=== PATIENT | female | born 1950 | race Caucasian/White ===

== ENCOUNTER → 2016-04-09 | Outpatient (CLI) | payer OTHER ==
[~2016-04-09] MED LIST: ACET-1256 PO; ADVIN50/60 INH; ALBINS/ NEB; ALBU0.08 INH; ALBU1AER9 INH; ALD2525 PO; ASPI81TA28 PO; ATV/1 PO; CHOL20009 PO; COEN30CA6 PO; CPAP; DEXT1TAB50 PO; DEXT30TA7 PO; DICL1GEL28 EX; FRS/40 PO; GABA-113 PO; GABA1CAP PO; INSU70IN2 SC; LISI-461 PO; MECL-72 PO; MELATAB2 PO; METF1TAB85 PO; MONT1TAB3 PO; MULT-240 PO; OXGN; PARO1TAB29 PO; POLY335019 PO; POTA10TA30 PO; PRD20 PO; PRED10TA PO; PRT40 PO; ROSU5TAB PO; ROSU5TAB9 PO; SPIR1TAB71 PO; SPRIN/30 INH; SYMIN160 INH; THEO400T PO; TRAM-10 PO; VLTG EX; ZOLP10TA PO
--- NOTE | 2016-04-14 13:31 | CODING QUERY MEDICAL NECESSITY ---
SUPPORTING DIAGNOSIS NEEDED Dr. Alfrde, A supporting diagnosis is required for the test/procedure performed on this patient in order for us to be reimbursed by the patient's insurance. Please provide a supporting diagnosis for the following test/procedure listed below next to the test name along with your signature. *If there is no additional diagnosis for this patient that would support the following test/procedure please document that below next to the test/procedure. Test(s)/Procedure(s) that require a supporting diagnosis: * ([id number]) VITAMIN D ASSAY DIAGNOSIS: DATE OF SERVICE: 04/09/16 Provider Signature: Date: Thank you Festus Garcia [facility] Information Management Once completed, please kindly fax back to [phone] For questions please call [phone]
== END | disposition home or self-care (01) ==
LOC: C.LABBFT 12:13
PROVIDERS: ATTEND Internal Medicine
DX: Z11.59 Encounter for screening for other viral diseases (principal); M85.80 Other specified disorders of bone density and structure, unspecified site

== ENCOUNTER 2016-04-30 17:44 | Emergency (ER) | payer OTHER ==
[~2016-04-30] VITALS: Ht 157.5 cm; Wt 150.0 kg
[~2016-04-30 17:44] MED LIST changes: -ACET-1256 PO; -ADVIN50/60 INH; -ALBINS/ NEB; -ASPI81TA28 PO; -ATV/1 PO; -CHOL20009 PO; -COEN30CA6 PO; -DEXT1TAB50 PO; -DEXT30TA7 PO; -FRS/40 PO; -GABA-113 PO; -INSU70IN2 SC; -LISI-461 PO; -MECL-72 PO; -METF1TAB85 PO; -MONT1TAB3 PO; -MULT-240 PO; -PARO1TAB29 PO; -POLY335019 PO; -POTA10TA30 PO; -PRD20 PO; -ROSU5TAB PO; -SPIR1TAB71 PO; -SPRIN/30 INH; -TRAM-10 PO; -VLTG EX; -ZOLP10TA PO
[2016-04-30 17:46] VITALS: TEMP 37; Ht 157.5 cm; Wt 150.0 kg
[2016-04-30] MEDS ORDERED: PANTOprazole INJ 80 MG in DEXTROSE 5% 100ML 100 ML IV SCH (18:15)
[2016-04-30] MEDS ORDERED: SODIUM CHLORIDE 0.9% 500ML 500 ML IV ONE (18:15)
[2016-04-30] MEDS ORDERED: ONDANSETRON INJ 8 MG in DEXTROSE 5% 50ML 50 ML IV ONE (18:15)
[2016-04-30] MEDS ORDERED: ALBUT/IPRATROP 3MG/0.5MG NEB 3 ML VIAL INH ONE (18:30)
[2016-04-30] MEDS ORDERED: MoRPHine SULFATE 4 MG/ML 1 ML CARP\\VIAL IV STA (18:30)
[2016-04-30 18:32] LABS: BASO % 0.4 %; BASO ABS # 0.04 K/uL (0-0.2); COMPLETE YES; EOS % 1.9 %; HEMATOCRIT 44.9 % (37-47); IG% 0.2 %; LYMPH % 36.3 %; LYMPH ABS # 4.02 K/uL (1.2-3.4); MEAN CELL VOLUME 83.5 fL (80-100); MEAN CORPUSCULAR HGB CONC 34.7 g/dl (32-36); MEAN PLATELET VOLUME 9.7 fL (7.4-10.4); MONO % 7.2 %; PLATELET COUNT 388 K/uL (130-400); RED BLOOD COUNT 5.38 M/uL (4.2-5.4); WHITE BLOOD COUNT 11.06 K/uL (4.8-10.8)
--- NOTE | 2016-04-30 18:32 | DIAGNOSTIC IMAGING REPORT ---
CHEST ONE VIEW PORTABLE CLINICAL HISTORY: Cough and shortness of breath COMPARISON STUDY: 12/28/2015 FINDINGS: The cardiac and mediastinal contours are normal. There is no evidence of focal pulmonary consolidation. There is no evidence of failure. No pleural effusions are visualized.[ There are left basilar atelectatic changes present. Arthritic changes are present within the shoulders. IMPRESSION: No active disease in the chest. Electronically signed by: Jv Greer M.D. 04/30/2016 6:31 PM Dictated Date/Time: 04/30/2016 6:31 PM
[2016-04-30 18:42] LABS: BUN/CREATININE RATIO 20.3 (10-20); CREATININE 1.2 mg/dl (0.60-1.20); MAGNESIUM 1.9 mg/dl (1.8-2.4); POTASSIUM 3.6 mmol/L (3.5-5.1)
[2016-04-30 18:45] LABS: ALB/GLOB RATIO 1.1 (0.9-2)
--- NOTE | 2016-04-30 19:09 | EMERGENCY ROOM VISIT NOTE ---
History First contact with patient: 17:52 Chief Complaint: ABDOMINAL PAIN Stated Complaint: STOMACH,DIZZY, LIGHT HEADED Nursing Triage Summary: Patient states for the last week has been having N/V/D, burning pain in stomach , and inability to eat or drink without having sick feeling. Patient states feels light headed and dizzy. History of Present Illness The patient is a 65 year old female who presents to the Emergency Room with complaints of abdominal pain. The pain has been ongoing for 1 week. She describes a burning 7/10 diffusely through the abdomen that radiates both into the flanks and the back. She has also had diarrhea. She denies blood in the stool. She also has persistent nausea but has been unable to vomit. Today en route, her grandson say she had a combination of vomiting as well as sputum expectoration. Of note, prior to onset of abdominal pain and diarrhea, she was on Doxycycline for a respiratory tract infection. From a respiratory standpoint, she notes that she remains short of breath, the antibiotic has not helped. She is bringing up yellow sputum. She notes wheezing. She denies chest pain, palpitations, syncope or worsening lower extremity edema. She denies dysuria or frequency. She has not had fevers but has had nightsweats and chills. Review of Systems A 10 point review of systems was negative unless stated above. Past Medical/Surgical History Medical Problems: (1) Acute Renal Failure, Unspecified (2) Chronic obstructive lung disease (3) COPD (chronic obstructive pulmonary disease) (4) Diab W Ophthal Manifest, Type Ii Or Unspec Type, Uncntrld (5) Diab W Ophthal Manifest, Type Ii Or Unspec Type, Uncntrld (6) Diabetes mellitus (7) Hyperlipidemia (8) Hypertension Nos (9) UTI (urinary tract infection) Surgeries - Cataracts - Hysterectomy D&C - Bilateral Knee arthoscopy Family History Cancer Diabetes mellitus Heart disease Social History Smoking Status: Former Smoker Alcohol Use: none Drug Use: none Marital Status: Housing Status: lives alone Occupation Status: disabled Current/Historical Medications Scheduled Aspirin (Aspirin Ec), 81 MG PO QAM Cholecalciferol (Vitamin D), 6,000 UNIT PO QAM Coenzyme Q10 (Ubidecarenone) (Coq10), 10 MG PO DAILY Furosemide (Lasix), 40 MG PO QAM Gabapentin (Neurontin), 1 CAP PO TID Insulin Isophan/Regular (Novolin 70/30), 0 SC QPM Lisinopril (Zestril), 5 MG PO QAM Melatonin (Melatonin Maximum Strengt), 1 TAB PO HS Metformin Hcl (Metformin Hcl Er), 1,000 MG PO QAM Montelukast Sodium (Singulair), 10 MG PO DAILY Multiple Vitamins W/ Minerals (Womens One Daily), 1 TAB PO DAILY Oxygen (Oxygen), 3 LITERS NA CONTINOUS Pantoprazole (Pantoprazole Sodium), 40 MG PO QAM Potassium Chloride (Potassium Chloride Cr), 10 MEQ PO QAM Spironolactone & Hydrochloroth (Spironolactone/Hydrochlor), 1 TAB PO DAILY Theophylline (Theophylline ER), 400 MG PO Q12 Tiotropium [place] (Spiriva [place]), 1 CAP INH QPM Zolpidem Tartrate (Ambien), 10 MG PO HS [Cpap], N/A HS Scheduled PRN Acetaminophen (Tylenol), 1,000 MG PO BID PRN for Headache or Pain Albuterol Sulf (Proventil 0.083% 2.5MG/3ML), 3 ML NEB Q4 PRN for Wheezing Budesonide/Formoterol Fumarate (Symbicort 160/4.5 Inhaler), 2 PUFFS INH BID PRN for SOB/Wheezing Dextromethorphan-Guaifenesin (Mucinex Dm Maximum Streng), 1 TAB PO BID PRN for prn Diclofenac Sod (Voltaren), 4 GM EX QID PRN for Pain Lorazepam (Ativan), 1 MG PO TID PRN for Anxiety Paroxetine (Paxil), 60 MG PO QAM PRN for PRN Tramadol (Ultram), 50 MG PO TID PRN for Pain Allergies Coded Allergies: Aspirin (Verified Allergy, Mild, SLEEPY, 04/30/16) Codeine (Verified Allergy, Mild, SLEEPY, 04/30/16) Adhesives (Verified Allergy, Unknown, HIVES, 04/30/16) Atorvastatin (Verified Allergy, Unknown, ., 04/30/16) Pravastatin (Verified Allergy, Unknown, ., 04/30/16) Iodinated Diagnostic Agents (Verified Adverse Reaction, Mild, MCGHEE, ) Physical Exam Vital Signs Date Time Temp Pulse Resp B/P Pulse Ox O2 Delivery O2 Flow Rate FiO2 04/30/16 21:12 94 19 126/59 97 Nasal Cannula 3.0 04/30/16 19:01 97 17 156/93 98 Nasal Cannula 3.0 04/30/16 18:08 85 04/30/16 17:46 37.0 86 18 127/52 98 Room Air Pain Rating (0-10): 7 Physical Exam Constitutional: Vital signs as above were reviewed. Patient is in moderate distress Eyes: Pupils equal, round, and reactive to light. Extraocular muscles are intact. No proptosis. No photophobia. ENT: Mucous membranes are moist. Oropharynx is clear. No sinus tenderness. TMs are clear bilaterally. Cardiovascular: Heart with a regular rate and rhythm. Pulses are palpable and symmetric in all 4 extremities. No pedal edema appreciated. Respiratory: Lungs clear to auscultation bilaterally. No wheezes, rales, or rhonchi appreciated. No accessory muscle use. No retractions. No increased work of breathing. Bilateral coarse expiratory wheezing GI: Abdomen soft, nondistended. Normal active bowel sounds. No abdominal hernias appreciated. No rebound. No guarding. Diffuse abdominal pain No guarding or rigidity : No CVA tenderness appreciated. Musculoskeletal: No midline cervical or vertebral tenderness. No gross deformities. No bony tenderness. No calf swelling or tenderness Integumentary: Warm, dry, no rashes appreciated. Neurological: Patient awake, alert, and oriented x 3. Cranial nerves two through 12 grossly intact. Motor 5 out of 5 strength bilateral upper and lower extremities. Lymph: No cervical lymphadenopathy appreciated. Medical Decision & Procedures ER Provider Diagnostic Interpretation: CT SCAN OF THE ABDOMEN AND PELVIS WITHOUT CONTRAST CLINICAL HISTORY: Abdominal pain and vomiting COMPARISON STUDY: No previous studies for comparison. TECHNIQUE: CT scan of the abdomen and pelvis was performed from the lung bases to the proximal femurs. Images are reviewed in the axial, sagittal, and coronal planes. IV contrast was not administered for this examination. CT DOSE: 1810.57 mGy.cm FINDINGS: Lower chest: The heart is normal in size and configuration, without pericardial effusion. The lung bases and pleural spaces are clear. There are bibasal atelectatic changes. The heart is mildly enlarged. Liver: The unenhanced liver is normal in size, contour, and attenuation. There is no intrahepatic biliary ductal dilatation. Gallbladder: The gallbladder is mildly distended. No calculi are visualized. Spleen: Normal in size and attenuation. Pancreas: Unremarkable. Adrenal glands: There is mild bilateral adrenal gland thickening Kidneys: No renal, ureteral, or bladder calculi are visualized. Bowel: There are no transition zones indicate bowel obstruction. There are scattered colonic diverticula present. There is no acute diverticulitis. There is no pathologic bowel wall thickening. The appendix is not visualized with certainty. There are no findings to indicate acute appendicitis. There is a small hiatal hernia. Peritoneum: There is no intraperitoneal free air or abdominal ascites. There is a fat-containing umbilical hernia. Vasculature: The abdominal aorta is normal in course and caliber. Adenopathy: None. Pelvic viscera: The uterus is surgically absent. Skeletal structures: There is a superior endplate L4 Schmorl's node. IMPRESSION: 1. No acute intra-abdominal or pelvic findings 2. No renal, ureteral, or bladder calculi identified 3. No evidence of bowel obstruction. No evidence of free air 4. No evidence of pathologic bowel wall thickening Electronically signed by: Jv Greer M.D. 04/30/2016 8:25 PM Dictated Date/Time: 04/30/2016 8:21 PM Laboratory Results 04/30/16 18:14 Red Blood Count 5.38, Mean Corpuscular Volume 83.5, Mean Corpuscular Hemoglobin 29.0, Mean Corpuscular Hemoglobin Concent 34.7, Mean Platelet Volume 9.7, Neutrophils (%) (Auto) 54.0, Lymphocytes (%) (Auto) 36.3, Monocytes (%) (Auto) 7.2, Eosinophils (%) (Auto) 1.9, Basophils (%) (Auto) 0.4, Neutrophils # (Auto) 5.97, Lymphocytes # (Auto) 4.02, Monocytes # (Auto) 0.80, Eosinophils # (Auto) 0.21, Basophils # (Auto) 0.04 04/30/16 18:14 Test 04/30/16 18:14 04/30/16 18:45 04/30/16 19:45 White Blood Count 11.06 K/uL (4.8-10.8) Red Blood Count 5.38 M/uL (4.2-5.4) Hemoglobin 15.6 g/dL (12.0-16.0) Hematocrit 44.9 % (37-47) Mean Corpuscular Volume 83.5 fL (80-100) Mean Corpuscular Hemoglobin 29.0 pg (25-34) Mean Corpuscular Hemoglobin Concent 34.7 g/dl (32-36) Platelet Count 388 K/uL (130-400) Mean Platelet Volume 9.7 fL (7.4-10.4) Neutrophils (%) (Auto) 54.0 % Lymphocytes (%) (Auto) 36.3 % Monocytes (%) (Auto) 7.2 % Eosinophils (%) (Auto) 1.9 % Basophils (%) (Auto) 0.4 % Neutrophils # (Auto) 5.97 K/uL (1.4-6.5) Lymphocytes # (Auto) 4.02 K/uL (1.2-3.4) Monocytes # (Auto) 0.80 K/uL (0.11-0.59) Eosinophils # (Auto) 0.21 K/uL (0-0.5) Basophils # (Auto) 0.04 K/uL (0-0.2) RDW Standard Deviation 42.8 fL (36.4-46.3) RDW Coefficient of Variation 14.1 % (11.5-14.5) Immature Granulocyte % (Auto) 0.2 % Immature Granulocyte # (Auto) 0.02 K/uL (0.00-0.02) Anion Gap 11.0 mmol/L (3-11) Est Creatinine Clear Calc Drug Dose 64.7 ml/min Estimated GFR () 54.2 Estimated GFR (Non- 46.7 BUN/Creatinine Ratio 20.3 (10-20) Calcium Level 10.0 mg/dl (8.5-10.1) Magnesium Level 1.9 mg/dl (1.8-2.4) Total Bilirubin 0.4 mg/dl (0.2-1) Aspartate Amino Transf (AST/SGOT) 14 U/L (15-37) Alanine Aminotransferase (ALT/SGPT) 17 U/L (12-78) Alkaline Phosphatase 104 U/L (45-117) Total Protein 7.1 gm/dl (6.4-8.2) Albumin 3.7 gm/dl (3.4-5.0) Globulin 3.4 gm/dl (2.5-4.0) Albumin/Globulin Ratio 1.1 (0.9-2) Lipase 99 U/L (73-393) Urine Color YELLOW Urine Appearance CLEAR (CLEAR) Urine pH 6.5 (4.5-7.5) Urine Specific [place] 1.003 (1.000-1.030) Urine Protein NEG (NEG) Urine Glucose (UA) NEG (NEG) Urine Ketones NEG (NEG) Urine Occult Blood NEG (NEG) Urine Nitrite NEG (NEG) Urine Bilirubin NEG (NEG) Urine Urobilinogen NEG (NEG) Urine Leukocyte Esterase NEG (NEG) Influenza Type A Antigen Neg for Influ A (NEG) Influenza Type B Antigen Neg for Influ B (NEG) Medications Administered Medications (Trade) Dose Ordered Sig/Javier Route Start Time Stop Time Status Last Admin Dose Admin Sodium Chloride 500 ml @ 999 mls/hr Q31M ONCE IV 04/30/16 18:15 04/30/16 18:45 DC 04/30/16 18:41 999 MLS/HR Ondansetron HCl 8 mg/Dextrose 54 ml @ 200 mls/hr ONE ONCE IV 04/30/16 18:15 04/30/16 18:31 DC 04/30/16 18:42 200 MLS/HR Pantoprazole Sodium/Dextrose (Protonix Inj/D5 100ml) 120 ml @ 400 mls/hr NOW IV 04/30/16 18:15 04/30/16 23:59 04/30/16 19:00 400 MLS/HR Albuterol/ Ipratropium (Duoneb) 3 ml ONE ONCE INH 04/30/16 18:30 04/30/16 18:31 DC 04/30/16 18:41 3 ML Morphine Sulfate (MoRPHine SULFATE INJ) 4 mg NOW STAT IV 04/30/16 18:30 04/30/16 18:32 DC 04/30/16 19:00 4 MG Ondansetron HCl (ZOFRAN ODT 4MG Home Pack) 1 homepack UD ONCE PO 04/30/16 21:15 04/30/16 21:16 DC 04/30/16 21:21 1 HOMEPACK ED Course 18:00 - Patient evaluated CBC, CMP, Lipase Influenza, Ciff toxin, UA Protonix 80 mg IV; Zofran 8 mg IV, Duoneb treatment x 1 NSS 500 ml bolus 18:30 - CT scan ordered with oral contrast 4 mg Morphine IV 19:50 - Patient re-assessed; pain markedly improved Patient is trying to drink contrast but unable to Changed order to CT abdo/pelvis without any IV or oral contrast 20:30 - CT reviewed; negative for acute process 21:15 - Discussed results with patient; reassured of negative labs Encouraged supportive treatment and management at home; patient agreeable to plan 20:20 - Patient discharged with Zofran home pack Discharged in stable condition Medical Decision A thorough history was obtained, physical examination performed and the EMR was reviewed. The case was reviewed multiple times over with Dr. Charles Lyman during the patient's ED visit. Patient is a presenting with abdominal pain and diarrhea over 1 week. She was treated with a bolus of NSS, Zofran and a single dose of Morphine. Her labs reveal a borderline leukocytosis but no anemia or thrombocytopenia. Metabolic panel was grossly unremarkable. There were no gross electrolyte abnormalities. She notes she was treated recently for a pulmonary infection with Doxycycline and had diarrhea after onset of this. Doxy can certainly cause diarrhea without colitis, but we were also considering the possibility of C.difficile. We were unable to get a stool sample from the patient as she could not have a BM , this in an of itself favoring against C.diff. Furthermore a CT scan of the abdomen was unremarkable. We counselled patient at discharge to stop taking Doxycycline at this time. Patient was counselled on symptom control and supportive treatment. We felt it was appropriate to discontinue the antibiotics in light of diarrhea. She was encouraged to push PO fluids over the next 5-7 and see her provider in that time to ensure that she continues to improve. Impression Primary Impression: Abdominal pain Additional Impression: Gastroenteritis Ruled Out: Colitis, Obstruction of bowel Departure Information Dispostion Home / Self-Care Condition GOOD Referrals Chaka Alfred M.D. (PCP) Patient Instructions [facility] Additional Instructions You came to the ED with abdominal pain. We checked your lab work and it was all normal. You noted that the antibiotic you were on was causing diarrhea. As such we did CT scan to ensure that you did not have colitis. You did not have diarrhea in the ED, so we could not check a stool sample. We treated your with pain medicine, IV fluids and Zofran which helped your symptoms. We felt that you were well enough to go home and continue your recovery there. As you go home please ensure to stay well hydrated. Please take Tylenol or Motrin for fever or pain. If your symptoms fail to improve, acutely worsen, please seek medical attention immediately by either calling your primary care provider or going to your nearest emergency department. Otherwise, please see your primary care provider in 3-5 days to ensure that your symptoms continue to improve. It was a pleasure to be involved in your care and we wish you all the best. Problem Qualifiers
[2016-04-30 19:18] LABS: URINE APPEARANCE CLEAR (CLEAR); URINE BILIRUBIN NEG (NEG); URINE COLOR YELLOW; URINE NITRITE NEG (NEG); URINE PH 6.5 (4.5-7.5); URINE SPECIFIC GRAVITY 1.003 (1.000-1.030); UROBILINOGEN NEG (NEG); ZZUR CULT IF INDIC CLEAN CATCH NO
[2016-04-30 19:31] LABS: MANUAL MICROSCOPIC REQUIRED? NO; REVIEW REQ? NO
--- NOTE | 2016-04-30 19:57 | EMERGENCY ROOM VISIT NOTE ---
ED Visit Note First contact with patient: 17:52 Patient evaluated with resident. 65-year-old presented into the emergency room for evaluation nonspecific abdominal complaints with mild to moderate diffuse abdominal tenderness but otherwise appears well. Her general affect appears to be anxiety laden. Screening evaluation emergency room was negative for medical emergencies. She was discharged in no acute distress.
--- NOTE | 2016-04-30 20:27 | DIAGNOSTIC IMAGING REPORT ---
CT SCAN OF THE ABDOMEN AND PELVIS WITHOUT CONTRAST CLINICAL HISTORY: Abdominal pain and vomiting COMPARISON STUDY: No previous studies for comparison. TECHNIQUE: CT scan of the abdomen and pelvis was performed from the lung bases to the proximal femurs. Images are reviewed in the axial, sagittal, and coronal planes. IV contrast was not administered for this examination. CT DOSE: 1810.57 mGy.cm FINDINGS: Lower chest: The heart is normal in size and configuration, without pericardial effusion. The lung bases and pleural spaces are clear. There are bibasal atelectatic changes. The heart is mildly enlarged. Liver: The unenhanced liver is normal in size, contour, and attenuation. There is no intrahepatic biliary ductal dilatation. Gallbladder: The gallbladder is mildly distended. No calculi are visualized. Spleen: Normal in size and attenuation. Pancreas: Unremarkable. Adrenal glands: There is mild bilateral adrenal gland thickening Kidneys: No renal, ureteral, or bladder calculi are visualized. Bowel: There are no transition zones indicate bowel obstruction. There are scattered colonic diverticula present. There is no acute diverticulitis. There is no pathologic bowel wall thickening. The appendix is not visualized with certainty. There are no findings to indicate acute appendicitis. There is a small hiatal hernia. Peritoneum: There is no intraperitoneal free air or abdominal ascites. There is a fat-containing umbilical hernia. Vasculature: The abdominal aorta is normal in course and caliber. Adenopathy: None. Pelvic viscera: The uterus is surgically absent. Skeletal structures: There is a superior endplate L4 Schmorl's node. IMPRESSION: 1. No acute intra-abdominal or pelvic findings 2. No renal, ureteral, or bladder calculi identified 3. No evidence of bowel obstruction. No evidence of free air 4. No evidence of pathologic bowel wall thickening Electronically signed by: Jv Greer M.D. 04/30/2016 8:25 PM Dictated Date/Time: 04/30/2016 8:21 PM
[2016-04-30 21:12] VITALS: BP 126/59; PULSE 94; O2SAT 97
[2016-04-30] MEDS ORDERED: ONDANSETRON HOME PACK 4MG OD TAB PO ONE (21:15)
[2016-06-13] MEDS ORDERED: INSU70IN2 SC (00:18)
[2016-06-13] MEDS ORDERED: PARO1TAB29 PO (00:22)
[2016-06-13] MEDS ORDERED: ACET-1256 PO (00:24)
[2016-06-13] MEDS ORDERED: ZOLP10TA PO (08:33)
[2016-06-13] MEDS ORDERED: DEXT1TAB50 PO (13:05)
[2016-06-13] MEDS ORDERED: SPRIN/30 INH (13:30)
[2016-12-23] MEDS ORDERED: GABA-113 PO (13:07)
[2016-12-23] MEDS ORDERED: POLY335019 PO (13:09)
== END 2016-04-30 21:28 | disposition home or self-care (01) ==
LOC: C.EDB 17:45
DX: R10.9 Unspecified abdominal pain (principal); K52.9 Noninfective gastroenteritis and colitis, unspecified; K56.60 Unspecified intestinal obstruction; N17.9 Acute kidney failure, unspecified; J44.9 Chronic obstructive pulmonary disease, unspecified; E11.9 Type 2 diabetes mellitus without complications; E78.5 Hyperlipidemia, unspecified; I10 Essential (primary) hypertension; Z87.891 Personal history of nicotine dependence; Z79.82 Long term (current) use of aspirin; Z79.4 Long term (current) use of insulin; Z79.899 Other long term (current) drug therapy; Z99.81 Dependence on supplemental oxygen

== ENCOUNTER 2016-06-13 15:58 | Inpatient (IN) | payer OTHER ==
[~2016-06-13] VITALS: Ht 162.6 cm; Wt 148.6 kg
[~2016-06-13 15:58] MED LIST changes: +ACET-1256 PO; -ALBU0.08 INH; -ALBU1AER9 INH; -ALD2525 PO; +DEXT1TAB50 PO; -DICL1GEL28 EX; +INSU70IN2 SC; +PARO1TAB29 PO; -PRED10TA PO; -ROSU5TAB9 PO; +SPRIN/30 INH; +ZOLP10TA PO
[2016-06-13] MEDS ORDERED: MULT-240 PO (16:03)
[2016-06-13] MEDS ORDERED: ATV/1 PO (16:03)
[2016-06-13] MEDS ORDERED: MONT1TAB3 PO (16:03)
[2016-06-13] MEDS ORDERED: SPIR1TAB71 PO (16:03)
[2016-06-13] MEDS ORDERED: COEN30CA6 PO (16:03)
[2016-06-13] MEDS ORDERED: ALBUT/IPRATROP 3MG/0.5MG NEB 3 ML VIAL INH STA (16:21)
[2016-06-13] MEDS ORDERED: METHYLPREDNISOLONE 125 MG VIAL IV STA (16:21)
[2016-06-13 16:31] LABS: BASO % 0.2 %; BASO ABS # 0.03 K/uL (0-0.2); COMPLETE YES; HEMATOCRIT 45.2 % (37-47); IG% 0.2 %; LYMPH % 31.7 %; LYMPH ABS # 3.92 K/uL (1.2-3.4); MEAN CELL VOLUME 81.3 fL (80-100); MEAN CORPUSCULAR HEMOGLOBIN 28.1 pg (25-34); MEAN CORPUSCULAR HGB CONC 34.5 g/dl (32-36); MEAN PLATELET VOLUME 9.8 fL (7.4-10.4); MONO % 5.9 %; PLATELET COUNT 403 K/uL (130-400); RED BLOOD COUNT 5.56 M/uL (4.2-5.4); WHITE BLOOD COUNT 12.36 K/uL (4.8-10.8)
[2016-06-13 16:39] LABS: PARTIAL THROMBOPLASTIN RATIO 1.1; PROTHROMBIN TIME (PATIENT) 10.7 SECONDS (9.0-12.0)
[2016-06-13 16:46] LABS: CALCIUM 10.4 mg/dl (8.5-10.1); CREATININE 1.3 mg/dl (0.60-1.20); POTASSIUM 3.3 mmol/L (3.5-5.1)
--- NOTE | 2016-06-13 16:55 | DIAGNOSTIC IMAGING REPORT ---
CHEST ONE VIEW PORTABLE CLINICAL HISTORY: eval for pnea pneumonia COMPARISON STUDY: 04/30/2016 FINDINGS: Plate like atelectasis left base. Lungs otherwise appear clear. No evidence for cardiac enlargement. IMPRESSION: Minimal atelectasis left base. Otherwise negative study Electronically signed by: Sukhdev Islas M.D. 06/13/2016 4:53 PM Dictated Date/Time: 06/13/2016 4:52 PM
[2016-06-13] MEDS ORDERED: FRS/40 PO (17:08)
[2016-06-13] MEDS ORDERED: ROSU5TAB PO (17:28)
[2016-06-13] MEDS ORDERED: DEXT30TA7 PO (17:28)
[2016-06-13] MEDS ORDERED: MECL-72 PO (17:28)
[2016-06-13] MEDS ORDERED: ADVIN50/60 INH (17:28)
[2016-06-13] MEDS ORDERED: ACETAMINOPHEN 325 MG TAB PO PRN (17:30)
[2016-06-13] MEDS ORDERED: HYDROmorphone INJ 2 MG/ML SYR/VIAL IV PRN (17:30)
[2016-06-13] MEDS ORDERED: LEVALBUTEROL 1.25MG/3ML NEB INH PRN (17:30)
[2016-06-13] MEDS ORDERED: ASPI81TA28 PO (18:18)
[2016-06-13] MEDS ORDERED: METF1TAB85 PO (18:18)
[2016-06-13] MEDS ORDERED: POTA10TA30 PO (18:25)
[2016-06-13] MEDS ORDERED: OPTIRAY 320 IV PRN (19:15)
[2016-06-13] MEDS ORDERED: DiphenhydrAMINE HCL 50 MG/ML VIAL IV PRN (19:15)
[2016-06-13] MEDS ORDERED: LORAZEPAM 1 MG TAB PO PRN (19:15)
--- NOTE | 2016-06-13 19:34 | EMERGENCY ROOM VISIT NOTE ---
History Report prepared by Elida: Saad Jackman Under the Supervision of: Dr. Nacho Andres M.D. First contact with patient: 16:14 Chief Complaint: SHORTNESS OF BREATH Stated Complaint: SOB, CHEST TIGHTNESS History of Present Illness The patient is a 65 year old female with a history of CHF and COPD who presents to the Emergency Room with complaints of intermittent shortness of breath for the past two days. The patient also notes intermittent left-sided chest tightness for two days. The patient's symptoms are worse with exertion. She also complains of low grade fevers and chills. The patient notes that her Lasix dose with doubled earlier this week to 80 mg for increased lower extremity edema. The patient had two breathing treatments this morning. She is not on steroids. The patient is not a smoker. She currently denies having any chest tightness. Source of History: patient Onset: two days ago Position: other (respiratory) Quality: other (short of breath) Timing: intermittent Modifying Factors (Worsening): exertion Associated Symptoms: + chest pain, + chills, + fevers Review of Systems See HPI for pertinent positives & negatives. A total of 10 systems reviewed and were otherwise negative. Past Medical & Surgical Medical Problems: (1) Acute Renal Failure, Unspecified (2) Chest pain (3) Chronic obstructive lung disease (4) COPD (chronic obstructive pulmonary disease) (5) Diab W Ophthal Manifest, Type Ii Or Unspec Type, Uncntrld (6) Diab W Ophthal Manifest, Type Ii Or Unspec Type, Uncntrld (7) Diabetes mellitus (8) Hyperlipidemia (9) Hypertension Nos (10) UTI (urinary tract infection) Family History Cancer Diabetes mellitus Heart disease Social History Smoking Status: Former Smoker Alcohol Use: none Drug Use: none Marital Status: Housing Status: lives alone Occupation Status: disabled Current/Historical Medications Scheduled Aspirin (Aspirin Ec), 81 MG PO QAM Budesonide/Formoterol Fumarate (Symbicort 160/4.5 Inhaler), 2 PUFFS INH BID Cholecalciferol (Vitamin D), 6,000 UNIT PO QAM Coenzyme Q10 (Ubidecarenone) (Coq10), 10 MG PO DAILY Fluticasone Prop/Salmeterol (Advair Diskus 500/50 60 Dose), 1 PUFFS INH BID Furosemide (Lasix), 40 MG PO QAM Gabapentin (Neurontin), 2 CAP PO TID Insulin Isophan/Regular (Novolin 70/30), 0 SC QPM Lisinopril (Zestril), 5 MG PO QAM Meclizine Hcl (Dramamine Less Drowsy), 25 MG PO PRN UD Metformin Hcl (Metformin Hcl Er), 1,000 MG PO QAM Montelukast Sodium (Singulair), 10 MG PO DAILY Multiple Vitamins W/ Minerals (Womens One Daily), 1 TAB PO DAILY Pantoprazole (Pantoprazole Sodium), 40 MG PO QAM Potassium Chloride (Potassium Chloride Cr), 10 MEQ PO QAM Rosuvastatin Calcium (Crestor), 10 MG PO DAILY Spironolactone & Hydrochloroth (Spironolactone/Hydrochlor), 1 TAB PO DAILY Theophylline (Theophylline ER), 400 MG PO Q12 Tiotropium Stokes (Spiriva Handihaler), 1 CAP INH QPM Zolpidem Tartrate (Ambien), 10 MG PO HS [Cpap], N/A HS Scheduled PRN Acetaminophen (Tylenol), 1,000 MG PO BID PRN for Headache or Pain Albuterol Sulf (Proventil 0.083% 2.5MG/3ML), 3 ML NEB Q4 PRN for Wheezing Dextromethorphan-Guaifenesin (Mucinex Dm Maximum Streng), 1 TAB PO BID PRN for prn Diclofenac Sod (Voltaren), 4 GM EX QID PRN for Pain Lorazepam (Ativan), 1 MG PO TID PRN for Anxiety Paroxetine (Paxil), 60 MG PO QAM PRN for PRN Tramadol (Ultram), 50 MG PO TID PRN for Pain Allergies Coded Allergies: Aspirin (Verified Allergy, Mild, SLEEPY, 04/30/16) Codeine (Verified Allergy, Mild, SLEEPY, 04/30/16) Adhesives (Verified Allergy, Unknown, HIVES, 04/30/16) Atorvastatin (Verified Allergy, Unknown, ., 04/30/16) Pravastatin (Verified Allergy, Unknown, ., 04/30/16) Iodinated Diagnostic Agents (Verified Adverse Reaction, Mild, MCGHEE, ) Physical Exam Vital Signs Date Time Temp Pulse Resp B/P Pulse Ox O2 Delivery O2 Flow Rate FiO2 06/13/16 18:35 74 19 95 06/13/16 18:34 148/94 06/13/16 18:30 161/88 06/13/16 18:05 87 19 95 06/13/16 18:00 156/101 06/13/16 17:58 85 18 95 06/13/16 17:30 137/105 06/13/16 17:00 169/91 06/13/16 16:58 81 16 96 06/13/16 16:42 84 23 140/102 96 Nasal Cannula 3.0 06/13/16 16:39 78 06/13/16 16:30 140/102 06/13/16 16:27 96 Nasal Cannula 3.0 06/13/16 15:58 93 Room Air 06/13/16 15:58 37.7 88 23 157/108 93 Room Air 06/13/16 15:58 93 Room Air Physical Exam Constitutional: Vital signs reviewed. Eyes: Pupils are equal round reactive to light. Conjunctiva are noninjected. ENT: Pharynx is clear without erythema or exudate. Mucous membranes are moist. Neck supple without meningeal signs. Respiratory: Expiratory wheezing bilaterally. Breath sounds are equal bilaterally. Cardiovascular: Regular rate and rhythm. No rubs or gallops. GI: Soft, nondistended and nontender. Bowel sounds are present. Musculoskeletal: Bilateral extremity edema. No lower extremity tenderness. Integumentary: No cyanosis. Neurological: The patient is awake and alert. No focal deficits. Psychiatric: Normal affect. Medical Decision & Procedures ER Provider Diagnostic Interpretation: X-ray results as stated below per interpretation by me and the radiologist: CHEST ONE VIEW PORTABLE CLINICAL HISTORY: eval for pnea pneumonia COMPARISON STUDY: 04/30/2016 FINDINGS: Plate like atelectasis left base. Lungs otherwise appear clear. No evidence for cardiac enlargement. IMPRESSION: Minimal atelectasis left base. Otherwise negative study Electronically signed by: Sukhdev Islas M.D. 06/13/2016 4:53 PM Dictated Date/Time: 06/13/2016 4:52 PM Laboratory Results 06/13/16 16:05 Red Blood Count 5.56, Mean Corpuscular Volume 81.3, Mean Corpuscular Hemoglobin 28.1, Mean Corpuscular Hemoglobin Concent 34.5, Mean Platelet Volume 9.8, Neutrophils (%) (Auto) 61.0, Lymphocytes (%) (Auto) 31.7, Monocytes (%) (Auto) 5.9, Eosinophils (%) (Auto) 1.0, Basophils (%) (Auto) 0.2, Neutrophils # (Auto) 7.53, Lymphocytes # (Auto) 3.92, Monocytes # (Auto) 0.73, Eosinophils # (Auto) 0.12, Basophils # (Auto) 0.03 06/13/16 16:05 Test 06/13/16 16:05 06/13/16 16:16 White Blood Count 12.36 K/uL (4.8-10.8) Red Blood Count 5.56 M/uL (4.2-5.4) Hemoglobin 15.6 g/dL (12.0-16.0) Hematocrit 45.2 % (37-47) Mean Corpuscular Volume 81.3 fL (80-100) Mean Corpuscular Hemoglobin 28.1 pg (25-34) Mean Corpuscular Hemoglobin Concent 34.5 g/dl (32-36) Platelet Count 403 K/uL (130-400) Mean Platelet Volume 9.8 fL (7.4-10.4) Neutrophils (%) (Auto) 61.0 % Lymphocytes (%) (Auto) 31.7 % Monocytes (%) (Auto) 5.9 % Eosinophils (%) (Auto) 1.0 % Basophils (%) (Auto) 0.2 % Neutrophils # (Auto) 7.53 K/uL (1.4-6.5) Lymphocytes # (Auto) 3.92 K/uL (1.2-3.4) Monocytes # (Auto) 0.73 K/uL (0.11-0.59) Eosinophils # (Auto) 0.12 K/uL (0-0.5) Basophils # (Auto) 0.03 K/uL (0-0.2) RDW Standard Deviation 42.7 fL (36.4-46.3) RDW Coefficient of Variation 14.6 % (11.5-14.5) Immature Granulocyte % (Auto) 0.2 % Immature Granulocyte # (Auto) 0.03 K/uL (0.00-0.02) Prothrombin Time 10.7 SECONDS (9.0-12.0) Prothromb Time International Ratio 1.0 (0.9-1.1) Activated Partial Thromboplast Time 28.1 SECONDS (21.0-31.0) Partial Thromboplastin Ratio 1.1 D-Dimer 640 ug/L FEU (0-500) Anion Gap 12.0 mmol/L (3-11) Est Creatinine Clear Calc Drug Dose 60.1 ml/min Estimated GFR () 49.2 Estimated GFR (Non- 42.4 BUN/Creatinine Ratio 13.0 (10-20) Calcium Level 10.4 mg/dl (8.5-10.1) Pro-B-Type Natriuretic Peptide 29 pg/ml (0-900) Bedside Troponin I 0.000 ng/ml (0-0.045) Laboratory results as reviewed by me. Medications Administered Medications (Trade) Dose Ordered Sig/Javier Route Start Time Stop Time Status Last Admin Dose Admin Methylprednisolone Sodium Succinate (Solu-Medrol IV) 125 mg NOW STAT IV 06/13/16 16:21 06/13/16 16:22 DC 06/13/16 16:33 125 MG Albuterol/ Ipratropium (Duoneb) 3 ml NOW STAT INH 06/13/16 16:21 06/13/16 16:22 DC 06/13/16 16:33 3 ML ECG Indication: chest pain Rate (beats per minute): 90 Rhythm: sinus rhythm Findings: PVC, Q waves (lead III) ED Course 1617: The patient was evaluated in room B4a. A complete history and physical exam was performed. 1621: DuoNeb 3 ml INH, Solu-Medrol 125 mg IV. 1700: Reevaluated the patient. The patient has diminished wheezing, no chest pain at this time. 1703: Discussed the case with Dr. Tran, [facility] Hospitalist. The patient will be evaluated. Medical Decision This is a 65-year-old female who presents with chest pain and shortness of breath. Differential diagnosis includes unstable angina, AL, COPD exacerbation , bronchitis, pneumonia, CHF. I did perform a limited focused review of portions of the patient's old chart on the electronic medical record. The patient has had no recent pertinent visits to this hospital. I did evaluate the patient as noted above. The patient is presenting with left- sided chest tightness intermittently for the past 2 days. She also has shortness of breath which is worse with exertion. She is wheezing on examination. IV access was established. The patient was placed on a continuous monitoring and evaluation advisor. I did treat her with a DuoNeb. She was also given Solu-Medrol IV. She denies having any chest discomfort at this time. I did order and personally review the patient's 12-lead EKG and chest x-ray as described above. I did order and review the patient's blood work as noted in the electronic medical record. Initial troponin is negative. I did reassess the patient. Her wheezing is significantly improved. I did discuss the test results with the patient. I did recommend hospitalization for further evaluation of her symptoms and repeat cardiac enzymes. I did discuss the case with the hospitalist and bottle caser. Consults Time Called: 1700 Consulting Physician[facility] Return[facility] Call: [phone]: Discussed the case with Dr. Tran, [facility]. The patient will be evaluated. Impression Primary Impression: Left sided chest pain Additional Impression: COPD exacerbation Scribe Attestation The scribe's documentation has been prepared under my direct and personally reviewed by me in its entirety. I confirm that the note above accurately reflects all work, treatment, procedures, and medical decision making performed by me. Departure Information Dispostion Being Evaluated By Hospitalist Referrals Chaka Alfred M.D. (PCP) Patient Instructions My [facility] Health Problem Qualifiers
[2016-06-13] MEDS ORDERED: PHARMACY GLYCEMIC MGMT CONSULT PRN (19:51)
--- NOTE | 2016-06-13 19:55 | History and Physical ---
History & Physical Date of Service Jun 13, 2016. History & Physical H&P dictated. KE
[2016-06-13] MEDS ORDERED: CHOL20009 PO (20:02)
[2016-06-13] MEDS ORDERED: ALBINS/ NEB (20:02)
[2016-06-13] MEDS ORDERED: VLTG EX (20:03)
[2016-06-13] MEDS ORDERED: LISI-461 PO (20:07)
[2016-06-13 20:09] VITALS: BP 140/87; PULSE 83; TEMP 36.8; O2SAT 98; Ht 162.6 cm; Wt 148.6 kg
[2016-06-13] MEDS ORDERED: TRAM-10 PO (20:09)
--- NOTE | 2016-06-13 20:37 | Pharmacy Progress Note ---
Glycemic Control Intl Consult Date of Service Jun 13, 2016. Scope Glycemic Pharmacist consulted by Dr Elizabeth on 06/13/16 for glycemic control and to write orders per [facility] inpatient glycemic control protocol Objective Weight (Kilograms): 151.500 Accuchecks BSG (last 24hrs): Test 06/13/16 16:05 06/13/16 20:22 Random Glucose 153 mg/dl (70-99) Bedside Glucose 188 mg/dl (70-90) Laboratory Data (last 24hrs) Test 06/13/16 16:05 Anion Gap 12.0 mmol/L BUN/Creatinine Ratio 13.0 Blood Urea Nitrogen 17 mg/dl Creatinine 1.30 mg/dl Potassium Level 3.3 mmol/L Sodium Level 138 mmol/L White Blood Count 12.36 K/uL Red Blood Count 5.56 M/uL Hemoglobin 15.6 g/dL Hematocrit 45.2 % Mean Corpuscular Volume 81.3 fL Mean Corpuscular Hemoglobin 28.1 pg Mean Corpuscular Hemoglobin Concent 34.5 g/dl Platelet Count 403 K/uL Mean Platelet Volume 9.8 fL Neutrophils (%) (Auto) 61.0 % Lymphocytes (%) (Auto) 31.7 % Monocytes (%) (Auto) 5.9 % Eosinophils (%) (Auto) 1.0 % Basophils (%) (Auto) 0.2 % Neutrophils # (Auto) 7.53 K/uL Lymphocytes # (Auto) 3.92 K/uL Monocytes # (Auto) 0.73 K/uL Eosinophils # (Auto) 0.12 K/uL Basophils # (Auto) 0.03 K/uL Recent Pertinent Medications Outpatient Anti-diabetic Regimen: * Novolin 70/30 20-80 units (depends on BSGs) * Metformin ER 1000 mg PO daily * A1c = 6.3% 12/2015 Risk Factors for Insulin Resistance: * Steroids * Infection * Diet Assessment & Plan ASSESSMENT: * 65 yo F known to our glycemic service from previous admissions, now here with chest pain/COPD exacerbation * She received IV steroids in the ED and will be continued on high dose steroids as an inpatient * I spoke with patient regarding outpatient glycemic control- she seems very unreliable/noncompliant * Usually takes between 20-80 units of Novolin 70/30- depending on her BSG (no exact scale to follow) * If her BSG is <120 mg/dL she does not take insulin * Of note, she takes the 70/30 at bedtime only (usually with meals) * From past admissions she is sensitive to steroids and requires a tight basal/ bolus regimen * I will initiate a tight weight-based regimen (stress of 2-3) * Most recent A1c from December 2015 so a new A1c will be ordered with AM labs PLAN FOR INPATIENT GLYCEMIC CONTROL: * Hold outpatient Metformin * Basal insulin with LANTUS 30 units SQ BID * Correctional Insulin with NOVOLOG per scale ACHS + 0000,0400 checks due to IV steroids and regimen initiation * Goal Range: Low 100 mg/dL - High 140 mg/dL * Correction Factor: 10 mg/dL/unit * Nutritional / Prandial insulin per carb ratio of 1 unit per 4 grams CHO consumed * A1c ordered with AM labs * Please note that the plan above was derived based on current level of insulin resistance and hospital stress. These recommendations are appropriate for inpatient admission only. Plan of care upon discharge will need to be reassessed to avoid potential outpatient hypo/hyperglycemia. Thank you.
[2016-06-13] MEDS: IPRATROPIUM BROMIDE NEB SOLN 0.02% 2.5 ML VIAL INH SCH (20:42)
[2016-06-13 20:43] VITALS: PULSE 87; O2SAT 97
[2016-06-13] MEDS: LEVALBUTEROL 1.25MG/0.5ML NEB INH SCH (20:43)
[2016-06-13] MEDS ORDERED: DiphenhydrAMINE HCL 50 MG/ML VIAL IV STA (20:44)
--- NOTE | 2016-06-13 20:51 | HISTORY & PHYSICAL EXAMINATION ---
DATE OF ADMISSION: 06/13/2016 CHIEF COMPLAINT: Shortness of breath, nausea and chest pain. HISTORY OF PRESENT ILLNESS: This 65-year-old female patient describes having a 2-3 days' history of increasing shortness of breath with intermittent chest heaviness, it is nonradiating. She also has noticed some nausea that she feels is associated with some anxiety. She states she has been having anxiety throughout the day and the night. I asked if there is a specific reason or an event that happened and she said no she just is feeling anxious and she feels that is contributing to her shortness of breath and perhaps even her chest pain. PAST MEDICAL HISTORY: Significant for; obstructive sleep apnea, COPD, insulin requiring type 2 diabetes mellitus, hypertension, hyperlipidemia, anxiety disorder, depression, diabetic peripheral neuropathy and obesity. FAMILY HISTORY: Consistent with heart disease and diabetes in her mother. Coronary artery disease in both her maternal grandmother and maternal grandfather. SOCIAL HISTORY: She lives alone, is . She is a former smoker, had a 32-[id number]-pumy history, but quit in 1979. She does not use alcohol or illicit substances. She is disabled. ALLERGIES: TO ASPIRIN, CODEINE, ADHESIVES, ATORVASTATIN, PRAVASTATIN AND IODINATED DIAGNOSTIC AGENTS. Now specifically, her aspirin allergy is mild sleepiness and in fact she is taking aspirin now. Secondly, she actually does not have an allergy to iodinated diagnostic agents; she just says that she feels hot which I understand is not an unusual situation, but not an allergy. CURRENT MEDICATIONS: As follows: Tylenol on a p.r.n. basis, Proventil nebs q. 4, aspirin 81 mg daily, Symbicort 2 puffs b.i.d., vitamin D, Coenzyme Q10 10 mg daily, Voltaren gel q.i.d. p.r.n., Advair Diskus 1 puff b.i.d., Lasix 40 mg daily, Neurontin 200 mg three times a day, Novolin 70/30 no doses given, Zestril she uses 5 mg in the morning, Ativan 1 mg every eight hours as needed, meclizine 25 mg p.r.n., metformin she takes 1000 mg in the morning, Singulair 10 mg daily, Protonix 40 mg daily, Paxil 60 mg in the morning, potassium chloride 10 mEq daily, Crestor 10 mg daily, spironolactone/hydrochlorothiazide one tablet daily, theophylline 400 mg q. 12 hours, Spiriva one inhalation daily, Ultram 50 mg p.o. t.i.d. p.r.n., Ambien 10 mg at bedtime and CPAP at bedtime. REVIEW OF SYSTEMS: A 10-system review was performed, all of which were negative except those positives that I have placed in the HPI. PHYSICAL EXAMINATION: VITAL SIGNS: Blood pressure was 157/108, temperature 37.7, pulse 85 and respirations 18. Her pulse ox was 96% on three liters nasal cannula. GENERAL: The patient is awake, alert and oriented x3. She is not in acute distress. HEENT: TMs intact. No inflammation. Extraocular muscles are intact. Pupils are equal, round and reactive to light and accommodation. Mucous membranes were moist. Throat was clear. NECK: No JVD or lymphadenopathy. LUNGS: Showed expiratory wheezing bilaterally with decreased breath sounds at the bases. HEART: Regular, normal S1, S2, without murmurs, rubs or gallops. ABDOMEN: Soft, nontender, nondistended, positive bowel sounds. EXTREMITIES: No clubbing or cyanosis. There is trace edema at her ankles. NEUROLOGIC: Cranial nerves II-XII are grossly intact and nonfocal. PSYCHIATRIC: The patient did not appear anxious, although she expressed that she felt that way. LABORATORY DATA: White count 12.36, hemoglobin 15.6, hematocrit 45.2 and platelet count of 403,000. Sodium 138, potassium 3.3, chloride 96, CO2 30, BUN 17 and creatinine 1.3. BNP was 29. Her D-dimer was elevated at 640. Chest x-ray revealed minimal atelectasis at the left base, otherwise negative study. ASSESSMENT AND PLAN: Exacerbation of chronic obstructive pulmonary disease, chest pain rule out myocardial infarction, elevated D-dimer with chest pain and shortness of breath. I will evaluate with a CTA of the chest. Mild hypokalemia, correcting with IV fluids. Anxiety, continue SSRI and as needed benzodiazepines. Deep venous thrombosis prophylaxis in the form of subQ heparin. TEDs and SCDs. She was given IV Solu-Medrol 60 mg q. 6 hours and a combination of Rocephin and Zithromax due to chronic obstructive pulmonary disease exacerbation. She is continued on nebs. Type 2 diabetes mellitus insulin requiring. I have placed her on a sliding scale and asked pharmacy for assistance with glycemic control in the face of acute illness and utilizing IV steroids. I will follow her laboratories. CARTER
[2016-06-13] MEDS: SODIUM CHLOR 0.45% + 20MEQ KCL 1,000 ML IV SCH (20:58)
[2016-06-13] MEDS: CEFTRIAXONE SOD INJ 1 GM in DEXTROSE 5% ADD-VANTAGE 50ML 50 ML IV SCH (20:59)
[2016-06-13] MEDS ORDERED: LEVALBUTEROL/IPRATROPIUM NEB INH SCH (21:00)
[2016-06-13] MEDS ORDERED: METHYLPREDNISOLONE IV 60 MG in SYRINGE 0 ML IV ONE (21:00)
[2016-06-13] MEDS: NITROGLYCERIN OINT 2% 1GM PACKET EXT SCH (21:01)
[2016-06-13] MEDS: THEOPHYLLINE 400 MG EXTENDED REL TAB PO SCH (21:01)
[2016-06-13] MEDS: GABAPENTIN 100 MG CAP PO SCH (21:02)
[2016-06-13] MEDS: TIOTROPIUM BROMIDE 5 PUFF/90 MCG INH INH SCH (21:03)
[2016-06-13] MEDS: BUDESONIDE/FORMOTEROL FUMARATE 160/4.5 60 PUFFS/INHALER INH SCH (21:04)
[2016-06-13] MEDS: INSULIN GLARGINE SOLOSTAR 100 UNITS/ML 3 ML PEN SC SCH (21:42)
[2016-06-13] MEDS: INSULIN ASPART 100 UNITS/ML 3 ML PEN SC SCH (21:52)
[2016-06-13] MEDS ORDERED: METHYLPREDNISOLONE IV 60 MG in SYRINGE 0 ML IV SCH (22:00)
[2016-06-13 23:07] VITALS: BP 93/60; PULSE 82; TEMP 36.9; O2SAT 97
--- NOTE | 2016-06-13 23:10 | DIAGNOSTIC IMAGING REPORT ---
CT ANGIOGRAM OF THE CHEST CLINICAL HISTORY: Dyspnea. Atypical chest pain. COMPARISON STUDY: Chest CT dated 04/30/2014. TECHNIQUE: Following the IV administration of 99 cc of Optiray 320, CT angiogram of the chest was performed from the upper abdomen to the thoracic inlet utilizing the pulmonary embolus protocol. Images are reviewed in the axial, sagittal, and coronal planes. 3-D MIPS images are created and assessed. IV contrast was administered without complication. The examination is degraded by large body habitus, and by streak artifact from the body wall abutting the CT gantry. CT DOSE: 735.00 mGy.cm FINDINGS: Thyroid: Imaged portions of the thyroid gland are normal in size and attenuation. Thoracic aorta: There is mild atherosclerotic calcification of the thoracic aorta, which is normal in caliber and demonstrates standard 3-vessel arch anatomy. No dissection is seen. Pulmonary vasculature: The main pulmonary arteries are dilated suggesting pulmonary artery hypertension. There are no filling defects identified in main, lobar, or segmental pulmonary branches to suggest pulmonary embolus. Heart: The heart is top normal in size and without pericardial effusion. There is calcification of the coronary arteries and mitral annulus. Lungs and pleural spaces: Evaluation of the lung parenchyma is modestly degraded by respiratory motion artifact. Scarring at the left lung base is similar to previous. There is no airspace consolidation typical for pneumonia or pleural effusion. The trachea and central airways are clear. Mediastinum: There is no mediastinal lymphadenopathy. Grecia: Clear. Axillae: There is no axillary lymphadenopathy. Upper abdomen: There is a small hiatal hernia. Partially visualized upper abdominal viscera is otherwise within normal limits. Skeletal structures: The skeletal structures are osteopenic. Degenerative change is noted throughout the thoracic spine and in the shoulders. No lytic or blastic bony lesions are seen. IMPRESSION: 1. There is no evidence of pulmonary embolus in the main, lobar, or segmental pulmonary arteries. 2. There is no airspace consolidation or pleural effusion. Electronically signed by: Car Cantrell M.D. 06/13/2016 11:08 PM Dictated Date/Time: 06/13/2016 11:04 PM
[2016-06-13] MEDS: ZOLPIDEM TARTRATE 10 MG TAB PO SCH (23:11)
[2016-06-13] MEDS: AZITHROMYCIN IV 500 MG in DEXTROSE 5% 250ML 250 ML IV SCH (23:11)
[2016-06-13] MEDS: HEPARIN SOD 5000 UNIT/0.5 ML CARP SQ SCH (23:16)
[2016-06-14] VITALS (11 sets, daily range): BP systolic 102–116; BP diastolic 62–75; PULSE 69–92; TEMP 36.4–37; O2SAT 64–98
[2016-06-14] MEDS: INSULIN ASPART 100 UNITS/ML 3 ML PEN SC SCH ×6 (00:41→20:38)
[2016-06-14] MEDS: LEVALBUTEROL 1.25MG/0.5ML NEB INH SCH ×4 (01:56→19:38)
[2016-06-14] MEDS: IPRATROPIUM BROMIDE NEB SOLN 0.02% 2.5 ML VIAL INH SCH ×4 (01:56→19:38)
[2016-06-14] MEDS: NITROGLYCERIN OINT 2% 1GM PACKET EXT SCH ×4 (03:20→20:44)
[2016-06-14] MEDS: METHYLPREDNISOLONE IV 60 MG in SYRINGE 0 ML IV SCH ×4 (03:23→22:01)
[2016-06-14] MEDS: HEPARIN SOD 5000 UNIT/0.5 ML CARP SQ SCH ×3 (06:28→22:04)
[2016-06-14 06:29] LABS: COMPLETE YES; HEMATOCRIT 42.9 % (37-47); IG% 0.3 %; LYMPH % 14.8 %; LYMPH ABS # 1.33 K/uL (1.2-3.4); MEAN CELL VOLUME 81.7 fL (80-100); MEAN CORPUSCULAR HEMOGLOBIN 28.4 pg (25-34); MEAN CORPUSCULAR HGB CONC 34.7 g/dl (32-36); MEAN PLATELET VOLUME 10.2 fL (7.4-10.4); MONO % 0.8 %; NEUT % 84.1 %; PLATELET COUNT 388 K/uL (130-400); RED BLOOD COUNT 5.25 M/uL (4.2-5.4); WHITE BLOOD COUNT 9.01 K/uL (4.8-10.8)
[2016-06-14 07:01] LABS: ESTIMATED AVERAGE GLUCOSE 123 mg/dl; HA1C FLAG Normal (Normal)
[2016-06-14 07:02] LABS: BLOOD UREA NITROGEN 24 mg/dl (7-18); BUN/CREATININE RATIO 18.2 (10-20); CALCIUM 10.3 mg/dl (8.5-10.1); CARBON DIOXIDE 29 mmol/L (21-32); CHLORIDE 97 mmol/L (98-107); GLUCOSE 167 mg/dl (70-99); POTASSIUM 3.5 mmol/L (3.5-5.1); SODIUM 139 mmol/L (136-145)
[2016-06-14] MEDS: INSULIN GLARGINE SOLOSTAR 100 UNITS/ML 3 ML PEN SC SCH ×2 (07:59→20:36)
[2016-06-14] MEDS: BUDESONIDE/FORMOTEROL FUMARATE 160/4.5 60 PUFFS/INHALER INH SCH ×2 (08:01→20:35)
[2016-06-14] MEDS: ROSUVASTATIN CALCIUM 10 MG TAB PO SCH (08:04)
[2016-06-14] MEDS: SPIRONOLACTONE/HCTZ 25-25 PO SCH (08:04)
[2016-06-14] MEDS: ASPIRIN 81 MG ECTAB PO SCH (08:04)
[2016-06-14] MEDS: FUROSEMIDE 40 MG TAB PO SCH (08:05)
[2016-06-14] MEDS: GABAPENTIN 100 MG CAP PO SCH ×3 (08:05→20:42)
[2016-06-14] MEDS: PANTOprazole SOD 40 MG TAB PO SCH (08:06)
[2016-06-14] MEDS: PAROXETINE 20 MG TAB PO SCH (08:06)
[2016-06-14] MEDS: MONTELUKAST SOD 10 MG TAB PO SCH (08:06)
[2016-06-14] MEDS: THEOPHYLLINE 400 MG EXTENDED REL TAB PO SCH ×2 (08:07→20:42)
[2016-06-14] MEDS: LISINOPRIL 5 MG TAB PO SCH (08:07)
[2016-06-14] MEDS: TRAMADOL HCL 50 MG TAB PO PRN (10:00)
[2016-06-14] MEDS: SODIUM CHLOR 0.45% + 20MEQ KCL 1,000 ML IV SCH (13:59)
--- NOTE | 2016-06-14 14:47 | Pharmacy Progress Note ---
Glycemic Control: Progress Nt Date of Service Jun 14, 2016. Scope Glycemic Pharmacist consulted by Dr Elizabeth on 06/13/16 for glycemic control and to write orders per [facility] inpatient glycemic control protocol. Objective Accuchecks BSG (last 24hrs): Test 06/13/16 16:05 06/13/16 20:22 06/14/16 00:27 06/14/16 03:22 Random Glucose 153 mg/dl (70-99) Bedside Glucose 188 mg/dl (70-90) 277 mg/dl (70-90) 217 mg/dl (70-90) Test 06/14/16 05:55 06/14/16 06:29 06/14/16 11:35 Random Glucose 167 mg/dl (70-99) Bedside Glucose 167 mg/dl (70-90) 203 mg/dl (70-90) Laboratory Data (last 24hrs) Test 06/13/16 16:05 06/14/16 05:53 06/14/16 05:55 Anion Gap 12.0 mmol/L 13.0 mmol/L BUN/Creatinine Ratio 13.0 18.2 Blood Urea Nitrogen 17 mg/dl 24 mg/dl Creatinine 1.30 mg/dl 1.30 mg/dl Potassium Level 3.3 mmol/L 3.5 mmol/L Sodium Level 138 mmol/L 139 mmol/L White Blood Count 12.36 K/uL 9.01 K/uL Red Blood Count 5.56 M/uL 5.25 M/uL Hemoglobin 15.6 g/dL 14.9 g/dL Hematocrit 45.2 % 42.9 % Mean Corpuscular Volume 81.3 fL 81.7 fL Mean Corpuscular Hemoglobin 28.1 pg 28.4 pg Mean Corpuscular Hemoglobin Concent 34.5 g/dl 34.7 g/dl Platelet Count 403 K/uL 388 K/uL Mean Platelet Volume 9.8 fL 10.2 fL Neutrophils (%) (Auto) 61.0 % 84.1 % Lymphocytes (%) (Auto) 31.7 % 14.8 % Monocytes (%) (Auto) 5.9 % 0.8 % Eosinophils (%) (Auto) 1.0 % 0.0 % Basophils (%) (Auto) 0.2 % 0.0 % Neutrophils # (Auto) 7.53 K/uL 7.58 K/uL Lymphocytes # (Auto) 3.92 K/uL 1.33 K/uL Monocytes # (Auto) 0.73 K/uL 0.07 K/uL Eosinophils # (Auto) 0.12 K/uL 0.00 K/uL Basophils # (Auto) 0.03 K/uL 0.00 K/uL Hemoglobin A1c 5.9 % HbA1c: Test 06/14/16 05:53 Hemoglobin A1c 5.9 % (4.5-5.6) H Recent Pertinent Medications Outpatient Anti-diabetic Regimen: * Metformin ER 1Gm qam, Novolin 70%/30% from 20-80 units hs depending on blood sugar * A1c = 5.9 % 06/14/16 (which may indicate too tight glycemic control with some lows) The patient is currently receiving: * Basal insulin: Lantus 30 units every 12 hours * Correctional Insulin: Novolog Correction per scale ACHS Goal Range: Low 100 mg/dL - High 140 mg/dL Correction Factor: 10 mg/dL/unit * Prandial insulin: Per carb ratio of 1 unit per 4 grams CHO consumed * Oral Agents: none Risk Factors for Insulin Resistance: * Steroids: Solumedrol 60 mg q6h * Infection: COPD exacerbation, on Zithromax and Rocephin * IVF: 1/2NS +KCl @75 ml/hr, Zithromax and Rocephin mixed in D5W * Diet: type 2 diabetic AHA Assessment & Plan ASSESSMENT: * ADA & AACE recommend a goal blood sugar range 140-180 mg/dl for the majority of critically ill & non-critically ill patients. However, more stringent targets may be selected in individual cases. * Patient received 52 units of insulin after admission on 06/13. BSG's ranged from 167-277 mg/dl over past 24 hr. Will tighten carb ratio a bit (based on previous admission). I hesitate to be too aggressive given low A1c and probable low BSG's at home. Will reassess in am. PLAN FOR INPATIENT GLYCEMIC CONTROL: * Continuing Lantus 30 units SQ BID * Continuing correction factor 10 mg/dl/unit * Changing carb ratio to 1 unit per 3 grams CHO consumed * Continuing goal range Low 100 mg/dL - High 140 mg/dL * Please note that the plan above was derived based on current level of insulin resistance and hospital stress. These recommendations are appropriate for inpatient admission only. Plan of care upon discharge will need to be reassessed to avoid potential outpatient hypo/hyperglycemia. Thank you.
[2016-06-14] MEDS: TIOTROPIUM BROMIDE 5 PUFF/90 MCG INH INH SCH (20:39)
[2016-06-14] MEDS: CEFTRIAXONE SOD INJ 1 GM in DEXTROSE 5% ADD-VANTAGE 50ML 50 ML IV SCH (20:40)
[2016-06-14] MEDS: ZOLPIDEM TARTRATE 10 MG TAB PO SCH (20:42)
--- NOTE | 2016-06-14 21:27 | Progress Note ---
Subjective Date of Service: Jun 14, 2016. Subjective Pt evaluation today including: conversation w/ patient, physical exam, chart review, lab review, review of studies, review of inpatient medication list Pain: No pain at present Voiding: no voiding problems, no incontinence Pt is seen and examined by me. Pt feels much better, her SOB improved. Pt denies CP, dizziness and LOC. Pt denies abdominal pain, nausea, vomiting and diarrhea. Pt has a good appetite and sleep. Problem List Medical Problems: (1) Abdominal pain Status: Acute (2) COPD exacerbation Status: Acute (3) Failure of outpatient treatment Status: Acute (4) Gastroenteritis Status: Acute (5) Left sided chest pain Status: Acute (6) Pneumonia Status: Acute Review of Systems Constitutional: No chills, No fever Respiratory: + cough (dry cough), + shortness of breath, + wheezing Cardiac: No chest pain, No orthopnea, No palpitations Abdomen: No constipation, No diarrhea, No nausea, No pain, No vomiting Female : No dysuria, No urinary frequency Psychiatric: No depression symptoms Medications Medications (Trade) Dose Ordered Sig/Javier Route Start Time Stop Time Status Last Admin Dose Admin Aspirin (Ecotrin Tab) 81 mg QAM PO 06/14/16 09:00 07/14/16 08:59 06/14/16 08:04 81 MG Furosemide (Lasix Tab) 40 mg QAM PO 06/14/16 09:00 07/14/16 08:59 06/14/16 08:05 40 MG Lisinopril (Zestril Tab) 5 mg QAM PO 06/14/16 09:00 07/14/16 08:59 06/14/16 08:07 5 MG Montelukast Sodium (Singulair Tab) 10 mg DAILY PO 06/14/16 09:00 07/14/16 08:59 06/14/16 08:06 10 MG Pantoprazole Sodium (Protonix Tab) 40 mg QAM PO 06/14/16 09:00 07/14/16 08:59 06/14/16 08:06 40 MG Paroxetine HCl (pAXil TAB) 60 mg QAM PO 06/14/16 09:00 07/14/16 08:59 06/14/16 08:06 60 MG Rosuvastatin Calcium (Crestor Tab) 10 mg DAILY PO 06/14/16 09:00 07/14/16 08:59 06/14/16 08:04 10 MG HCTZ/ Spironolactone 1 tab 1 tab DAILY PO 06/14/16 09:00 07/14/16 08:59 06/14/16 08:04 1 TAB Azithromycin/ Dextrose (Zithromax IV/D5 250ml) 255 ml @ 125 mls/hr Q24H IV 06/13/16 22:00 06/20/16 21:59 06/13/16 23:11 125 MLS/HR Heparin Sodium (Porcine) (Heparin Sq 5000 Unit/0.5ml) 5,000 unit Q8 SQ 06/13/16 22:00 07/13/16 21:59 06/14/16 14:09 5,000 UNIT Insulin Aspart SLIDING SCALE G... 0000,0400 SC 06/14/16 00:00 07/14/16 00:00 06/14/16 03:25 8 UNITS Methylprednisolone Sodium Succinate/ Syringe (Solu-Medrol IV/ Syringe) 0.96 ml @ 1.5 mls/min Q6H IV 06/14/16 04:00 07/14/16 03:59 06/14/16 16:03 1.5 MLS/MIN Objective Vital Signs Date Time Temp Pulse Resp B/P Pulse Ox O2 Delivery O2 Flow Rate FiO2 06/14/16 20:11 36.9 82 18 111/62 98 CPAP 06/14/16 19:39 78 18 98 BiPAP/CPAP 3.0 06/14/16 16:00 Nasal Cannula 3.0 06/14/16 15:48 36.8 78 16 116/70 98 CPAP 06/14/16 14:22 69 18 64 BiPAP/CPAP 3.0 06/14/16 12:13 36.9 88 18 112/69 97 4.0 06/14/16 12:00 Nasal Cannula 3.0 06/14/16 08:03 37.0 92 18 112/75 95 Nasal Cannula 4.0 06/14/16 08:00 Nasal Cannula 3.0 06/14/16 07:52 88 18 95 BiPAP/CPAP 3.0 06/14/16 04:00 CPAP 3.0 06/14/16 03:19 36.4 79 19 115/75 97 CPAP 06/14/16 01:56 83 18 95 BiPAP/CPAP 3.0 06/14/16 00:30 111/66 06/13/16 23:59 CPAP 3.0 06/13/16 23:07 36.9 82 18 93/60 97 CPAP Physical Exam General Appearance: no apparent distress, + obese Neck: no adenopathy, no JVD Respiratory/Chest: no respiratory distress, no accessory muscle use, + wheezing (bilateral mid lung) Cardiovascular: regular rate, rhythm, no edema, no JVD, no murmur Abdomen: normal bowel sounds, non tender, soft Extremities: normal range of motion, normal inspection, no pedal edema Neurologic/Psychiatric: alert, normal mood/affect, oriented x 3 Skin: no rash Laboratory Results Last 24 Hours Test 06/13/16 21:57 06/14/16 00:27 06/14/16 03:22 06/14/16 05:53 Troponin I < 0.015 ng/ml Bedside Glucose 277 mg/dl 217 mg/dl Estimated Average Glucose 123 mg/dl Hemoglobin A1c 5.9 % Test 06/14/16 05:55 06/14/16 06:29 06/14/16 11:35 06/14/16 13:51 White Blood Count 9.01 K/uL Red Blood Count 5.25 M/uL Hemoglobin 14.9 g/dL Hematocrit 42.9 % Mean Corpuscular Volume 81.7 fL Mean Corpuscular Hemoglobin 28.4 pg Mean Corpuscular Hemoglobin Concent 34.7 g/dl Platelet Count 388 K/uL Mean Platelet Volume 10.2 fL Neutrophils (%) (Auto) 84.1 % Lymphocytes (%) (Auto) 14.8 % Monocytes (%) (Auto) 0.8 % Eosinophils (%) (Auto) 0.0 % Basophils (%) (Auto) 0.0 % Neutrophils # (Auto) 7.58 K/uL Lymphocytes # (Auto) 1.33 K/uL Monocytes # (Auto) 0.07 K/uL Eosinophils # (Auto) 0.00 K/uL Basophils # (Auto) 0.00 K/uL RDW Standard Deviation 43.4 fL RDW Coefficient of Variation 14.7 % Immature Granulocyte % (Auto) 0.3 % Immature Granulocyte # (Auto) 0.03 K/uL Sodium Level 139 mmol/L Potassium Level 3.5 mmol/L Chloride Level 97 mmol/L Carbon Dioxide Level 29 mmol/L Anion Gap 13.0 mmol/L Blood Urea Nitrogen 24 mg/dl Creatinine 1.30 mg/dl Est Creatinine Clear Calc Drug Dose 61.3 ml/min Estimated GFR () 49.2 Estimated GFR (Non- 42.4 BUN/Creatinine Ratio 18.2 Random Glucose 167 mg/dl Calcium Level 10.3 mg/dl Troponin I < 0.015 ng/ml < 0.015 ng/ml Bedside Glucose 167 mg/dl 203 mg/dl Test 06/14/16 16:06 06/14/16 20:21 Bedside Glucose 201 mg/dl 175 mg/dl Assessment and Plan 1) COPD exacerbation. - Continue neb treatment, IV solumedrol q6 hr, IV azithromycin and ceftriaxone , Xopenex, theophylline and montelukast. - will revaluate in am for possible decreasing steroid if resp status improved -CT angiogram of the Chest 1. There is no evidence of pulmonary embolus in the main, lobar, or segmental pulmonary arteries. 2. There is no airspace consolidation or pleural effusion - No elevated WBC and no shift 2) DM type 2 As per Pharmacy diabetic consult recommendation. Hold outpatient Metformin, Basal insulin with LANTUS 30 units SQ BID Correctional Insulin with NOVOLOG per scale ACHS + 0000,0400 checks due to IV steroids and regimen initiation Goal Range: Low 100 mg/dL - High 140 mg/dL Correction Factor: 10 mg/dL/unit Nutritional / Prandial insulin per carb ratio of 1 unit per 3 grams CHO consumed 3) Abdominal pain - resolved 4) Chest pain. - neg troponins. - No tele events noticed overnight - CP could be secondary to COPD, no resolved 5). HTN - well controlled , cont current medication 6) Peripheral neuropathy - As per home medication. 7) obesity 8) DVT proph - Heparin Continued [facility] stay due to: multiple IV medications needed Discharge planning: home
[2016-06-14] MEDS: AZITHROMYCIN IV 500 MG in DEXTROSE 5% 250ML 250 ML IV SCH (22:01)
[2016-06-15] VITALS (10 sets, daily range): BP systolic 96–123; BP diastolic 53–70; PULSE 70–98; TEMP 36.9–37.3; O2SAT 92–97
[2016-06-15] MEDS: INSULIN ASPART 100 UNITS/ML 3 ML PEN SC SCH ×6 (00:20→21:12)
[2016-06-15] MEDS: SODIUM CHLOR 0.45% + 20MEQ KCL 1,000 ML IV SCH ×2 (00:21→20:55)
[2016-06-15] MEDS: IPRATROPIUM BROMIDE NEB SOLN 0.02% 2.5 ML VIAL INH SCH ×3 (01:21→20:03)
[2016-06-15] MEDS: LEVALBUTEROL 1.25MG/0.5ML NEB INH SCH ×3 (01:21→20:03)
[2016-06-15] MEDS: METHYLPREDNISOLONE IV 60 MG in SYRINGE 0 ML IV SCH (03:59)
[2016-06-15] MEDS: NITROGLYCERIN OINT 2% 1GM PACKET EXT SCH ×4 (04:00→19:49)
[2016-06-15] MEDS: HEPARIN SOD 5000 UNIT/0.5 ML CARP SQ SCH ×3 (05:33→21:21)
[2016-06-15] MEDS: INSULIN GLARGINE SOLOSTAR 100 UNITS/ML 3 ML PEN SC SCH ×2 (08:03→20:01)
[2016-06-15] MEDS: BUDESONIDE/FORMOTEROL FUMARATE 160/4.5 60 PUFFS/INHALER INH SCH ×2 (08:06→19:52)
[2016-06-15] MEDS: SPIRONOLACTONE/HCTZ 25-25 PO SCH (08:07)
[2016-06-15] MEDS: ROSUVASTATIN CALCIUM 10 MG TAB PO SCH (08:07)
[2016-06-15] MEDS: ASPIRIN 81 MG ECTAB PO SCH (08:07)
[2016-06-15] MEDS: FUROSEMIDE 40 MG TAB PO SCH (08:08)
[2016-06-15] MEDS: MONTELUKAST SOD 10 MG TAB PO SCH (08:09)
[2016-06-15] MEDS: PANTOprazole SOD 40 MG TAB PO SCH (08:09)
[2016-06-15] MEDS: GABAPENTIN 100 MG CAP PO SCH ×3 (08:09→19:54)
[2016-06-15] MEDS: PAROXETINE 20 MG TAB PO SCH (08:09)
[2016-06-15] MEDS: LISINOPRIL 5 MG TAB PO SCH (08:10)
[2016-06-15] MEDS: THEOPHYLLINE 400 MG EXTENDED REL TAB PO SCH ×2 (08:10→19:55)
[2016-06-15] MEDS: TRAMADOL HCL 50 MG TAB PO PRN (08:14)
[2016-06-15] MEDS ORDERED: NURSING VERBAL MED ORDER ONE (09:45)
[2016-06-15] MEDS: METHYLPREDNISOLONE IV 40 MG in SYRINGE 0 ML IV SCH ×2 (12:26→19:53)
--- NOTE | 2016-06-15 15:58 | Progress Note ---
Subjective Date of Service: Jun 15, 2016. Subjective Pt evaluation today including: conversation w/ patient, physical exam, chart review, lab review, review of studies, review of inpatient medication list Pain: no pain reported PO Intake: yes Voiding: no voiding problems, no incontinence Pt is seen and examined by me. Pt feels much better, her SOB improved . Pt denies CP, dizziness and LOC. Pt denies abdominal pain, nausea, vomiting and diarrhea. Pt has a good appetite and sleep. Problem List Medical Problems: (1) Abdominal pain Status: Acute (2) COPD exacerbation Status: Acute (3) Failure of outpatient treatment Status: Acute (4) Gastroenteritis Status: Acute (5) Left sided chest pain Status: Acute (6) Pneumonia Status: Acute Review of Systems Constitutional: No chills, No fever Respiratory: + cough , improved shortness of breath, + wheezing Cardiac: No chest pain, No orthopnea, No palpitations Abdomen: No constipation, No diarrhea, No nausea, No pain, No vomiting Female : No dysuria, No urinary frequency Psychiatric: No depression symptoms Medications Medications (Trade) Dose Ordered Sig/Javier Route Start Time Stop Time Status Last Admin Dose Admin Methylprednisolone Sodium Succinate/ Syringe (Solu-Medrol IV/ Syringe) 0.64 ml @ 1.5 mls/min Q8@0400,1200,2000 IV 06/15/16 12:00 07/15/16 11:59 06/15/16 12:26 1.5 MLS/MIN Objective Vital Signs Date Time Temp Pulse Resp B/P Pulse Ox O2 Delivery O2 Flow Rate FiO2 06/15/16 12:03 37.2 84 18 114/68 96 Nasal Cannula 3.0 06/15/16 12:00 Nasal Cannula 3.0 06/15/16 08:13 37.3 89 18 96/53 92 Nasal Cannula 3.0 06/15/16 08:00 Nasal Cannula 3.0 06/15/16 06:59 79 18 95 BiPAP/CPAP 3.0 06/15/16 04:00 CPAP 3.0 06/15/16 03:20 37.1 70 18 113/62 97 CPAP 06/15/16 01:21 79 18 95 BiPAP/CPAP 3.0 06/14/16 23:59 CPAP 3.0 06/14/16 23:58 37.0 75 16 102/62 94 CPAP 06/14/16 20:11 36.9 82 18 111/62 98 CPAP 06/14/16 20:00 CPAP 3.0 06/14/16 19:39 78 18 98 BiPAP/CPAP 3.0 06/14/16 16:00 Nasal Cannula 3.0 Physical Exam General Appearance: no apparent distress Neck: supple Respiratory/Chest: chest non-tender, no respiratory distress, no accessory muscle use, + wheezing Cardiovascular: regular rate, rhythm, no murmur Abdomen: normal bowel sounds, non tender, soft Extremities: normal range of motion, non-tender Neurologic/Psychiatric: alert, normal mood/affect, oriented x 3 Laboratory Results Last 24 Hours Test 06/14/16 16:06 06/14/16 20:21 06/15/16 00:01 06/15/16 03:54 Bedside Glucose 201 mg/dl 175 mg/dl 241 mg/dl 174 mg/dl Test 06/15/16 06:38 06/15/16 11:27 Bedside Glucose 173 mg/dl 211 mg/dl Assessment and Plan 1) COPD exacerbation. - Continue neb treatment, will taper sterids to 40mg IV TID, IV azithromycin and ceftriaxone , Xopenex, theophylline and montelukast. -CT angiogram of the Chest 1. There is no evidence of pulmonary embolus in the main, lobar, or segmental pulmonary arteries. 2. There is no airspace consolidation or pleural effusion - No elevated WBC and no shift - okay to Dc tele. 2) DM type 2 As per Pharmacy diabetic consult recommendation. Hold outpatient Metformin, Basal insulin with LANTUS 30 units SQ BID Correctional Insulin with NOVOLOG per scale ACHS + 0000,0400 checks due to IV steroids and regimen initiation Goal Range: Low 100 mg/dL - High 140 mg/dL Correction Factor: 10 mg/dL/unit Nutritional / Prandial insulin per carb ratio of 1 unit per 3 grams CHO consumed 3) Abdominal pain - resolved 4) Chest pain. - neg troponins. - No tele events noticed overnight - CP could be secondary to COPD, no resolved 5). HTN - well controlled , cont current medication 6) Peripheral neuropathy - As per home medication. 7) obesity 8) DVT proph - Heparin Continued [facility] stay due to: multiple IV medications needed Discharge planning: home
[2016-06-15] MEDS: TIOTROPIUM BROMIDE 5 PUFF/90 MCG INH INH SCH (19:54)
[2016-06-15] MEDS: CEFTRIAXONE SOD INJ 1 GM in DEXTROSE 5% ADD-VANTAGE 50ML 50 ML IV SCH (21:12)
[2016-06-15] MEDS: ZOLPIDEM TARTRATE 10 MG TAB PO SCH (21:15)
[2016-06-15] MEDS: AZITHROMYCIN IV 500 MG in DEXTROSE 5% 250ML 250 ML IV SCH (22:06)
[2016-06-16] VITALS (9 sets, daily range): BP systolic 111–155; BP diastolic 62–72; PULSE 80–88; TEMP 37.1–37.3; O2SAT 93–97
[2016-06-16] MEDS: IPRATROPIUM BROMIDE NEB SOLN 0.02% 2.5 ML VIAL INH SCH ×4 (01:10→19:36)
[2016-06-16] MEDS: LEVALBUTEROL 1.25MG/0.5ML NEB INH SCH ×4 (01:10→19:36)
[2016-06-16] MEDS ORDERED: INSULIN ASPART 100 UNITS/ML 3 ML PEN SC SCH (02:00)
[2016-06-16] MEDS: NITROGLYCERIN OINT 2% 1GM PACKET EXT SCH ×4 (02:29→22:36)
[2016-06-16] MEDS: SODIUM CHLOR 0.45% + 20MEQ KCL 1,000 ML IV SCH ×2 (02:52→14:29)
[2016-06-16] MEDS: METHYLPREDNISOLONE IV 40 MG in SYRINGE 0 ML IV SCH ×2 (04:57→13:04)
[2016-06-16] MEDS: HEPARIN SOD 5000 UNIT/0.5 ML CARP SQ SCH ×3 (05:34→22:43)
[2016-06-16] MEDS: MONTELUKAST SOD 10 MG TAB PO SCH (08:28)
[2016-06-16] MEDS: PANTOprazole SOD 40 MG TAB PO SCH (08:28)
[2016-06-16] MEDS: PAROXETINE 20 MG TAB PO SCH (08:28)
[2016-06-16] MEDS: ASPIRIN 81 MG ECTAB PO SCH (08:28)
[2016-06-16] MEDS: THEOPHYLLINE 400 MG EXTENDED REL TAB PO SCH ×2 (08:29→22:35)
[2016-06-16] MEDS: SPIRONOLACTONE/HCTZ 25-25 PO SCH (08:29)
[2016-06-16] MEDS: FUROSEMIDE 40 MG TAB PO SCH (08:29)
[2016-06-16] MEDS: ROSUVASTATIN CALCIUM 10 MG TAB PO SCH (08:30)
[2016-06-16] MEDS: LISINOPRIL 5 MG TAB PO SCH (08:30)
[2016-06-16] MEDS: GABAPENTIN 100 MG CAP PO SCH ×3 (08:31→22:35)
[2016-06-16] MEDS: BUDESONIDE/FORMOTEROL FUMARATE 160/4.5 60 PUFFS/INHALER INH SCH ×2 (08:32→22:32)
[2016-06-16] MEDS: INSULIN ASPART 100 UNITS/ML 3 ML PEN SC SCH ×4 (08:43→22:42)
[2016-06-16] MEDS: INSULIN GLARGINE SOLOSTAR 100 UNITS/ML 3 ML PEN SC SCH ×2 (08:44→22:42)
[2016-06-16 09:05] LABS: BUN/CREATININE RATIO 25.8 (10-20); CALCIUM 9.5 mg/dl (8.5-10.1); CREATININE 1.1 mg/dl (0.60-1.20); POTASSIUM 3.9 mmol/L (3.5-5.1)
--- NOTE | 2016-06-16 10:43 | Pharmacy Progress Note ---
Glycemic Control: Progress Nt Date of Service Jun 16, 2016. Scope Glycemic Pharmacist consulted by Dr Elizabeth on 06/13/16 for glycemic control and to write orders per [facility] inpatient glycemic control protocol. Objective Accuchecks BSG (last 24hrs): Test 06/15/16 11:27 06/15/16 16:17 06/15/16 19:39 06/16/16 02:21 Bedside Glucose 211 mg/dl (70-90) 124 mg/dl (70-90) 135 mg/dl (70-90) 217 mg/dl (70-90) Test 06/16/16 08:03 06/16/16 08:17 Bedside Glucose 145 mg/dl (70-90) Random Glucose 155 mg/dl (70-99) HbA1c: Test 06/14/16 05:53 Hemoglobin A1c 5.9 % (4.5-5.6) H Recent Pertinent Medications Outpatient Anti-diabetic Regimen: * Metformin ER 1Gm qam, Novolin 70%/30% from 20-80 units hs depending on blood sugar The patient is currently receiving: * Basal insulin: Lantus 30 units every 12 hours * Correctional Insulin: Novolog Correction per scale ACHS Goal Range: Low 100 mg/dL - High 140 mg/dL Correction Factor: 10 mg/dL/unit * Prandial insulin: Per carb ratio of 1 unit per 3 grams CHO consumed * Oral Agents: On hold for admission Risk Factors for Insulin Resistance: * Steroids * Infection * Diet Assessment & Plan ASSESSMENT: * Patient has been requiring ~ 135units of insulin per day for adequate glycemic control * BSGs ranging 124-211mg/dl * 60 units/day (~45% of regimen) is basal insulin & 75 units/day is prandial/ correctional insulin * OK for regimen to be weighted towards bolus insulin for steroid induced hyperglycemia to prevent hypo when steroids tapered * Steroids decreased from SoluMedrol 60mg IV Q6hrs --> 40mg IV Q8hrs. Expect improvement in BSGs with step down in steroid dosing. Will empirically decrease regimen to prevent hypo. * ADA & AACE recommend a goal blood sugar range 140-180 mg/dl for the majority of critically ill & non-critically ill patients. However, more stringent targets may be selected in individual cases. Will utilize more stringent goal range of 100-140mg/dl based on age and tight glycemic control at baseline. PLAN FOR INPATIENT GLYCEMIC CONTROL: * Continue to hold outpatient oral diabetes medications * Continue Basal insulin with Lantus 30 units SQ BID * May need to taper dosing 06/17/16 AM. Based on 12/2015 admission, Lantus 30 units BID was adequate when patient was on significantly less steroid dosing. Will monitor closely and decrease dosing when BSGs trending downwards * Empirically loosen NOVOLOG per scale ACHS or Q6hrs while NPO * Goal Range: Low 110 mg/dL - High 140 mg/dL (was 100-140) * Correction Factor: 10 mg/dL/unit * Nutritional / Prandial insulin per carb ratio of 1 unit per 4 grams CHO consumed (was 3) * Please note that the plan above was derived based on current level of insulin resistance and hospital stress. These recommendations are appropriate for inpatient admission only. Plan of care upon discharge will need to be reassessed to avoid potential outpatient hypo/hyperglycemia. Thank you.
[2016-06-16] MEDS ORDERED: GUAIFENESIN 600 MG TABCR PO ONE (11:00)
--- NOTE | 2016-06-16 13:48 | Clinical Documentation Query ---
CLINICAL DOCUMENTATION QUERY Dr. GUERRERO, In your clinical opinion does this patient have: ( ) Chronic respiratory failure ( ) Other explanation of clinical findings (Please Explain) ( ) Unable to determine (Please Define) ( ) Need to Discuss ( ) Not Agree The medical record reflects the following clinical findings, treatment, and risk factors. Clinical Indicators: Documentation in social service note indicates pt wears continuous home O2 support. Treatment: home meds include O2 support, albuterol nebs prn, symbicort, advair diskus, singular, theophylline, spiriva Risk Factors: obesity, SARIKA, COPD, Please clarify and document your clinical opinion in the progress notes and discharge summary. Terms such as "probable", "suspected", "likely", "questionable", "possible", or "still to be ruled out" are acceptable. IF IN AGREEMENT, YOU MUST DOCUMENT ABOVE DIAGNOSTIC STATEMENT IN DAILY PROGRESS NOTES AND DISCHARGE SUMMARY. This document is not part of the patient's record. Thank You, Etelvina Jones RN [phone]
--- NOTE | 2016-06-16 20:01 | Family Medicine Progress Note ---
Progress Note Date of Service Jun 16, 2016. Subjective Pt evaluation today including: conversation w/ patient, physical exam, chart review, lab review, review of studies, review of inpatient medication list Voiding: no voiding problems Feels generally fatigued this morning. Notes she has not got out of bed much since admission. She is limited with movement due to pain with her bilateral knee OA. She is currently back to her home O2 requirement of 3 L. All Other Systems: Reviewed and Negative Medications Current Inpatient Medications Medications (Trade) Dose Ordered Sig/Javier Route Start Time Stop Time Status Last Admin Dose Admin Levalbuterol (Xopenex 1.25MG/ 3ML Neb) 1.25 mg Q2HWA PRN INH 06/13/16 17:30 07/13/16 17:29 Acetaminophen (Tylenol Tab) 650 mg Q6H PRN PO 06/13/16 17:30 07/13/16 17:29 Hydromorphone HCl (Dilaudid Inj) 1.5 mg Q3H PRN IV 06/13/16 17:30 06/27/16 17:29 Tramadol HCl (Ultram Tab) 50 mg Q4H PRN PO 06/13/16 17:30 07/13/16 17:29 06/15/16 08:14 50 MG Nitroglycerin (Nitroglycerin 2% Oint) 0.5 inch Q6H EXT 06/13/16 20:00 07/13/16 19:59 06/16/16 14:31 0.5 INCH Ipratropium [place] (Atrovent 0.02% 0.5MG/2.5ML Neb) 0.5 mg Q6R INH 06/13/16 21:00 07/13/16 20:59 06/16/16 07:33 0.5 MG Levalbuterol (Xopenex 1.25MG/ 0.5ML Neb) 1.25 mg Q6R INH 06/13/16 21:00 07/13/16 20:59 06/16/16 07:33 1.25 MG Aspirin (Ecotrin Tab) 81 mg QAM PO 06/14/16 09:00 07/14/16 08:59 06/16/16 08:28 81 MG Budesonide/ Formoterol Fumarate (Symbicort 160/ 4.5 Inh) 2 puffs BID INH 06/13/16 21:00 07/13/16 20:59 06/16/16 08:32 2 PUFFS Furosemide (Lasix Tab) 40 mg QAM PO 06/14/16 09:00 07/14/16 08:59 06/16/16 08:29 40 MG Gabapentin (Neurontin Cap) 200 mg TID PO 06/13/16 21:00 07/13/16 20:59 06/16/16 14:27 200 MG Lisinopril (Zestril Tab) 5 mg QAM PO 06/14/16 09:00 07/14/16 08:59 06/16/16 08:30 5 MG Lorazepam (Ativan Tab) 1 mg TID PRN PO 06/13/16 19:15 07/13/16 19:14 Montelukast Sodium (Singulair Tab) 10 mg DAILY PO 06/14/16 09:00 07/14/16 08:59 06/16/16 08:28 10 MG Pantoprazole Sodium (Protonix Tab) 40 mg QAM PO 06/14/16 09:00 07/14/16 08:59 06/16/16 08:28 40 MG Paroxetine HCl (pAXil TAB) 60 mg QAM PO 06/14/16 09:00 07/14/16 08:59 06/16/16 08:28 60 MG Rosuvastatin Calcium (Crestor Tab) 10 mg DAILY PO 06/14/16 09:00 07/14/16 08:59 06/16/16 08:30 10 MG HCTZ/ Spironolactone (Aldactazide Tab) 1 tab DAILY PO 06/14/16 09:00 07/14/16 08:59 06/16/16 08:29 1 TAB Theophylline (Theophylline Er) 400 mg Q12 PO 06/13/16 21:00 07/13/16 20:59 06/16/16 08:29 400 MG Tiotropium [place] (Spiriva Handihaler Inhaler) 1 puff QPM INH 06/13/16 21:00 07/13/16 20:59 06/15/16 19:54 1 PUFF Zolpidem Tartrate 10 mg 10 mg HS PO 06/13/16 21:00 07/13/16 20:59 06/15/16 21:15 10 MG Ceftriaxone Sodium 1 gm/ Dextrose 50 ml @ 100 mls/hr Q24H IV 06/13/16 21:00 06/20/16 20:59 06/15/16 21:12 100 MLS/HR Azithromycin/ Dextrose (Zithromax IV/D5 250ml) 255 ml @ 125 mls/hr Q24H IV 06/13/16 22:00 06/20/16 21:59 06/15/16 22:06 125 MLS/HR Heparin Sodium (Porcine) (Heparin Sq 5000 Unit/0.5ml) 5,000 unit Q8 SQ 06/13/16 22:00 07/13/16 21:59 06/16/16 14:29 5,000 UNIT Diphenhydramine HCl (Benadryl Inj) 25 mg Q6 PRN IV 06/13/16 19:15 07/13/16 19:14 Ioversol 100 ml 100 ml UD PRN IV 06/13/16 19:15 06/17/16 19:14 Potassium Chloride/Sodium Chloride (1/2 Nss + 20meq KCl 1000ml) 1,000 ml @ 75 mls/hr [id number] IV 06/13/16 20:30 07/13/16 20:29 06/16/16 14:29 75 MLS/HR Insulin Aspart (novoLOG ASPART) SLIDING SCALE G... ACHS SC 06/13/16 21:00 07/13/16 20:59 06/16/16 13:09 22 UNITS Miscellaneous Information (Consult Glycemic Management Pharmacy) 1 ea UD PRN N/A 06/13/16 19:51 07/13/16 19:50 Insulin Glargine 30 unit 30 unit BID SC 06/13/16 21:00 07/13/16 20:59 06/16/16 08:44 30 UNIT Methylprednisolone Sodium Succinate/ Syringe (Solu-Medrol IV/ Syringe) 0.64 ml @ 1.5 mls/min Q8@0400,1200,2000 IV 06/15/16 12:00 07/15/16 11:59 06/16/16 13:04 1.5 MLS/MIN Guaifenesin (Mucinex Contr Rel Tab) 600 mg Q12 PO 06/16/16 21:00 07/16/16 20:59 Objective Vital Signs Date Time Temp Pulse Resp B/P Pulse Ox O2 Delivery O2 Flow Rate FiO2 06/16/16 16:38 37.1 82 18 116/62 96 Room Air 2.5 06/16/16 16:08 96 Nasal Cannula 3.0 06/16/16 14:32 80 125/72 06/16/16 08:00 Nasal Cannula 3.0 06/16/16 07:33 80 18 96 BiPAP/CPAP 3.0 06/16/16 07:28 37.3 83 16 155/68 93 CPAP 06/16/16 01:10 83 18 96 BiPAP/CPAP 3.0 06/16/16 00:43 37.2 88 18 111/63 96 BiPAP 2.0 06/16/16 00:00 97 Nasal Cannula 3.0 06/15/16 20:03 83 18 96 BiPAP/CPAP 3.0 06/15/16 20:00 97 Nasal Cannula 3.0 06/15/16 18:07 36.9 98 19 119/70 97 Nasal Cannula 3.0 Physical Exam General Appearance: no apparent distress, + obese Eyes: normal inspection Neck: supple, no JVD (difficult to assess due to neck size) Respiratory/Chest: no respiratory distress, no accessory muscle use, + decreased breath sounds (bilateral bases), + rhonchi (coarse breath sounds throughout without any wheezing), + pertinent finding (centre of chest tender to palpation) Abdomen: normal bowel sounds, soft, + tenderness (lower abdominal tenderness without guarding or rebound, chronic as per patient) Extremities: no pedal edema, no calf tenderness, normal capillary refill Neurologic/Psychiatric: no motor/sensory deficits, alert, normal mood/affect, oriented x 3 Laboratory Results 06/16/16 08:17 Test 06/16/16 08:17 06/16/16 16:35 Anion Gap 9.0 mmol/L (3-11) Est Creatinine Clear Calc Drug Dose 72.3 ml/min Estimated GFR () 60.2 Estimated GFR (Non- 51.9 BUN/Creatinine Ratio 25.8 (10-20) Calcium Level 9.5 mg/dl (8.5-10.1) Bedside Glucose 145 mg/dl (70-90) Assessment and Plan COPD exacerbation - CTA Chest - No evidence of pulmonary embolus in the main, lobar, or segmental pulmonary arteries. - Continue neb treatment, IV azithromycin, theophylline and montelukast. d/c ceftriaxone as no consolidation on CT to suggest pneumonia. - Taper steroids to oral prednisone. SARIKA - Home CPAP at night Type 2 Diabetes Mellitus As per Pharmacy diabetic consult recommendation Hold outpatient Metformin, Basal insulin with LANTUS 30 units SQ BID Correctional Insulin with NOVOLOG per scale ACHS + 0000,0400 checks due to IV steroids and regimen initiation Goal Range: Low 110 mg/dL - High 140 mg/dL Correction Factor: 10 mg/dL/unit Nutritional / Prandial insulin per carb ratio of 1 unit per 4 grams CHO consumed Abdominal pain - irregular bowel movements chronically. Likely constipation related. Passing flatus. - colace 100 mg BID. Chest pain - - MSK pain on examination - neg troponin HTN - well controlled, continue HCZT/Cr 25/25 mg PO daily, lasix 40 mg PO daily ( home medications) Peripheral neuropathy - Gabapentin 200 mg TID (home med) Obesity VTE prophylaxis - Heparin 5000 units Q8H Code - Full Disposition - Continued stay due to IV medications and unable to manage at home alone. PT + OT ordered, consider rehabilitation although she appears resistant to this idea at present History Resident Physician Supervision Note: I was present with Dr. Marino during the history and exam. I discussed the case with the resident and agree with the findings and plan as documented in the note. Any exceptions or clarifications are listed here. Pt seen and examined at bedside. No acute events overnight. Pt reports improving SOB and fatigue even following exertion on steroids and nebs. Reports no lightheadedness, vision changes, CP/palpitations, n/v/d/c. General Appearance: no apparent distress, obese Respiratory: chest non-tender, no respiratory distress, decreased breath sounds , wheezing (diffuse) Cardiovascular: normal peripheral pulses, regular rate, rhythm, no murmur, other (trace b/l LE) Gastrointestinal: normal bowel sounds, non tender, soft, no organomegaly Assessment/Plan 65 y/o female h/o COPD presents w/ COPD exacerbation COPD exacerbation - continue nebs, will transition to PO pred tomorrow and narrow to azithromycin today. Continue xopenex, theophylline and singulair DMII - continue lantus and ISS w/ novalog correction (meformin as outpatient) Chest pain - aching, w/ cough HTN - stable at present, continue regimen Neuropathy - continue present regimen DVT PPX - heparin Resident Tracking Resident Involvement: Resident Care Provided Care Provided: Adult Hospital Medicine
[2016-06-16] MEDS: DOCUSATE SODIUM 100 MG CAP PO SCH (22:29)
[2016-06-16] MEDS: AZITHROMYCIN 250 MG TAB PO SCH (22:29)
[2016-06-16] MEDS: TIOTROPIUM BROMIDE 5 PUFF/90 MCG INH INH SCH (22:33)
[2016-06-16] MEDS: GUAIFENESIN 600 MG TABCR PO SCH (22:34)
[2016-06-16] MEDS: ZOLPIDEM TARTRATE 10 MG TAB PO SCH (22:44)
[2016-06-17] VITALS (10 sets, daily range): BP systolic 107–130; BP diastolic 59–78; PULSE 77–99; TEMP 36.7–37.6; O2SAT 93–97
[2016-06-17] MEDS: LEVALBUTEROL 1.25MG/0.5ML NEB INH SCH ×4 (01:51→20:13)
[2016-06-17] MEDS: IPRATROPIUM BROMIDE NEB SOLN 0.02% 2.5 ML VIAL INH SCH ×4 (01:51→20:13)
[2016-06-17] MEDS: NITROGLYCERIN OINT 2% 1GM PACKET EXT SCH ×4 (02:02→20:44)
[2016-06-17] MEDS: SODIUM CHLOR 0.45% + 20MEQ KCL 1,000 ML IV SCH ×2 (04:13→16:59)
[2016-06-17] MEDS: HEPARIN SOD 5000 UNIT/0.5 ML CARP SQ SCH ×3 (06:06→21:07)
[2016-06-17 06:52] LABS: BUN/CREATININE RATIO 25.4 (10-20); CALCIUM 9.3 mg/dl (8.5-10.1); POTASSIUM 3.4 mmol/L (3.5-5.1)
[2016-06-17] MEDS: BUDESONIDE/FORMOTEROL FUMARATE 160/4.5 60 PUFFS/INHALER INH SCH ×2 (09:02→20:30)
[2016-06-17] MEDS: SPIRONOLACTONE/HCTZ 25-25 PO SCH (09:03)
[2016-06-17] MEDS: ROSUVASTATIN CALCIUM 10 MG TAB PO SCH (09:04)
[2016-06-17] MEDS: DOCUSATE SODIUM 100 MG CAP PO SCH ×2 (09:04→20:42)
[2016-06-17] MEDS: ASPIRIN 81 MG ECTAB PO SCH (09:05)
[2016-06-17] MEDS: FUROSEMIDE 40 MG TAB PO SCH (09:06)
[2016-06-17] MEDS: PAROXETINE 20 MG TAB PO SCH (09:07)
[2016-06-17] MEDS: GABAPENTIN 100 MG CAP PO SCH ×3 (09:07→20:42)
[2016-06-17] MEDS: PANTOprazole SOD 40 MG TAB PO SCH (09:08)
[2016-06-17] MEDS: LISINOPRIL 5 MG TAB PO SCH (09:09)
[2016-06-17] MEDS: MONTELUKAST SOD 10 MG TAB PO SCH (09:09)
[2016-06-17] MEDS: THEOPHYLLINE 400 MG EXTENDED REL TAB PO SCH ×2 (09:10→20:42)
[2016-06-17] MEDS: AZITHROMYCIN 250 MG TAB PO SCH (09:10)
[2016-06-17] MEDS: GUAIFENESIN 600 MG TABCR PO SCH ×2 (09:10→20:42)
[2016-06-17] MEDS: INSULIN ASPART 100 UNITS/ML 3 ML PEN SC SCH ×4 (09:24→21:06)
[2016-06-17] MEDS: INSULIN GLARGINE SOLOSTAR 100 UNITS/ML 3 ML PEN SC SCH ×2 (09:27→21:05)
--- NOTE | 2016-06-17 10:41 | Family Medicine Progress Note ---
Progress Note Date of Service Jun 17, 2016. Subjective Pt evaluation today including: conversation w/ patient, physical exam, chart review, lab review, review of studies, review of inpatient medication list Voiding: no voiding problems Feeling cold this morning as the temperature of the room is chilly. Feels like her shortness of breath is improving but she does not feel she would be able to cope at present by herself at home. All Other Systems: Reviewed and Negative Medications Current Inpatient Medications Medications (Trade) Dose Ordered Sig/Javier Route Start Time Stop Time Status Last Admin Dose Admin Levalbuterol (Xopenex 1.25MG/ 3ML Neb) 1.25 mg Q2HWA PRN INH 06/13/16 17:30 07/13/16 17:29 Acetaminophen (Tylenol Tab) 650 mg Q6H PRN PO 06/13/16 17:30 07/13/16 17:29 Hydromorphone HCl (Dilaudid Inj) 1.5 mg Q3H PRN IV 06/13/16 17:30 06/27/16 17:29 Tramadol HCl (Ultram Tab) 50 mg Q4H PRN PO 06/13/16 17:30 07/13/16 17:29 06/15/16 08:14 50 MG Nitroglycerin (Nitroglycerin 2% Oint) 0.5 inch Q6H EXT 06/13/16 20:00 07/13/16 19:59 06/17/16 09:02 0.5 INCH Ipratropium [place] (Atrovent 0.02% 0.5MG/2.5ML Neb) 0.5 mg Q6R INH 06/13/16 21:00 07/13/16 20:59 06/17/16 07:31 0.5 MG Levalbuterol (Xopenex 1.25MG/ 0.5ML Neb) 1.25 mg Q6R INH 06/13/16 21:00 07/13/16 20:59 06/17/16 07:31 1.25 MG Aspirin (Ecotrin Tab) 81 mg QAM PO 06/14/16 09:00 07/14/16 08:59 06/17/16 09:05 81 MG Budesonide/ Formoterol Fumarate (Symbicort 160/ 4.5 Inh) 2 puffs BID INH 06/13/16 21:00 07/13/16 20:59 06/17/16 09:02 2 PUFFS Furosemide (Lasix Tab) 40 mg QAM PO 06/14/16 09:00 07/14/16 08:59 06/17/16 09:06 40 MG Gabapentin (Neurontin Cap) 200 mg TID PO 06/13/16 21:00 07/13/16 20:59 06/17/16 09:07 200 MG Lisinopril (Zestril Tab) 5 mg QAM PO 06/14/16 09:00 07/14/16 08:59 06/17/16 09:09 5 MG Lorazepam (Ativan Tab) 1 mg TID PRN PO 06/13/16 19:15 07/13/16 19:14 Montelukast Sodium (Singulair Tab) 10 mg DAILY PO 06/14/16 09:00 07/14/16 08:59 06/17/16 09:09 10 MG Pantoprazole Sodium (Protonix Tab) 40 mg QAM PO 06/14/16 09:00 07/14/16 08:59 06/17/16 09:08 40 MG Paroxetine HCl (pAXil TAB) 60 mg QAM PO 06/14/16 09:00 07/14/16 08:59 06/17/16 09:07 60 MG Rosuvastatin Calcium (Crestor Tab) 10 mg DAILY PO 06/14/16 09:00 07/14/16 08:59 06/17/16 09:04 10 MG HCTZ/ Spironolactone (Aldactazide Tab) 1 tab DAILY PO 06/14/16 09:00 07/14/16 08:59 06/17/16 09:03 1 TAB Theophylline (Theophylline Er) 400 mg Q12 PO 06/13/16 21:00 07/13/16 20:59 06/17/16 09:10 400 MG Tiotropium [place] (Spiriva Handihaler Inhaler) 1 puff QPM INH 06/13/16 21:00 07/13/16 20:59 06/16/16 22:33 1 PUFF Zolpidem Tartrate (Ambien Tab) 10 mg HS PO 06/13/16 21:00 07/13/16 20:59 06/16/16 22:44 10 MG Heparin Sodium (Porcine) (Heparin Sq 5000 Unit/0.5ml) 5,000 unit Q8 SQ 06/13/16 22:00 07/13/16 21:59 06/17/16 06:06 5,000 UNIT Diphenhydramine HCl (Benadryl Inj) 25 mg Q6 PRN IV 06/13/16 19:15 07/13/16 19:14 Ioversol 100 ml 100 ml UD PRN IV 06/13/16 19:15 06/17/16 19:14 Potassium Chloride/Sodium Chloride (1/2 Nss + 20meq KCl 1000ml) 1,000 ml @ 75 mls/hr [id number] IV 06/13/16 20:30 07/13/16 20:29 06/17/16 04:13 75 MLS/HR Insulin Aspart (novoLOG ASPART) SLIDING SCALE G... ACHS SC 06/13/16 21:00 07/13/16 20:59 06/17/16 09:24 5 UNITS Miscellaneous Information (Consult Glycemic Management Pharmacy) 1 ea UD PRN N/A 06/13/16 19:51 07/13/16 19:50 Guaifenesin (Mucinex Contr Rel Tab) 600 mg Q12 PO 06/16/16 21:00 07/16/16 20:59 06/17/16 09:10 600 MG Prednisone (PredniSONE TAB) 60 mg Taper DAILY PO 06/17/16 08:00 06/29/16 07:59 06/17/16 09:08 60 MG Azithromycin (Zithromax Tab) 500 mg DAILY PO 06/16/16 22:00 06/20/16 21:59 06/17/16 09:10 500 MG Docusate Sodium (coLACE CAP) 100 mg BID PO 06/16/16 20:00 07/16/16 19:59 06/17/16 09:04 100 MG Insulin Glargine (Lantus Solostar Pen) 23 unit BID SC 06/17/16 08:00 07/17/16 07:59 06/17/16 09:27 23 UNIT Objective Vital Signs Date Time Temp Pulse Resp B/P Pulse Ox O2 Delivery O2 Flow Rate FiO2 06/17/16 09:39 37.6 77 18 120/68 96 Nasal Cannula 3.0 06/17/16 08:00 Nasal Cannula 3.0 06/17/16 07:31 80 16 95 BiPAP/CPAP 3.0 06/17/16 02:00 95 CPAP 3.0 06/17/16 01:51 88 16 95 BiPAP/CPAP 3.0 06/17/16 00:00 36.9 79 20 117/70 93 CPAP 06/16/16 19:36 86 18 95 Nasal Cannula 3.0 06/16/16 16:38 37.1 82 18 116/62 96 Room Air 2.5 06/16/16 16:08 96 Nasal Cannula 3.0 06/16/16 14:32 80 125/72 Physical Exam General Appearance: no apparent distress, + obese Eyes: normal inspection Neck: supple, no JVD, trachea midline Respiratory/Chest: no respiratory distress, no accessory muscle use, + rhonchi (improved air entry bilaterally, rhonchi upper airway sounds present, no wheezing or crackles noted), + pertinent finding (centre of chest painful on palpation) Cardiovascular: regular rate, rhythm, no edema, no murmur Abdomen: normal bowel sounds, non tender, soft Extremities: no pedal edema, no calf tenderness, normal capillary refill 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 (no facial droop), no motor/ sensory deficits (no unilateral power deficit, peripiheral neuropathy chronic), alert, oriented x 3 Skin: normal color, warm/dry, no rash Laboratory Results 06/17/16 05:11 Test 06/17/16 05:11 06/17/16 07:34 Anion Gap 7.0 mmol/L (3-11) Est Creatinine Clear Calc Drug Dose 79.5 ml/min Estimated GFR () 67.5 Estimated GFR (Non- 58.3 BUN/Creatinine Ratio 25.4 (10-20) Calcium Level 9.3 mg/dl (8.5-10.1) Total Bilirubin 0.4 mg/dl (0.2-1) Aspartate Amino Transf (AST/SGOT) 11 U/L (15-37) Alanine Aminotransferase (ALT/SGPT) 17 U/L (12-78) Alkaline Phosphatase 82 U/L (45-117) Total Protein 6.2 gm/dl (6.4-8.2) Albumin 3.1 gm/dl (3.4-5.0) Globulin 3.1 gm/dl (2.5-4.0) Albumin/Globulin Ratio 1.0 (0.9-2) Theophylline Level 17 mcg/ml (10-20) Bedside Glucose 104 mg/dl (70-90) Assessment and Plan COPD exacerbation - CTA Chest - No evidence of pulmonary embolus in the main, lobar, or segmental pulmonary arteries. - Continue neb treatment, IV->PO azithromycin, theophylline and montelukast. d/ c ceftriaxone as no consolidation on CT to suggest pneumonia. - Guaifenesin + flutter valve + incentive spirometer to speed recovery - back to baseline 3L O2 - Taper prednisone prolonged course due to obesity restrictive lung disease, poor mobility SARIKA - Home CPAP at night Type 2 Diabetes Mellitus Appreciate Pharmacy diabetic consult recommendation Hold outpatient Metformin, Basal insulin with LANTUS 30->23 units SQ BID Goal Range: Low 110 mg/dL - High 140 mg/dL Correction Factor: 10->15 mg/dL/unit Nutritional / Prandial insulin per carb ratio of 1 unit per 4->5 grams CHO consumed Abdominal pain - resolved but no BM since admission, passing flatus, no vomiting , nausea improving - colace 100 mg BID - add MiraLAX to bowel regimen today Chest pain - - MSK pain on examination - neg troponin HTN - well controlled, continue HCZT/[place] 25/25 mg PO daily, lasix 40 mg PO daily ( home medications) Peripheral neuropathy - Gabapentin 200 mg TID (home med) Obesity VTE prophylaxis - Heparin 5000 units Q8H Code - Full Disposition - aim home tomorrow History Resident Physician Supervision Note: I was present with Dr. Marino during the history and exam. I discussed the case with the resident and agree with the findings and plan as documented in the note. Any exceptions or clarifications are listed here. Pt seen and examined at bedside. Shortness of breath and cough continues to gradually improve on present regimen, even with transition to PO steroids. Pt complains of some chills but the HVAC in room is pumping out COLD air. She reports no f/c, GONZALEZ, abd pain, n/v/d. No BM but passing flatus on colace. General Appearance: no apparent distress, obese Respiratory: chest non-tender, no respiratory distress, decreased breath sounds (throughout, 2/2 habitus, improved from previous), wheezing (very mild end exp wheeze, scattered, improved) Cardiovascular: normal peripheral pulses, regular rate, rhythm, no edema, no murmur Gastrointestinal: normal bowel sounds, non tender, soft, no organomegaly Assessment/Plan 65 y/o female h/o COPD presents w/ COPD exacerbation COPD exacerbation - continue nebs, prednisone, azithromycin. Continue xopenex, theophylline and singulair DMII - continue lantus and ISS w/ novalog correction (meformin as outpatient) Constipation - add miralax today, continue colace Chest pain - aching, w/ cough HTN - stable at present, continue regimen Neuropathy - continue present regimen DVT PPX - heparin Resident Tracking Resident Involvement: Resident Care Provided Care Provided: Adult Hospital Medicine
[2016-06-17] MEDS ORDERED: LEVOFLOXACIN 750 MG TAB PO SCH (11:00)
[2016-06-17] MEDS ORDERED: POLYETHYLENE (MIRALAX) 17 GM PACK PO ONE (11:15)
--- NOTE | 2016-06-17 11:22 | Pharmacy Progress Note ---
Glycemic Control: Progress Nt Date of Service Jun 17, 2016. Scope Glycemic Pharmacist consulted by Dr Elizabeth on 06/13/16 for glycemic control and to write orders per [facility] inpatient glycemic control protocol. Objective Accuchecks BSG (last 24hrs): Test 06/16/16 11:42 06/16/16 16:35 06/16/16 20:33 06/17/16 05:11 Bedside Glucose 276 mg/dl (70-90) 145 mg/dl (70-90) 164 mg/dl (70-90) Random Glucose 99 mg/dl (70-99) Test 06/17/16 07:34 Bedside Glucose 104 mg/dl (70-90) HbA1c: Test 06/14/16 05:53 Hemoglobin A1c 5.9 % (4.5-5.6) H Recent Pertinent Medications Outpatient Anti-diabetic Regimen: * Metformin ER 1Gm qam, Novolin 70%/30% from 20-80 units hs depending on blood sugar The patient is currently receiving: * Basal insulin: Lantus 30 units every 12 hours * Correctional Insulin: Novolog Correction per scale ACHS Goal Range: Low 110 mg/dL - High 140 mg/dL Correction Factor: 10 mg/dL/unit * Prandial insulin: Per carb ratio of 1 unit per 4 grams CHO consumed * Oral Agents: On hold for admission Risk Factors for Insulin Resistance: * Steroids * Infection * Diet Assessment & Plan ASSESSMENT: * Patient has been requiring ~ 130units of insulin per day for adequate glycemic control * BSGs ranging 104-276mg/dl * 60 units of basal insulin * 66 units of prandial/correctional insulin * Risk factors for insulin resistance are decreasing * Steroid dosing decreased --> changed to PO prednisone taper * Infection is being adequately treated/Pt status improving * Dextrose containing IVF D/C (IV abx mixed in dextrose) * Anticipating insulin regimen will need decreased to prevent hypoglycemia * AM Fasting BSG = 104mg/dl and trending downwards --> Basal insulin needs decreased * Steroids tapered, steroids have their most profound effect on post-prandial hyperglycemia --> will empirically loosen CF/CR * ADA & AACE recommend a goal blood sugar range 140-180 mg/dl for the majority of critically ill & non-critically ill patients. However, more stringent targets may be selected in individual cases. Will utilize more stringent goal range of 110-140mg/dl based on age and tight glycemic control at baseline. PLAN FOR INPATIENT GLYCEMIC CONTROL: * Continue to hold outpatient oral diabetes medications * Decrease Basal insulin with Lantus 23 units SQ BID * Empirically loosen NOVOLOG per scale ACHS or Q6hrs while NPO * Goal Range: Low 110 mg/dL - High 140 mg/dL * Correction Factor: 15 mg/dL/unit (was 10) * Nutritional / Prandial insulin per carb ratio of 1 unit per 5 grams CHO consumed (was 4) * Please note that the plan above was derived based on current level of insulin resistance and hospital stress. These recommendations are appropriate for inpatient admission only. Plan of care upon discharge will need to be reassessed to avoid potential outpatient hypo/hyperglycemia. Thank you.
[2016-06-17] MEDS: ZOLPIDEM TARTRATE 10 MG TAB PO SCH (20:42)
[2016-06-17] MEDS: TIOTROPIUM BROMIDE 5 PUFF/90 MCG INH INH SCH (21:00)
[2016-06-18] VITALS (8 sets, daily range): BP systolic 115–122; BP diastolic 64–75; PULSE 77–89; TEMP 36.5–36.8; O2SAT 95–99
[2016-06-18] MEDS: LEVALBUTEROL 1.25MG/0.5ML NEB INH SCH ×4 (01:46→19:43)
[2016-06-18] MEDS: IPRATROPIUM BROMIDE NEB SOLN 0.02% 2.5 ML VIAL INH SCH ×4 (01:46→19:43)
[2016-06-18] MEDS: NITROGLYCERIN OINT 2% 1GM PACKET EXT SCH ×2 (02:10→08:45)
[2016-06-18] MEDS: HEPARIN SOD 5000 UNIT/0.5 ML CARP SQ SCH ×2 (06:04→14:00)
[2016-06-18] MEDS: SODIUM CHLOR 0.45% + 20MEQ KCL 1,000 ML IV SCH (06:22)
[2016-06-18] MEDS ORDERED: POLYETHYLENE (MIRALAX) 17 GM PACK PO SCH (08:00)
[2016-06-18] MEDS ORDERED: POTASSIUM CHLORIDE 20 MEQ TABCR PO SCH (08:00)
[2016-06-18] MEDS ORDERED: INSULIN GLARGINE SOLOSTAR 100 UNITS/ML 3 ML PEN SC SCH (08:00)
[2016-06-18] MEDS: AZITHROMYCIN 250 MG TAB PO SCH (08:46)
[2016-06-18] MEDS: GABAPENTIN 100 MG CAP PO SCH ×2 (08:46→14:28)
[2016-06-18] MEDS: DOCUSATE SODIUM 100 MG CAP PO SCH (08:47)
[2016-06-18] MEDS: FUROSEMIDE 40 MG TAB PO SCH (08:48)
[2016-06-18] MEDS: ROSUVASTATIN CALCIUM 10 MG TAB PO SCH (08:48)
[2016-06-18] MEDS: MONTELUKAST SOD 10 MG TAB PO SCH (08:48)
[2016-06-18] MEDS: ASPIRIN 81 MG ECTAB PO SCH (08:48)
[2016-06-18] MEDS: THEOPHYLLINE 400 MG EXTENDED REL TAB PO SCH (08:48)
[2016-06-18] MEDS: LISINOPRIL 5 MG TAB PO SCH (08:48)
[2016-06-18] MEDS: GUAIFENESIN 600 MG TABCR PO SCH (08:48)
[2016-06-18] MEDS: PANTOprazole SOD 40 MG TAB PO SCH (08:48)
[2016-06-18] MEDS: SPIRONOLACTONE/HCTZ 25-25 PO SCH (08:48)
[2016-06-18] MEDS: PAROXETINE 20 MG TAB PO SCH (08:49)
[2016-06-18] MEDS: BUDESONIDE/FORMOTEROL FUMARATE 160/4.5 60 PUFFS/INHALER INH SCH (08:49)
[2016-06-18] MEDS: INSULIN ASPART 100 UNITS/ML 3 ML PEN SC SCH ×3 (10:58→18:25)
--- NOTE | 2016-06-18 10:58 | Pharmacy Progress Note ---
Glycemic Control: Progress Nt Date of Service Jun 18, 2016. Scope Glycemic Pharmacist consulted by Dr Elizabeth on 06/13/16 for glycemic control and to write orders per [facility] inpatient glycemic control protocol. Objective Accuchecks BSG (last 24hrs): Test 06/17/16 11:42 06/17/16 16:30 06/17/16 20:50 06/18/16 07:32 Bedside Glucose 164 mg/dl (70-90) 243 mg/dl (70-90) 179 mg/dl (70-90) 103 mg/dl (70-90) HbA1c: Test 06/14/16 05:53 Hemoglobin A1c 5.9 % (4.5-5.6) H Recent Pertinent Medications Outpatient Anti-diabetic Regimen: * Metformin ER 1Gm qam, Novolin 70%/30% from 20-80 units hs depending on blood sugar The patient is currently receiving: * Basal insulin: Lantus 23 units every 12 hours * Correctional Insulin: Novolog Correction per scale ACHS Goal Range: Low 110 mg/dL - High 140 mg/dL Correction Factor: 15 mg/dL/unit * Prandial insulin: Per carb ratio of 1 unit per 5 grams CHO consumed * Oral Agents: On hold for admission Risk Factors for Insulin Resistance: * Steroids * Infection * Diet Assessment & Plan ASSESSMENT: * Daily insulin requirment has been decreasing now that steroids changed from Solumedrol IV to daily prednisone PO. * 06/16/16: Total daily dose = 126 units for adequate glycemic control [ solumedrol 40mg IV Q8hrs] * 06/17/16: Total daily dose = 68 units for adequate glycemic control [ prednisone 60mg PO daily] * BSGs ranging 104-243mg/dl over the past 24hrs * Risk factors for insulin resistance are decreasing * Steroid dosing decreased --> changed to PO prednisone taper * Infection is being adequately treated/Pt status improving * Dextrose containing IVF D/C (IV abx mixed in dextrose changed to PO) * Anticipating insulin regimen will need decreased to prevent hypoglycemia * AM Fasting BSG = 103mg/dl today, this is on the low end of the goal range for inpatient glycemic control --> Basal insulin needs slightly decreased * Steroids tapered, steroids have their most profound effect on post-prandial hyperglycemia --> empirically loosened CF/CR yesterday but BSGs trended upwards throughout the day. May need to tighten CF/CR, but, will start by lowering low end of goal range so that CR insulin is not subtracted off when BSGs are below the low end of the range. * ADA & AACE recommend a goal blood sugar range 140-180 mg/dl for the majority of critically ill & non-critically ill patients. However, more stringent targets may be selected in individual cases. Will utilize more stringent goal range of 100-140mg/dl based on age and tight glycemic control at baseline. PLAN FOR INPATIENT GLYCEMIC CONTROL: * Continue to hold outpatient oral diabetes medications * Decrease Basal insulin with Lantus 20 units SQ BID * Continue NOVOLOG per scale ACHS or Q6hrs while NPO * Lower the "low" end of Goal Range: Low 100 mg/dL - High 140 mg/dL * Correction Factor: 15 mg/dL/unit * Nutritional / Prandial insulin per carb ratio of 1 unit per 5 grams CHO consumed Looking ahead to discharge: * A1c = 5.9% on 06/14/16 This is below the recommended A1c goal for patient based on age and co-morbidities * Added A1c to discharge instructions to be communicated to PCP. * Pt report taking premixed insulin (Novolin 70/30) 20-80 units SQ HS. * This should not be taken at bedtime as it contains a fixed amount of prandial insulin. Recommend changing from HS to daily with breakfast or dinner. Administering daily with breakfast would be best post-discharge as this would help cover steroid induced hyperglycemia secondary to once daily prednisone. * Likely outpatient dose of up to 80 units/dose is too high. Pt has been requiring less than 80 units in house even while on steroids. * Recommend decreasing Novolin 70/30 insulin dosing to max of 60 units/day. * Recommend continuing metformin ER 1,000mg PO BIDM as previously ordered. * Metformin has a long-standing evidence base for efficacy and safety, is inexpensive, and may reduce risk of cardiovascular events. * B12 supplementation may be necessary with continuous churn buttermaker metformin use * Please note that the plan above was derived based on current level of insulin resistance and hospital stress. These recommendations are appropriate for inpatient admission only. Plan of care upon discharge will need to be reassessed to avoid potential outpatient hypo/hyperglycemia. Thank you.
[2016-06-18] MEDS ORDERED: PRD20 PO (16:05)
--- NOTE | 2016-06-18 16:24 | Discharge Instructions ---
Discharge Instructions Date of Service Jun 18, 2016. Admission Reason for Admission: Chest Pain, Copd Exacerbation Discharge Discharge Diagnosis / Problem: COPD exacerbation Discharge Goals Goal(s): Improve disease control Activity Recommendations Activity Limitations: per Instructions/Follow-up section Lifting Limitations: gradually increase as tolerated Exercise/Sports Limitations: gradually increase as tolerated . Instructions / Follow-Up Instructions / Follow-Up You were admitted to [facility] for shortness of breath. Chest XR and CT Chest did not show any acute findings to suggest pneumonia. You were treated for a COPD/bronchial asthma exacerbation with nebulizers, steroids , azithromycin and your usual maintenance inhalers. Please continue your steroid taper as prescribed. You are now medically fit for discharge. Physical therapy determined you would possibly benefit for inpatient rehabilitation however this was declined and you elected to return home with [facility]. If you are not coping at home please call your Primary Care Provider, [facility] rehabilitation or in an emergency return to the ER. Please follow up with your PCP within the next week. Please follow up with your corpsman Dr Dowling in the next month Current Hospital Diet Patient's current hospital diet: AHA Diet (Heart Healthy), Diabetes Type 2 Diet Discharge Diet Recommended Diet: AHA Diet (Heart Healthy), Diabetes Type 2 Diet Pending Studies Studies pending at discharge: no Laboratory Results Hemoglobin A1c Test 06/14/16 05:53 Range/Units Estimated Average Glucose 123 mg/dl Hemoglobin A1c 5.9 H 4.5-5.6 % Medical Emergencies . Who to Call and When: Medical Emergencies: If at any time you feel your situation is an emergency, please call 911 immediately. . Non-Emergent Contact Non-Emergency issues call your: Primary Care Provider Contact Number: [phone] Call Non-Emergent contact if: you have a fever . . "Provider Documentation" section prepared by Oleg Marino. VTE Core Measure Inpt VTE Proph given/why not?: Unfractionated heparin SQ
--- NOTE | 2016-06-18 18:00 | Discharge Summary ---
Discharge Summary Date of Service Jun 18, 2016. (Oleg Marino MD) Discharge Summary Admission Date: Jun 13, 2016 at 17:33 Discharge Date: Jun 18, 2016 Discharge Disposition: Home Principal Diagnosis: COPD exacerbation Immunizations: Have You Had Influenza Vaccine: Yes Influenza Vaccine Date: Jan 22, 2008 History of Tetanus Vaccine?: Unknown History of Pneumococcal: Yes Pneumococcal Date: Mar 23, 2007 History of Hepatitis B Vaccine: No (Oleg Marino MD) Principal Diagnosis: (Chaka Benton MD) Medication Reconciliation New Medications: Prednisone (Prednisone) 20 Mg Tab 20 MG PO UD for 10 Days, #18 TAB Continued Medications: Acetaminophen (Tylenol) 500 Mg Tab 1000 MG PO BID PRN for Headache or Pain, TAB Albuterol Sulf (Proventil 0.083% 2.5MG/3ML) 2.5 Mg/3 Ml Nebu 3 ML NEB Q4 PRN for Wheezing, EA Aspirin (Aspirin Ec) 81 Mg Tab 81 MG PO QAM Budesonide/Formoterol Fumarate (Symbicort 160/4.5 Inhaler) 120 Puffs/ Aero 2 PUFFS INH BID, INHALER Cholecalciferol (Vitamin D) 2,000 Unit Tab 6000 UNIT PO QAM Coenzyme Q10 (Ubidecarenone) (Coq10) 30 Mg Cap 10 MG PO DAILY Dextromethorphan-Guaifenesin (Mucinex Dm Maximum Streng) 1 Tab Tab 1 TAB PO BID PRN for prn for 15 Days, #30 TAB Diclofenac Sod (Voltaren) 100 Appln/100 Gm Gel 4 GM EX QID PRN for Pain APPLY TO LOWER EXTREMITIES, 4 GM OF GEL TO AFFECTED AREA 4 TIMES DAILY. DO NOT APPLY MORE THAN 16 GM DAILY TO ANY ONE AFFECTED JOINT Fluticasone Prop/Salmeterol (Advair Diskus 500/50 60 Dose) 1 Ea Aerp 1 PUFFS INH BID, #60 Furosemide (Lasix) 40 Mg Tab 40 MG PO QAM Gabapentin (Neurontin) 100 Mg Cap 2 CAP PO TID for Pain for 30 Days, #180 CAP 2 Refills Insulin Isophan/Regular (Novolin 70/30) Susp 0 SC QPM, BTL PER SLIDING SCALE Lisinopril (Zestril) 10 Mg Tab 5 MG PO QAM, 0 Refills Lorazepam (Ativan) 1 Mg Tab 1 MG PO TID PRN for Anxiety, TAB Meclizine Hcl (Dramamine Less Drowsy) 25 Mg Tab 25 MG PO PRN UD Metformin Hcl (Metformin Hcl Er) 500 Mg Tab 1000 MG PO QAM Montelukast Sodium (Singulair) 10 Mg Tab 10 MG PO DAILY, TAB Multiple Vitamins W/ Minerals (Womens One Daily) 1 Tab Tab 1 TAB PO DAILY Pantoprazole (Pantoprazole Sodium) 40 Mg Tab 40 MG PO QAM for 30 Days, TAB Paroxetine (Paxil) 40 Mg Tab 60 MG PO QAM PRN for PRN, TAB Potassium Chloride (Potassium Chloride Cr) 10 Meq Tab 10 MEQ PO QAM Rosuvastatin Calcium (Crestor) 5 Mg Tab 10 MG PO DAILY, TAB Spironolactone & Hydrochloroth (Spironolactone/Hydrochlor) 1 Tab Tab 1 TAB PO DAILY Theophylline (Theophylline ER) 400 Mg Tabcr 400 MG PO Q12 for 30 Days, 3 Refills Tiotropium [place] (Spiriva Handihaler) 30 Puff/540 Mcg Aerp 1 CAP INH QPM, INHALER Tramadol (Ultram) 50 Mg Tab 50 MG PO TID PRN for Pain, TAB Zolpidem Tartrate (Ambien) 10 Mg Tab 10 MG PO HS for Sleep, TAB [Cpap] () N/A HS 4 CM OF WATER WITH 3 LITERS OF OXYGEN. Discharge Exam No acute issues overnight. Wishes to return home and does not wish to go to inpatient rehabilitation. 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 - Continue neb treatment, IV->PO azithromycin, theophylline and montelukast. d/ c ceftriaxone as no consolidation on CT to suggest pneumonia. - Guaifenesin + flutter valve + incentive spirometer to speed recovery - back to baseline 3L O2 - Taper prednisone prolonged course due to obesity restrictive lung disease, poor mobility SARIKA - Home CPAP at night Type 2 Diabetes Mellitus Appreciate Pharmacy diabetic consult recommendation Hold outpatient Metformin, Basal insulin with LANTUS 30->23 units SQ BID Goal Range: Low 110 mg/dL - High 140 mg/dL Correction Factor: 10->15 mg/dL/unit Nutritional / Prandial insulin per carb ratio of 1 unit per 4->5 grams CHO consumed Abdominal pain - resolved but no BM since admission, passing flatus, no vomiting , nausea improving - colace 100 mg BID - add MiraLAX to bowel regimen today Chest pain - - MSK pain on examination - neg troponin HTN - well controlled, continue HCZT/Walker 25/25 mg PO daily, lasix 40 mg PO daily ( home medications) Total Time Spent: Less than 30 minutes This includes examination of the patient, discharge planning, medication reconciliation, and communication with other providers. (Oleg Marino MD) Total Time Spent: Less than 30 minutes (Chaka Benton MD) Discharge Instructions Please refer to the electronic Patient Visit Report (Discharge Instructions) for additional information. (Oleg Marino MD) Follow-Up PCP within 1 week of discharge Associate Sales Manager in 3-4 weeks. (Oleg Marino MD) Additional Copies To Dickson Dowling D.O. Pulmonary; Chaka Alfred M.D. History Resident Physician Supervision Note: I was present with Dr. Marino during the history and exam. I discussed the case with the resident and agree with the findings and plan as documented in the note. Any exceptions or clarifications are listed here. Pt seen and examined at bedside. SOB now at baseline per patient, improved cough and functional status in hospital. Chest pain w/ coughing significantly improved. Reports no lightheadedness, GONZALEZ, palpitations, nausea, leg pain. (Chaka Benton MD) General Appearance: no apparent distress, obese Respiratory: chest non-tender, no respiratory distress, decreased breath sounds (throughout, ?habitus), wheezing (very mild scattered end expiratory) Cardiovascular: normal peripheral pulses, regular rate, rhythm, no murmur (Chaka Benton MD) Assessment/Plan 65 y/o female h/o COPD presents w/ COPD exacerbation COPD exacerbation - complete course of prednisone & azithromycin as outpatient. Continue xopenex, theophylline and singulair DMII - resume outpatient regimen, follow with PCP for enhanced control Constipation - encouraged hydration and fiber intake Chest pain - resolving with cough HTN - stable at present, continue home regimen (Chaka Benton MD)
[2016-12-23] MEDS ORDERED: GABA-113 PO (13:07)
[2016-12-23] MEDS ORDERED: POLY335019 PO (13:09)
[2017-02-04] MEDS ORDERED: DEXT1TAB50 PO (07:59)
[2017-02-04] MEDS ORDERED: POLY335019 PO (07:59)
[2017-02-04] MEDS ORDERED: METO25TA56 PO (08:05)
[2017-02-04] MEDS ORDERED: NTRGSL/4 UT (08:08)
[2017-02-04] MEDS ORDERED: CHOL1CAP74 PO (08:12)
[2017-02-04] MEDS ORDERED: CHOL1CAP51 PO (08:13)
[2017-02-04] MEDS ORDERED: ISOS30TA3 PO (10:12)
== END 2016-06-18 20:14 | disposition home health service (06) | DRG 191 ==
LOC: ENRESERVTM → ENRESERVDT → EDBD 15:58 → C.EDB 15:58 → C.2T 17:33 → EDBEDREQ 17:53 → C.MS4W 06-15 18:00
PROVIDERS: ADMIT Hospitalist; ATTEND Family Medicine
DX: J44.1 Chronic obstructive pulmonary disease with (acute) exacerbation (principal); Z68.43 Body mass index [BMI] 50.0-59.9, adult; I10 Essential (primary) hypertension; E87.6 Hypokalemia; R07.9 Chest pain, unspecified; E78.5 Hyperlipidemia, unspecified; Z87.891 Personal history of nicotine dependence; G47.33 Obstructive sleep apnea (adult) (pediatric); Z79.82 Long term (current) use of aspirin; Z79.4 Long term (current) use of insulin; Z82.49 Family history of ischemic heart disease and other diseases of the circulatory system; K59.00 Constipation, unspecified; E66.9 Obesity, unspecified; E11.42 Type 2 diabetes mellitus with diabetic polyneuropathy

== ENCOUNTER 2016-06-23 14:38 | Observation (INO) | payer OTHER ==
[~2016-06-23] VITALS: Ht 157.5 cm; Wt 142.8 kg
[~2016-06-23 14:38] MED LIST changes: +ADVIN50/60 INH; +ALBINS/ NEB; +ASPI81TA28 PO; +ATV/1 PO; +CHOL20009 PO; +COEN30CA6 PO; +FRS/40 PO; +LISI-461 PO; +MECL-72 PO; -MELATAB2 PO; +METF1TAB85 PO; +MONT1TAB3 PO; +MULT-240 PO; -OXGN; +POTA10TA30 PO; +PRD20 PO; +ROSU5TAB PO; +SPIR1TAB71 PO; +TRAM-10 PO; +VLTG EX
[2016-06-23] MEDS ORDERED: ALBUT/IPRATROP 3MG/0.5MG NEB 3 ML VIAL INH STA (15:00)
[2016-06-23] MEDS ORDERED: METHYLPREDNISOLONE 125 MG VIAL IV STA (15:07)
--- NOTE | 2016-06-23 15:31 | DIAGNOSTIC IMAGING REPORT ---
CHEST ONE VIEW PORTABLE CLINICAL HISTORY: Respiratory distress. COMPARISON STUDY: 06/13/2016 FINDINGS: The cardiac and mediastinal contours are normal. There is no evidence of focal pulmonary consolidation. There is no evidence of failure. No pleural effusions are visualized.[ There is a stable linear area of atelectasis/scar at the left lung base. Moderate arthritic changes are present within the shoulders. IMPRESSION: No active disease in the chest. Electronically signed by: Jv Greer M.D. 06/23/2016 3:30 PM Dictated Date/Time: 06/23/2016 3:29 PM
[2016-06-23 15:54] LABS: BASO % 0.1 %; BASO ABS # 0.01 K/uL (0-0.2); COMPLETE YES; HEMATOCRIT 46.5 % (37-47); IG% 0.7 %; LYMPH % 7.2 %; LYMPH ABS # 1.34 K/uL (1.2-3.4); MEAN CELL VOLUME 79.2 fL (80-100); MEAN CORPUSCULAR HEMOGLOBIN 28.3 pg (25-34); MEAN CORPUSCULAR HGB CONC 35.7 g/dl (32-36); MEAN PLATELET VOLUME 9.6 fL (7.4-10.4); MONO % 2.2 %; NEUT % 89.8 %; PLATELET COUNT 440 K/uL (130-400); RED BLOOD COUNT 5.87 M/uL (4.2-5.4); WHITE BLOOD COUNT 18.51 K/uL (4.8-10.8)
[2016-06-23 16:17] LABS: ALT/SGPT 19 U/L (12-78); AST/SGOT 10 U/L (15-37); BLOOD UREA NITROGEN 27 mg/dl (7-18); BUN/CREATININE RATIO 19.4 (10-20); CALCIUM 9.9 mg/dl (8.5-10.1); CARBON DIOXIDE 29 mmol/L (21-32); CHLORIDE 92 mmol/L (98-107); GLUCOSE 202 mg/dl (70-99); SODIUM 134 mmol/L (136-145)
[2016-06-23 16:21] LABS: ALB/GLOB RATIO 1.1 (0.9-2); ALKALINE PHOSPHATASE 90 U/L (45-117)
[2016-06-23] MEDS ORDERED: POTASSIUM CHLORIDE 10 MEQ / 100ML WTR IV STA (16:29)
[2016-06-23] MEDS ORDERED: POTASSIUM CHLORIDE 10 MEQ TABCR PO STA (16:29)
[2016-06-23] MEDS ORDERED: LORAZEPAM 0.5 MG TAB SL STA (17:03)
[2016-06-23] MEDS ORDERED: TRAMADOL HCL 50 MG TAB PO PRN (18:30)
[2016-06-23] MEDS ORDERED: ALUMINUM/MAGNESIUM/SIMETH (MAALOX MAX) 30 ML UDC PO PRN (18:30)
[2016-06-23] MEDS ORDERED: LORAZEPAM 1 MG TAB PO PRN (18:30)
[2016-06-23] MEDS ORDERED: MECLIZINE HCL 12.5 MG TAB PO PRN (18:30)
[2016-06-23] MEDS ORDERED: MAGNESIUM HYDROXIDE SUSP 30 ML UDC PO PRN (18:30)
[2016-06-23] MEDS ORDERED: POLYETHYLENE (MIRALAX) 17 GM PACK PO PRN (18:30)
[2016-06-23] MEDS ORDERED: NITROGLYCERIN 0.4 MG SL PER TAB CHARGE SL PRN (18:30)
[2016-06-23] MEDS ORDERED: PAROXETINE 20 MG TAB PO PRN (18:30)
[2016-06-23] MEDS ORDERED: DICLOFENAC SOD 1% GEL 100 GM TUBE EXT PRN (18:30)
[2016-06-23] MEDS ORDERED: ACETAMINOPHEN 325 MG TAB PO PRN (18:30)
[2016-06-23] MEDS ORDERED: ONDANSETRON INJ 2 MG/ML 2 ML VIAL IV PRN (18:30)
[2016-06-23] MEDS ORDERED: ALBUT/IPRATROP 3MG/0.5MG NEB 3 ML VIAL INH PRN (18:30)
--- NOTE | 2016-06-23 18:49 | EMERGENCY ROOM VISIT NOTE ---
History Report prepared by Elida: Myriam Richardson Under the Supervision of: Dr. Chalo Bautista M.D. 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 Pt has a hx of COPD, DM. Normally wears 3L NC at all times. NPC. Denies fever/chills. History of Present Illness The patient is a 65 year old female who presents to the Emergency Room with complaints of worsening shortness of breath that started last night. The patient used 3 breathing treatments at home earlier today, but they offered her minimal relief. She is also experiencing neck pain and chest pain. Additionally , she is experiencing a cough which she states "has been there for years." The patient has a history of COPD. Pt denies LOC, headache, fevers, chills, diaphoresis, visual changes, nausea, vomiting, abdominal pain, back pain, melena , hematochezia, urinary symptoms, numbness, weakness, lymphadenopathy, rash, or other complaints. The patient states that she was discharged from the hospital 3 days ago for similar symptoms. The patient's son states that the patient was doing better when she was first discharged from the hospital and then she began complaining of feeling unwell again last night. She states that she started feeling weak yesterday. The patient is on prednisone currently and she took 2 pills this morning. When the patient was in the hospital they discussed the option of occupational therapy at [facility]. She adds that she was evaluated for occupational therapy this morning and they determined that she could use therapy. The patient takes a baby aspirin daily, but otherwise denies being on any blood thinners. The patient denies any personal history of heart disease, but states that she does have a family history of heart disease. She adds that she called her PCP prior to coming into the ED and they told her to call [phone]. She states that her son was closer so she called him to bring her instead. Source of History: patient Onset: last night Position: chest Quality: other (shortness of breath) Timing: worsening Modifying Factors (Relieving): other (none) Associated Symptoms: + chest pain, + cough, + neck pain, + weakness ( generalized) Review of Systems See HPI for pertinent positives and negatives. A total of ten systems were reviewed and were otherwise negative. Past Medical & Surgical Medical Problems: (1) Acute Renal Failure, Unspecified (2) Chest pain (3) Chronic obstructive lung disease (4) COPD (chronic obstructive pulmonary disease) (5) Diab W Ophthal Manifest, Type Ii Or Unspec Type, Uncntrld (6) Diab W Ophthal Manifest, Type Ii Or Unspec Type, Uncntrld (7) Diabetes mellitus (8) Hyperlipidemia (9) Hypertension Nos (10) UTI (urinary tract infection) Family History Cancer Diabetes mellitus Heart disease Social History Smoking Status: Former Smoker Alcohol Use: none Drug Use: none Marital Status: Housing Status: lives alone Occupation Status: disabled Current/Historical Medications Scheduled Aspirin (Aspirin Ec), 81 MG PO QAM Budesonide/Formoterol Fumarate (Symbicort 160/4.5 Inhaler), 2 PUFFS INH BID Cholecalciferol (Vitamin D), 6,000 UNIT PO QAM Coenzyme Q10 (Ubidecarenone) (Coq10), 10 MG PO DAILY Fluticasone Prop/Salmeterol (Advair Diskus 500/50 60 Dose), 1 PUFFS INH BID Furosemide (Lasix), 40 MG PO QAM Gabapentin (Neurontin), 2 CAP PO TID Insulin Isophan/Regular (Novolin 70/30), 0 SC QPM Lisinopril (Zestril), 5 MG PO QAM Meclizine Hcl (Dramamine Less Drowsy), 25 MG PO PRN UD Metformin Hcl (Metformin Hcl Er), 1,000 MG PO QAM Montelukast Sodium (Singulair), 10 MG PO DAILY Multiple Vitamins W/ Minerals (Womens One Daily), 1 TAB PO DAILY Pantoprazole (Pantoprazole Sodium), 40 MG PO QAM Potassium Chloride (Potassium Chloride Cr), 10 MEQ PO QAM Prednisone (Prednisone), 20 MG PO UD Rosuvastatin Calcium (Crestor), 10 MG PO DAILY Spironolactone & Hydrochloroth (Spironolactone/Hydrochlor), 1 TAB PO DAILY Theophylline (Theophylline ER), 400 MG PO Q12 Tiotropium [place] (Spiriva Handihaler), 1 CAP INH QPM Zolpidem Tartrate (Ambien), 10 MG PO HS [Cpap], N/A HS Scheduled PRN Acetaminophen (Tylenol), 1,000 MG PO BID PRN for Headache or Pain Albuterol Sulf (Proventil 0.083% 2.5MG/3ML), 3 ML NEB Q4 PRN for Wheezing Dextromethorphan-Guaifenesin (Mucinex Dm Maximum Streng), 1 TAB PO BID PRN for prn Diclofenac Sod (Voltaren), 4 GM EX QID PRN for Pain Lorazepam (Ativan), 1 MG PO TID PRN for Anxiety Paroxetine (Paxil), 60 MG PO QAM PRN for PRN Tramadol (Ultram), 50 MG PO TID PRN for Pain Allergies Coded Allergies: Aspirin (Verified Allergy, Mild, SLEEPY, 06/23/16) Codeine (Verified Allergy, Mild, SLEEPY, 06/23/16) Adhesives (Verified Allergy, Unknown, HIVES, 06/23/16) Atorvastatin (Verified Allergy, Unknown, ., 06/23/16) Pravastatin (Verified Allergy, Unknown, ., 06/23/16) Iodinated Diagnostic Agents (Verified Adverse Reaction, Mild, MCGHEE, ) Physical Exam Vital Signs Date Time Temp Pulse Resp B/P Pulse Ox O2 Delivery O2 Flow Rate FiO2 06/23/16 18:08 95 20 153/82 95 Room Air 06/23/16 16:48 104 16 154/91 96 Nasal Cannula 3.0 06/23/16 15:40 99 Nasal Cannula 3.0 06/23/16 15:40 99 Nasal Cannula 3.0 06/23/16 15:31 99 06/23/16 14:47 37.2 111 26 124/79 93 Room Air Physical Exam GENERAL: Awake, alert, tired-appearing, in no distress, nasal cannula oxygen in place. HENT: Normocephalic, atraumatic. Oropharynx unremarkable. EYES: Normal conjunctiva. Sclera non-icteric. NECK: Supple. No nuchal rigidity. FROM. No JVD. RESPIRATORY: Clear to auscultation. CARDIAC: Regular rate, normal rhythm. Extremities warm and well perfused. Pulses equal. ABDOMEN: Soft, non-distended. No tenderness to palpation. No rebound or guarding. No masses. RECTAL: Deferred. MUSCULOSKELETAL: Chest examination reveals no tenderness. The back is symmetrical on inspection without obvious abnormality. There is no CVA tenderness to palpation. No joint edema. LOWER EXTREMITIES: Calves are equal size bilaterally and non-tender. No edema. No discoloration. NEURO: Normal sensorium. No sensory or motor deficits noted. SKIN: No rash or jaundice noted. Medical Decision & Procedures ER Provider Diagnostic Interpretation: X-ray: Per my interpretation, radiologist review. CHEST ONE VIEW PORTABLE IMPRESSION: No active disease in the chest. Electronically signed by: Jv Greer M.D. 06/23/2016 3:30 PM Dictated Date/Time: 06/23/2016 3:29 PM Laboratory Results 06/23/16 15:40 Red Blood Count 5.87, Mean Corpuscular Volume 79.2, Mean Corpuscular Hemoglobin 28.3, Mean Corpuscular Hemoglobin Concent 35.7, Mean Platelet Volume 9.6, Neutrophils (%) (Auto) 89.8, Lymphocytes (%) (Auto) 7.2, Monocytes (%) (Auto) 2.2, Eosinophils (%) (Auto) 0.0, Basophils (%) (Auto) 0.1, Neutrophils # (Auto) 16.63, Lymphocytes # (Auto) 1.34, Monocytes # (Auto) 0.40, Eosinophils # (Auto) 0.00, Basophils # (Auto) 0.01 06/23/16 15:40 Test 06/23/16 15:40 White Blood Count 18.51 K/uL (4.8-10.8) Red Blood Count 5.87 M/uL (4.2-5.4) Hemoglobin 16.6 g/dL (12.0-16.0) Hematocrit 46.5 % (37-47) Mean Corpuscular Volume 79.2 fL (80-100) Mean Corpuscular Hemoglobin 28.3 pg (25-34) Mean Corpuscular Hemoglobin Concent 35.7 g/dl (32-36) Platelet Count 440 K/uL (130-400) Mean Platelet Volume 9.6 fL (7.4-10.4) Neutrophils (%) (Auto) 89.8 % Lymphocytes (%) (Auto) 7.2 % Monocytes (%) (Auto) 2.2 % Eosinophils (%) (Auto) 0.0 % Basophils (%) (Auto) 0.1 % Neutrophils # (Auto) 16.63 K/uL (1.4-6.5) Lymphocytes # (Auto) 1.34 K/uL (1.2-3.4) Monocytes # (Auto) 0.40 K/uL (0.11-0.59) Eosinophils # (Auto) 0.00 K/uL (0-0.5) Basophils # (Auto) 0.01 K/uL (0-0.2) RDW Standard Deviation 41.1 fL (36.4-46.3) RDW Coefficient of Variation 14.3 % (11.5-14.5) Immature Granulocyte % (Auto) 0.7 % Immature Granulocyte # (Auto) 0.13 K/uL (0.00-0.02) Anion Gap 13.0 mmol/L (3-11) Est Creatinine Clear Calc Drug Dose 54.6 ml/min Estimated GFR () 44.9 Estimated GFR (Non- 38.8 BUN/Creatinine Ratio 19.4 (10-20) Calcium Level 9.9 mg/dl (8.5-10.1) Total Bilirubin 1.0 mg/dl (0.2-1) Aspartate Amino Transf (AST/SGOT) 10 U/L (15-37) Alanine Aminotransferase (ALT/SGPT) 19 U/L (12-78) Alkaline Phosphatase 90 U/L (45-117) Total Creatine Kinase 55 U/L (26-192) Creatine Kinase MB < 0.5 ng/ml (0.5-3.6) Creatine Kinase MB Ratio (0-3.0) Troponin I < 0.015 ng/ml (0-0.045) Total Protein 6.9 gm/dl (6.4-8.2) Albumin 3.6 gm/dl (3.4-5.0) Globulin 3.3 gm/dl (2.5-4.0) Albumin/Globulin Ratio 1.1 (0.9-2) Laboratory results reviewed by me Medications Administered Medications (Trade) Dose Ordered Sig/Javier Route Start Time Stop Time Status Last Admin Dose Admin Albuterol/ Ipratropium (Duoneb) 3 ml NOW STAT INH 06/23/16 15:00 06/23/16 15:01 DC 06/23/16 15:36 3 ML Methylprednisolone Sodium Succinate (Solu-Medrol IV) 125 mg NOW STAT IV 06/23/16 15:07 06/23/16 15:08 DC 06/23/16 15:34 125 MG Potassium Chloride (Kcl 10 Meq / Wtr) 10 meq NOW STAT IV 06/23/16 16:29 06/23/16 16:30 DC 06/23/16 16:50 10 MEQ Potassium Chloride (Klor-Con M10) 20 meq NOW STAT PO 06/23/16 16:29 06/23/16 16:30 DC 06/23/16 16:49 20 MEQ Lorazepam (Ativan Tab) 0.5 mg NOW STAT SL 06/23/16 17:03 06/23/16 17:04 DC 06/23/16 17:15 0.5 MG ECG Indication: SOB/dyspnea Rate (beats per minute): 92 Findings: PVC, Q waves (Inferior) ED Course 1500: Ordered DuoNeb 3 ml INH 1504: The patient was evaluated in room B5. A complete history and physical exam was performed. 1507: Ordered Solu-Medrol 125 mg IV 1629: Ordered Potassium Chloride 20 meq PO, Potassium Chloride 10 meq IV 1638: I discussed the patient's case with the machine adjuster leader case trim. She is going to evaluate the patient for further management. 1703: Ordered Ativan Tab 0.5 mg SL 1728: The machine adjuster leader case trim has evaluated the patient. The patient does not want to go to [facility] and [facility] can't take her, so we are going to admit her for observation. 1742: Discussed the patient's case with Dr. Jessica Hayes [facility] The patient will be evaluated for further treatment and disposition. 1745: Upon reexamination, the patient was resting comfortably. I discussed the test results and treatment plan with her. The patient will be evaluated for further management. Medical Decision Triage Nursing notes reviewed. The patient's presentation and history were concerning for shortness of breath. Etiologies such as pneumonia, COPD, reactive airway disease, CHF, cardiac ischemia, pulmonary embolism, pneumothorax, musculoskeletal, infections, gastrointestinal, as well as others were entertained. The patient was evaluated. She had heavy cough that she notes has been present for a long time. She noted not doing well after discharge from the hospital recently. Records were reviewed. The patient was given a DuoNeb and Solu- Medrol. Chest imaging and blood work was obtained. The patient had a moderate leukocytosis. Her potassium was low. This was repleted with IV and oral potassium. The patient was still very anxious. She was given a dose of Ativan 0.5 mg SL. On reassessment she was doing better. The patient was evaluated by case management. She does not wish to go to [facility]. She is unable to go to [facility] or [facility] at this time. Internal medicine was consulted for further management. The chart was completed utilizing [employer] Speech voice recognition software. Grammatical errors, random word insertions, pronoun errors, and incomplete sentences are an occasional consequence of this system due to software limitations, ambient noise, and hardware issues. Any formal questions or concerns about the content, text, or information contained within the body of this dictation should be directly addressed to the physician for clarification. Consults Time Called: 173 Consulting Physician: Dr. Jessica LINTON Returned Call: [phone] Discussed the patient's case with Dr. Jessica LINTON. The patient will be evaluated for further treatment and disposition. Impression Primary Impression: Shortness of breath Scribe Attestation The scribe's documentation has been prepared under my direction and personally reviewed by me in its entirety. I confirm that the note above accurately reflects all work, treatment, procedures, and medical decision making performed by me. Departure Information Dispostion Being Evaluated By Hospitalist Chaka Michelle M.D. (PCP) Patient Instructions My [facility]
--- NOTE | 2016-06-23 18:59 | History and Physical ---
History & Physical Date & Time of Service: Jun 23, 2016 at 18:36 Chief Complaint: Sob, Panic Attack Primary Care Physician: Chaka Alfred M.D. History of Present Illness Source: patient, clinic records, hospital records Patient is a pleasant 65 y/o female, with PMHx of COPD, SARIKA, CHF, T2DM w/ diabetic neuropathy, HTN, hyperlipidemia, GERD, and anxiety/depression, who presented to the ED because of worsening SOB and left- sided chest pain radiating to left jaw. Patient was admitted on 06/13 for COPD exacerbation secondary to bronchitis. She was discharged on 06/18 with a Prednisone юлия. Initially, patient was doing well after discharge. On 06/22, patient started to experience worsening SOB. Today (06/23), patient started to experience left-sided CP radiating to left jaw. She also notes that she does not feel safe staying at home alone. +chronic nonproductive cough. Patient wears 3L O2 supplement at home. Patient denies any fever, chills, sweats, lightheadedness, dizziness, vision changes, palpitations, edema, wheezing, abdominal pain, nausea, vomiting , diarrhea, urinary symptoms, melena, numbness/tingling, weakness, muscle/joint pain, anxiety/depression, active bleeding, or new skin discoloration/changes. Past Medical/Surgical History Medical Problems: 1. COPD 2. SARIKA 3. CHF 4. T2DM 5. Diabetic neuropathy 6. HTN 7. Hyperlipidemia 8. Anxiety/depression Family History Cancer Diabetes mellitus Heart disease Social History Smoking Status: Former Smoker Drug Use: none Marital Status: Housing status: lives alone Occupational Status: disabled Immunizations History of Influenza Vaccine: Yes Influenza Vaccine Date: Jan 22, 2008 History of Tetanus Vaccine?: Unknown History of Pneumococcal: Yes Pneumococcal Date: Mar 23, 2007 History of Hepatitis B Vaccine: No Multi-Drug Resistant Organisms History of MDRO: Yes Type of MDRO: MRSA Allergies Coded Allergies: Aspirin (Verified Allergy, Mild, SLEEPY, 06/23/16) Codeine (Verified Allergy, Mild, SLEEPY, 06/23/16) Adhesives (Verified Allergy, Unknown, HIVES, 06/23/16) Atorvastatin (Verified Allergy, Unknown, ., 06/23/16) Pravastatin (Verified Allergy, Unknown, ., 06/23/16) Iodinated Diagnostic Agents (Verified Adverse Reaction, Mild, MCGHEE, ) Home Medications Scheduled Aspirin (Aspirin Ec), 81 MG PO QAM Budesonide/Formoterol Fumarate (Symbicort 160/4.5 Inhaler), 2 PUFFS INH BID Cholecalciferol (Vitamin D), 6,000 UNIT PO QAM Coenzyme Q10 (Ubidecarenone) (Coq10), 10 MG PO DAILY Fluticasone Prop/Salmeterol (Advair Diskus 500/50 60 Dose), 1 PUFFS INH BID Furosemide (Lasix), 40 MG PO QAM Gabapentin (Neurontin), 2 CAP PO TID Insulin Isophan/Regular (Novolin 70/30), 0 SC QPM Lisinopril (Zestril), 5 MG PO QAM Meclizine Hcl (Dramamine Less Drowsy), 25 MG PO PRN UD Metformin Hcl (Metformin Hcl Er), 1,000 MG PO QAM Montelukast Sodium (Singulair), 10 MG PO DAILY Multiple Vitamins W/ Minerals (Womens One Daily), 1 TAB PO DAILY Pantoprazole (Pantoprazole Sodium), 40 MG PO QAM Potassium Chloride (Potassium Chloride Cr), 10 MEQ PO QAM Prednisone (Prednisone), 20 MG PO UD Rosuvastatin Calcium (Crestor), 10 MG PO DAILY Spironolactone & Hydrochloroth (Spironolactone/Hydrochlor), 1 TAB PO DAILY Theophylline (Theophylline ER), 400 MG PO Q12 Tiotropium Eckert (Spiriva Handihaler), 1 CAP INH QPM Zolpidem Tartrate (Ambien), 10 MG PO HS [Cpap], N/A HS Scheduled PRN Acetaminophen (Tylenol), 1,000 MG PO BID PRN for Headache or Pain Albuterol Sulf (Proventil 0.083% 2.5MG/3ML), 3 ML NEB Q4 PRN for Wheezing Dextromethorphan-Guaifenesin (Mucinex Dm Maximum Streng), 1 TAB PO BID PRN for prn Diclofenac Sod (Voltaren), 4 GM EX QID PRN for Pain Lorazepam (Ativan), 1 MG PO TID PRN for Anxiety Paroxetine (Paxil), 60 MG PO QAM PRN for PRN Tramadol (Ultram), 50 MG PO TID PRN for Pain Physical Exam Vital Signs Date Time Temp Pulse Resp B/P Pulse Ox O2 Delivery O2 Flow Rate FiO2 06/23/16 18:08 95 20 153/82 95 Room Air 06/23/16 16:48 104 16 154/91 96 Nasal Cannula 3.0 06/23/16 15:40 99 Nasal Cannula 3.0 06/23/16 15:40 99 Nasal Cannula 3.0 06/23/16 15:31 99 06/23/16 14:47 37.2 111 26 124/79 93 Room Air General Appearance: no apparent distress, + obese Head: normocephalic, atraumatic Eyes: normal inspection, PERRL ENT: hearing grossly normal Neck: supple Respiratory/Chest: lungs clear, no respiratory distress, no accessory muscle use, + decreased breath sounds (throughout) Cardiovascular: regular rate, rhythm, + systolic murmur Abdomen/GI: normal bowel sounds, soft, + tenderness (suprapubic ttp ) Back: normal inspection Extremities/Musculoskelatal: no calf tenderness, no pedal edema Neurologic/Psych: alert, normal mood/affect, oriented x 3 Skin: normal color, warm/dry, no rash Diagnostics Laboratory Results Results Past 24 Hours Test 06/23/16 15:40 Range/Units White Blood Count 18.51 4.8-10.8 K/uL Red Blood Count 5.87 4.2-5.4 M/uL Hemoglobin 16.6 12.0-16.0 g/dL Hematocrit 46.5 37-47 % Mean Corpuscular Volume 79.2 80-100 fL Mean Corpuscular Hemoglobin 28.3 25-34 pg Mean Corpuscular Hemoglobin Concent 35.7 32-36 g/dl Platelet Count 440 130-400 K/uL Mean Platelet Volume 9.6 7.4-10.4 fL Neutrophils (%) (Auto) 89.8 % Lymphocytes (%) (Auto) 7.2 % Monocytes (%) (Auto) 2.2 % Eosinophils (%) (Auto) 0.0 % Basophils (%) (Auto) 0.1 % Neutrophils # (Auto) 16.63 1.4-6.5 K/uL Lymphocytes # (Auto) 1.34 1.2-3.4 K/uL Monocytes # (Auto) 0.40 0.11-0.59 K/uL Eosinophils # (Auto) 0.00 0-0.5 K/uL Basophils # (Auto) 0.01 0-0.2 K/uL RDW Standard Deviation 41.1 36.4-46.3 fL RDW Coefficient of Variation 14.3 11.5-14.5 % Immature Granulocyte % (Auto) 0.7 % Immature Granulocyte # (Auto) 0.13 0.00-0.02 K/uL Sodium Level 134 136-145 mmol/L Potassium Level 3.0 3.5-5.1 mmol/L Chloride Level 92 98-107 mmol/L Carbon Dioxide Level 29 21-32 mmol/L Anion Gap 13.0 3-11 mmol/L Blood Urea Nitrogen 27 7-18 mg/dl Creatinine 1.40 0.60-1.20 mg/dl Est Creatinine Clear Calc Drug Dose 54.6 ml/min Estimated GFR () 44.9 Estimated GFR (Non- 38.8 BUN/Creatinine Ratio 19.4 10-20 Random Glucose 202 70-99 mg/dl Calcium Level 9.9 8.5-10.1 mg/dl Total Bilirubin 1.0 0.2-1 mg/dl Aspartate Amino Transf (AST/SGOT) 10 15-37 U/L Alanine Aminotransferase (ALT/SGPT) 19 12-78 U/L Alkaline Phosphatase 90 45-117 U/L Total Creatine Kinase 55 26-192 U/L Creatine Kinase MB < 0.5 0.5-3.6 ng/ml Creatine Kinase MB Ratio 0-3.0 Troponin I < 0.015 0-0.045 ng/ml Total Protein 6.9 6.4-8.2 gm/dl Albumin 3.6 3.4-5.0 gm/dl Globulin 3.3 2.5-4.0 gm/dl Albumin/Globulin Ratio 1.1 0.9-2 Diagnostic Radiology CHEST ONE VIEW PORTABLE CLINICAL HISTORY: Respiratory distress. COMPARISON STUDY: 06/13/2016 FINDINGS: The cardiac and mediastinal contours are normal. There is no evidence of focal pulmonary consolidation. There is no evidence of failure. No pleural effusions are visualized.[ There is a stable linear area of atelectasis/scar at the left lung base. Moderate arthritic changes are present within the shoulders. IMPRESSION: No active disease in the chest. Electronically signed by: Jv Greer M.D. 06/23/2016 3:30 PM Dictated Date/Time: 06/23/2016 3:29 PM The status of this report is Signed. Draft = Not yet reviewed or approved by Radiologist. Signed = Reviewed and approved by Radiologist. EKG ANDREW BURGER ID:[id number] 23-JUN-2016 15:21:04 [facility] Undetermined rhythm Possible Inferior infarct , age undetermined Prolonged QT Abnormal ECG When compared with ECG of 13-JUN-2016 16:16, Current undetermined rhythm precludes rhythm comparison, needs review Borderline criteria for Inferior infarct are now Present QT has lengthened 25mm/s 10mm/mV 150Hz 8.0 SP2 12SL 241 AYSE: 9 Referred by: Referred Self Unconfirmed Vent. rate 92 BPM FL interval 164 ms QRS duration 88 ms QT/QTc 422/521 ms P-R-T axes 53 80 11 1950 (65 yr) Female Room: Loc: [facility] Impression Assessment and Plan 65 y/o female, with PMHx of COPD, SARIKA, CHF, T2DM w/ diabetic neuropathy, HTN, hyperlipidemia, GERD, and anxiety/depression, who presented to the ED because of worsening SOB and left- sided chest pain radiating to left jaw. Chest pain w/ radiating left jaw pain: - Admit to tele observation for cardiac monitoring - Trend cardiac enzymes- initial trop negative - Repeat EKG tomorrow AM ?Mild COPD exacerbation: - IV SoluMedrol 125 mg x1 dose in ED. - Prednisone 20 mg PO tomorrow - Continue home inhalers - DuoNebs PRN - O2 protocol--> wears 3L O2 at home Mild hyponatremia: - Treat w/ IV NSS @ 100 ml/hr - Follow PRP Hypokalemia: - IV 10 mEq KCL + 20 mEq KCL PO given in ED - IV NSS + 20 mEq KCL - Continue Potassium supplement Leukocytosis of 18.51, likely secondary to current Prednisone юлия: - CXR unremarkable - U/A pending - Do not feel antibiotic treatment is necessary at this time--> continue to monitor for s/s of infection - Follow CBC CKD, stage III, baseline cr. 1.0: - Cr. 1.4 at admission - Treat w/ IVF Deconditioning: PT/OT T2DM w/ diabetic neuropathy: - Hold Metformin - BSG ACHS w/ sliding insulin scale - ha1c 5.9% on 06/14 - Continue Gabapentin HTN: Continue Lisinopril 5 mg PO daily CHF w/ EF of 60-65% in 2014: - Hold Lasix 40 mg PO QAM due to IVF treatment - Continue Potassium supplement Anxiety/depression: Continue Paxil 60 mg daily and Ativan PRN Hyperlipidemia: Continue Crestor 10 mg daily SARIKA: CPAP GERD: Continue Protonix GI Prophylaxis: Maalox PRN, IV Zofran PRN, Colace and/or Milk of Mag PRN DVT prophylaxis: Lovenox 40 mg SQ q24 hrs, ELDER and SCDs Code Status: LEVEL I, FULL Dispo: - From home, lives alone--> patient is afraid to be home alone now - PT/OT evaluations, executive secretary social welfare consulted PA Physician Supervision Note: I interviewed and examined the patient. Discussed with Katiuska Chen PAC and agree with findings and plan as documented in the note. Any exceptions or clarifications are listed here: None This pt is a recent discharge who was encouraged to have post discharge rehab who requested to go home instead, now she remains sob( last admission for COPD) in anxious and has her ambulation limited by her morbid obesity with a bmi of 59. She now admits to needing placement for rehab and is agreeable vitals noted and stable on oxygen mild hypokalemia is noted Will observe, support her chronic hypoxic lung disease and have case management help with post discharge placment Documented By: Nacho Lopez Level of Care Telemetry Resuscitation Status FULL RESUSCITATION VTE Prophylaxis VTE Risk Assessment Done? Y/N: Yes Risk Level: Moderate Given or contraindicated: Enoxaparin (Lovenox)SQ, T.E.D. Stockings, SCD's
[2016-06-23 19:20] VITALS: BP 163/91; PULSE 98; TEMP 37; O2SAT 96; Ht 157.5 cm; Wt 142.8 kg
[2016-06-23 20:00] VITALS: O2SAT 97
[2016-06-23] MEDS ORDERED: TIOTROPIUM BROMIDE 5 PUFF/90 MCG INH INH SCH (21:00)
[2016-06-23] MEDS: NSS + 20MEQ KCL 1000ML 1,000 ML IV SCH (22:01)
[2016-06-23] MEDS: BUDESONIDE/FORMOTEROL FUMARATE 160/4.5 60 PUFFS/INHALER INH SCH (22:02)
[2016-06-23] MEDS: FLUTICASONE/SALMETEROL (ADVAIR) 500/50 INH 14 PUFF INH SCH (22:02)
[2016-06-23] MEDS: ENOXAPARIN 40 MG/0.4 ML SYR SC SCH (22:06)
[2016-06-23] MEDS: MONTELUKAST SOD 10 MG TAB PO SCH (22:06)
[2016-06-23] MEDS: THEOPHYLLINE 400 MG EXTENDED REL TAB PO SCH (22:06)
[2016-06-23] MEDS: GABAPENTIN 100 MG CAP PO SCH (22:06)
[2016-06-23] MEDS: ZOLPIDEM TARTRATE 10 MG TAB PO SCH (22:07)
[2016-06-23] MEDS: INSULIN ASPART 100 UNITS/ML 3 ML PEN SC SCH (22:26)
[2016-06-23 22:49] LABS: URINE APPEARANCE CLEAR (CLEAR); URINE BILIRUBIN NEG (NEG); URINE COLOR DK YELLOW; URINE EPITHELIAL CELL AUTO >30 /lpf (0-5); URINE NITRITE NEG (NEG); URINE PH 5.5 (4.5-7.5); URINE SPECIFIC GRAVITY 1.028 (1.000-1.030); UROBILINOGEN NEG (NEG); ZZUR CULT IF INDIC CLEAN CATCH YES
[2016-06-23 22:50] LABS: MANUAL MICROSCOPIC REQUIRED? NO; REVIEW REQ? NO
[2016-06-23 23:59] VITALS: BP 124/76; PULSE 79; TEMP 36.9; O2SAT 97; O2SAT 98
[2016-06-24] VITALS (14 sets, daily range): BP systolic 109–145; BP diastolic 64–81; PULSE 76–86; TEMP 36.3–36.9; O2SAT 2–98
[2016-06-24] MEDS: NSS + 20MEQ KCL 1000ML 1,000 ML IV SCH ×2 (05:57→15:49)
[2016-06-24 08:05] LABS: HEMATOCRIT 42.4 % (37-47); MEAN CELL VOLUME 81.4 fL (80-100); MEAN CORPUSCULAR HEMOGLOBIN 27.8 pg (25-34); MEAN CORPUSCULAR HGB CONC 34.2 g/dl (32-36); MEAN PLATELET VOLUME 9.7 fL (7.4-10.4); PLATELET COUNT 416 K/uL (130-400); RED BLOOD COUNT 5.21 M/uL (4.2-5.4); WHITE BLOOD COUNT 19.01 K/uL (4.8-10.8)
[2016-06-24] MEDS: GABAPENTIN 100 MG CAP PO SCH ×3 (08:15→21:04)
[2016-06-24] MEDS: BUDESONIDE/FORMOTEROL FUMARATE 160/4.5 60 PUFFS/INHALER INH SCH ×2 (08:16→21:03)
[2016-06-24] MEDS: SPIRONOLACTONE/HCTZ 25-25 PO SCH (08:16)
[2016-06-24] MEDS: FLUTICASONE/SALMETEROL (ADVAIR) 500/50 INH 14 PUFF INH SCH ×2 (08:16→21:03)
[2016-06-24] MEDS: LISINOPRIL 5 MG TAB PO SCH (08:16)
[2016-06-24] MEDS: ASPIRIN 81 MG ECTAB PO SCH (08:16)
[2016-06-24] MEDS: PANTOprazole SOD 40 MG TAB PO SCH (08:16)
[2016-06-24] MEDS: THEOPHYLLINE 400 MG EXTENDED REL TAB PO SCH ×2 (08:16→21:25)
[2016-06-24] MEDS: CEROVITE ADV FORMULA TAB PO SCH (08:16)
[2016-06-24] MEDS: ROSUVASTATIN CALCIUM 10 MG TAB PO SCH (08:16)
[2016-06-24] MEDS: INSULIN ASPART 100 UNITS/ML 3 ML PEN SC SCH ×5 (08:19→21:17)
[2016-06-24 08:26] LABS: CALCIUM 9.1 mg/dl (8.5-10.1); CREATININE 1.2 mg/dl (0.60-1.20); MAGNESIUM 2.2 mg/dl (1.8-2.4); POTASSIUM 3.4 mmol/L (3.5-5.1)
[2016-06-24] MEDS ORDERED: FUROSEMIDE 40 MG TAB PO SCH (09:00)
[2016-06-24 09:33] LABS: CKMB/CK RATIO 2.7 (0-3.0)
--- NOTE | 2016-06-24 11:33 | Hospitalist Progress Note ---
Hospitalist Progress Note Date of Service Jun 24, 2016. (Clair Sharma ., PA-C) Subjective Pt evaluation today including: conversation w/ patient, physical exam, chart review, lab review, review of studies, review of inpatient medication list Pain: 3/10 central chest pressure worse with movement PO Intake: Poor, nauseous Voiding: voiding difficulty (dysuria) The patient still complains of chest pain. She complains of a 3/10 central chest pressure that is worse with movement, as well as intermittent palpitations while moving. She also complains of shortness of breath and dyspnea on exertion. Patient complains of weakness, fatigue that is the same as yesterday. She complains of constant nausea and some dry heaves but has not actually vomited. She also complains of a 1/10 burning pain in the upper quadrants of her abdomen. She reports dysuria as well as constipation. The patient denies fevers, chills, sweats, claudication, cough, wheezing, vomiting, hematuria, urinary retention, paralysis, weakness, new numbness and tingling. Additional Comments: See HPI for pertinent positives and negatives. All other systems reviewed and negative. (Clair Sharma ., PA-C) Objective Vital Signs Date Time Temp Pulse Resp B/P Pulse Ox O2 Delivery O2 Flow Rate FiO2 06/24/16 08:23 36.9 76 19 145/78 98 Nasal Cannula 3.0 06/24/16 08:00 Nasal Cannula 3.0 06/24/16 04:00 97 Nasal Cannula 3.0 06/24/16 03:42 36.3 86 18 144/81 98 CPAP 3.0 06/24/16 00:09 84 95 3.0 06/24/16 00:08 82 18 96 BiPAP/CPAP 3.0 06/23/16 23:59 36.9 79 22 124/76 98 CPAP 3.0 06/23/16 23:59 97 Nasal Cannula 3.0 06/23/16 20:00 97 Nasal Cannula 3.0 06/23/16 19:22 104 24 126/64 97 06/23/16 19:20 37.0 98 22 163/91 96 Nasal Cannula 3.0 06/23/16 18:08 95 20 153/82 95 Room Air 06/23/16 16:48 104 16 154/91 96 Nasal Cannula 3.0 06/23/16 15:40 99 Nasal Cannula 3.0 06/23/16 15:40 99 Nasal Cannula 3.0 06/23/16 15:31 99 06/23/16 14:47 37.2 111 26 124/79 93 Room Air (Clair Sharma ., PA-C) Physical Exam General Appearance: WD/WN, no apparent distress, + obese (morbidly obese) Eyes: normal inspection, PERRL, EOMI ENT: normal ENT inspection, hearing grossly normal, pharynx normal Neck: supple, no JVD, trachea midline Respiratory/Chest: normal breath sounds, no respiratory distress, + wheezing ( scattered) Cardiovascular: regular rate, rhythm, no gallop, no murmur Abdomen: normal bowel sounds, soft, + tenderness (suprapubic and epigastric area tender to palpation) Extremities: normal inspection, no pedal edema, no calf tenderness Neurologic/Psychiatric: alert, normal mood/affect, oriented x 3 Skin: normal color, warm/dry, no rash (Clair Sharma ., PA-C) Laboratory Results Last 24 Hours Test 06/23/16 15:40 06/23/16 20:49 06/23/16 21:50 06/24/16 00:00 White Blood Count 18.51 K/uL Red Blood Count 5.87 M/uL Hemoglobin 16.6 g/dL Hematocrit 46.5 % Mean Corpuscular Volume 79.2 fL Mean Corpuscular Hemoglobin 28.3 pg Mean Corpuscular Hemoglobin Concent 35.7 g/dl Platelet Count 440 K/uL Mean Platelet Volume 9.6 fL Neutrophils (%) (Auto) 89.8 % Lymphocytes (%) (Auto) 7.2 % Monocytes (%) (Auto) 2.2 % Eosinophils (%) (Auto) 0.0 % Basophils (%) (Auto) 0.1 % Neutrophils # (Auto) 16.63 K/uL Lymphocytes # (Auto) 1.34 K/uL Monocytes # (Auto) 0.40 K/uL Eosinophils # (Auto) 0.00 K/uL Basophils # (Auto) 0.01 K/uL RDW Standard Deviation 41.1 fL RDW Coefficient of Variation 14.3 % Immature Granulocyte % (Auto) 0.7 % Immature Granulocyte # (Auto) 0.13 K/uL Sodium Level 134 mmol/L Potassium Level 3.0 mmol/L Chloride Level 92 mmol/L Carbon Dioxide Level 29 mmol/L Anion Gap 13.0 mmol/L Blood Urea Nitrogen 27 mg/dl Creatinine 1.40 mg/dl Est Creatinine Clear Calc Drug Dose 54.6 ml/min Estimated GFR () 44.9 Estimated GFR (Non- 38.8 BUN/Creatinine Ratio 19.4 Random Glucose 202 mg/dl Calcium Level 9.9 mg/dl Total Bilirubin 1.0 mg/dl Aspartate Amino Transf (AST/SGOT) 10 U/L Alanine Aminotransferase (ALT/SGPT) 19 U/L Alkaline Phosphatase 90 U/L Total Creatine Kinase 55 U/L Creatine Kinase MB < 0.5 ng/ml Creatine Kinase MB Ratio Troponin I < 0.015 ng/ml Total Protein 6.9 gm/dl Albumin 3.6 gm/dl Globulin 3.3 gm/dl Albumin/Globulin Ratio 1.1 Bedside Glucose 236 mg/dl Urine Color DK YELLOW Urine Appearance CLEAR Urine pH 5.5 Urine Specific [place] 1.028 Urine Protein NEG Urine Glucose (UA) NEG Urine Ketones 1+ Urine Occult Blood NEG Urine Nitrite NEG Urine Bilirubin NEG Urine Urobilinogen NEG Urine Leukocyte Esterase TRACE Urine WBC (Auto) 5-10 /hpf Urine RBC (Auto) 0-4 /hpf Urine Hyaline Casts (Auto) 1-5 /lpf Urine Epithelial Cells (Auto) >30 /lpf Urine Bacteria (Auto) 1+ Test 06/24/16 00:45 06/24/16 07:08 06/24/16 07:26 06/24/16 08:55 Creatine Kinase MB 0.6 ng/ml 0.7 ng/ml Troponin I < 0.015 ng/ml < 0.015 ng/ml Bedside Glucose 201 mg/dl White Blood Count 19.01 K/uL Red Blood Count 5.21 M/uL Hemoglobin 14.5 g/dL Hematocrit 42.4 % Mean Corpuscular Volume 81.4 fL Mean Corpuscular Hemoglobin 27.8 pg Mean Corpuscular Hemoglobin Concent 34.2 g/dl RDW Standard Deviation 43.2 fL RDW Coefficient of Variation 14.6 % Platelet Count 416 K/uL Mean Platelet Volume 9.7 fL Sodium Level 137 mmol/L Potassium Level 3.4 mmol/L Chloride Level 97 mmol/L Carbon Dioxide Level 31 mmol/L Anion Gap 9.0 mmol/L Blood Urea Nitrogen 29 mg/dl Creatinine 1.20 mg/dl Est Creatinine Clear Calc Drug Dose 62.6 ml/min Estimated GFR () 54.2 Estimated GFR (Non- 46.7 BUN/Creatinine Ratio 24.0 Random Glucose 199 mg/dl Calcium Level 9.1 mg/dl Magnesium Level 2.2 mg/dl Total Creatine Kinase 26 U/L Creatine Kinase MB Ratio 2.7 (Clair Sharma, JOSE) Assessment and Plan 65 y/o female with a history of COPD, SARIKA, diastolic CHF, T2DM w/ diabetic neuropathy, HTN, hyperlipidemia, GERD, and anxiety/depression, who presented to the ED on 06/23 with w worsening SOB and left-sided chest pain. Chest pain--unlikely cardiac as chest pain is reproducible on palpation - Admit to tele observation for cardiac monitoring. No acute events overnight on telemetry. Patient remained in sinus rhythm with heart rate in 70s and some PVCs. Transferred to [facility] on 06/24. - Cardiac enzymes negative 3 - EKG no ischemic changes Mild COPD exacerbation--stable - IV SoluMedrol 125 mg x1 dose in ED - Continue Prednisone 20 mg PO q am - Continue home inhalers - Scheduled DuoNebs QIDR as pt is wheezy on exam, + q2h prn SOB/wheezing - O2 protocol--> wears 3L O2 at home. Oxygenating at 98% on 3 L Mild hyponatremia--resolved - Sodium 134 on admission - Repeat sodium 137 on 06/24 - Continue IV NSS + 20 mEq KCl @ 100 ml/hr as patient has poor oral intake - Continue to monitor Hypokalemia--improving - Potassium 3.0 on arrival - KCl 10 mEq IV and KCl 20 mEq PO given in ED - Fluids as above - Repeat potassium 3.4 on 06/24 - Continue Potassium supplement Leukocytosis of 18.51, likely secondary to current Prednisone taper--ongoing - WBC 19.01 on 06/24, given Solu-Medrol loading dose in ED as above - CXR no acute disease - U/A likely contaminated with skin agnieszka, urine culture pending - Continue to monitor. No antibiotics at this time JAIMEE on CKD, stage III, baseline cr. 1.0--improving - Cr. 1.4 at admission - Creatinine improved to 1.2 on 06/24 - Continue IVF T2DM w/ diabetic neuropathy--Last HgbA1c checked on 06/14/16 was 5.9 - Hold Metformin - Insulin sliding scale - Check BSGs q ac and qhs - Continue Gabapentin 200 mg PO TID HTN--stable -Continue Lisinopril 5 mg PO qd CHF w/ EF of 60-65% in 2013--stable - Hold Lasix 40 mg PO qam due to IVF treatment. Will try to D/C IVF tomorrow if pt can tolerate PO - Continue Potassium supplement Anxiety/depression -Continue Paxil 60 mg PO qd and Ativan 1 mg PO TID prn anxiety Hyperlipidemia -Continue Crestor 10 mg PO qd SARIKA -Continue CPAP GERD -Continue Protonix 40 mg PO qd GI prophylaxis -Maalox Max 15 mL PO q4h prn dyspepsia -Milk of magnesia 30 mL PO q6h prn constipation -Schedule Miralax 17 gm PO qd as pt complains of constipation -Zofran 4 mg IV q6h prn nausea DVT prophylaxis -Enoxaparin 40 mg SC q24h -ELDER peterson and NEVILLEs Code Status -Level I, FULL RESUSCITATION STATUS Dispo - From home, lives alone--> patient is afraid to be home alone, feels unsafe - PT recommends acute inpatient rehab - Case management following, referral placed to [facility] (Clair Sharma ., PA-C) I agree with PA assessment and plan and have seen and examined pt myself Resting comfortably in bed Chest pain likely atypical, reproducible on palpation Mild COPD exab Morbid obesity Cont steroids Will need placement PT/OT consulted (Eric Tran D.O.)
[2016-06-24] MEDS ORDERED: POLYETHYLENE (MIRALAX) 17 GM PACK PO ONE (12:00)
[2016-06-24] MEDS ORDERED: ONDANSETRON INJ 2 MG/ML 2 ML VIAL IV ONE (12:00)
[2016-06-24] MEDS ORDERED: ALBUT/IPRATROP 3MG/0.5MG NEB 3 ML VIAL INH PRN (12:00)
[2016-06-24] MEDS: ALBUT/IPRATROP 3MG/0.5MG NEB 3 ML VIAL INH SCH (20:00)
[2016-06-24] MEDS: ZOLPIDEM TARTRATE 10 MG TAB PO SCH (21:04)
[2016-06-24] MEDS: TIOTROPIUM BROMIDE 5 PUFF/90 MCG INH INH SCH (21:04)
[2016-06-24] MEDS: ENOXAPARIN 40 MG/0.4 ML SYR SC SCH (21:05)
[2016-06-24] MEDS: MONTELUKAST SOD 10 MG TAB PO SCH (21:05)
[2016-06-25] VITALS (11 sets, daily range): BP systolic 121–170; BP diastolic 65–102; PULSE 70–95; TEMP 36.6–36.8; O2SAT 2–97
[2016-06-25] MEDS: NSS + 20MEQ KCL 1000ML 1,000 ML IV SCH ×2 (02:07→12:30)
[2016-06-25] MEDS: ALBUT/IPRATROP 3MG/0.5MG NEB 3 ML VIAL INH SCH ×4 (07:43→20:20)
[2016-06-25 08:07] LABS: HEMATOCRIT 38.3 % (37-47); MEAN CELL VOLUME 83.3 fL (80-100); MEAN CORPUSCULAR HEMOGLOBIN 28.3 pg (25-34); MEAN CORPUSCULAR HGB CONC 33.9 g/dl (32-36); MEAN PLATELET VOLUME 9.6 fL (7.4-10.4); PLATELET COUNT 343 K/uL (130-400); WHITE BLOOD COUNT 15.38 K/uL (4.8-10.8)
[2016-06-25 08:54] LABS: BUN/CREATININE RATIO 21.3 (10-20); CALCIUM 8.8 mg/dl (8.5-10.1); CREATININE 1.1 mg/dl (0.60-1.20); POTASSIUM 4.2 mmol/L (3.5-5.1)
[2016-06-25] MEDS: ROSUVASTATIN CALCIUM 10 MG TAB PO SCH (10:14)
[2016-06-25] MEDS: PANTOprazole SOD 40 MG TAB PO SCH (10:14)
[2016-06-25] MEDS: CEROVITE ADV FORMULA TAB PO SCH (10:15)
[2016-06-25] MEDS: POLYETHYLENE (MIRALAX) 17 GM PACK PO SCH (10:15)
[2016-06-25] MEDS: ASPIRIN 81 MG ECTAB PO SCH (10:16)
[2016-06-25] MEDS: SPIRONOLACTONE/HCTZ 25-25 PO SCH (10:16)
[2016-06-25] MEDS: FLUTICASONE/SALMETEROL (ADVAIR) 500/50 INH 14 PUFF INH SCH (10:17)
[2016-06-25] MEDS: BUDESONIDE/FORMOTEROL FUMARATE 160/4.5 60 PUFFS/INHALER INH SCH (10:18)
[2016-06-25] MEDS: THEOPHYLLINE 400 MG EXTENDED REL TAB PO SCH (10:18)
[2016-06-25] MEDS: GABAPENTIN 100 MG CAP PO SCH ×2 (10:19→13:54)
[2016-06-25] MEDS: LISINOPRIL 5 MG TAB PO SCH (10:23)
[2016-06-25] MEDS: INSULIN ASPART 100 UNITS/ML 3 ML PEN SC SCH ×3 (10:27→18:32)
[2016-06-25] MEDS ORDERED: DOCUSATE SODIUM 100 MG CAP PO ONE (12:26)
[2016-06-25] MEDS ORDERED: PRD20 PO (13:38)
--- NOTE | 2016-06-25 13:53 | Discharge Instructions ---
Discharge Instructions Date of Service Jun 25, 2016. Admission Reason for Admission: Chest Pain, Copd Exacerbation Discharge Discharge Diagnosis / Problem: Chronic obstructive pulmonary disease exacerbation Discharge Goals Goal(s): Decrease discomfort, Improve function, Diagnostic testing, Therapeutic intervention Activity Recommendations Activity Level: OOB In Chair, Assistance Required Therapies: Physical Therapy, Occupational Therapy Exercise/Sports Limitations: as tolerated Shower/Bathe: no limitations . Additional Information Patient informed of condition: Yes Advance Directives: Yes DNR: No Level of Care: Acute Rehab Communicable Disease: No Prognosis: Stable Oxygen at (LPM): 3L continuous at baseline Multani Catheter: No Instructions / Follow-Up Instructions / Follow-Up You were admitted to the hospital after presenting with chest pain, weakness and fatigue. You received a cardiac work up which included cardiac monitoring and checking lab tests. You did not have any concerning arrhythmias, and your cardiac lab tests were normal. Your chest pain did not appear to be cardiac in origin. You also appeared to be having a mil exacerbation of your chronic obstructive pulmonary disease (COPD), which was treated with steroids. On arrival to the hospital, you had voiced concerns about returning home alone. Physical therapy evaluated you and recommended that you stay at a rehab facility. You were accepted to [facility]. Medications: *You received both IV and oral steroids for your COPD exacerbation. Please continue to take Prednisone 20 mg by mouth once daily for the next 2 days to complete a 5 day course. *You may resume your other home medications as prescribed. Follow up: *Please follow up with your primary care provider, Dr. Alfred, in 1 week regarding your hospital stay. Please seek medical attention if you experience fevers, chills, sweats, chest pain, shortness of breath, nausea, vomiting, lightheadedness, loss of consciousness, new/different numbness or tingling. Current Hospital Diet Patient's current hospital diet: Diabetes Type 2 Diet Discharge Diet Recommended Diet: Diabetes Type 2 Diet Pending Studies Studies pending at discharge: no Physician Orders On Transfer Special Precautions: Fall precautions. GERD precautions Vital Signs: Routine Laboratory Results Hemoglobin A1c Test 06/14/16 05:53 Range/Units Estimated Average Glucose 123 mg/dl Hemoglobin A1c 5.9 H 4.5-5.6 % Medical Emergencies . Who to Call and When: Medical Emergencies: If at any time you feel your situation is an emergency, please call 911 immediately. . Non-Emergent Contact Non-Emergency issues call your: Primary Care Provider Call Non-Emergent contact if: you have a fever, your pain is not controlled, your pain is worsening, your pain is unusual for you, your pain is concerning you, you have any medication questions . Past History Medical & Surgical History: (1) Acute exacerbation of chronic obstructive pulmonary disease (COPD) . "Provider Documentation" section prepared by Clair Sharma. Core Measure Problem Core Measures: None
--- NOTE | 2016-06-25 14:08 | Hospitalist Progress Note ---
Hospitalist Progress Note Date of Service Jun 25, 2016. Subjective Pt evaluation today including: conversation w/ patient, physical exam, chart review, lab review, review of inpatient medication list Pain: None PO Intake: Tolerating PO diet Voiding: no voiding problems Patient reports feeling better. She denies any chest pain today. She states that her shortness of breath has improved, and she no longer feels any SOB at rest. She does still complain of DUNHAM, weakness and fatigue. She also complains of indigestion and constipation, which she states is chronic. The patient denies fevers, chills, sweats, chest pain, palpitations, claudication, cough, wheezing, shortness of breath at rest, nausea, vomiting, abdominal pain, dysuria, hematuria, urinary retention, paralysis, new numbness and tingling. Additional Comments: See HPI for pertinent positives and negatives. All other systems reviewed and negative. Objective Vital Signs Date Time Temp Pulse Resp B/P Pulse Ox O2 Delivery O2 Flow Rate FiO2 06/25/16 12:20 97 Room Air 06/25/16 08:23 94 Nasal Cannula 2.0 06/25/16 07:48 36.6 90 20 121/66 94 Nasal Cannula 2.0 06/25/16 07:43 90 18 95 Nasal Cannula 3.0 06/25/16 07:15 Nasal Cannula 2.0 06/24/16 23:55 Nasal Cannula CPAP 06/24/16 23:47 36.6 85 20 109/64 94 CPAP 06/24/16 20:45 85 18 95 Nasal Cannula 3.0 06/24/16 20:00 94 1.0 06/24/16 19:00 96 Nasal Cannula 2.0 06/24/16 18:00 97 Nasal Cannula 3.0 06/24/16 16:00 97 Nasal Cannula 3.0 06/24/16 15:16 36.8 76 16 133/77 97 Nasal Cannula 3.0 Physical Exam General Appearance: WD/WN, no apparent distress, + obese (morbidly obese) Eyes: normal inspection, PERRL, EOMI ENT: normal ENT inspection, hearing grossly normal, pharynx normal Neck: supple, no JVD, trachea midline Respiratory/Chest: lungs clear, normal breath sounds, no respiratory distress, + decreased breath sounds Cardiovascular: regular rate, rhythm, no gallop, + systolic murmur Abdomen: normal bowel sounds, non tender, soft Extremities: non-tender, normal inspection, no pedal edema Neurologic/Psychiatric: alert, normal mood/affect, oriented x 3 Skin: normal color, warm/dry, no rash Laboratory Results Last 24 Hours Test 06/24/16 17:26 06/24/16 21:06 06/25/16 07:43 06/25/16 08:36 Bedside Glucose 223 mg/dl 183 mg/dl 132 mg/dl White Blood Count 15.38 K/uL Red Blood Count 4.60 M/uL Hemoglobin 13.0 g/dL Hematocrit 38.3 % Mean Corpuscular Volume 83.3 fL Mean Corpuscular Hemoglobin 28.3 pg Mean Corpuscular Hemoglobin Concent 33.9 g/dl RDW Standard Deviation 46.0 fL RDW Coefficient of Variation 15.1 % Platelet Count 343 K/uL Mean Platelet Volume 9.6 fL Sodium Level 138 mmol/L Potassium Level 4.2 mmol/L Chloride Level 101 mmol/L Carbon Dioxide Level 29 mmol/L Anion Gap 8.0 mmol/L Blood Urea Nitrogen 23 mg/dl Creatinine 1.10 mg/dl Est Creatinine Clear Calc Drug Dose 68.3 ml/min Estimated GFR () 60.2 Estimated GFR (Non- 51.9 BUN/Creatinine Ratio 21.3 Random Glucose 149 mg/dl Calcium Level 8.8 mg/dl Test 06/25/16 12:38 Bedside Glucose 170 mg/dl Assessment and Plan 65 y/o female with a history of COPD, SARIKA, diastolic CHF, T2DM w/ diabetic neuropathy, HTN, hyperlipidemia, GERD, and anxiety/depression, who presented to the ED on 06/23 with w worsening SOB and left-sided chest pain. Chest pain--unlikely cardiac as chest pain is reproducible on palpation - Admit to tele observation for cardiac monitoring. No acute events overnight on telemetry. Patient remained in sinus rhythm with heart rate in 70s and some PVCs. Transferred to [facility] on 06/24. - Cardiac enzymes negative 3 - EKG no ischemic changes Mild COPD exacerbation--stable - IV SoluMedrol 125 mg x1 dose in ED - Continue Prednisone 20 mg PO q am. Continue for total of 4 days. Pt no longer c/o SOB at rest, exacerbation is mild - Continue home inhalers - Scheduled DuoNebs QIDR as pt is wheezy on exam, + q2h prn SOB/wheezing - O2 protocol--> wears 3L O2 at home. Oxygenating well on 2-3L Mild hyponatremia--resolved - Sodium 134 on admission - Repeat sodium 137 on 06/24 -Sodium 138 on 06/25 - D/C IVF - Continue to monitor Hypokalemia--resolved - Potassium 3.0 on arrival - KCl 10 mEq IV and KCl 20 mEq PO given in ED - Repeat potassium 3.4 on 06/24 -Potassium 4.2 on 06/25 - Continue home Potassium supplement Leukocytosis of 18.51, likely secondary to current/recent steroid use--improving - WBC 19.01 on 06/24, given Solu-Medrol loading dose in ED as above -WBC 15.38 on 06/25 - CXR no acute disease - U/A likely contaminated with skin agnieszka. Urine culture low counts of mixed organisms, all probable skin agnieszka. - Continue to monitor. No antibiotics at this time JAIMEE on CKD, stage III, baseline cr. 1.0--improving - Cr. 1.4 at admission - Creatinine improved to 1.2 on 06/24 -Creatinine 1.1 on 06/25 T2DM w/ diabetic neuropathy--Last HgbA1c checked on 06/14/16 was 5.9 - Hold Metformin - Insulin sliding scale - Check BSGs q ac and qhs - Continue Gabapentin 200 mg PO TID HTN--stable -Continue Lisinopril 5 mg PO qd CHF w/ EF of 60-65% in 2013--stable - IVF D/C'd on 06/25. Resume Lasix on d/c, likely today or tomorrow - Continue Potassium supplement Anxiety/depression -Continue Paxil 60 mg PO qd and Ativan 1 mg PO TID prn anxiety Hyperlipidemia -Continue Crestor 10 mg PO qd SARIKA -Continue CPAP GERD -Continue Protonix 40 mg PO qd GI prophylaxis -Maalox Max 15 mL PO q4h prn dyspepsia -Milk of magnesia 30 mL PO q6h prn constipation -Schedule Miralax 17 gm PO qd -Colace 100 mg PO BID, pt complains of straining/hard stools -Zofran 4 mg IV q6h prn nausea DVT prophylaxis -Enoxaparin 40 mg SC q24h -ELDER peterson and SCDs Code Status -Level I, FULL RESUSCITATION STATUS Dispo - From home, lives alone--> patient is afraid to be home alone, feels unsafe - PT recommends acute inpatient rehab - Case management following, referral placed to [facility]. Accepted, waiting on insurance auth
--- NOTE | 2016-06-25 14:09 | Discharge Summary ---
Discharge Summary Date of Service Jun 25, 2016. Discharge Summary Admission Date: Jun 23, 2016 at 18:35 Discharge Date: Jun 25, 2016 Discharge Disposition: Rehab ([facility]) Principal Diagnosis: Mild COPD exacerbation Immunizations: Have You Had Influenza Vaccine: Yes Influenza Vaccine Date: Jan 22, 2008 History of Tetanus Vaccine?: Unknown History of Pneumococcal: Yes Pneumococcal Date: Mar 23, 2007 History of Hepatitis B Vaccine: No Medication Reconciliation New Medications: Prednisone (Prednisone) 20 Mg Tab 20 MG PO QAM for 2 Days, #2 TAB Take 1 tablet by mouth once daily for 2 days. Continued Medications: Acetaminophen (Tylenol) 500 Mg Tab 1000 MG PO BID PRN for Headache or Pain, TAB Albuterol Sulf (Proventil 0.083% 2.5MG/3ML) 2.5 Mg/3 Ml Nebu 3 ML NEB Q4 PRN for Wheezing, EA Aspirin (Aspirin Ec) 81 Mg Tab 81 MG PO QAM Budesonide/Formoterol Fumarate (Symbicort 160/4.5 Inhaler) 120 Puffs/ Aero 2 PUFFS INH BID, INHALER Cholecalciferol (Vitamin D) 2,000 Unit Tab 6000 UNIT PO QAM Coenzyme Q10 (Ubidecarenone) (Coq10) 30 Mg Cap 10 MG PO DAILY Dextromethorphan-Guaifenesin (Mucinex Dm Maximum Streng) 1 Tab Tab 1 TAB PO BID PRN for prn for 15 Days, #30 TAB Diclofenac Sod (Voltaren) 100 Appln/100 Gm Gel 4 GM EX QID PRN for Pain APPLY TO LOWER EXTREMITIES, 4 GM OF GEL TO AFFECTED AREA 4 TIMES DAILY. DO NOT APPLY MORE THAN 16 GM DAILY TO ANY ONE AFFECTED JOINT Fluticasone Prop/Salmeterol (Advair Diskus 500/50 60 Dose) 1 Ea Aerp 1 PUFFS INH BID, #60 Furosemide (Lasix) 40 Mg Tab 40 MG PO QAM Gabapentin (Neurontin) 100 Mg Cap 2 CAP PO TID for Pain for 30 Days, #180 CAP 2 Refills Insulin Isophan/Regular (Novolin 70/30) Susp 0 SC QPM, BTL PER SLIDING SCALE Lisinopril (Zestril) 10 Mg Tab 5 MG PO QAM, 0 Refills Lorazepam (Ativan) 1 Mg Tab 1 MG PO TID PRN for Anxiety, TAB Meclizine Hcl (Dramamine Less Drowsy) 25 Mg Tab 25 MG PO PRN UD Metformin Hcl (Metformin Hcl Er) 500 Mg Tab 1000 MG PO QAM Montelukast Sodium (Singulair) 10 Mg Tab 10 MG PO DAILY, TAB Multiple Vitamins W/ Minerals (Womens One Daily) 1 Tab Tab 1 TAB PO DAILY Pantoprazole (Pantoprazole Sodium) 40 Mg Tab 40 MG PO QAM for 30 Days, TAB Paroxetine (Paxil) 40 Mg Tab 60 MG PO QAM PRN for PRN, TAB Potassium Chloride (Potassium Chloride Cr) 10 Meq Tab 10 MEQ PO QAM Rosuvastatin Calcium (Crestor) 5 Mg Tab 10 MG PO DAILY, TAB Spironolactone & Hydrochloroth (Spironolactone/Hydrochlor) 1 Tab Tab 1 TAB PO DAILY Theophylline (Theophylline ER) 400 Mg Tabcr 400 MG PO Q12 for 30 Days, 3 Refills Tiotropium [place] (Spiriva Handihaler) 30 Puff/540 Mcg Aerp 1 CAP INH QPM, INHALER Tramadol (Ultram) 50 Mg Tab 50 MG PO TID PRN for Pain, TAB Zolpidem Tartrate (Ambien) 10 Mg Tab 10 MG PO HS for Sleep, TAB [Cpap] () N/A HS 4 CM OF WATER WITH 8 LITERS OF OXYGEN. Discontinued Medications: Prednisone (Prednisone) 20 Mg Tab 20 MG PO UD for 10 Days, #18 TAB Referrals At Discharge Follow up Referrals: Family Practice Referral - Within 1 Week with Chaka Alfred M.D. Discharge Exam Patient reports feeling better. She denies any chest pain today. She states that her shortness of breath has improved, and she no longer feels any SOB at rest. She does still complain of DUNHAM, weakness and fatigue. She also complains of indigestion and constipation, which she states is chronic. The patient denies fevers, chills, sweats, chest pain, palpitations, claudication, cough, wheezing, shortness of breath at rest, nausea, vomiting, abdominal pain, dysuria, hematuria, urinary retention, paralysis, new numbness and tingling. Review of Systems: Constitutional: + fatigue, + weakness, No chills, No fever, No sweats Eyes: No diplopia, No eye pain, No worsening of vision ENT: No hearing loss, No sore throat, No trouble swallowing Respiratory: + dyspnea on exertion, No cough, No dyspnea at rest, No wheezing Cardiovascular: No chest pain, No claudication, No palpitations Abdomen: + constipation, No nausea, No pain, No vomiting Musculoskeletal: No calf pain, No joint pain, No muscle pain Genitourinary - Female: No dysuria, No hematuria, No urinary retention Neurologic: No numbness/tingling, No paralysis, No weakness Integumentary: No color change, No itch, No rash Physical Exam: General Appearance: WD/WN, no apparent distress, + obese (morbidly obese) Eyes: normal inspection, PERRL, EOMI ENT: normal ENT inspection, hearing grossly normal, pharynx normal Neck: supple, no JVD, trachea midline Respiratory/Chest: lungs clear, normal breath sounds, no respiratory distress, + decreased breath sounds Cardiovascular: regular rate, rhythm, no gallop, + systolic murmur Abdomen / GI: normal bowel sounds, non tender, soft Extremities: normal inspection, no calf tenderness, no pedal edema Neurologic/Psychiatric: alert, normal mood/affect, oriented x 3 Skin: normal color, warm/dry, no rash Hospital Course 65 y/o female with a history of COPD, SARIKA, diastolic CHF, T2DM w/ diabetic neuropathy, HTN, hyperlipidemia, GERD, and anxiety/depression, who presented to the ED on 06/23 with w worsening SOB and left-sided chest pain. Chest pain--unlikely cardiac as chest pain is reproducible on palpation - Admit to tele observation for cardiac monitoring. No acute events overnight on telemetry. Patient remained in sinus rhythm with heart rate in 70s and some PVCs. Transferred to [facility] on 06/24. - Cardiac enzymes negative 3 - EKG no ischemic changes Mild COPD exacerbation--stable - IV SoluMedrol 125 mg x1 dose in ED - Continue Prednisone 20 mg PO q am. Continue for total of 4 days. Pt no longer c/o SOB at rest, exacerbation is mild - Continue home inhalers - Scheduled DuoNebs QIDR as pt is wheezy on exam, + q2h prn SOB/wheezing - O2 protocol--> wears 3L O2 at home. Oxygenating well on 2-3L Mild hyponatremia--resolved - Sodium 134 on admission - Repeat sodium 137 on 06/24 -Sodium 138 on 4/5 - D/C IVF - Continue to monitor Hypokalemia--resolved - Potassium 3.0 on arrival - KCl 10 mEq IV and KCl 20 mEq PO given in ED - Repeat potassium 3.4 on 06/24 -Potassium 4.2 on 06/25 - Continue home Potassium supplement Leukocytosis of 18.51, likely secondary to current/recent steroid use--improving - WBC 19.01 on 06/24, given Solu-Medrol loading dose in ED as above -WBC 15.38 on 06/25 - CXR no acute disease - U/A likely contaminated with skin agnieszka. Urine culture low counts of mixed organisms, all probable skin agnieszka. - Continue to monitor. No antibiotics at this time JAIMEE on CKD, stage III, baseline cr. 1.0--improving - Cr. 1.4 at admission - Creatinine improved to 1.2 on 06/24 -Creatinine 1.1 on 06/25 T2DM w/ diabetic neuropathy--Last HgbA1c checked on 06/14/16 was 5.9 - Hold Metformin - Insulin sliding scale - Check BSGs q ac and qhs - Continue Gabapentin 200 mg PO TID HTN--stable -Continue Lisinopril 5 mg PO qd CHF w/ EF of 60-65% in 2013--stable - IVF D/C'd on 06/25. Resume Lasix on d/c, likely today or tomorrow - Continue Potassium supplement Anxiety/depression -Continue Paxil 60 mg PO qd and Ativan 1 mg PO TID prn anxiety Hyperlipidemia -Continue Crestor 10 mg PO qd SARIKA -Continue CPAP GERD -Continue Protonix 40 mg PO qd GI prophylaxis -Maalox Max 15 mL PO q4h prn dyspepsia -Milk of magnesia 30 mL PO q6h prn constipation -Schedule Miralax 17 gm PO qd -Colace 100 mg PO BID, pt complains of straining/hard stools -Zofran 4 mg IV q6h prn nausea DVT prophylaxis -Enoxaparin 40 mg SC q24h -ELDER Hutchinson Code Status -Level I, FULL RESUSCITATION STATUS Dispo - From home, lives alone--> patient is afraid to be home alone, feels unsafe - PT recommends acute inpatient rehab - Pt accepted to [facility] Total Time Spent: Greater than 30 minutes This includes examination of the patient, discharge planning, medication reconciliation, and communication with other providers. Discharge Instructions Please refer to the electronic Patient Visit Report (Discharge Instructions) for additional information. Additional Copies To Chaka Alfred M.D.
[2016-06-25] MEDS: MONTELUKAST SOD 10 MG TAB PO SCH (21:00)
[2016-06-25] MEDS: ENOXAPARIN 40 MG/0.4 ML SYR SC SCH (21:00)
[2016-06-25] MEDS: TIOTROPIUM BROMIDE 5 PUFF/90 MCG INH INH SCH (21:00)
[2016-06-25] MEDS: ZOLPIDEM TARTRATE 10 MG TAB PO SCH (21:00)
[2016-06-25] MEDS: DOCUSATE SODIUM 100 MG CAP PO SCH (21:00)
[2016-06-26] MEDS: TIOTROPIUM BROMIDE 5 PUFF/90 MCG INH INH SCH (00:24)
[2016-06-26] MEDS: FLUTICASONE/SALMETEROL (ADVAIR) 500/50 INH 14 PUFF INH SCH ×2 (00:24→09:32)
[2016-06-26] MEDS: MONTELUKAST SOD 10 MG TAB PO SCH (00:25)
[2016-06-26] MEDS: DOCUSATE SODIUM 100 MG CAP PO SCH ×2 (00:25→09:31)
[2016-06-26] MEDS: BUDESONIDE/FORMOTEROL FUMARATE 160/4.5 60 PUFFS/INHALER INH SCH ×2 (00:25→09:32)
[2016-06-26] MEDS: GABAPENTIN 100 MG CAP PO SCH ×3 (00:25→14:24)
[2016-06-26] MEDS: ZOLPIDEM TARTRATE 10 MG TAB PO SCH (00:25)
[2016-06-26] MEDS: INSULIN ASPART 100 UNITS/ML 3 ML PEN SC SCH ×3 (00:26→14:27)
[2016-06-26] MEDS: THEOPHYLLINE 400 MG EXTENDED REL TAB PO SCH ×2 (00:26→09:29)
[2016-06-26] MEDS: ENOXAPARIN 40 MG/0.4 ML SYR SC SCH (00:26)
[2016-06-26 07:17] VITALS: BP 109/64; PULSE 87; TEMP 36.7; O2SAT 98
[2016-06-26 07:34] VITALS: PULSE 80; PULSE 90; O2SAT 95
[2016-06-26] MEDS: ALBUT/IPRATROP 3MG/0.5MG NEB 3 ML VIAL INH SCH ×3 (07:34→15:40)
[2016-06-26 07:45] LABS: HEMATOCRIT 37.1 % (37-47); MEAN CELL VOLUME 82.4 fL (80-100); MEAN PLATELET VOLUME 9.5 fL (7.4-10.4); PLATELET COUNT 335 K/uL (130-400); WHITE BLOOD COUNT 14.98 K/uL (4.8-10.8)
[2016-06-26 07:51] LABS: BUN/CREATININE RATIO 18.7 (10-20)
[2016-06-26] MEDS: ROSUVASTATIN CALCIUM 10 MG TAB PO SCH (09:25)
[2016-06-26] MEDS: CEROVITE ADV FORMULA TAB PO SCH (09:25)
[2016-06-26] MEDS: SPIRONOLACTONE/HCTZ 25-25 PO SCH (09:25)
[2016-06-26] MEDS: ASPIRIN 81 MG ECTAB PO SCH (09:25)
[2016-06-26] MEDS: POLYETHYLENE (MIRALAX) 17 GM PACK PO SCH (09:27)
[2016-06-26] MEDS: LISINOPRIL 5 MG TAB PO SCH (09:29)
[2016-06-26] MEDS: PANTOprazole SOD 40 MG TAB PO SCH (09:29)
[2016-06-26 11:22] VITALS: PULSE 90; O2SAT 95
[2016-06-26 12:40] VITALS: BP 109/64; PULSE 90; TEMP 36.7; O2SAT 95
[2016-06-26 15:20] VITALS: BP 142/80; PULSE 98; TEMP 36.8; O2SAT 95
--- NOTE | 2016-06-26 15:36 | Progress Note ---
Subjective Date of Service: Jun 26, 2016. Subjective Pt evaluation today including: conversation w/ patient, physical exam, chart review, lab review, review of studies, review of inpatient medication list Pt resting comfortably in bed Denies any chest pain or worsening sob no cough no fevers or chills no acute events overnight Problem List Medical Problems: (1) Abdominal pain Status: Acute (2) Failure of outpatient treatment Status: Acute (3) Gastroenteritis Status: Acute (4) Left sided chest pain Status: Acute (5) Pneumonia Status: Acute (6) Shortness of breath Status: Acute Review of Systems Constitutional: No chills, No fever Respiratory: No cough, No dyspnea on exertion, No shortness of breath, No sputum, No wheezing Cardiac: No chest pain, No orthopnea Abdomen: No constipation, No diarrhea, No nausea, No pain, No vomiting Musculoskeletal: No joint pain, No muscle pain Female : No dysuria, No urinary frequency Objective Vital Signs Date Time Temp Pulse Resp B/P Pulse Ox O2 Delivery O2 Flow Rate FiO2 06/26/16 15:20 36.8 98 18 142/80 95 Room Air 06/26/16 12:40 36.7 90 18 95 Nasal Cannula 06/26/16 11:22 90 18 95 Nasal Cannula 3.0 06/26/16 08:00 Nasal Cannula 2.0 06/26/16 07:34 80 95 3.0 06/26/16 07:34 90 18 95 Nasal Cannula 3.0 06/26/16 07:17 36.7 87 18 109/64 98 Room Air 06/26/16 00:05 Room Air CPAP 06/25/16 23:39 36.8 81 18 123/65 94 CPAP 06/25/16 21:28 80 96 3.0 06/25/16 20:20 82 18 96 Room Air 06/25/16 15:45 Room Air 06/25/16 15:36 36.7 95 16 133/80 94 Physical Exam General Appearance: WD/WN, no apparent distress Eyes: PERRL, EOMI Respiratory/Chest: chest non-tender, + decreased breath sounds Cardiovascular: no gallop, no JVD Abdomen: non tender, soft Neurologic/Psychiatric: alert, normal mood/affect Laboratory Results Last 24 Hours Test 06/25/16 17:05 06/25/16 21:02 06/26/16 06:53 06/26/16 09:38 Bedside Glucose 262 mg/dl 223 mg/dl 162 mg/dl White Blood Count 14.98 K/uL Red Blood Count 4.50 M/uL Hemoglobin 12.6 g/dL Hematocrit 37.1 % Mean Corpuscular Volume 82.4 fL Mean Corpuscular Hemoglobin 28.0 pg Mean Corpuscular Hemoglobin Concent 34.0 g/dl RDW Standard Deviation 46.5 fL RDW Coefficient of Variation 15.2 % Platelet Count 335 K/uL Mean Platelet Volume 9.5 fL Sodium Level 139 mmol/L Potassium Level 4.0 mmol/L Chloride Level 103 mmol/L Carbon Dioxide Level 30 mmol/L Anion Gap 6.0 mmol/L Blood Urea Nitrogen 19 mg/dl Creatinine 1.00 mg/dl Est Creatinine Clear Calc Drug Dose 75.1 ml/min Estimated GFR () 67.5 Estimated GFR (Non- 58.3 BUN/Creatinine Ratio 18.7 Random Glucose 142 mg/dl Calcium Level 9.0 mg/dl Test 06/26/16 11:54 Bedside Glucose 187 mg/dl Assessment and Plan 65 y/o female with a history of COPD, SARIKA, diastolic CHF, T2DM w/ diabetic neuropathy, HTN, hyperlipidemia, GERD, and anxiety/depression, who presented to the ED on 06/23 with w worsening SOB and left-sided chest pain. Chest pain--unlikely cardiac as chest pain is reproducible on palpation - Admit to tele observation for cardiac monitoring. No acute events overnight on telemetry. Patient remained in sinus rhythm with heart rate in 70s and some PVCs. Transferred to [facility] on 06/24. - Cardiac enzymes negative 3 - EKG no ischemic changes Mild COPD exacerbation--stable - IV SoluMedrol 125 mg x1 dose in ED - Continue Prednisone 20 mg PO q am. Continue for total of 4 days. Pt no longer c/o SOB at rest, exacerbation is mild - Continue home inhalers - Scheduled DuoNebs QIDR as pt is wheezy on exam, + q2h prn SOB/wheezing - O2 protocol--> wears 3L O2 at home. Oxygenating well on 2-3L Mild hyponatremia--resolved - Sodium 134 on admission - Repeat sodium 137 on 06/24 -Sodium 138 on 06/25 - D/C IVF - Continue to monitor Hypokalemia--resolved - Potassium 3.0 on arrival - KCl 10 mEq IV and KCl 20 mEq PO given in ED - Repeat potassium 3.4 on 06/24 -Potassium 4.2 on 06/25 - Continue home Potassium supplement Leukocytosis of 18.51, likely secondary to current/recent steroid use--improving - WBC 19.01 on 06/24, given Solu-Medrol loading dose in ED as above -WBC 15.38 on 06/25 - CXR no acute disease - U/A likely contaminated with skin agnieszka. Urine culture low counts of mixed organisms, all probable skin agnieszka. - Continue to monitor. No antibiotics at this time JAIMEE on CKD, stage III, baseline cr. 1.0--improving - Cr. 1.4 at admission - Creatinine improved to 1.2 on 06/24 -Creatinine 1.1 on 06/25 T2DM w/ diabetic neuropathy--Last HgbA1c checked on 06/14/16 was 5.9 - Hold Metformin - Insulin sliding scale - Check BSGs q ac and qhs - Continue Gabapentin 200 mg PO TID HTN--stable -Continue Lisinopril 5 mg PO qd CHF w/ EF of 60-65% in 2013--stable - IVF D/C'd on 06/25. Resume Lasix on d/c, likely today or tomorrow - Continue Potassium supplement Anxiety/depression -Continue Paxil 60 mg PO qd and Ativan 1 mg PO TID prn anxiety Hyperlipidemia -Continue Crestor 10 mg PO qd SARIKA -Continue CPAP GERD -Continue Protonix 40 mg PO qd GI prophylaxis -Maalox Max 15 mL PO q4h prn dyspepsia -Milk of magnesia 30 mL PO q6h prn constipation -Schedule Miralax 17 gm PO qd -Colace 100 mg PO BID, pt complains of straining/hard stools -Zofran 4 mg IV q6h prn nausea DVT prophylaxis -Enoxaparin 40 mg SC q24h -ELDER Hutchinson Code Status -Level I, FULL RESUSCITATION STATUS PATIENT DISCHARGED ON 06/26/16
[2016-12-23] MEDS ORDERED: GABA-113 PO (13:07)
[2016-12-23] MEDS ORDERED: POLY335019 PO (13:09)
[2017-02-04] MEDS ORDERED: DEXT1TAB50 PO (07:59)
[2017-02-04] MEDS ORDERED: POLY335019 PO (07:59)
[2017-02-04] MEDS ORDERED: METO25TA56 PO (08:05)
[2017-02-04] MEDS ORDERED: NTRGSL/4 UT (08:08)
[2017-02-04] MEDS ORDERED: CHOL1CAP74 PO (08:12)
[2017-02-04] MEDS ORDERED: CHOL1CAP51 PO (08:13)
[2017-02-04] MEDS ORDERED: ISOS30TA3 PO (10:12)
== END 2016-06-26 15:40 ==
LOC: ENRESERVDT → ENRESERVTM → C.EDB 14:39 → C.2T 18:35 → C.MSN 06-24 11:49
PROVIDERS: ADMIT Internal Medicine; ATTEND Hospitalist
DX: R07.89 Other chest pain (principal); J44.1 Chronic obstructive pulmonary disease with (acute) exacerbation; Z79.82 Long term (current) use of aspirin; Z79.4 Long term (current) use of insulin; I50.30 Unspecified diastolic (congestive) heart failure; E08.40 Diabetes mellitus due to underlying condition with diabetic neuropathy, unspecified; I10 Essential (primary) hypertension; E78.5 Hyperlipidemia, unspecified; Z79.899 Other long term (current) drug therapy; K21.9 Gastro-esophageal reflux disease without esophagitis; F41.9 Anxiety disorder, unspecified; F32.9 Major depressive disorder, single episode, unspecified; E87.1 Hypo-osmolality and hyponatremia; E87.6 Hypokalemia; D72.829 Elevated white blood cell count, unspecified; N17.9 Acute kidney failure, unspecified; N18.3 Chronic kidney disease, stage 3 (moderate); G47.33 Obstructive sleep apnea (adult) (pediatric); Z83.3 Family history of diabetes mellitus; Z82.49 Family history of ischemic heart disease and other diseases of the circulatory system

== ENCOUNTER → 2016-08-01 | Outpatient (CLI) | payer OTHER ==
[~2016-08-01] MED LIST changes: +CHOL1CAP51 PO; +CHOL1CAP74 PO; +GABA-113 PO; +ISOS30TA3 PO; +METO25TA56 PO; +NTRGSL/4 UT; +POLY335019 PO
--- NOTE | 2016-08-01 15:47 | DIAGNOSTIC IMAGING REPORT ---
LUMBAR SPINE 5 VIEWS HISTORY: Pain M46.1 Sacroiliitis COMPARISON: None. FINDINGS: There is no fracture. Mild degenerative disc changes throughout. Mild scoliosis. No evidence for compression deformity. Moderate anterior osteophytic reaction primarily at the thoracolumbar junction IMPRESSION: Mild scoliosis. Mild/moderate degenerative disc change. No acute process. Electronically signed by: Sukhdev Islas M.D. 08/01/2016 3:45 PM Dictated Date/Time: 08/01/2016 3:44 PM
--- NOTE | 2016-08-01 15:49 | DIAGNOSTIC IMAGING REPORT ---
SI JOINTS 3 OR MORE VIEWS CLINICAL HISTORY: Sacroiliitis. Back pain. COMPARISON STUDY: CT of the abdomen and pelvis April 30, 2016. FINDINGS: Evaluation is somewhat difficult given suboptimal penetration. However, the sacroiliac joints are intact without evidence for ankylosis. No definite bony erosions are present. There is minimal joint space narrowing with osteophytosis and vacuum disc phenomenon. IMPRESSION: 1. 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 2. No erosions identified although evaluation is somewhat difficult given suboptimal penetration. Electronically signed by: Martínez Spears M.D. 08/01/2016 3:47 PM Dictated Date/Time: 08/01/2016 3:45 PM
== END | disposition home or self-care (01) ==
LOC: C.RAD1850 15:08
PROVIDERS: ATTEND Internal Medicine
DX: M46.1 Sacroiliitis, not elsewhere classified (principal)

== ENCOUNTER → 2016-08-01 | Outpatient (CLI) | payer OTHER ==
[2016-08-01 18:27] LABS: BLOOD UREA NITROGEN 15 mg/dl (7-18); BUN/CREATININE RATIO 16.1 (10-20); CALCIUM 9.4 mg/dl (8.5-10.1); CARBON DIOXIDE 31 mmol/L (21-32); CHLORIDE 105 mmol/L (98-107); CREATININE 0.96 mg/dl (0.60-1.20); GLUCOSE 116 mg/dl (70-99); SODIUM 140 mmol/L (136-145)
[2016-08-01 18:40] LABS: CHOLESTEROL 239 mg/dl (0-200); CHOLESTEROL/HDL RATIO 4.8; HDL CHOLESTEROL 50 mg/dl; LDL CHOLESTEROL CALCULATED 147 mg/dl; THYROID STIMULATING HORMONE 0.752 uIu/ml (0.300-4.500); TRIGLYCERIDES 210 mg/dl (0-150); VERY LOW DENSITY LIPOPROT CALC 42 mg/dl
== END | disposition home or self-care (01) ==
LOC: C.LABBFT 17:51
PROVIDERS: ATTEND Internal Medicine
DX: I50.9 Heart failure, unspecified (principal); R26.9 Unspecified abnormalities of gait and mobility; E55.9 Vitamin D deficiency, unspecified; E78.5 Hyperlipidemia, unspecified; M46.1 Sacroiliitis, not elsewhere classified

== ENCOUNTER → 2016-12-29 | Outpatient (CLI) | payer OTHER ==
[~2016-12-29] MED LIST changes: -ADVIN50/60 INH; -CHOL1CAP51 PO; -CHOL1CAP74 PO; -GABA1CAP PO; -ISOS30TA3 PO; -METO25TA56 PO; -NTRGSL/4 UT; -PRD20 PO
--- NOTE | 2016-12-29 13:09 | DIAGNOSTIC IMAGING REPORT ---
MRI LUMBAR SPINE WITHOUT IV CONTRAST CLINICAL HISTORY: Chronic low back pain and radiculopathy. COMPARISON STUDY: Radiographs of the lumbar spine dated 08/01/2016. Abdominal CT dated 04/30/16. TECHNIQUE: MRI of the lumbar spine is performed utilizing various T1 and T2-weighted sequences in the axial and sagittal planes. IV contrast was not administered for this examination. The examination is degraded by large body habitus. FINDINGS: Marrow signal intensity is markedly heterogeneous. No destructive bony lesion is seen. Vertebral body height and alignment are maintained throughout the lumbar spine. Chronic degenerative endplate changes seen at all levels. Endplate edema is noted at L2-L3 and L3-L4. The transverse and spinous processes appear intact. There is no evidence of spondylolysis. A large Schmorl's node is seen in the superior endplate of L4. Intervertebral discs: Degenerative disc desiccation and loss of height is seen at all lumbar levels. Loss of height is moderate to severe at L3-L4. Spinal cord: The partially imaged spinal cord is normal in morphology and signal intensity. The conus medullaris terminates at the level of L1. The nerve roots of the cauda equina are normal in morphology. These appear tethered at L3-L4. L1-L2: There is a small posterior disc bulge and annular fissure. The central canal and neural foramina appear clear. L2-L3: There is broad-based posterior disc bulge and annular fissure. In conjunction with hypertrophy of the ligamentum flavum, there is moderate acquired compromise of the central canal at this level with a minimum AP diameter of 6.5 mm. There is bilateral subarticular stenosis, with probable impingement on the exiting left L2 and the transiting bilateral nerve roots. Facet arthropathy is of no consequence. The neural foramina are patent. L3-L4: There is a small disc herniation. In conjunction with hypertrophy of the ligamentum flavum this causes moderate to severe central canal stenosis with a minimum AP diameter of 5 mm. There is bilateral subarticular stenosis at this level. The disc may impinge on the exiting bilateral L3 as well as the transiting bilateral nerve roots. L4-L5: There is a small posterior disc bulge. No significant acquired compromise of the central canal is seen at this level. Facet arthropathy causes minimal bilateral neural foraminal stenosis. L5-S1: There is no disc herniation or significant acquired compromise of the central canal. Facet arthropathy causes mild bilateral neural foraminal stenosis. Sacrum: The partially visualized sacrum is normal in morphology and signal intensity. Soft tissues: There is diffuse fatty atrophy of the paraspinous musculature. The partially imaged retroperitoneal structures are grossly unremarkable but incompletely assessed. IMPRESSION: 1. Multilevel lumbosacral spondylosis with acquired compromise of the central canal at L2-L3 and L3-L4. See discussion for detailed level by level analysis. 2. Marrow signal intensity is markedly heterogeneous. No destructive bony lesion is clearly seen. 3. Advanced degenerative disc disease with significant endplate edema seen at L2-L3 and L3-L4. Dictated: 12/29/2016 12:56 PM Transcribed: 12/29/2016 1:09 PM [email or web address] Electronically signed by: Car Cantrell M.D. 12/29/2016 1:14 PM Dictated Date/Time: 12/29/2016 12:56 PM
== END | disposition home or self-care (01) ==
LOC: C.MRIBC 12:03
PROVIDERS: ATTEND Physician Assistant Medical
DX: M54.5 Low back pain (principal); M47.817 Spondylosis without myelopathy or radiculopathy, lumbosacral region; M51.36 Other intervertebral disc degeneration, lumbar region

== ENCOUNTER → 2017-01-30 | Outpatient (CLI) | payer OTHER ==
[~2017-01-30] MED LIST changes: +CHOL1CAP51 PO; +CHOL1CAP74 PO; +ISOS30TA3 PO; +METO25TA56 PO; +NTRGSL/4 UT
--- NOTE | 2017-01-30 15:37 | MAMMOGRAPHY REPORT ---
BILATERAL DIGITAL SCREENING MAMMOGRAM WITH CAD: 01/30/2017 CLINICAL HISTORY: Routine screening. Patient has no complaints. TECHNIQUE: Current study was also evaluated with a Computer Aided Detection (CAD) system. Bilateral CC and MLO views were obtained. COMPARISON: Comparison is made to exams dated: 01/30/2016 mammogram - [facility] an d 11/22/2008. BREAST COMPOSITION: There are scattered areas of fibroglandular density in both breasts. FINDINGS: No suspicious masses, calcifications, or areas of architectural distortion are noted in ei ther breast. There has been no significant interval change compared to prior exams. IMPRESSION: ACR BI-RADS CATEGORY 1: NEGATIVE There is no mammographic evidence of malignancy. A 1 year screening mammogram is recommended. The pa tient will receive written notification of the results. Approximately 10% of breast cancers are not detected with mammography. A negative mammographic report should not delay biopsy if a clinically suggestive mass is present. Sushma Abbott M.D. ah/:01/30/2017 14:06:26 Senior Safety Support Manager: Dulce JOE(Reyes)(M), [facility] letter sent: Normal 1/2 BI-RADS Code: ACR BI-RADS Category 1: Negative
== END | disposition home or self-care (01) ==
LOC: C.MAMM 12:04
PROVIDERS: ATTEND Internal Medicine
DX: Z12.31 Encounter for screening mammogram for malignant neoplasm of breast (principal)

== ENCOUNTER → 2017-02-04 | Day surgery (SDC) | payer OTHER ==
[~2017-02-04] VITALS: Ht 157.5 cm; Wt 153.0 kg
[~2017-02-04] MED LIST changes: +ACETAMINOPHEN 325 MG TAB PO PRN; +ADENOSINE IV SOLN 3 MG/ML 20 ML VIAL ONE; +ASPIRIN 81 MG CHEW ONE; +FENTANYL CITRATE INJ 50 MCG/1 ML 2 ML VIAL ONE; +HEPARIN SOD (PORCINE) 1000 UNIT/ML 10 ML VIAL ONE; +MIDAZOLAM HCL 1 MG/ML 2ML VIAL ONE; +NITROGLYCERIN/D5W 100MCG/ML 20ML SYR ONE; +NiCARDipine HCL INJ 2.5 MG/ML 10 ML AMP ONE; +ONDANSETRON INJ 2 MG/ML 2 ML VIAL IV PRN; +SODIUM CHLORIDE 0.9% 1000ML 1,000 ML IV SCH; +SODIUM CHLORIDE 0.9% 1000ML 250 ML IV PRN
[2017-02-04 07:25] VITALS: BP 157/74; PULSE 57; TEMP 36.6; O2SAT 100; Ht 157.5 cm; Wt 153.0 kg
--- NOTE | 2017-02-04 07:44 | History & Physical Bridge Note ---
H&P Re-Evaluation Bridge Note: I have examined the patient, reviewed the History & Physical and in the interval since the performance of the History & Physical I have noted the following changes of clinical significance: Pt continues to have anginal symptoms despite metoprolol. HR in the 50s, so well beta blocked. Otherwise, no changes noted
--- NOTE | 2017-02-04 07:44 | Procedure Note ---
Pre-Mod Sedation Assessment General Date of Moderate Sedation: Feb 04, 2017. Vital Signs: Vital Signs Past 12 Hours Date Time Temp Pulse Resp B/P (MAP) Pulse Ox O2 Delivery O2 Flow Rate FiO2 02/04/17 07:25 36.6 57 16 157/74 100 Nasal Cannula 3 Review Cardiovascular: regular rate, rhythm Abdomen: non tender, soft Lungs: lungs clear Pre-Sedation Airway Assessment Short Thick Neck: Yes Hx of Sleep Apnea: Yes Smoking Status: Former Smoker Procedure Planning Contraindications-for Mod Sed: None Yes Notes The planned sedation has been discussed with the patient and consent obtained. I have identified the patient, determined the appropriateness of sedation and have assessed the patient immediately prior to the procedure. All medicine(s) and interventions are by my order.
--- NOTE | 2017-02-04 10:05 | Cardiac Catheterization ---
Procedure Note Procedure Date Feb 04, 2017. Pre-Procedure Diagnosis Angina, Positive Stress Test AUC Score 9 Post-Procedure Diagnosis Moderate CAD Procedure(s) Performed Coronary Angiography, Left Heart Cath, procedure (Intracoronary medication injection) [employer] Consultant Dr. Snyder Hosiery Knitter(s) Yang Estimated Blood Loss < 20 ml Medication(s) Fentanyl, Heparin, Nicardipine, Nitroglycerin, Versed, Lidocaine 1% Summary of Findings Coronary angiography: 1. Left main coronary artery: The LMCA is large in caliber without angiographic evidence of CAD. 2. Left anterior descending: The LAD is a large caliber vessel that wraps around the apex. It gives rise to a large caliber D1. No angiographic evidence of CAD within the LAD system. 3. Circumflex: The circumflex is a large caliber, codominant vessel. The circumflex and circumflex PDA is without CAD. Large left posterior lateral branch, with proximal 50-70% stenosis. 4. Right coronary artery: The RCA is medium in caliber and codominant. There was catheter-induced spasm noted proximally. Nitroglycerin 250 mcg was administered intracoronary with resolution of spasm. There was mid RCA stenosis of approximately 40%. RCA PDA without significant CAD. 5. Ramus intermedius: There was a small to medium caliber ramus intermedius without angiographic evidence of CAD. 6. Mitral annular calcification noted under fluoroscopy. Left heart catheterization: 1. Left ventriculography was not performed. 2. No significant aortic stenosis. The peak to peak gradient across the aortic valve was 0 mmHg. 3. Mildly elevated LVEDP. LVEDP 17mmHg. Sedation start time: 8:32 a.m. Sedation end time: 9:10 a.m. Procedural notes: 1. Diagnostic coronary angiography was performed via the right radial artery without complication. Initially, J tipped wire was unable to be passed through the radial artery, but a Glidewire was easily passed without complication. Impression: 1. Moderate to severe CAD involving large proximal circumflex posterior lateral branch. 2. Co dominant system. 3. Moderate CAD involving the mid RCA. 4. Proximal RCA spasm, which resolved with intracoronary nitroglycerin. 5. Mildly elevated LVEDP. 6. No aortic stenosis. Plan: 1. Images reviewed with of interventional Cardiology. Plan is to perform FFR of the circumflex posterior lateral branch. 2. Continue risk factor modification. Hemodynamics Rest Ao: 103/52 Final Ao: 108/58 LV: 110/0/17 Recommendations management recommendations (FFR as noted above) Specimens None Radiation Exposure (mGy) 1982 mGy. Fluoro time 6.4 min. Contrast (mls) 60 ml Procedural Complication(s) None Disposition Furniture Mover Holding/Recovery (Still in phlebotomist medical lab assistant for FFR) ACC Data Cardiac Status Clinical evaluation leading to the procedure CAD Presntation: Stable angina Anginal Classification: CCS III Heart Failure: No Cardiogenic Shock w/in 24Hrs: No Cardiac Arrest w/in 24Hrs: No Imaging studies past 6 months: No Stress studies past 6 months: Yes Standard Exercise Stress Test: No Stress Echocardiogram: No Stress Testing w/SPECT MPI: Yes - Positive, Risk/Extent of Ischemia (High) Cardiac CTA: No Coronary Anatomy Dominant: Co-dominant Left Main (% Stenosis): Normal LAD (% Stenosis): Normal D1 (% Stenosis): Normal Circumflex (% Stenosis): Normal L PL1 (% Stenosis): Normal (50-70%) L PDA (% Stenosis): Normal RCA (% Stenosis): Mid (40%) R PDA (% Stenosis): Normal Ramus (% Stenosis): Normal Left Ventricular Angiography EF (%): n/a Diagnostic Physician's Name: Regan Snyder MD Status: Elective Closure Device Percutaneous Entry Location: Radial Closure Device: Radial Band Recommendations: management recommendations (FFR and medical therapy for risk factor modification)
--- NOTE | 2017-02-04 10:06 | Procedure Note ---
Post-Mod Sedation Assessment General Date of Moderate Sedation Feb 04, 2017. Vital Signs: Vital Signs Past 12 Hours Date Time Temp Pulse Resp B/P (MAP) Pulse Ox O2 Delivery O2 Flow Rate FiO2 02/04/17 07:25 36.6 57 16 157/74 100 Nasal Cannula 3 Review - Discharge Criteria Vital Signs Stable: Yes Alert/Oriented/Conversant: Yes Returned to Baseline Mental St: Yes Nausea Absent/Minimal: Yes Pain/Discomfort/Absent/Minimal: Yes Normal/Baseline Respirations: Yes Active Bleeding?: No
--- NOTE | 2017-02-04 10:16 | Discharge Instructions ---
Discharge Instructions Date of Service Feb 04, 2017. Visit Reason for Visit: Cardiac catheterization Discharge Discharge Diagnosis / Problem: Non-obstructive CAD Discharge Goals Goal(s): Diagnostic testing Medications Restart Stopped Medication(s): Resume your usual medications with following additions: 1. Restart Metformin in 48 hours. 2. Start new medication: Isosorbide mononitrate 30 mg once daily. Activity Recommendations Activity Limitations: per Instructions/Follow-up section Anesthesia . Post Anesthesia Instructions: If you have had General Anesthesia or IV Sedation: * Do not drive today. * Resume driving when surgeon permits. * Do not make important decisions or sign legal documents today. * Call surgeon for: 1. Temperature elevations greater than 101 degrees F. 2. Uncontrollable pain. 3. Excessive bleeding. 4. Persistent nausea and vomiting. 5. Medication intolerance (nausea, vomiting or rash). * For nausea and vomiting use only clear liquids such as: tea, soda, bouillon until nausea subsides, then gradually increase diet as tolerated. * If you have any concerns or questions, call your surgeon's office. If physician is unavailable and it is an emergency, call 911 or go to the nearest emergency room. . Instructions / Follow-Up Instructions / Follow-Up ACTIVITY RECOMMENDATIONS: Excess manipulation of the wrist should be avoided for the next 24-48 hours. * No lifting over 2 pounds (approximately a 1/2 gallon of milk) with the utilized arm for 24 hours. * No strenuous activity such as bowling or tennis for 3 days. * Keep the site of the procedure covered with a bandage for 24 hours. *You may shower the day after the procedure. Do not take a tub bath or submerge the puncture site in water for the next 3 days. *Do not operate any motorized equipment for 3 days. SPECIAL CARE INSTRUCTIONS: The site may be slightly bruised and sore following your procedure. Should any of the following occur, contact the Dr. who performed your procedure. 1. Redness/inflammation, swelling, chills, or fever, or colored drainage at procedure site within 3-7 days after your procedure. 2. Coldness, discoloration, ongoing numbness, severe pain, or swelling. Expect mild tingling of hand and tenderness at the puncture site for up to three days. If this persists beyond three days, or other symptoms develop, notify the Dr. who performed your procedure. BLEEDING: If the procedure site on your wrist begins to bleed, do not panic 1. Place 1 or 2 fingers firmly just slightly above the insertion site to stop the bleeding. You may be able to feel your pulse as you hold pressure. 2. Lift your finger after 5 minutes to see if the bleeding has stopped. 3. Once the bleeding has stopped, gently wipe the wrist area clean with a bandage. * If the bleeding from your wrist does not stop after 10 minutes, or if there is a large amount of bleeding or spurting, call 911 (do not drive yourself to the hospital). SKIN IRRITATION: * You may experience some redness and/or swelling in the area where radiation was administered. If any skin irritation occurs, please contact your family physician. FOLLOW UP VISIT: Keep any scheduled doctor appointments. Diet Recommendations Recommended Home Diet: resume previous diet, low sodium, diabetes diet Procedures Procedures Performed: 1. Coronary angiography and left heart catheterization Pending Studies Studies pending at discharge: no Medical Emergencies . Who to Call and When: Medical Emergencies: If at any time you feel your situation is an emergency, please call 911 immediately. . Non-Emergent Contact Non-Emergency issues call your: Primary Care Provider, Candy Maker Helper . . "Provider Documentation" section prepared by Regan Devine. .
--- NOTE | 2017-02-04 10:33 | Cardiac Catheterization ---
Procedure Note Procedure Date Feb 04, 2017. Pre-Procedure Diagnosis Positive Stress Test AUC Score 7 Post-Procedure Diagnosis Moderate CAD Procedure(s) Performed Fractional Flow [employer] Cook Robert Tool Distributor(s) Yang Estimated Blood Loss 10 Medication(s) Heparin, Adenosine Summary of Findings -- FFR of L-PLB -- Patient here after grossly positive stress test. For full details of patient's coronary angiography please see cath report dictated by Dr. Snyder. Found to have an intermediate stenosis in L-PLB. Decision made to proceed with FFR. 6Fr slender Right radial artery EBU 3.5 guide Straight FFR wire placed in distal L-PLB. FFR 0.81. No coronary complications on post-procedure angiography. Summary: 1. Non-obstructive moderate single vessel coronary artery disease. Recommendations: -- Medical management of non-obstructive CAD per Dr. Snyder. Hemodynamics Rest Ao: 103/52/73 Final Ao: 86/46/65 LV: 110/1 Recommendations Medical therapy and/or Counseling Specimens None Radiation Exposure (mGy) 3242 Contrast (mls) 125 Visi Fluids (cc crystalloids) 99 Drains None Anesthesia Moderate Procedural Complication(s) None Disposition Histotechnologist Holding/Recovery ACC Data Cardiac Status Clinical evaluation leading to the procedure CAD Presntation: Positive Stress Test Anginal Classification: No symptoms Heart Failure: No, NYHA Class: CCS I Cardiogenic Shock w/in 24Hrs: No Cardiac Arrest w/in 24Hrs: No Imaging studies past 6 months: Yes Stress studies past 6 months: Yes Diagnostic Physician's Name: eRgan Snyder MD Status: Elective Closure Device Percutaneous Entry Location: Radial Closure Device: Radial Band Intraprocedure Events Significant Dissection: No Perforation: No
[2017-02-04 13:00] VITALS: BP 125/71; PULSE 63; O2SAT 98
== END | disposition home or self-care (01) ==
LOC: C.CATH 06:55
PROVIDERS: ATTEND Internal Medicine Cardiovascular Disease
DX: I25.10 Atherosclerotic heart disease of native coronary artery without angina pectoris (principal); I11.0 Hypertensive heart disease with heart failure; I50.32 Chronic diastolic (congestive) heart failure; J44.9 Chronic obstructive pulmonary disease, unspecified; E78.5 Hyperlipidemia, unspecified; I65.29 Occlusion and stenosis of unspecified carotid artery; F32.9 Major depressive disorder, single episode, unspecified; E11.42 Type 2 diabetes mellitus with diabetic polyneuropathy; K21.9 Gastro-esophageal reflux disease without esophagitis; E66.01 Morbid (severe) obesity due to excess calories; G47.33 Obstructive sleep apnea (adult) (pediatric); Z79.4 Long term (current) use of insulin; Z90.710 Acquired absence of both cervix and uterus; Z83.3 Family history of diabetes mellitus; Z82.3 Family history of stroke

== ENCOUNTER 2017-03-25 15:18 | Inpatient (IN) | payer OTHER ==
[~2017-03-25] VITALS: Ht 157.5 cm; Wt 145.0 kg
[~2017-03-25 15:18] MED LIST changes: -ACETAMINOPHEN 325 MG TAB PO PRN; -ADENOSINE IV SOLN 3 MG/ML 20 ML VIAL ONE; -ASPIRIN 81 MG CHEW ONE; -CHOL20009 PO; -CPAP; -FENTANYL CITRATE INJ 50 MCG/1 ML 2 ML VIAL ONE; -HEPARIN SOD (PORCINE) 1000 UNIT/ML 10 ML VIAL ONE; -INSU70IN2 SC; -MECL-72 PO; -MIDAZOLAM HCL 1 MG/ML 2ML VIAL ONE; -NITROGLYCERIN/D5W 100MCG/ML 20ML SYR ONE; -NiCARDipine HCL INJ 2.5 MG/ML 10 ML AMP ONE; -ONDANSETRON INJ 2 MG/ML 2 ML VIAL IV PRN; -POTA10TA30 PO; -SODIUM CHLORIDE 0.9% 1000ML 1,000 ML IV SCH; -SODIUM CHLORIDE 0.9% 1000ML 250 ML IV PRN
[2017-03-25] MEDS ORDERED: SODIUM CHLORIDE 0.9% 500ML 500 ML IV STA (15:32)
[2017-03-25] MEDS ORDERED: MoRPHine SULFATE 4 MG/ML 1 ML CARP\\VIAL IV STA ×2 (15:32→16:41)
[2017-03-25] MEDS ORDERED: GI COCKTAIL PO STA (15:32)
--- NOTE | 2017-03-25 15:38 | EMERGENCY ROOM VISIT NOTE ---
History First contact with patient: 15:24 Chief Complaint: ABDOMINAL PAIN Stated Complaint: UNABLE TO EAT OR DRINK,STOMACH PAIN History of Present Illness The patient is a 66 year old female who presents to the Emergency Room via private vehicle accompanied by male with complaints of "unable to eat or drink, stomach pain". The patient states that Moises she developed epigastric abdominal pain, and notes that she also has a cough that has been productive. She states that she has not felt well, has no appetite and has not been drinking as much. She notes a burning sensation in the epigastric and substernal regions. She cannot identify any alleviating or exacerbating factors. Review of Systems A complete 10-point Review of Systems was discussed with the patient, with pertinent positives and negatives listed in the History of Present Illness. All remaining Review of Systems questions can be considered negative unless otherwise specified. Past Medical/Surgical History Medical Problems: (1) Acute Renal Failure, Unspecified (2) JAIMEE (acute kidney injury) (3) Chest pain (4) Chronic obstructive lung disease (5) COPD (chronic obstructive pulmonary disease) (6) Diab W Ophthal Manifest, Type Ii Or Unspec Type, Uncntrld (7) Diab W Ophthal Manifest, Type Ii Or Unspec Type, Uncntrld (8) Diabetes mellitus (9) Hyperlipidemia (10) Hypertension Nos (11) UTI (urinary tract infection) Family History Cancer Diabetes mellitus Heart disease Social History Smoking Status: Former Smoker Alcohol Use: none Drug Use: none Marital Status: Housing Status: lives alone Occupation Status: disabled Current/Historical Medications Scheduled Aspirin (Aspirin Ec), 81 MG PO QAM Budesonide/Formoterol Fumarate (Symbicort 160/4.5 Inhaler), 2 PUFFS INH BID Cholecalciferol (Vitamin D3 Maximum Streng), 5,000 UNIT PO DAILY Cholecalciferol (Vitamin D3 High Potency), 1,000 UNIT PO DAILY Furosemide (Lasix), 20 MG PO QAM Gabapentin (Neurontin), 300 MG PO TID Isosorbide Mononitrate Ext Rel (Imdur Ext Rel), 30 MG PO DAILY Lisinopril (Zestril), 10 MG PO QAM Metformin Hcl (Metformin Hcl Er), 1,000 MG PO QAM Metoprolol Tartrate (Lopressor) (Lopressor), 25 MG PO BID Montelukast Sodium (Singulair), 10 MG PO DAILY Multiple Vitamins W/ Minerals (Womens One Daily), 1 TAB PO DAILY Nitroglycerin (Nitrostat), 0.4 MG UT PRN Pantoprazole (Pantoprazole Sodium), 40 MG PO QAM Spironolactone & Hydrochloroth (Spironolactone/Hydrochlor), 1 TAB PO DAILY Theophylline (Theophylline ER), 400 MG PO Q12 Tiotropium [place] (Spiriva Handihaler), 1 CAP INH QPM Zolpidem Tartrate (Ambien), 10 MG PO HS Scheduled PRN Albuterol Sulf (Proventil 0.083% 2.5MG/3ML), 3 ML NEB Q4 PRN for Wheezing Lorazepam (Ativan), 1 MG PO TID PRN for Anxiety Paroxetine (Paxil), 60 MG PO QAM PRN for DEPRESSION Polyethylene Glycol 3350 (Miralax), 17 GM PO DAILY PRN for Constipation Tramadol (Ultram), 100 MG PO TID PRN for Pain Physical Exam Vital Signs Date Time Temp Pulse Resp B/P (MAP) Pulse Ox O2 Delivery O2 Flow Rate FiO2 03/25/17 23:04 67 16 94/54 100 Nasal Cannula 3.0 03/25/17 21:55 64 20 115/67 100 Room Air 03/25/17 20:44 62 03/25/17 19:57 63 20 124/64 98 Nasal Cannula 3.0 03/25/17 18:25 67 18 134/72 97 Nasal Cannula 2.0 03/25/17 16:34 37.1 63 18 115/60 100 Nasal Cannula 2.0 03/25/17 16:11 68 03/25/17 16:00 99 Nasal Cannula 2.0 03/25/17 15:20 37.2 77 20 99/61 98 Room Air Physical Exam VITAL SIGNS - Vital signs and nursing notes were reviewed. Stable. GENERAL -66-year-old female appearing her stated age who is in no acute distress. Communicates well with provider and answers questions appropriately. SKIN - Without rashes. No petechial rashes. HEAD - NC/AT. EYES - Sclera anicteric. EARS - No deformities of external structures noted on gross examination bilaterally. NOSE - Midline and without cyanosis. No epistaxis or purulent drainage noted. MOUTH/OROPHARYNX - Without perioral cyanosis. LUNGS - Chest wall symmetric without accessory muscle use, intercostals retractions, or central cyanosis. Normal vesicular breath sounds CTA B/L. No wheezes, rales, or rhonchi appreciated. CARDIAC - RRR with S1/S2. No murmur, rubs, or gallops appreciated. ABDOMEN - Abdominal contour normal without pulsations or visible masses. BS normoactive all four quadrants. Exquisite midline epigastric abdominal tenderness noted. No palpable masses, hepatosplenomegaly, or ascites noted.. PSYCH - A&O, and cooperates fully with examiner. Pt is very pleasant and interacts well with examiner. Medical Decision & Procedures ER Provider Diagnostic Interpretation: GALLBLADDER-ABD LIMITED CLINICAL HISTORY: 66 years-old Female presenting with Epigastric abd pain. TECHNIQUE: Real-time grayscale and limited color Doppler ultrasound imaging of the abdomen limited to the right upper quadrant was performed. COMPARISON: 02/24/[address] from 04/30/2016. FINDINGS: Pancreas: Largely obscured due to overlying bowel gas. Liver: Normal echogenicity and echotexture. The liver measures 16.1 cm in maximal sagittal dimension. No sonographic evidence of hepatic mass. Main portal vein patent with normal directional flow. Biliary: No intrahepatic biliary ductal dilatation. Common bile duct measures up to 4 mm in diameter. Gallbladder: No evidence of gallstones, gallbladder wall thickening, gallbladder distention, or pericholecystic fluid or inflammatory change. Sonographic Goodwin's sign negative. Right kidney: Normal in appearance. No hydronephrosis. Ascites: None. IMPRESSION: No cholelithiasis or biliary ductal dilatation. Electronically signed by: Kaiser Monroe M.D. 03/25/2017 5:21 PM Dictated Date/Time: 03/25/2017 5:19 PM CHEST ONE VIEW PORTABLE CLINICAL HISTORY: 66 years-old Female presenting with Epigastric abd pain. TECHNIQUE: Portable upright AP view of the chest was obtained. COMPARISON: 06/23/2016. FINDINGS: Atherosclerosis of aortic arch. Cardiac silhouette enlarged. Minimal basilar opacities. No pleural effusion or pneumothorax. Degenerative changes of the bilateral glenohumeral joints. Upper abdomen normal. IMPRESSION: 1. Minimal basilar atelectasis. No other evidence of acute cardiopulmonary disease. Electronically signed by: Kaiser Monroe M.D. 03/25/2017 7:48 PM Dictated Date/Time: 03/25/2017 7:47 PM ABD/PELVIS NO IV OR ORAL CONT CLINICAL HISTORY: 66 years-old Female presenting with Epigastric abd pain. TECHNIQUE: Multidetector CT of the abdomen and pelvis was performed without the use of intravenous contrast. IV contrast: None. A dose lowering technique was used consistent with the principles of ALARA (as low as reasonably achievable). COMPARISON: 04/30/2016. CT DOSE (mGy.cm): The estimated cumulative dose is 1671.15 mGy.cm. 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 Lung bases: Minimal basilar opacities, likely atelectasis. Aortic valve and mitral annular calcification. Top normal heart size. No pericardial or pleural effusion. Liver: Normal morphology. Density consistent with hepatic steatosis. Biliary: No gross biliary ductal dilatation allowing for noncontrast technique. Normal gallbladder. Pancreas: Moderate parenchymal atrophy. Spleen: Normal noncontrast appearance. Adrenal glands: Normal noncontrast appearance. Kidneys and ureters: Normal noncontrast appearance. No nephrolithiasis. No hydronephrosis. Normal ureters. Bladder: Normal. Pelvic organs: Uterus surgically absent. No adnexal masses. Bowel: Few diverticula noted at the junction of the descending and sigmoid colon. The appendix is not visualized, possibly absent. No inflammatory change in the right lower quadrant. No bowel obstruction. Peritoneal cavity: No free fluid or intraperitoneal gas. Lymph nodes: No gross lymphadenopathy allowing for noncontrast technique. Vasculature: Atherosclerosis of the normal caliber abdominal aorta. Abdominal wall: Small fat-containing umbilical hernia. Large pannus. Musculoskeletal: Degenerative changes of the spine. Osteopenia. IMPRESSION: 1. Hepatic steatosis. Correlate with liver function tests to exclude steatohepatitis as a cause for abdominal pain. Otherwise no acute intra-abdominal pathology. 2. Osteopenia. Electronically signed by: Kaiser Monroe M.D. 03/25/2017 6:11 PM Dictated Date/Time: 03/25/2017 6:06 PM Laboratory Results 03/25/17 15:55 Red Blood Count 4.93, Mean Corpuscular Volume 84.2, Mean Corpuscular Hemoglobin 29.4, Mean Corpuscular Hemoglobin Concent 34.9, Mean Platelet Volume 9.2, Neutrophils (%) (Auto) 62.8, Lymphocytes (%) (Auto) 27.6, Monocytes (%) (Auto) 8.2, Eosinophils (%) (Auto) 1.0, Basophils (%) (Auto) 0.2, Neutrophils # (Auto) 6.21, Lymphocytes # (Auto) 2.73, Monocytes # (Auto) 0.81, Eosinophils # (Auto) 0.10, Basophils # (Auto) 0.02 03/25/17 15:55 Test 03/25/17 15:55 03/25/17 18:20 03/25/17 20:37 White Blood Count 9.89 K/uL (4.8-10.8) Red Blood Count 4.93 M/uL (4.2-5.4) Hemoglobin 14.5 g/dL (12.0-16.0) Hematocrit 41.5 % (37-47) Mean Corpuscular Volume 84.2 fL (80-100) Mean Corpuscular Hemoglobin 29.4 pg (25-34) Mean Corpuscular Hemoglobin Concent 34.9 g/dl (32-36) Platelet Count 319 K/uL (130-400) Mean Platelet Volume 9.2 fL (7.4-10.4) Neutrophils (%) (Auto) 62.8 % Lymphocytes (%) (Auto) 27.6 % Monocytes (%) (Auto) 8.2 % Eosinophils (%) (Auto) 1.0 % Basophils (%) (Auto) 0.2 % Neutrophils # (Auto) 6.21 K/uL (1.4-6.5) Lymphocytes # (Auto) 2.73 K/uL (1.2-3.4) Monocytes # (Auto) 0.81 K/uL (0.11-0.59) Eosinophils # (Auto) 0.10 K/uL (0-0.5) Basophils # (Auto) 0.02 K/uL (0-0.2) RDW Standard Deviation 43.4 fL (36.4-46.3) RDW Coefficient of Variation 14.2 % (11.5-14.5) Immature Granulocyte % (Auto) 0.2 % Immature Granulocyte # (Auto) 0.02 K/uL (0.00-0.02) Anion Gap 7.0 mmol/L (3-11) Est Creatinine Clear Calc Drug Dose 35.3 ml/min Estimated GFR () 26.7 Estimated GFR (Non- 23.1 BUN/Creatinine Ratio 21.2 (10-20) Calcium Level 9.8 mg/dl (8.5-10.1) Magnesium Level 2.4 mg/dl (1.8-2.4) Total Bilirubin 0.5 mg/dl (0.2-1) Aspartate Amino Transf (AST/SGOT) 13 U/L (15-37) Alanine Aminotransferase (ALT/SGPT) 23 U/L (12-78) Alkaline Phosphatase 69 U/L (45-117) Total Creatine Kinase 47 U/L (26-192) Creatine Kinase MB 0.7 ng/ml (0.5-3.6) Creatine Kinase MB Ratio 1.5 (0-3.0) Total Protein 7.3 gm/dl (6.4-8.2) Albumin 3.4 gm/dl (3.4-5.0) Globulin 3.9 gm/dl (2.5-4.0) Albumin/Globulin Ratio 0.9 (0.9-2) Thyroid Stimulating Hormone (TSH) 1.170 uIu/ml (0.300-4.500) Urine Color YELLOW Urine Appearance CLEAR (CLEAR) Urine pH 6.5 (4.5-7.5) Urine Specific [place] 1.010 (1.000-1.030) Urine Protein NEG (NEG) Urine Glucose (UA) NEG (NEG) Urine Ketones NEG (NEG) Urine Occult Blood NEG (NEG) Urine Nitrite NEG (NEG) Urine Bilirubin NEG (NEG) Urine Urobilinogen NEG (NEG) Urine Leukocyte Esterase NEG (NEG) Troponin I < 0.015 ng/ml (0-0.045) Medications Administered Medications (Trade) Dose Ordered Sig/Javier Route Start Time Stop Time Status Last Admin Dose Admin Sodium Chloride 500 ml @ 999 mls/hr Q31M STAT IV 03/25/17 15:32 03/25/17 16:02 DC 03/25/17 15:32 999 MLS/HR Morphine Sulfate (MoRPHine SULFATE INJ) 4 mg NOW STAT IV 03/25/17 15:32 03/25/17 15:35 DC 03/25/17 16:26 4 MG Lidocaine HCl (Viscous Lidocaine 2% Soln) 20 ml STK-MED ONCE .ROUTE 03/25/17 16:24 03/25/17 16:25 DC 03/25/17 16:27 20 ML Al Hydroxide/Mg Hydroxide (Maalox Susp) 30 ml STK-MED ONCE .ROUTE 03/25/17 16:24 03/25/17 16:25 DC 03/25/17 16:27 30 ML Morphine Sulfate (MoRPHine SULFATE INJ) 4 mg NOW STAT IV 03/25/17 16:41 03/25/17 16:42 DC 03/25/17 16:43 4 MG Sodium Chloride 1,000 ml @ 999 mls/hr Q1H1M STAT IV 03/25/17 18:16 03/25/17 19:16 DC 03/25/17 18:34 999 MLS/HR Aspirin (Aspirin Chew) 324 mg NOW STAT PO 03/25/17 18:28 03/25/17 18:30 DC 03/25/17 18:34 324 MG Famotidine (Pepcid 20mg Iv Push) 20 mg ONE STAT IV 03/25/17 18:42 03/25/17 18:43 DC 03/25/17 20:00 20 MG Medical Decision Patient was seen and evaluated as above. She presents to us today with diarrhea , as well as decreased appetite and now epigastric abdominal pain. She rates the overall pain as an 8/10. She notes she does not feel well. Bedside EKG was obtained and reveals normal sinus rhythm, previous infarct noted. He was compared with EKG of 06/24/2016 and PVCs no longer present. IV access was initiated, and the above workup was performed. She was given morphine for pain. Right upper quadrant ultrasound was obtained and found to be essentially negative. Decision was made to obtain a noncontrasted CT of the abdomen and pelvis secondary to her creatinine being elevated today at 2.14. No acute process. Liver enzymes aren't elevated. Chest x-ray no acute process. Urine negative. No concerning leukocytosis or anemia. Metabolic panel reveals sodium low at 133, chloride low at 97, BUN high at 45 and creatinine at 2.14. Troponin negative 2. Lipase negative. TSH normal. She was given morphine again. She was given fluids. Aspirin was also ordered although this is not likely cardiac in nature because it is substernal and throughout the negative workup this was also ordered. She was also given Pepcid 20 mg IV push without relief. I believe that is the patient's increase in her creatinine, and clinical presentation here today believe that further management in the inpatient setting is warranted. Case was discussed with the attending physician and subsequent the hospitalist. Please refer to further documentation regarding her stay. Blood pressure reviewed. She'll be admitted for further evaluation and management. Medication list reviewed. In evaluation treatment this patient the following differential diagnoses were entertained: NM, PE, pancreatitis, gallbladder etiology, ulcer, among others. Impression Primary Impression: Abdominal pain Additional Impression: JAIMEE (acute kidney injury) Departure Information Referrals Chaka Alfred M.D. (PCP) Patient Instructions [facility] Problem Qualifiers Primary Impression: Abdominal pain Abdominal location: epigastric Qualified Codes: R10.13 - Epigastric pain
--- NOTE | 2017-03-25 16:02 | EMERGENCY ROOM VISIT NOTE ---
ED Visit Note First contact with patient: 15:24 I have seen and examined this patient with Ramy Baeza and generally agree with the treatment plan as discussed.
[2017-03-25 16:20] LABS: BASO % 0.2 %; BASO ABS # 0.02 K/uL (0-0.2); HEMATOCRIT 41.5 % (37-47); HEMOGLOBIN 14.5 g/dL (12.0-16.0); IG# 0.02 K/uL (0.00-0.02); LYMPH % 27.6 %; LYMPH ABS # 2.73 K/uL (1.2-3.4); MEAN CELL VOLUME 84.2 fL (80-100); MEAN CORPUSCULAR HEMOGLOBIN 29.4 pg (25-34); MEAN CORPUSCULAR HGB CONC 34.9 g/dl (32-36); MEAN PLATELET VOLUME 9.2 fL (7.4-10.4); MONO % 8.2 %; MONO ABS # 0.81 K/uL (0.11-0.59); NEUT % 62.8 %; NEUT ABS # 6.21 K/uL (1.4-6.5); PLATELET COUNT 319 K/uL (130-400); RED CELL DISTRIBUTION WIDTH CV 14.2 % (11.5-14.5); RED CELL DISTRIBUTION WIDTH SD 43.4 fL (36.4-46.3); WHITE BLOOD COUNT 9.89 K/uL (4.8-10.8)
[2017-03-25] MEDS ORDERED: ALUMINUM/MAGNESIUM SUSP 30 ML UDC ONE (16:24)
[2017-03-25] MEDS ORDERED: LIDOCAINE HCL 2% VISC SOLN 20 ML UDC ONE (16:24)
[2017-03-25 16:38] LABS: ALBUMIN 3.4 gm/dl (3.4-5.0); ALT/SGPT 23 U/L (12-78); AST/SGOT 13 U/L (15-37); BLOOD UREA NITROGEN 45 mg/dl (7-18); CALCIUM 9.8 mg/dl (8.5-10.1); CARBON DIOXIDE 29 mmol/L (21-32); CREATININE 2.14 mg/dl (0.60-1.20); GLUCOSE 165 mg/dl (70-99); LIPASE 133 U/L (73-393); POTASSIUM 3.9 mmol/L (3.5-5.1); SODIUM 133 mmol/L (136-145)
[2017-03-25 16:50] LABS: ALKALINE PHOSPHATASE 69 U/L (45-117); CKMB 0.7 ng/ml (0.5-3.6); TOTAL PROTEIN 7.3 gm/dl (6.4-8.2)
--- NOTE | 2017-03-25 17:22 | DIAGNOSTIC IMAGING REPORT ---
GALLBLADDER-ABD LIMITED CLINICAL HISTORY: 66 years-old Female presenting with Epigastric abd pain. TECHNIQUE: Real-time grayscale and limited color Doppler ultrasound imaging of the abdomen limited to the right upper quadrant was performed. COMPARISON: 02/24/[address] from 04/30/2016. FINDINGS: Pancreas: Largely obscured due to overlying bowel gas. Liver: Normal echogenicity and echotexture. The liver measures 16.1 cm in maximal sagittal dimension. No sonographic evidence of hepatic mass. Main portal vein patent with normal directional flow. Biliary: No intrahepatic biliary ductal dilatation. Common bile duct measures up to 4 mm in diameter. Gallbladder: No evidence of gallstones, gallbladder wall thickening, gallbladder distention, or pericholecystic fluid or inflammatory change. Sonographic Goodwin's sign negative. Right kidney: Normal in appearance. No hydronephrosis. Ascites: None. IMPRESSION: No cholelithiasis or biliary ductal dilatation. Electronically signed by: Kaiser Monroe M.D. 03/25/2017 5:21 PM Dictated Date/Time: 03/25/2017 5:19 PM
--- NOTE | 2017-03-25 18:13 | DIAGNOSTIC IMAGING REPORT ---
ABD/PELVIS NO IV OR ORAL CONT CLINICAL HISTORY: 66 years-old Female presenting with Epigastric abd pain. TECHNIQUE: Multidetector CT of the abdomen and pelvis was performed without the use of intravenous contrast. IV contrast: None. A dose lowering technique was used consistent with the principles of ALARA (as low as reasonably achievable). COMPARISON: 04/30/2016. CT DOSE (mGy.cm): The estimated cumulative dose is 1671.15 mGy.cm. 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 Lung bases: Minimal basilar opacities, likely atelectasis. Aortic valve and mitral annular calcification. Top normal heart size. No pericardial or pleural effusion. Liver: Normal morphology. Density consistent with hepatic steatosis. Biliary: No gross biliary ductal dilatation allowing for noncontrast technique. Normal gallbladder. Pancreas: Moderate parenchymal atrophy. Spleen: Normal noncontrast appearance. Adrenal glands: Normal noncontrast appearance. Kidneys and ureters: Normal noncontrast appearance. No nephrolithiasis. No hydronephrosis. Normal ureters. Bladder: Normal. Pelvic organs: Uterus surgically absent. No adnexal masses. Bowel: Few diverticula noted at the junction of the descending and sigmoid colon. The appendix is not visualized, possibly absent. No inflammatory change in the right lower quadrant. No bowel obstruction. Peritoneal cavity: No free fluid or intraperitoneal gas. Lymph nodes: No gross lymphadenopathy allowing for noncontrast technique. Vasculature: Atherosclerosis of the normal caliber abdominal aorta. Abdominal wall: Small fat-containing umbilical hernia. Large pannus. Musculoskeletal: Degenerative changes of the spine. Osteopenia. IMPRESSION: 1. Hepatic steatosis. Correlate with liver function tests to exclude steatohepatitis as a cause for abdominal pain. Otherwise no acute intra-abdominal pathology. 2. Osteopenia. Electronically signed by: Kaiser Monroe M.D. 03/25/2017 6:11 PM Dictated Date/Time: 03/25/2017 6:06 PM
[2017-03-25] MEDS ORDERED: SODIUM CHLORIDE 0.9% 1000ML 1,000 ML IV STA (18:16)
[2017-03-25] MEDS ORDERED: ASPIRIN 324 MG CHEW PO STA (18:28)
[2017-03-25] MEDS ORDERED: FAMOTIDINE 20MG/5ML IV PUSH IV STA (18:42)
[2017-03-25] MEDS ORDERED: ISOS30TA35 PO (19:19)
--- NOTE | 2017-03-25 19:49 | DIAGNOSTIC IMAGING REPORT ---
CHEST ONE VIEW PORTABLE CLINICAL HISTORY: 66 years-old Female presenting with Epigastric abd pain. TECHNIQUE: Portable upright AP view of the chest was obtained. COMPARISON: 06/23/2016. FINDINGS: Atherosclerosis of aortic arch. Cardiac silhouette enlarged. Minimal basilar opacities. No pleural effusion or pneumothorax. Degenerative changes of the bilateral glenohumeral joints. Upper abdomen normal. IMPRESSION: 1. Minimal basilar atelectasis. No other evidence of acute cardiopulmonary disease. Electronically signed by: Kaiser Monroe M.D. 03/25/2017 7:48 PM Dictated Date/Time: 03/25/2017 7:47 PM
[2017-03-25] MEDS ORDERED: NITROGLYCERIN 0.4 MG SL PER TAB CHARGE UT SCH (22:30)
[2017-03-25] MEDS ORDERED: ONDANSETRON INJ 2 MG/ML 2 ML VIAL IV PRN (22:30)
[2017-03-25] MEDS ORDERED: LORAZEPAM 1 MG TAB PO PRN (22:30)
[2017-03-25] MEDS ORDERED: ALBUTEROL 0.083% NEBU SOLN 3 ML VIAL INH PRN (22:30)
[2017-03-25] MEDS ORDERED: ZOLPIDEM TARTRATE 5 MG TAB PO PRN (22:30)
[2017-03-25] MEDS ORDERED: POLYETHYLENE (MIRALAX) 17 GM PACK PO PRN (22:30)
[2017-03-25] MEDS ORDERED: TRAMADOL HCL 50 MG TAB PO PRN (22:30)
[2017-03-25] MEDS ORDERED: NITROGLYCERIN 0.4 MG SL PER TAB CHARGE SL PRN (22:30)
[2017-03-25] MEDS ORDERED: DEXTROSE 50% 50 ML SYR IV PRN (22:30)
[2017-03-25] MEDS ORDERED: ALUMINUM/MAGNESIUM/SIMETH (MAALOX MAX) 30 ML UDC PO PRN ×2 (22:30→23:00)
[2017-03-25] MEDS ORDERED: PAROXETINE 20 MG TAB PO PRN (22:30)
[2017-03-25] MEDS ORDERED: MoRPHine SULFATE 2 MG/ML CARP IV PRN (22:30)
[2017-03-25] MEDS ORDERED: MAGNESIUM HYDROXIDE SUSP 30 ML UDC PO PRN (22:30)
[2017-03-25] MEDS ORDERED: GLUCAGON FOR INJ 1 MG VIAL SQ PRN (22:30)
[2017-03-25] MEDS ORDERED: ACETAMINOPHEN 325 MG TAB PO PRN (22:30)
[2017-03-25] MEDS ORDERED: GLUCOSE 10 TABS/TUBE PO PRN (22:30)
[2017-03-25] MEDS ORDERED: GLUCOSE 40% GEL 15 GM TUBE PO PRN (22:30)
--- NOTE | 2017-03-25 22:55 | History and Physical ---
History & Physical Date & Time of Service: Mar 25, 2017 at 22:38 Chief Complaint: Unable To Eat Or Drink,Stomach Pain Primary Care Physician: Chaka Alfred M.D. History of Present Illness Source: patient 66-year-old female with past medical history of diastolic congestive heart failure, diabetes mellitus type 2 with diabetic neuropathy, hypertension, dyslipidemia, GERD, and anxiety, severe COPD and obstructive sleep apnea on CPAP. Presented to the hospital with epigastric burning sensation and diarrhea. Patient said that for the past 4 days she has been having diarrhea, no blood in stool. Decrease oral intake. In ED cardiac enzymes were checked and were negative Patient was given Pepcid/PPI with no improvement Also was getting Lovenox with no improvement. Blood labs showed increased creatinine from 1.4 to 2.14 She is on KEAGAN inhibitor and Lasix at home Past Medical/Surgical History Medical Problems: (1) Acute Renal Failure, Unspecified Status: Resolved (2) Chronic obstructive lung disease Status: Chronic (3) COPD (chronic obstructive pulmonary disease) Status: Chronic (4) Diabetes mellitus Status: Chronic (5) Hyperlipidemia Status: Chronic (6) Hypertension Nos Status: Chronic (7) UTI (urinary tract infection) Status: Resolved Family History Cancer Diabetes mellitus Heart disease Social History Smoking Status: Former Smoker Drug Use: none Marital Status: Housing status: lives alone Occupational Status: disabled Immunizations History of Influenza Vaccine: Yes Influenza Vaccine Date: Jan 22, 2008 History of Tetanus Vaccine?: Unknown History of Pneumococcal: Yes Pneumococcal Date: Mar 23, 2007 History of Hepatitis B Vaccine: No Multi-Drug Resistant Organisms History of MDRO: Yes Type of MDRO: MRSA Allergies Coded Allergies: Adhesives (Verified Allergy, Unknown, HIVES, 03/25/17) Atorvastatin (Verified Adverse Reaction, Unknown, ., 03/25/17) Pravastatin (Verified Adverse Reaction, Unknown, ., 03/25/17) Rosuvastatin (Unverified Adverse Reaction, Unknown, UNKNOWN, 03/25/17) Home Medications Scheduled Aspirin (Aspirin Ec), 81 MG PO QAM Budesonide/Formoterol Fumarate (Symbicort 160/4.5 Inhaler), 2 PUFFS INH BID Cholecalciferol (Vitamin D3 Maximum Streng), 5,000 UNIT PO DAILY Cholecalciferol (Vitamin D3 High Potency), 1,000 UNIT PO DAILY Furosemide (Lasix), 20 MG PO QAM Gabapentin (Neurontin), 300 MG PO TID Isosorbide Mononitrate Ext Rel (Imdur Ext Rel), 30 MG PO DAILY Lisinopril (Zestril), 10 MG PO QAM Metformin Hcl (Metformin Hcl Er), 1,000 MG PO QAM Metoprolol Tartrate (Lopressor) (Lopressor), 25 MG PO BID Montelukast Sodium (Singulair), 10 MG PO DAILY Multiple Vitamins W/ Minerals (Womens One Daily), 1 TAB PO DAILY Nitroglycerin (Nitrostat), 0.4 MG UT PRN Pantoprazole (Pantoprazole Sodium), 40 MG PO QAM Spironolactone & Hydrochloroth (Spironolactone/Hydrochlor), 1 TAB PO DAILY Theophylline (Theophylline ER), 400 MG PO Q12 Tiotropium [place] (Spiriva Handihaler), 1 CAP INH QPM Zolpidem Tartrate (Ambien), 10 MG PO HS Scheduled PRN Albuterol Sulf (Proventil 0.083% 2.5MG/3ML), 3 ML NEB Q4 PRN for Wheezing Lorazepam (Ativan), 1 MG PO TID PRN for Anxiety Paroxetine (Paxil), 60 MG PO QAM PRN for DEPRESSION Polyethylene Glycol 3350 (Miralax), 17 GM PO DAILY PRN for Constipation Tramadol (Ultram), 100 MG PO TID PRN for Pain Review of Systems Constitutional: + weakness, + fatigue, No fever, No chills, No sweats, No weight loss, No problem reported Eyes: No worsening of vision, No eye pain, No redness, No discharge, No diplopia, No problem reported ENT: No hearing loss, No unusual epistaxis, No nasal symptoms, No sore throat, No tinnitus, No dental problems, No trouble swallowing, No problem reported Respiratory: + shortness of breath, No cough, No sputum, No wheezing, No dyspnea on exertion, No dyspnea at rest, No hemoptysis, No problem reported Cardiovascular: No chest pain, No orthopnea, No PND, No edema, No claudication , No palpitations, No problem reported Abdomen: + pain, + diarrhea, No nausea, No vomiting, No constipation, No GI bleeding, No problem reported Musculoskeletal: + joint pain, + muscle pain, No swelling, No calf pain, No problem reported Genitourinary - Female: No dysuria, No urinary frequency, No urinary urgency, No urinary incontinence, No urinary retention, No hematuria, No dysmenorrhea, No menorrhagia, No metrorrhagia, No rash, No vaginal bleeding, No vaginal discharge, No vaginal itching, No vulvodynia, No , No problem reported Neurologic: No memory loss, No paralysis, No weakness, No numbness/tingling, No vertigo, No balance problems, No problem reported Psychiatric: No depression symptoms, No anhedonism, No anxiety, No insomnia, No substance abuse, No problem reported Endocrine: + fatigue, No excessive thirst, No excessive urination, No problem reported Hematologic / Lymphatic: No abnormal bleeding/bruising, No clotting problems, No swollen lymph nodes, No night sweats, No problem reported Integumentary: No rash, No itch, No new/changing skin lesions, No color change , No bleeding, No problem reported Physical Exam Vital Signs Date Time Temp Pulse Resp B/P (MAP) Pulse Ox O2 Delivery O2 Flow Rate FiO2 03/25/17 21:55 64 20 115/67 100 Room Air 03/25/17 20:44 62 03/25/17 19:57 63 20 124/64 98 Nasal Cannula 3.0 03/25/17 18:25 67 18 134/72 97 Nasal Cannula 2.0 03/25/17 16:34 37.1 63 18 115/60 100 Nasal Cannula 2.0 03/25/17 16:11 68 03/25/17 16:00 99 Nasal Cannula 2.0 03/25/17 15:20 37.2 77 20 99/61 98 Room Air General Appearance: + mild distress, + obese Head: normocephalic, atraumatic Eyes: normal inspection, EOMI ENT: normal ENT inspection, hearing grossly normal Neck: supple Respiratory/Chest: chest non-tender, lungs clear, normal breath sounds, no respiratory distress, no accessory muscle use Cardiovascular: regular rate, rhythm, no edema, no gallop, no JVD, no murmur Abdomen/GI: normal bowel sounds, no organomegaly, no pulsatile mass, + tenderness, + distended Back: normal inspection Extremities/Musculoskelatal: normal inspection, no calf tenderness, + swelling Neurologic/Psych: collection coordinator II-XII nml as tested, no motor/sensory deficits, alert, normal mood/affect, normal reflexes, oriented x 3 Skin: normal color, warm/dry, no rash Diagnostics Laboratory Results Results Past 24 Hours Test 03/25/17 15:55 03/25/17 18:20 03/25/17 20:37 03/25/17 22:26 Range/Units White Blood Count 9.89 4.8-10.8 K/uL Red Blood Count 4.93 4.2-5.4 M/uL Hemoglobin 14.5 12.0-16.0 g/dL Hematocrit 41.5 37-47 % Mean Corpuscular Volume 84.2 80-100 fL Mean Corpuscular Hemoglobin 29.4 25-34 pg Mean Corpuscular Hemoglobin Concent 34.9 32-36 g/dl Platelet Count 319 130-400 K/uL Mean Platelet Volume 9.2 7.4-10.4 fL Neutrophils (%) (Auto) 62.8 % Lymphocytes (%) (Auto) 27.6 % Monocytes (%) (Auto) 8.2 % Eosinophils (%) (Auto) 1.0 % Basophils (%) (Auto) 0.2 % Neutrophils # (Auto) 6.21 1.4-6.5 K/uL Lymphocytes # (Auto) 2.73 1.2-3.4 K/uL Monocytes # (Auto) 0.81 0.11-0.59 K/uL Eosinophils # (Auto) 0.10 0-0.5 K/uL Basophils # (Auto) 0.02 0-0.2 K/uL RDW Standard Deviation 43.4 36.4-46.3 fL RDW Coefficient of Variation 14.2 11.5-14.5 % Immature Granulocyte % (Auto) 0.2 % Immature Granulocyte # (Auto) 0.02 0.00-0.02 K/uL Sodium Level 133 136-145 mmol/L Potassium Level 3.9 3.5-5.1 mmol/L Chloride Level 97 98-107 mmol/L Carbon Dioxide Level 29 21-32 mmol/L Anion Gap 7.0 3-11 mmol/L Blood Urea Nitrogen 45 7-18 mg/dl Creatinine 2.14 0.60-1.20 mg/dl Est Creatinine Clear Calc Drug Dose 35.3 ml/min Estimated GFR () 26.7 Estimated GFR (Non- 23.1 BUN/Creatinine Ratio 21.2 10-20 Random Glucose 165 70-99 mg/dl Calcium Level 9.8 8.5-10.1 mg/dl Magnesium Level 2.4 1.8-2.4 mg/dl Total Bilirubin 0.5 0.2-1 mg/dl Aspartate Amino Transf (AST/SGOT) 13 15-37 U/L Alanine Aminotransferase (ALT/SGPT) 23 12-78 U/L Alkaline Phosphatase 69 45-117 U/L Total Creatine Kinase 47 26-192 U/L Creatine Kinase MB 0.7 0.5-3.6 ng/ml Creatine Kinase MB Ratio 1.5 0-3.0 Troponin I < 0.015 < 0.015 0-0.045 ng/ml Total Protein 7.3 6.4-8.2 gm/dl Albumin 3.4 3.4-5.0 gm/dl Globulin 3.9 2.5-4.0 gm/dl Albumin/Globulin Ratio 0.9 0.9-2 Lipase 133 73-393 U/L Thyroid Stimulating Hormone (TSH) 1.170 0.300-4.500 uIu/ml Urine Color YELLOW Urine Appearance CLEAR CLEAR Urine pH 6.5 4.5-7.5 Urine Specific [place] 1.010 1.000-1.030 Urine Protein NEG NEG Urine Glucose (UA) NEG NEG Urine Ketones NEG NEG Urine Occult Blood NEG NEG Urine Nitrite NEG NEG Urine Bilirubin NEG NEG Urine Urobilinogen NEG NEG Urine Leukocyte Esterase NEG NEG Impression Assessment and Plan 66-year-old female with past medical history of diastolic congestive heart failure, diabetes mellitus type 2 with diabetic neuropathy, hypertension, dyslipidemia, GERD, and anxiety, severe COPD and obstructive sleep apnea on CPAP. Presented to the hospital with epigastric burning sensation and diarrhea. Decrease oral intake and acute kidney injury Epigastric pain--unlikely cardiac but will do serial cardiac enzymes anyway Continue patient on Protonix IV twice a day Status post 1 dose of Pepcid Continue Maalox by mouth GI consult, might require EGD if no improvement also can consider HIDA scan Ultrasound showed no obstructive stone JAIMEE on CKD, stage III, baseline cr. 1.4 Cr. 2.14 at admission, multifactorial secondary to decrease oral intake, diarrhea KEAGAN inhibitor and Lasix Decrease in adjust home meds doses IV fluid hydration normal saline at 75 mL/h Noncontrast abdominal CT showed normal kidneys COPD stable Continue bronchodilators and oral home meds except theophylline, will check cephalin level continue oxygen supplement T2DM w/ diabetic neuropathy Hold Metformin Insulin sliding scale Decrease Gabapentin to 200 mg PO TID HTN, currently borderline hypotensive hold blood pressure meds Chronic diastolic CHF stable While on IV fluids monitored for early signs of fluid overload Anxiety/depression Decrease Paxil 60 mg PO qd to 30 mg by mouth daily due to renal function Hyperlipidemia Continue statin SARIKA Continue CPAP DVT prophylaxis Heparin subcutaneous ELDER hose and SCDs Code Status -Level I, FULL RESUSCITATION STATUS VTE Prophylaxis VTE Risk Assessment Done? Y/N: Yes Risk Level: Moderate
[2017-03-25 23:23] LABS: LIPASE 110 U/L (73-393)
[2017-03-26] VITALS (13 sets, daily range): BP systolic 95–128; BP diastolic 55–78; PULSE 56–88; TEMP 36.8–37; O2SAT 94–99; Ht 157.5 cm; Wt 145.0 kg
[2017-03-26] MEDS: SODIUM CHLORIDE 0.9% 1000ML 1,000 ML IV SCH ×2 (00:11→11:49)
[2017-03-26] MEDS: ZOLPIDEM TARTRATE 5 MG TAB PO PRN (01:53)
[2017-03-26] MEDS: INSULIN ASPART 100 UNITS/ML 3 ML PEN SC SCH ×5 (03:00→21:06)
[2017-03-26 04:30] LABS: BASO % 0.3 %; BASO ABS # 0.02 K/uL (0-0.2); EOS ABS # 0.16 K/uL (0-0.5); HEMATOCRIT 38.1 % (37-47); IG# 0.02 K/uL (0.00-0.02); LYMPH % 38.8 %; LYMPH ABS # 3.06 K/uL (1.2-3.4); MEAN CELL VOLUME 84.9 fL (80-100); MEAN CORPUSCULAR HGB CONC 34.1 g/dl (32-36); MONO % 10.6 %; MONO ABS # 0.84 K/uL (0.11-0.59); NEUT ABS # 3.79 K/uL (1.4-6.5); PLATELET COUNT 258 K/uL (130-400); RED CELL DISTRIBUTION WIDTH CV 14.2 % (11.5-14.5); RED CELL DISTRIBUTION WIDTH SD 43.6 fL (36.4-46.3); WHITE BLOOD COUNT 7.89 K/uL (4.8-10.8)
[2017-03-26 04:53] LABS: ALBUMIN 2.9 gm/dl (3.4-5.0); ALT/SGPT 19 U/L (12-78); AST/SGOT 11 U/L (15-37); BLOOD UREA NITROGEN 35 mg/dl (7-18); CALCIUM 8.9 mg/dl (8.5-10.1); CARBON DIOXIDE 29 mmol/L (21-32); CREATININE 1.62 mg/dl (0.60-1.20); GLUCOSE 134 mg/dl (70-99); POTASSIUM 3.6 mmol/L (3.5-5.1); SODIUM 136 mmol/L (136-145)
[2017-03-26 04:58] LABS: ALKALINE PHOSPHATASE 58 U/L (45-117); CKMB < 0.5 ng/ml (0.5-3.6); PHOSPHORUS 2.9 mg/dl (2.5-4.9); TOTAL PROTEIN 6.1 gm/dl (6.4-8.2)
[2017-03-26] MEDS: ALBUT/IPRATROP 3MG/0.5MG NEB 3 ML VIAL INH SCH ×4 (07:53→19:21)
[2017-03-26] MEDS: GABAPENTIN 100 MG CAP PO SCH ×3 (08:40→20:45)
[2017-03-26] MEDS: PANTOprazole INJ 40 MG in SYRINGE 0 ML IV SCH (08:41)
[2017-03-26] MEDS: ISOSORBIDE MONONITRATE 30 MG TABCR PO SCH (08:41)
[2017-03-26] MEDS: ASPIRIN 81 MG ECTAB PO SCH (08:41)
[2017-03-26] MEDS: METOPROLOL TARTRATE 25 MG TAB PO SCH ×3 (08:41→21:01)
[2017-03-26] MEDS: MONTELUKAST SOD 10 MG TAB PO SCH (08:41)
[2017-03-26] MEDS: BUDESONIDE/FORMOTEROL FUMARATE 160/4.5 60 PUFFS/INHALER INH SCH ×2 (08:42→20:43)
[2017-03-26] MEDS: HEPARIN SOD 5000 UNIT/0.5 ML CARP SQ SCH ×2 (08:44→20:50)
--- NOTE | 2017-03-26 10:14 | Gastrointestinal Consultation ---
Gastrointestinal Consultation Date of Consultation: Mar 26, 2017 Attending Physician: Dr. Ontiveros Consulting Physician: Dr. Norris/RAINA Worley Reason for Consultation: Epigastric pain and diarrhea History of Present Illness Patient is a 66 year old female with a complex past medical history significant for diastolic heart failure, CKD, stage III, DM2 with neuropathy, severe COPD and obstructive sleep apnea on CPAP, GERD, anxiety, and hypertension presenting to the ER yesterday afternoon with severe epigastric pain and diarrhea. The patient reports the onset of symptoms was 5 days [employer] SOFTWARE [employer]. She describes her abdominal pain as a constant epigastric burning without radiation. There is associated nausea without vomiting and loss of appetite. She also reports having loose stools for the past several days as well which is a change. She typically has issues with constipation and states she often needs to strain to produce a bm. She reports 3 bms per day for the past few days that were not bloody or melanotic. Laboratory testing on arrival was reviewed. She was not anemic but demonstrated mild hypokalemia and JAIMEE with creatinine of 2.14. Her baseline creatinine is 1.4. Lipase was normal at 133 as was her liver panel. CT a/p without enhancement demonstrated hepatic steatosis and moderate pancreatic atrophy but no acute process. Biliary ultrasound was without any evidence for acute cholecystitis, cholelithiasis or biliary ductal dilation. At present, she rates her pain as 7/10 in intensity. She did take "a bite of toast" this morning. Symptoms have not improved with use of Protonix, Pepcid or Maalox as prescribed. Risk factors: diabetes. Denies any recent antibiotic use, corticosteroid use, NSAIDs, alcohol or tobacco use. She has not had a recent upper endoscopic evaluation. Colonoscopy was performed by Dr. Norris in April of 2015. Findings included a hyperplastic polyp, diverticulosis and hemorrhoids. Stool studies for enteric pathogens has been ordered but not collected as patient has not had a bowel movement since admission. Past Medical/Surgical History Medical Problems: (1) Abdominal pain Status: Acute (2) Abdominal pain Status: Acute (3) Failure of outpatient treatment Status: Acute (4) Gastroenteritis Status: Acute (5) Left sided chest pain Status: Acute (6) Pneumonia Status: Acute Past Medical History: 1. Acute URI 2. Angina 3. Asthma 4. Carotid artery stenosis 5. Chronic respiratory failure 6. COPD 7. Chronic kidney disease, stage III 8. Diabetes with neuropathy 9. Hyperlipidemia 10. Hypertension 11. UTI 12. Constipation 13. Fatty liver disease 14. Nontoxic multinodular goiter 15. Pneumonia 16. Diastolic heart failure 17. Obstructive sleep apnea 18. GERD 19. Anxiety Past Surgical History: 1. D&C 2. Eye surgery 3. Hysterectomy 4. [place] tooth extraction 5. Tubal ligation Family History Cancer Diabetes mellitus Heart disease Negative for GI malignancy or IBD Social History Smoking Status: Never Smoker Alcohol Use: none Drug Use: none Marital Status: Housing Status: lives alone Occupation Status: disabled Allergies Coded Allergies: Adhesives (Verified Allergy, Unknown, HIVES, 03/25/17) Atorvastatin (Verified Adverse Reaction, Unknown, ., 03/25/17) Pravastatin (Verified Adverse Reaction, Unknown, ., 03/25/17) Rosuvastatin (Unverified Adverse Reaction, Unknown, UNKNOWN, 03/25/17) Current Medications Home Meds and Scripts Medications Dose Route/Sig Max Daily Dose Days Date Category Imdur Ext Rel (Isosorbide Mononitrate) 30 Mg Tabcr 30 Mg PO DAILY 03/25/17 Reported Vitamin D3 High Potency (Cholecalciferol) 1,000 Unit Cap 1,000 Unit PO DAILY 02/04/17 Reported Vitamin D3 Maximum Streng (Cholecalciferol) 5,000 Unit Cap 5,000 Unit PO DAILY 02/04/17 Reported Nitrostat (Nitroglycerin) 0.4 Mg Tab 0.4 Mg UT PRN 02/04/17 Reported Lopressor (Metoprolol Tartrate) 25 Mg Tab 25 Mg PO BID 02/04/17 Reported Miralax (Polyethylene Glycol 3350) 1 Pow Pow 17 Gm PO DAILY PRN 02/04/17 Reported Neurontin (Gabapentin) 300 Mg Cap 300 Mg PO TID 12/23/16 Reported Ultram (Tramadol HCl) 50 Mg Tab 100 Mg PO TID PRN 04/30/16 Reported Proventil 0.083% 2.5MG/3ML (Albuterol Sulf) 2.5 Mg/3 Ml Nebu 3 Ml NEB Q4 PRN 04/30/16 Reported Theophylline ER (Theophylline) 400 Mg Tabcr 400 Mg PO Q12 30 12/29/15 Rx Pantoprazole Sodium (Pantoprazole) 40 Mg Tab 40 Mg PO QAM 30 12/29/15 Rx Spironolactone/Hydrochlor (Spironolactone & Hydrochloroth) 1 Tab Tab 1 Tab PO DAILY 12/26/15 Reported Womens One Daily (Multiple Vitamins W/ Minerals) 1 Tab Tab 1 Tab PO DAILY 12/26/15 Reported Symbicort 160/4.5 Inhaler (Budesonide/Formoterol Fumarate) 120 Puffs/ Aero 2 Puffs INH BID 12/26/15 Reported Singulair (Montelukast Sodium) 10 Mg Tab 10 Mg PO DAILY 12/26/15 Reported Ativan (Lorazepam) 1 Mg Tab 1 Mg PO TID PRN 12/26/15 Reported Ambien (Zolpidem Tartrate) 10 Mg Tab 10 Mg PO HS 05/11/15 Reported Paxil (Paroxetine HCl) 40 Mg Tab 60 Mg PO QAM PRN 10/23/13 Reported Metformin Hcl Er (Metformin Hcl) 500 Mg Tab 1,000 Mg PO QAM 09/01/13 Reported Aspirin Ec (Aspirin) 81 Mg Tab 81 Mg PO QAM 09/01/13 Reported Spiriva Handihaler (Tiotropium [place]) 30 Puff/540 Mcg Aerp 1 Cap INH QPM 02/03/12 Reported Zestril (Lisinopril) 10 Mg Tab 10 Mg PO QAM 07/02/11 Reported Lasix (Furosemide) 40 Mg Tab 20 Mg PO QAM 05/05/08 Reported Review of Systems Constitutional: + fatigue, No fever, No chills Eyes: No problem reported ENT: No problem reported Respiratory: + shortness of breath, + dyspnea on exertion Cardiac: No chest pain, No palpitations Abdomen: + see HPI Musculoskeletal: + joint pain, + swelling Female : No problem reported Neuro: No problem reported Psych: No problem reported Skin: No problem reported Physical Exam Date Time Temp Pulse Resp B/P (MAP) Pulse Ox O2 Delivery O2 Flow Rate FiO2 03/26/17 08:00 CPAP 03/26/17 07:54 88 16 97 BiPAP/CPAP 3.0 03/26/17 07:36 36.9 57 24 114/74 (87) 97 BiPAP 3.0 03/26/17 04:07 36.8 59 18 95/56 (69) 99 CPAP 03/26/17 04:02 CPAP 03/26/17 00:30 Nasal Cannula 3.0 03/26/17 00:01 36.8 56 20 104/64 99 Nasal Cannula 3.0 03/25/17 23:04 67 16 94/54 100 Nasal Cannula 3.0 03/25/17 21:55 64 20 115/67 100 Room Air 03/25/17 20:44 62 03/25/17 19:57 63 20 124/64 98 Nasal Cannula 3.0 03/25/17 18:25 67 18 134/72 97 Nasal Cannula 2.0 03/25/17 16:34 37.1 63 18 115/60 100 Nasal Cannula 2.0 03/25/17 16:11 68 03/25/17 16:00 99 Nasal Cannula 2.0 03/25/17 15:20 37.2 77 20 99/61 98 Room Air General Appearance: + mild distress, + obese Eyes: EOMI ENT: hearing grossly normal Neck: supple Respiratory/Chest: + decreased breath sounds (bases), + pertinent finding ( increased respiratory effort) Cardiovascular: regular rate, rhythm Abdomen: soft, + tenderness (moderate epigastric) Extremities: + swelling Neurologic/Psych: alert, normal mood/affect, oriented x 3 Skin: warm/dry Laboratory Results Last 24 Hours Test 03/25/17 15:55 03/25/17 18:20 03/25/17 20:37 03/26/17 00:14 White Blood Count 9.89 K/uL Red Blood Count 4.93 M/uL Hemoglobin 14.5 g/dL Hematocrit 41.5 % Mean Corpuscular Volume 84.2 fL Mean Corpuscular Hemoglobin 29.4 pg Mean Corpuscular Hemoglobin Concent 34.9 g/dl Platelet Count 319 K/uL Mean Platelet Volume 9.2 fL Neutrophils (%) (Auto) 62.8 % Lymphocytes (%) (Auto) 27.6 % Monocytes (%) (Auto) 8.2 % Eosinophils (%) (Auto) 1.0 % Basophils (%) (Auto) 0.2 % Neutrophils # (Auto) 6.21 K/uL Lymphocytes # (Auto) 2.73 K/uL Monocytes # (Auto) 0.81 K/uL Eosinophils # (Auto) 0.10 K/uL Basophils # (Auto) 0.02 K/uL RDW Standard Deviation 43.4 fL RDW Coefficient of Variation 14.2 % Immature Granulocyte % (Auto) 0.2 % Immature Granulocyte # (Auto) 0.02 K/uL Sodium Level 133 mmol/L Potassium Level 3.9 mmol/L Chloride Level 97 mmol/L Carbon Dioxide Level 29 mmol/L Anion Gap 7.0 mmol/L Blood Urea Nitrogen 45 mg/dl Creatinine 2.14 mg/dl Est Creatinine Clear Calc Drug Dose 35.3 ml/min Estimated GFR () 26.7 Estimated GFR (Non- 23.1 BUN/Creatinine Ratio 21.2 Random Glucose 165 mg/dl Calcium Level 9.8 mg/dl Magnesium Level 2.4 mg/dl Total Bilirubin 0.5 mg/dl Aspartate Amino Transf (AST/SGOT) 13 U/L Alanine Aminotransferase (ALT/SGPT) 23 U/L Alkaline Phosphatase 69 U/L Total Creatine Kinase 47 U/L Creatine Kinase MB 0.7 ng/ml Creatine Kinase MB Ratio 1.5 Troponin I < 0.015 ng/ml < 0.015 ng/ml Total Protein 7.3 gm/dl Albumin 3.4 gm/dl Globulin 3.9 gm/dl Albumin/Globulin Ratio 0.9 Lipase 133 U/L 110 U/L Thyroid Stimulating Hormone (TSH) 1.170 uIu/ml Urine Color YELLOW Urine Appearance CLEAR Urine pH 6.5 Urine Specific [place] 1.010 Urine Protein NEG Urine Glucose (UA) NEG Urine Ketones NEG Urine Occult Blood NEG Urine Nitrite NEG Urine Bilirubin NEG Urine Urobilinogen NEG Urine Leukocyte Esterase NEG Bedside Glucose 181 mg/dl Test 03/26/17 03:09 03/26/17 04:18 03/26/17 06:29 Bedside Glucose 138 mg/dl 134 mg/dl White Blood Count 7.89 K/uL Red Blood Count 4.49 M/uL Hemoglobin 13.0 g/dL Hematocrit 38.1 % Mean Corpuscular Volume 84.9 fL Mean Corpuscular Hemoglobin 29.0 pg Mean Corpuscular Hemoglobin Concent 34.1 g/dl Platelet Count 258 K/uL Mean Platelet Volume 9.0 fL Neutrophils (%) (Auto) 48.0 % Lymphocytes (%) (Auto) 38.8 % Monocytes (%) (Auto) 10.6 % Eosinophils (%) (Auto) 2.0 % Basophils (%) (Auto) 0.3 % Neutrophils # (Auto) 3.79 K/uL Lymphocytes # (Auto) 3.06 K/uL Monocytes # (Auto) 0.84 K/uL Eosinophils # (Auto) 0.16 K/uL Basophils # (Auto) 0.02 K/uL RDW Standard Deviation 43.6 fL RDW Coefficient of Variation 14.2 % Immature Granulocyte % (Auto) 0.3 % Immature Granulocyte # (Auto) 0.02 K/uL Sodium Level 136 mmol/L Potassium Level 3.6 mmol/L Chloride Level 102 mmol/L Carbon Dioxide Level 29 mmol/L Anion Gap 5.0 mmol/L Blood Urea Nitrogen 35 mg/dl Creatinine 1.62 mg/dl Est Creatinine Clear Calc Drug Dose 45.7 ml/min Estimated GFR () 37.4 Estimated GFR (Non- 32.3 BUN/Creatinine Ratio 21.6 Random Glucose 134 mg/dl Calcium Level 8.9 mg/dl Phosphorus Level 2.9 mg/dl Magnesium Level 2.3 mg/dl Total Bilirubin 0.4 mg/dl Aspartate Amino Transf (AST/SGOT) 11 U/L Alanine Aminotransferase (ALT/SGPT) 19 U/L Alkaline Phosphatase 58 U/L Total Creatine Kinase 39 U/L Creatine Kinase MB < 0.5 ng/ml Creatine Kinase MB Ratio Total Protein 6.1 gm/dl Albumin 2.9 gm/dl Globulin 3.2 gm/dl Albumin/Globulin Ratio 0.9 Impression Patient is a 66 year old female with a complex past medical history presenting with an acute onset of epigastric pain, nausea, loss of appetite and diarrhea. Diff dx: viral gastroenteritis vs gastritis vs PUD vs bacterial gastroenteritis vs other. Plan 1. Await stool studies as ordered. 2. NPO after midnight for consideration of EGD tomorrow by Dr. Norris. Patient was not NPO today and due to underlying respiratory comorbidities would be at increased risk for anesthesia today. 3. Continue Pantoprazole 40 mg IV daily. 4. Add Carafate 1 g ACHS. 5. Consideration of outpatient GES if no etiology and ongoing symptoms. 6. Continue supportive care. Thank you for allowing us to participate in the care of this patient. If you have any questions or concerns, please do not hesitate to contact us. Agree with RAINA Worley as above Abd: Soft, NT, ND, +BS Continue current therapy If she has improved symptoms, recommend supportive care without endoscopic evaluation
--- NOTE | 2017-03-26 12:00 | Hospitalist Progress Note ---
Hospitalist Progress Note Date of Service Mar 26, 2017. (Arielle Ibarra .RAINA) Subjective Pt evaluation today including: conversation w/ patient, physical exam, chart review, lab review, review of inpatient medication list Voiding: no voiding problems Ms. Funez is still experiencing epigastric pain and diarrhea as well as nausea but no vomiting. She was unable to eat breakfast. She is currently on her home Cpap as she has been sleeping most of the morning on her baseline 3L. She says she is a little sob which is normal for her. Previous to admission she ran a low grade fever 99-100 degrees F and had sweats and chills. Her whole family has been ill with flu like symptoms, her son had similar illness to what she is experiencing. ROS Constitutional: see HPI Respiratory: no sob,cough, sputum, or wheezing Cardiac: no chest pain, palpitations, edema, orthopnea or lightheadedness GI: see HPI : no dysuria or hesitancy Extremities: no joint pain or weakness Skin: no rash All other systems reviewed and negative (Arielle Ibarra CRNP) Medications Medications Administered Medications (Trade) Dose Ordered Sig/Javier Route Start Time Stop Time Status Last Admin Dose Admin Sodium Chloride 500 ml @ 999 mls/hr Q31M STAT IV 03/25/17 15:32 03/25/17 16:02 DC 03/25/17 15:32 999 MLS/HR Morphine Sulfate (MoRPHine SULFATE INJ) 4 mg NOW STAT IV 03/25/17 15:32 03/25/17 15:35 DC 03/25/17 16:26 4 MG Lidocaine HCl (Viscous Lidocaine 2% Soln) 20 ml STK-MED ONCE .ROUTE 03/25/17 16:24 03/25/17 16:25 DC 03/25/17 16:27 20 ML Al Hydroxide/Mg Hydroxide (Maalox Susp) 30 ml STK-MED ONCE .ROUTE 03/25/17 16:24 03/25/17 16:25 DC 03/25/17 16:27 30 ML Morphine Sulfate (MoRPHine SULFATE INJ) 4 mg NOW STAT IV 03/25/17 16:41 03/25/17 16:42 DC 03/25/17 16:43 4 MG Sodium Chloride 1,000 ml @ 999 mls/hr Q1H1M STAT IV 03/25/17 18:16 03/25/17 19:16 DC 03/25/17 18:34 999 MLS/HR Aspirin (Aspirin Chew) 324 mg NOW STAT PO 03/25/17 18:28 03/25/17 18:30 DC 03/25/17 18:34 324 MG Famotidine (Pepcid 20mg Iv Push) 20 mg ONE STAT IV 03/25/17 18:42 03/25/17 18:43 DC 03/25/17 20:00 20 MG Aspirin (Ecotrin Tab) 81 mg QAM PO 03/26/17 09:00 04/25/17 08:59 03/26/17 08:41 81 MG Budesonide/ Formoterol Fumarate (Symbicort 160/ 4.5 Inh) 2 puffs BID INH 03/26/17 09:00 04/25/17 08:59 03/26/17 08:42 2 PUFFS Gabapentin (Neurontin Cap) 200 mg TID PO 03/26/17 09:00 04/25/17 08:59 03/26/17 08:40 200 MG Isosorbide Mononitrate (Imdur Ext Rel Tab) 30 mg DAILY PO 03/26/17 09:00 04/25/17 08:59 03/26/17 08:41 30 MG Lorazepam (Ativan Tab) 1 mg TID PRN PO 03/25/17 22:30 04/24/17 22:29 03/26/17 01:53 1 MG Montelukast Sodium (Singulair Tab) 10 mg DAILY PO 03/26/17 09:00 04/25/17 08:59 03/26/17 08:41 10 MG Heparin Sodium (Porcine) (Heparin Sq 5000 Unit/0.5ml) 5,000 unit Q12 SQ 03/26/17 09:00 04/25/17 08:59 03/26/17 08:44 5,000 UNIT Sodium Chloride 1,000 ml @ 75 mls/hr [id number] IV 03/25/17 22:26 04/24/17 22:25 03/26/17 00:11 75 MLS/HR Zolpidem Tartrate (Ambien Tab) 5 mg HSZ PRN PO 03/25/17 22:30 04/24/17 22:29 03/26/17 01:53 5 MG Albuterol/ Ipratropium (Duoneb) 3 ml QIDR INH 03/26/17 08:00 04/25/17 07:59 03/26/17 11:21 3 ML Pantoprazole Sodium 40 mg/ Syringe 10 ml @ 5 mls/min DAILY@11 IV 03/26/17 11:00 04/25/17 10:59 03/26/17 08:41 5 MLS/MIN (Arielle Ibarra, RAINA) Objective Vital Signs Date Time Temp Pulse Resp B/P (MAP) Pulse Ox O2 Delivery O2 Flow Rate FiO2 03/26/17 11:21 85 16 98 BiPAP/CPAP 3.0 03/26/17 08:00 CPAP 03/26/17 07:54 88 16 97 BiPAP/CPAP 3.0 03/26/17 07:36 36.9 57 24 114/74 (87) 97 BiPAP 3.0 03/26/17 04:07 36.8 59 18 95/56 (69) 99 CPAP 03/26/17 04:02 CPAP 03/26/17 00:30 Nasal Cannula 3.0 03/26/17 00:01 36.8 56 20 104/64 99 Nasal Cannula 3.0 03/25/17 23:04 67 16 94/54 100 Nasal Cannula 3.0 03/25/17 21:55 64 20 115/67 100 Room Air 03/25/17 20:44 62 03/25/17 19:57 63 20 124/64 98 Nasal Cannula 3.0 03/25/17 18:25 67 18 134/72 97 Nasal Cannula 2.0 03/25/17 16:34 37.1 63 18 115/60 100 Nasal Cannula 2.0 03/25/17 16:11 68 03/25/17 16:00 99 Nasal Cannula 2.0 03/25/17 15:20 37.2 77 20 99/61 98 Room Air (Arielle Ibarra, RAINA) Physical Exam Notes: General: no distress Eyes: normal inspection, PERLL Respiratory: chest non tender, clear to auscultation, normal breath sounds, no respiratory distress, no accessory muscle use Cardiac: regular rate and rhythm, no rub or gallop, no murmur, no edema, no jvd GI/: active bowel sounds, mild epigastric tenderness, soft, non distended Extremities: normal range of motion, normal strength, non tender Neuro/Psych: alert and oriented x 3, normal mood and affect Skin: normal color, dry (Arielle Ibarra, RAINA) Laboratory Results Last 24 Hours Test 03/25/17 15:55 03/25/17 18:20 03/25/17 20:37 03/26/17 00:14 White Blood Count 9.89 K/uL Red Blood Count 4.93 M/uL Hemoglobin 14.5 g/dL Hematocrit 41.5 % Mean Corpuscular Volume 84.2 fL Mean Corpuscular Hemoglobin 29.4 pg Mean Corpuscular Hemoglobin Concent 34.9 g/dl Platelet Count 319 K/uL Mean Platelet Volume 9.2 fL Neutrophils (%) (Auto) 62.8 % Lymphocytes (%) (Auto) 27.6 % Monocytes (%) (Auto) 8.2 % Eosinophils (%) (Auto) 1.0 % Basophils (%) (Auto) 0.2 % Neutrophils # (Auto) 6.21 K/uL Lymphocytes # (Auto) 2.73 K/uL Monocytes # (Auto) 0.81 K/uL Eosinophils # (Auto) 0.10 K/uL Basophils # (Auto) 0.02 K/uL RDW Standard Deviation 43.4 fL RDW Coefficient of Variation 14.2 % Immature Granulocyte % (Auto) 0.2 % Immature Granulocyte # (Auto) 0.02 K/uL Sodium Level 133 mmol/L Potassium Level 3.9 mmol/L Chloride Level 97 mmol/L Carbon Dioxide Level 29 mmol/L Anion Gap 7.0 mmol/L Blood Urea Nitrogen 45 mg/dl Creatinine 2.14 mg/dl Est Creatinine Clear Calc Drug Dose 35.3 ml/min Estimated GFR () 26.7 Estimated GFR (Non- 23.1 BUN/Creatinine Ratio 21.2 Random Glucose 165 mg/dl Calcium Level 9.8 mg/dl Magnesium Level 2.4 mg/dl Total Bilirubin 0.5 mg/dl Aspartate Amino Transf (AST/SGOT) 13 U/L Alanine Aminotransferase (ALT/SGPT) 23 U/L Alkaline Phosphatase 69 U/L Total Creatine Kinase 47 U/L Creatine Kinase MB 0.7 ng/ml Creatine Kinase MB Ratio 1.5 Troponin I < 0.015 ng/ml < 0.015 ng/ml Total Protein 7.3 gm/dl Albumin 3.4 gm/dl Globulin 3.9 gm/dl Albumin/Globulin Ratio 0.9 Lipase 133 U/L 110 U/L Thyroid Stimulating Hormone (TSH) 1.170 uIu/ml Urine Color YELLOW Urine Appearance CLEAR Urine pH 6.5 Urine Specific Pillager 1.010 Urine Protein NEG Urine Glucose (UA) NEG Urine Ketones NEG Urine Occult Blood NEG Urine Nitrite NEG Urine Bilirubin NEG Urine Urobilinogen NEG Urine Leukocyte Esterase NEG Bedside Glucose 181 mg/dl Test 03/26/17 03:09 03/26/17 04:18 03/26/17 06:29 Bedside Glucose 138 mg/dl 134 mg/dl White Blood Count 7.89 K/uL Red Blood Count 4.49 M/uL Hemoglobin 13.0 g/dL Hematocrit 38.1 % Mean Corpuscular Volume 84.9 fL Mean Corpuscular Hemoglobin 29.0 pg Mean Corpuscular Hemoglobin Concent 34.1 g/dl Platelet Count 258 K/uL Mean Platelet Volume 9.0 fL Neutrophils (%) (Auto) 48.0 % Lymphocytes (%) (Auto) 38.8 % Monocytes (%) (Auto) 10.6 % Eosinophils (%) (Auto) 2.0 % Basophils (%) (Auto) 0.3 % Neutrophils # (Auto) 3.79 K/uL Lymphocytes # (Auto) 3.06 K/uL Monocytes # (Auto) 0.84 K/uL Eosinophils # (Auto) 0.16 K/uL Basophils # (Auto) 0.02 K/uL RDW Standard Deviation 43.6 fL RDW Coefficient of Variation 14.2 % Immature Granulocyte % (Auto) 0.3 % Immature Granulocyte # (Auto) 0.02 K/uL Sodium Level 136 mmol/L Potassium Level 3.6 mmol/L Chloride Level 102 mmol/L Carbon Dioxide Level 29 mmol/L Anion Gap 5.0 mmol/L Blood Urea Nitrogen 35 mg/dl Creatinine 1.62 mg/dl Est Creatinine Clear Calc Drug Dose 45.7 ml/min Estimated GFR () 37.4 Estimated GFR (Non- 32.3 BUN/Creatinine Ratio 21.6 Random Glucose 134 mg/dl Calcium Level 8.9 mg/dl Phosphorus Level 2.9 mg/dl Magnesium Level 2.3 mg/dl Total Bilirubin 0.4 mg/dl Aspartate Amino Transf (AST/SGOT) 11 U/L Alanine Aminotransferase (ALT/SGPT) 19 U/L Alkaline Phosphatase 58 U/L Total Creatine Kinase 39 U/L Creatine Kinase MB < 0.5 ng/ml Creatine Kinase MB Ratio Total Protein 6.1 gm/dl Albumin 2.9 gm/dl Globulin 3.2 gm/dl Albumin/Globulin Ratio 0.9 (Arielle Ibarra CRNP) Assessment and Plan Ms. Funez is a 66 year old woman here for gastritis with diarrhea and JAIMEE Viral gastritis - likely viral as she has had multiple sick contacts and reports chills and fever - stool cultures and c. diff pending - patient has not had bm since arriving at the hospital - GI saw her today and made her NPO at midnight for EGD tomorrow - Trops neg x2 - do not suspect cardiac etiology for nausea, epigastric pain - Ultrasound showed no obstructive stone - Continue protonix Acute on chronic kidney injury, CKD III - improving - baseline creat is 1.4 and patient is at 1.6 today, down from peak at 2.14 - continue IVF especially as she is unable to take po - prp am - strict I&O and monitor for fluid overload as patient has history of diastolic CHF COPD - continue home inhalers SARIKA - continue home bipap with supplemental O2 at 3L DMII - bsgs stable, continue ss - continue to hold metformin (Arielle Ibarra CRNP) I agree with RAINA assessment and plan and have seen and examined pt myself VSS Labs reviewed Renal insuff improving Likely viral gastroenteritis (Eric Tran D.O.)
[2017-03-26] MEDS ORDERED: NURSING DECISION MEDICATION ORDER SCH (13:15)
[2017-03-26] MEDS: SUCRALFATE 1 GM/10 ML UDC PO SCH ×3 (13:37→20:43)
[2017-03-26] MEDS ORDERED: MICONAZOLE NITRATE POWDER 43 GM EXT PRN (14:30)
[2017-03-26] MEDS: TIOTROPIUM BROMIDE 5 PUFF/90 MCG INH INH SCH (20:46)
[2017-03-26] MEDS ORDERED: ZOLPIDEM TARTRATE 10 MG TAB PO SCH (21:00)
[2017-03-27] VITALS (8 sets, daily range): BP systolic 103–141; BP diastolic 61–69; PULSE 64–78; TEMP 36.9–37; O2SAT 96–98
[2017-03-27] MEDS: SODIUM CHLORIDE 0.9% 1000ML 1,000 ML IV SCH ×2 (01:25→15:00)
[2017-03-27] MEDS: ALBUT/IPRATROP 3MG/0.5MG NEB 3 ML VIAL INH SCH ×4 (07:38→18:14)
[2017-03-27] MEDS: MONTELUKAST SOD 10 MG TAB PO SCH (08:00)
[2017-03-27] MEDS: GABAPENTIN 100 MG CAP PO SCH ×3 (08:00→20:36)
[2017-03-27] MEDS: ASPIRIN 81 MG ECTAB PO SCH (08:00)
[2017-03-27] MEDS: ISOSORBIDE MONONITRATE 30 MG TABCR PO SCH (08:00)
[2017-03-27] MEDS: METOPROLOL TARTRATE 25 MG TAB PO SCH ×2 (08:00→20:36)
[2017-03-27] MEDS: BUDESONIDE/FORMOTEROL FUMARATE 160/4.5 60 PUFFS/INHALER INH SCH ×2 (08:00→20:37)
[2017-03-27] MEDS: SUCRALFATE 1 GM/10 ML UDC PO SCH ×4 (08:00→20:36)
[2017-03-27] MEDS: INSULIN ASPART 100 UNITS/ML 3 ML PEN SC SCH ×4 (08:58→20:39)
[2017-03-27] MEDS: HEPARIN SOD 5000 UNIT/0.5 ML CARP SQ SCH ×2 (09:24→20:41)
[2017-03-27 09:32] LABS: CALCIUM 9.2 mg/dl (8.5-10.1); CREATININE 1.36 mg/dl (0.60-1.20); POTASSIUM 3.7 mmol/L (3.5-5.1)
--- NOTE | 2017-03-27 10:21 | Gastroenterology Progress Note ---
Progress Note Date of Service: Mar 27, 2017 Subjective Pt evaluation today including: conversation w/ patient, physical exam, chart review, review of inpatient medication list Patient reports improved abdominal pain today. Currently, she rates pain as 5/ 10. No nausea or vomiting. Reports improved symptoms with the addition of Carafate. No GIB symptoms. Reports today increased cough and sinus congestion. Wearing CPAP at present. Review of Systems Constitutional: No fever, No chills Respiratory: + see HPI, + wheezing, + shortness of breath, + dyspnea on exertion Cardiac: No chest pain Abdomen: + see HPI Psych: No problem reported Medications Current Inpatient Medications Medications (Trade) Dose Ordered Sig/Javier Route Start Time Stop Time Status Last Admin Dose Admin Albuterol Sulfate (Ventolin 0.083% 2.5MG/3ML Neb) 2.5 mg Q4 PRN INH 03/25/17 22:30 04/24/17 22:29 Aspirin (Ecotrin Tab) 81 mg QAM PO 03/26/17 09:00 04/25/17 08:59 03/26/17 08:41 81 MG Budesonide/ Formoterol Fumarate (Symbicort 160/ 4.5 Inh) 2 puffs BID INH 03/26/17 09:00 04/25/17 08:59 03/26/17 20:43 2 PUFFS Gabapentin (Neurontin Cap) 200 mg TID PO 03/26/17 09:00 04/25/17 08:59 03/26/17 20:45 200 MG Isosorbide Mononitrate (Imdur Ext Rel Tab) 30 mg DAILY PO 03/26/17 09:00 04/25/17 08:59 03/26/17 08:41 30 MG Lorazepam (Ativan Tab) 1 mg TID PRN PO 03/25/17 22:30 04/24/17 22:29 03/26/17 01:53 1 MG Metoprolol Tartrate (Lopressor Tab) 25 mg BID PO 03/26/17 09:00 04/25/17 08:59 03/26/17 21:01 25 MG Montelukast Sodium (Singulair Tab) 10 mg DAILY PO 03/26/17 09:00 04/25/17 08:59 03/26/17 08:41 10 MG Paroxetine HCl (pAXil TAB) 30 mg QAM PRN PO 03/25/17 22:30 04/24/17 22:29 Tiotropium [place] (Spiriva Handihaler Inhaler) 1 puff QPM INH 03/26/17 21:00 04/25/17 20:59 03/26/17 20:46 1 PUFF Tramadol HCl (Ultram Tab) 100 mg TID PRN PO 03/25/17 22:30 04/24/17 22:29 Heparin Sodium (Porcine) (Heparin Sq 5000 Unit/0.5ml) 5,000 unit Q12 SQ 03/26/17 09:00 04/25/17 08:59 03/27/17 09:24 5,000 UNIT Sodium Chloride 1,000 ml @ 75 mls/hr [id number] IV 03/25/17 22:26 04/24/17 22:25 03/27/17 01:25 75 MLS/HR Acetaminophen (Tylenol Tab) 650 mg Q4H PRN PO 03/25/17 22:30 04/24/17 22:29 Al Hydrox/Mg Hydrox/Simethicone (Maalox Max Susp) 15 ml Q4H PRN PO 03/25/17 22:30 04/24/17 22:29 Magnesium Hydroxide (Milk Of Magnesia Susp) 30 ml Q12H PRN PO 03/25/17 22:30 04/24/17 22:29 Zolpidem Tartrate (Ambien Tab) 5 mg HSZ PRN PO 03/25/17 22:30 04/24/17 22:29 03/26/17 01:53 5 MG Ondansetron HCl (Zofran Inj) 4 mg Q6H PRN IV 03/25/17 22:30 04/24/17 22:29 03/26/17 11:53 4 MG Nitroglycerin (Nitrostat Tab) 0.4 mg UD PRN SL 03/25/17 22:30 04/24/17 22:29 Morphine Sulfate (MoRPHine SULFATE INJ) 2 mg Q30M PRN IV 03/25/17 22:30 04/08/17 22:29 Polyethylene (Miralax Powder Packet) 17 gm DAILY PRN PO 03/25/17 22:30 04/24/17 22:29 Insulin Aspart (novoLOG ASPART) SLIDING SCALE If C... ACHS SC 03/26/17 03:00 04/25/17 02:59 03/26/17 11:50 3 UNITS Glucose (Glucose 40% Gel) 15-30 GRAMS 15 GRAMS... UD PRN PO 03/25/17 22:30 04/24/17 22:29 Glucose (Glucose Chew Tab) 4-8 Tablets 4 Tabl... UD PRN PO 03/25/17 22:30 04/24/17 22:29 Dextrose (Dextrose 50% 50ML Syringe) 25-50ML OF 50% DW IV FOR... UD PRN IV 03/25/17 22:30 04/24/17 22:29 Glucagon (Glucagon Inj) 1 mg UD PRN SQ 03/25/17 22:30 04/24/17 22:29 Albuterol/ Ipratropium (Duoneb) 3 ml QIDR INH 03/26/17 08:00 04/25/17 07:59 03/27/17 07:38 3 ML Pantoprazole Sodium 40 mg/ Syringe 10 ml @ 5 mls/min DAILY@11 IV 03/26/17 11:00 04/25/17 10:59 03/26/17 08:41 5 MLS/MIN Sucralfate (Carafate Susp) 1 gm QID PO 03/26/17 13:00 04/25/17 12:59 03/26/17 20:43 1 GM Miconazole Nitrate (Desenex Powder) 1 appln PRN PRN EXT 03/26/17 14:30 04/25/17 14:29 Objective Vital Signs Date Time Temp Pulse Resp B/P (MAP) Pulse Ox O2 Delivery O2 Flow Rate FiO2 03/27/17 07:39 64 16 96 BiPAP/CPAP 3.0 03/27/17 07:29 36.9 65 18 108/61 (77) 96 Room Air 03/27/17 00:00 Nasal Cannula 3.0 03/26/17 23:42 36.8 68 20 97/60 (72) 99 CPAP 03/26/17 21:00 80 18 105/57 (73) 94 03/26/17 19:21 84 16 96 BiPAP/CPAP 3.0 03/26/17 19:00 Nasal Cannula 3.0 03/26/17 15:35 36.8 79 20 107/55 (72) 99 Nasal Cannula 3.0 03/26/17 15:13 88 16 96 Nasal Cannula 3.0 03/26/17 13:15 Nasal Cannula 3.0 03/26/17 12:45 37.0 67 20 128/78 (95) 98 Nasal Cannula 3.0 03/26/17 12:00 CPAP 03/26/17 11:56 37.0 64 16 107/64 (78) 99 BiPAP 3.0 03/26/17 11:40 36.9 85 16 98 3.0 03/26/17 11:21 85 16 98 BiPAP/CPAP 3.0 Physical Exam General Appearance: no apparent distress Eyes: EOMI Respiratory/Chest: + wheezing Cardiovascular: regular rate, rhythm Abdomen: normal bowel sounds, non tender, soft Neurologic/Psych: alert, normal mood/affect, oriented x 3 Skin: warm/dry Laboratory Results Last 24 Hours Test 03/26/17 10:58 03/26/17 12:16 03/26/17 16:40 03/26/17 20:10 Bedside Glucose 183 mg/dl 160 mg/dl 160 mg/dl Total Creatine Kinase 36 U/L Troponin I < 0.015 ng/ml Test 03/27/17 07:47 03/27/17 08:29 Bedside Glucose 137 mg/dl Sodium Level 140 mmol/L Potassium Level 3.7 mmol/L Chloride Level 104 mmol/L Carbon Dioxide Level 30 mmol/L Anion Gap 6.0 mmol/L Blood Urea Nitrogen 24 mg/dl Creatinine 1.36 mg/dl Est Creatinine Clear Calc Drug Dose 54.7 ml/min Estimated GFR () 46.2 Estimated GFR (Non- 39.9 BUN/Creatinine Ratio 17.6 Random Glucose 142 mg/dl Calcium Level 9.2 mg/dl Assessment and Plan Patient is a 66 year old female with a complex past medical history presenting with an acute onset of epigastric pain, nausea, loss of appetite, likely related to gastritis. 1. No plan for endoscopic evaluation as she improved clinically due to medical comorbidities and lack of overt GIB symptoms. 2. Started patient on full liquid, renal diet which can be advanced as tolerated. 3. Continue Carafate 1 g ACHS for 10 days. 4. Continue Protonix 40 mg daily. 5. Outpatient follow up in the office in 1-2 weeks. Agree with Bernie Kirby, TABLE SETTER as above Abd: Soft, NT, ND, +BS Continue current therapy Followup in our office as an outpatient for further evaluation and recommendations Advance diet as tolerated.
[2017-03-27] MEDS: PANTOprazole INJ 40 MG in SYRINGE 0 ML IV SCH (12:27)
--- NOTE | 2017-03-27 15:37 | Progress Note ---
Subjective Date of Service: Mar 27, 2017. Subjective Pt evaluation today including: conversation w/ patient, physical exam, chart review, lab review, review of studies, review of inpatient medication list Reports productive cough Abd pain improved No worsening nausea at this time as well Endoscopy cancelled Problem List Medical Problems: (1) Abdominal pain Status: Acute (2) Abdominal pain Status: Acute (3) Failure of outpatient treatment Status: Acute (4) Gastroenteritis Status: Acute (5) Left sided chest pain Status: Acute (6) Pneumonia Status: Acute Review of Systems Constitutional: No fever, No chills, No sweats, No weakness Eyes: No worsening of vision, No eye pain, No redness, No discharge Respiratory: + cough, + sputum, + shortness of breath, No wheezing, No dyspnea on exertion Cardiac: No chest pain, No orthopnea, No PND, No edema Abdomen: No pain, No nausea, No vomiting, No diarrhea, No constipation Musculoskeletal: No joint pain, No muscle pain, No swelling, No calf pain Female : No dysuria, No urinary frequency, No hematuria, No incontinence Neurologic: No memory loss, No paralysis, No weakness, No numbness/tingling Psychiatric: No depression symptoms, No anhedonism, No anxiety, No insomnia Endo: No fatigue, No excessive thirst Skin: No rash, No itch Objective Vital Signs Date Time Temp Pulse Resp B/P (MAP) Pulse Ox O2 Delivery O2 Flow Rate FiO2 03/27/17 15:30 69 16 96 Nasal Cannula 3.0 03/27/17 14:50 37.0 78 20 141/69 (93) 98 Nasal Cannula 3.0 03/27/17 11:22 69 16 96 Nasal Cannula 3.0 03/27/17 08:10 Nasal Cannula 3.0 03/27/17 07:39 64 16 96 BiPAP/CPAP 3.0 03/27/17 07:29 36.9 65 18 108/61 (77) 96 Room Air 03/27/17 00:00 Nasal Cannula 3.0 03/26/17 23:42 36.8 68 20 97/60 (72) 99 CPAP 03/26/17 21:00 80 18 105/57 (73) 94 03/26/17 19:21 84 16 96 BiPAP/CPAP 3.0 03/26/17 19:00 Nasal Cannula 3.0 03/26/17 15:35 36.8 79 20 107/55 (72) 99 Nasal Cannula 3.0 Physical Exam General Appearance: WD/WN, no apparent distress Eyes: normal inspection, PERRL, EOMI, sclerae normal Neck: supple, no adenopathy, thyroid normal, no JVD Respiratory/Chest: chest non-tender, lungs clear, no accessory muscle use, + decreased breath sounds Cardiovascular: no edema, no gallop, no JVD Abdomen: normal bowel sounds, non tender, soft, no organomegaly Extremities: normal range of motion, non-tender, normal inspection, no pedal edema Neurologic/Psychiatric: no motor/sensory deficits, alert, normal mood/affect, oriented x 3 Laboratory Results Last 24 Hours Test 03/26/17 16:40 03/26/17 20:10 03/27/17 07:47 03/27/17 08:29 Bedside Glucose 160 mg/dl 160 mg/dl 137 mg/dl Sodium Level 140 mmol/L Potassium Level 3.7 mmol/L Chloride Level 104 mmol/L Carbon Dioxide Level 30 mmol/L Anion Gap 6.0 mmol/L Blood Urea Nitrogen 24 mg/dl Creatinine 1.36 mg/dl Est Creatinine Clear Calc Drug Dose 54.7 ml/min Estimated GFR () 46.2 Estimated GFR (Non- 39.9 BUN/Creatinine Ratio 17.6 Random Glucose 142 mg/dl Calcium Level 9.2 mg/dl Assessment and Plan Ms. Funez is a 66 year old woman here for gastritis with diarrhea and JAIMEE Viral gastritis - likely viral as she has had multiple sick contacts and reports chills and fever - stool cultures and c. diff pending - patient has not had bm since arriving at the hospital - GI saw her today and made her NPO at midnight for EGD however due to declining resp status and improving abd pain, this was deferred to OP - Trops neg x2 - do not suspect cardiac etiology for nausea, epigastric pain - Ultrasound showed no obstructive stone - Continue protonix Acute on chronic kidney injury, CKD III - improving - baseline creat is 1.4 - continue IVF especially as she is unable to take po - prp am - strict I&O and monitor for fluid overload as patient has history of diastolic CHF COPD - continue home inhalers SARIKA - continue home bipap with supplemental O2 at 3L DMII - bsgs stable, continue ss - continue to hold metformin
[2017-03-27] MEDS: TIOTROPIUM BROMIDE 5 PUFF/90 MCG INH INH SCH (20:37)
[2017-03-27] MEDS: ZOLPIDEM TARTRATE 5 MG TAB PO PRN (21:32)
[2017-03-28] MEDS: SODIUM CHLORIDE 0.9% 1000ML 1,000 ML IV SCH (03:44)
[2017-03-28 07:04] VITALS: BP 102/63; PULSE 74; TEMP 37.3; O2SAT 96
[2017-03-28] MEDS: ALBUT/IPRATROP 3MG/0.5MG NEB 3 ML VIAL INH SCH ×3 (07:33→15:52)
[2017-03-28 07:34] VITALS: PULSE 66; O2SAT 98
[2017-03-28] MEDS: MONTELUKAST SOD 10 MG TAB PO SCH (08:12)
[2017-03-28] MEDS: GABAPENTIN 100 MG CAP PO SCH ×3 (08:12→20:31)
[2017-03-28] MEDS: METOPROLOL TARTRATE 25 MG TAB PO SCH ×2 (08:12→20:31)
[2017-03-28] MEDS: ASPIRIN 81 MG ECTAB PO SCH (08:15)
[2017-03-28] MEDS: BUDESONIDE/FORMOTEROL FUMARATE 160/4.5 60 PUFFS/INHALER INH SCH ×2 (08:15→20:31)
[2017-03-28] MEDS: ISOSORBIDE MONONITRATE 30 MG TABCR PO SCH (08:15)
[2017-03-28] MEDS: SUCRALFATE 1 GM/10 ML UDC PO SCH ×4 (08:15→20:32)
[2017-03-28 08:36] LABS: CREATININE 1.16 mg/dl (0.60-1.20); POTASSIUM 3.4 mmol/L (3.5-5.1)
[2017-03-28] MEDS ORDERED: PANTOprazole SOD 40 MG TAB PO ONE (09:14)
[2017-03-28] MEDS ORDERED: POTASSIUM CHLORIDE 10 MEQ TABCR PO ONE (09:15)
[2017-03-28] MEDS: INSULIN ASPART 100 UNITS/ML 3 ML PEN SC SCH ×4 (09:21→20:37)
[2017-03-28] MEDS: HEPARIN SOD 5000 UNIT/0.5 ML CARP SQ SCH ×2 (09:22→20:35)
--- NOTE | 2017-03-28 09:51 | DIAGNOSTIC IMAGING REPORT ---
CHEST 2 VIEWS ROUTINE CLINICAL HISTORY: Productive cough COMPARISON STUDY: 03/25/2017 FINDINGS: The cardiac and mediastinal contours remain stable. There is a linear opacity at the left lung base likely representing subsegmental atelectasis. There is no failure. There is no lobar consolidation. There are no pleural effusions. Arthritic changes are present within the shoulders.[ IMPRESSION: No active disease in the chest. Electronically signed by: Jv Greer M.D. 03/28/2017 9:50 AM Dictated Date/Time: 03/28/2017 9:49 AM
[2017-03-28] MEDS ORDERED: POLYETHYLENE (MIRALAX) 17 GM PACK PO PRN (10:30)
[2017-03-28] MEDS ORDERED: POLYETHYLENE (MIRALAX) 17 GM PACK PO ONE (11:00)
[2017-03-28 11:23] VITALS: PULSE 77; O2SAT 96
--- NOTE | 2017-03-28 11:34 | Hospitalist Progress Note ---
Hospitalist Progress Note Date of Service Mar 28, 2017. Subjective Pt evaluation today including: conversation w/ patient, physical exam, chart review, lab review, review of inpatient medication list Voiding: no voiding problems Ms. Funez continues to feel unwell. She is coughing productive of green/bloody sputum. She is sob. Continues to have central abdominal tenderness, little appetite, no vomiting. She does complain of some constipation ROS Constitutional: no chills, aches, sweats or fever Respiratory: no sob,cough, sputum, or wheezing Cardiac: no chest pain, palpitations, edema, orthopnea or lightheadedness GI: see HPI : no dysuria or hesitancy Extremities: no joint pain or weakness Skin: no rash All other systems reviewed and negative Medications Medications (Trade) Dose Ordered Sig/Javier Route Start Time Stop Time Status Last Admin Dose Admin Potassium Chloride (Klor-Con M10) 40 meq NOW ONCE PO 03/28/17 09:15 03/28/17 09:16 DC 03/28/17 10:21 40 MEQ Pantoprazole Sodium (Protonix Tab) 40 mg 14 ONCE PO 03/28/17 09:14 03/28/17 09:37 DC 03/28/17 10:21 40 MG Objective Vital Signs Date Time Temp Pulse Resp B/P (MAP) Pulse Ox O2 Delivery O2 Flow Rate FiO2 03/28/17 08:00 Nasal Cannula 3.0 03/28/17 07:34 66 16 98 BiPAP/CPAP 3.0 03/28/17 07:04 37.3 74 20 102/63 (76) 96 BiPAP 03/28/17 00:30 Nasal Cannula 3.0 03/27/17 22:55 37.0 65 18 113/68 (83) 96 CPAP 03/27/17 20:31 72 103/64 (77) 03/27/17 18:14 72 16 98 Nasal Cannula 3.0 03/27/17 16:00 Nasal Cannula 3.0 03/27/17 15:30 69 16 96 Nasal Cannula 3.0 03/27/17 14:50 37.0 78 20 141/69 (93) 98 Nasal Cannula 3.0 Physical Exam Notes: General: no distress Eyes: normal inspection, PERLL Respiratory: chest non tender, clear, diminished to auscultation, normal breath sounds, no respiratory distress, no accessory muscle use Cardiac: regular rate and rhythm, no rub or gallop, no murmur, no edema, no jvd GI/: active bowel sounds, epigastric tenderness to palpation, soft, non distended Extremities: normal range of motion, normal strength, non tender Neuro/Psych: alert and oriented x 3, normal mood and affect Skin: normal color, dry Laboratory Results Last 24 Hours Test 03/27/17 11:26 03/27/17 16:37 03/27/17 20:20 03/28/17 06:55 Bedside Glucose 150 mg/dl 157 mg/dl 196 mg/dl Sodium Level 142 mmol/L Potassium Level 3.4 mmol/L Chloride Level 109 mmol/L Carbon Dioxide Level 27 mmol/L Anion Gap 6.0 mmol/L Blood Urea Nitrogen 16 mg/dl Creatinine 1.16 mg/dl Est Creatinine Clear Calc Drug Dose 64.5 ml/min Estimated GFR () 56.0 Estimated GFR (Non- 48.3 BUN/Creatinine Ratio 13.4 Random Glucose 128 mg/dl Calcium Level 9.0 mg/dl Test 03/28/17 07:36 Bedside Glucose 135 mg/dl Assessment and Plan Ms. Funez is a 66 year old woman here for gastritis with diarrhea and JAIMEE Viral gastritis - likely viral as she has had multiple sick contacts and reports chills and fever - stool cultures and c. diff pending - patient has not had bm since arriving at the hospital - no further intervention from GI as patient was - Trops neg x2 - do not suspect cardiac etiology for nausea, epigastric pain - Ultrasound showed no obstructive stone - Continue protonix Acute on chronic kidney injury, CKD III - improving - patient back to baseline, down from peak at 2.14 - dc IVF - prp am COPD - continue home inhalers, nebulizer treatments - CXR did not show consolidation, sputum/blood cultures pending. SARIKA - continue home bipap with supplemental O2 at 3L DMII - bsgs stable, continue ss - continue to hold metformin
[2017-03-28 15:52] VITALS: PULSE 78; O2SAT 98
[2017-03-28 16:12] VITALS: BP 116/65; PULSE 58; TEMP 37.2; O2SAT 98
[2017-03-28] MEDS ORDERED: NURSING VERBAL MED ORDER ONE (17:45)
[2017-03-28] MEDS: TIOTROPIUM BROMIDE 5 PUFF/90 MCG INH INH SCH (20:31)
[2017-03-28] MEDS: DOCUSATE SODIUM 100 MG CAP PO SCH (20:32)
[2017-03-28] MEDS: ZOLPIDEM TARTRATE 5 MG TAB PO PRN (20:37)
[2017-03-28 23:37] VITALS: BP 93/52; PULSE 56; TEMP 36.6; O2SAT 98
[2017-03-29 00:30] VITALS: O2SAT 98
[2017-03-29 06:39] LABS: HEMATOCRIT 33.5 % (37-47); HEMOGLOBIN 11.2 g/dL (12.0-16.0); MEAN CORPUSCULAR HEMOGLOBIN 29.1 pg (25-34); MEAN CORPUSCULAR HGB CONC 33.4 g/dl (32-36); MEAN PLATELET VOLUME 9.3 fL (7.4-10.4); PLATELET COUNT 215 K/uL (130-400); RED CELL DISTRIBUTION WIDTH CV 14.7 % (11.5-14.5); RED CELL DISTRIBUTION WIDTH SD 46.4 fL (36.4-46.3); WHITE BLOOD COUNT 5.81 K/uL (4.8-10.8)
[2017-03-29 07:11] LABS: CALCIUM 9.2 mg/dl (8.5-10.1); CREATININE 1.14 mg/dl (0.60-1.20); POTASSIUM 3.7 mmol/L (3.5-5.1)
[2017-03-29] MEDS: ALBUT/IPRATROP 3MG/0.5MG NEB 3 ML VIAL INH SCH ×2 (07:45→12:11)
[2017-03-29 07:46] VITALS: PULSE 68; O2SAT 99
[2017-03-29 07:57] VITALS: BP 121/57; PULSE 62; TEMP 36.9; O2SAT 99
[2017-03-29] MEDS ORDERED: PANTOprazole SOD 40 MG TAB PO SCH (08:00)
[2017-03-29] MEDS: BUDESONIDE/FORMOTEROL FUMARATE 160/4.5 60 PUFFS/INHALER INH SCH (08:11)
[2017-03-29] MEDS: SUCRALFATE 1 GM/10 ML UDC PO SCH (08:12)
[2017-03-29] MEDS: METOPROLOL TARTRATE 25 MG TAB PO SCH (08:13)
[2017-03-29] MEDS: ISOSORBIDE MONONITRATE 30 MG TABCR PO SCH (08:13)
[2017-03-29] MEDS: ASPIRIN 81 MG ECTAB PO SCH (08:13)
[2017-03-29] MEDS: GABAPENTIN 100 MG CAP PO SCH (08:13)
[2017-03-29] MEDS: MONTELUKAST SOD 10 MG TAB PO SCH (08:15)
[2017-03-29] MEDS: DOCUSATE SODIUM 100 MG CAP PO SCH (08:16)
[2017-03-29] MEDS: HEPARIN SOD 5000 UNIT/0.5 ML CARP SQ SCH (08:25)
[2017-03-29] MEDS: INSULIN ASPART 100 UNITS/ML 3 ML PEN SC SCH (08:26)
[2017-03-29] MEDS ORDERED: NYSCR30 EXT (10:20)
[2017-03-29] MEDS ORDERED: CRFUDL PO (10:20)
--- NOTE | 2017-03-29 10:27 | Discharge Instructions ---
Discharge Instructions Date of Service Mar 29, 2017. Admission Reason for Admission: JAIMEE Discharge Discharge Diagnosis / Problem: Gastritis, JAMIEE Discharge Goals Goal(s): Decrease discomfort, Increase independence Activity Recommendations Activity Limitations: resume your previous activity . Instructions / Follow-Up Instructions / Follow-Up Please follow up with GI and your primary care provider in 1-2 weeks. Please have your blood work drawn on Thursday, results will go to your primary care provider. Regarding the reddened areas on your abdomen - nystatin lotion to this area twice per day. If you do not see improvement over the next 24-48 hours or if the area becomes larger and darker red and painful, or if you develop a fever, you should then see your primary care provider because it may require antibiotics to treat. Current Hospital Diet Patient's current hospital diet: Full Liquid Diet, Diabetes Type 2 Diet, Renal Diet Discharge Diet Recommended Diet: Diabetes Type 2 Diet Procedures Procedures Performed: Chest Xray abdominal CT Gallbladder US Pending Studies Studies pending at discharge: no Laboratory Results Hemoglobin A1c Test 01/20/17 12:27 Range/Units Estimated Average Glucose 146 mg/dl Hemoglobin A1c 6.7 H 4.5-5.6 % Lipid Panel Test 01/20/17 12:27 Range/Units Triglycerides Level 162 H 0-150 mg/dl Cholesterol Level 164 0-200 mg/dl HDL Cholesterol 54 mg/dl Cholesterol/HDL Ratio 3.0 LDL Cholesterol, Calculated 78 mg/dl Medical Emergencies . Who to Call and When: Medical Emergencies: If at any time you feel your situation is an emergency, please call 911 immediately. . Non-Emergent Contact Non-Emergency issues call your: Primary Care Provider, Logistics Supply Officer Call Non-Emergent contact if: you have a fever, you have any medication questions . Past History Medical & Surgical History: (1) Shortness of breath (2) Diarrhea of presumed infectious origin (3) Acute bronchitis (4) Gastritis . "Provider Documentation" section prepared by Arielle Ibarra. . VTE Core Measure Inpt VTE Proph given/why not?: SCD's
[2017-03-29] MEDS ORDERED: NYSTATIN CR 15 GM TUBE EXT ONE (10:45)
[2017-03-29 10:46] VITALS: BP 121/57; PULSE 62; TEMP 36.9; O2SAT 99
[2017-03-29 12:11] VITALS: PULSE 68; O2SAT 96
--- NOTE | 2017-03-29 14:18 | Discharge Summary ---
Discharge Summary Date of Service Mar 29, 2017. Discharge Summary Admission Date: Mar 25, 2017 at 22:36 Discharge Date: Mar 29, 2017 Discharge Disposition: Home Principal Diagnosis: JAIMEE, viral gastritis Problems/Secondary Diagnoses: CKD III, COPD,SARIKA, DMII Immunizations: Have You Had Influenza Vaccine: Yes Influenza Vaccine Date: Jan 22, 2008 History of Tetanus Vaccine?: Unknown History of Pneumococcal: Yes Pneumococcal Date: Mar 23, 2007 History of Hepatitis B Vaccine: No Procedures: CHEST 2 VIEWS ROUTINE CLINICAL HISTORY: Productive cough COMPARISON STUDY: 03/25/2017 FINDINGS: The cardiac and mediastinal contours remain stable. There is a linear opacity at the left lung base likely representing subsegmental atelectasis. There is no failure. There is no lobar consolidation. There are no pleural effusions. Arthritic changes are present within the shoulders.[ IMPRESSION: No active disease in the chest. CHEST ONE VIEW PORTABLE CLINICAL HISTORY: 66 years-old Female presenting with Epigastric abd pain. TECHNIQUE: Portable upright AP view of the chest was obtained. COMPARISON: 06/23/2016. FINDINGS: Atherosclerosis of aortic arch. Cardiac silhouette enlarged. Minimal basilar opacities. No pleural effusion or pneumothorax. Degenerative changes of the bilateral glenohumeral joints. Upper abdomen normal. IMPRESSION: 1. Minimal basilar atelectasis. No other evidence of acute cardiopulmonary disease. ABD/PELVIS NO IV OR ORAL CONT CLINICAL HISTORY: 66 years-old Female presenting with Epigastric abd pain. TECHNIQUE: Multidetector CT of the abdomen and pelvis was performed without the use of intravenous contrast. IV contrast: None. A dose lowering technique was used consistent with the principles of ALARA (as low as reasonably achievable). COMPARISON: 04/30/2016. CT DOSE (mGy.cm): The estimated cumulative dose is 1671.15 mGy.cm. FINDINGS: Manager Of Corporate topogram: Unremarkable. Lung bases: Minimal basilar opacities, likely atelectasis. Aortic valve and mitral annular calcification. Top normal heart size. No pericardial or pleural effusion. Liver: Normal morphology. Density consistent with hepatic steatosis. Biliary: No gross biliary ductal dilatation allowing for noncontrast technique. Normal gallbladder. Pancreas: Moderate parenchymal atrophy. Spleen: Normal noncontrast appearance. Adrenal glands: Normal noncontrast appearance. Kidneys and ureters: Normal noncontrast appearance. No nephrolithiasis. No hydronephrosis. Normal ureters. Bladder: Normal. Pelvic organs: Uterus surgically absent. No adnexal masses. Bowel: Few diverticula noted at the junction of the descending and sigmoid colon. The appendix is not visualized, possibly absent. No inflammatory change in the right lower quadrant. No bowel obstruction. Peritoneal cavity: No free fluid or intraperitoneal gas. Lymph nodes: No gross lymphadenopathy allowing for noncontrast technique. Vasculature: Atherosclerosis of the normal caliber abdominal aorta. Abdominal wall: Small fat-containing umbilical hernia. Large pannus. Musculoskeletal: Degenerative changes of the spine. Osteopenia. IMPRESSION: 1. Hepatic steatosis. Correlate with liver function tests to exclude steatohepatitis as a cause for abdominal pain. Otherwise no acute intra-abdominal pathology. 2. Osteopenia. GALLBLADDER-ABD LIMITED CLINICAL HISTORY: 66 years-old Female presenting with Epigastric abd pain. TECHNIQUE: Real-time grayscale and limited color Doppler ultrasound imaging of the abdomen limited to the right upper quadrant was performed. COMPARISON: 02/24/[address] from 04/30/2016. FINDINGS: Pancreas: Largely obscured due to overlying bowel gas. Liver: Normal echogenicity and echotexture. The liver measures 16.1 cm in maximal sagittal dimension. No sonographic evidence of hepatic mass. Main portal vein patent with normal directional flow. Biliary: No intrahepatic biliary ductal dilatation. Common bile duct measures up to 4 mm in diameter. Gallbladder: No evidence of gallstones, gallbladder wall thickening, gallbladder distention, or pericholecystic fluid or inflammatory change. Sonographic Goodwin's sign negative. Right kidney: Normal in appearance. No hydronephrosis. Ascites: None. IMPRESSION: No cholelithiasis or biliary ductal dilatation. Consultations: RAINA Worley from GI Medication Reconciliation New Medications: Nystatin (Nystatin Cream) 90 Appln/30 Gm Cr 0 EXT BID for 14 Days, #15 GM APPLY TO AFFECTED AREA BID Sucralfate (Sucralfate) 1 Gm/10 Ml Susp 1 GM PO QID for 14 Days, #56 DOSE Continued Medications: Albuterol Sulf (Proventil 0.083% 2.5MG/3ML) 2.5 Mg/3 Ml Nebu 3 ML NEB Q4 PRN for Wheezing, EA Aspirin (Aspirin Ec) 81 Mg Tab 81 MG PO QAM Budesonide/Formoterol Fumarate (Symbicort 160/4.5 Inhaler) 120 Puffs/ Aero 2 PUFFS INH BID, INHALER Cholecalciferol (Vitamin D3 Maximum Streng) 5,000 Unit Cap 5000 UNIT PO DAILY Furosemide (Lasix) 40 Mg Tab 20 MG PO QAM Gabapentin (Neurontin) 300 Mg Cap 300 MG PO TID, CAP Isosorbide Mononitrate Ext Rel (Imdur Ext Rel) 30 Mg Tabcr 30 MG PO DAILY, TAB Lisinopril (Zestril) 10 Mg Tab 10 MG PO QAM, 0 Refills Lorazepam (Ativan) 1 Mg Tab 1 MG PO TID PRN for Anxiety, TAB Metformin Hcl (Metformin Hcl Er) 500 Mg Tab 1000 MG PO QAM Metoprolol Tartrate (Lopressor) (Lopressor) 25 Mg Tab 25 MG PO BID, TAB Montelukast Sodium (Singulair) 10 Mg Tab 10 MG PO DAILY, TAB Multiple Vitamins W/ Minerals (Womens One Daily) 1 Tab Tab 1 TAB PO DAILY Nitroglycerin (Nitrostat) 0.4 Mg Tab 0.4 MG UT PRN, BTL Pantoprazole (Pantoprazole Sodium) 40 Mg Tab 40 MG PO QAM for 30 Days, TAB Paroxetine (Paxil) 40 Mg Tab 60 MG PO QAM PRN for DEPRESSION, TAB Polyethylene Glycol 3350 (Miralax) 1 Pow Pow 17 GM PO DAILY PRN for Constipation, GM Spironolactone & Hydrochloroth (Spironolactone/Hydrochlor) 1 Tab Tab 1 TAB PO DAILY Theophylline (Theophylline ER) 400 Mg Tabcr 400 MG PO Q12 for 30 Days, 3 Refills Tiotropium [place] (Spiriva Handihaler) 30 Puff/540 Mcg Aerp 1 CAP INH QPM, INHALER Tramadol (Ultram) 50 Mg Tab 100 MG PO TID PRN for Pain, TAB Zolpidem Tartrate (Ambien) 10 Mg Tab 10 MG PO HS for Sleep, TAB Discontinued Medications: Cholecalciferol (Vitamin D3 High Potency) 1,000 Unit Cap 1000 UNIT PO DAILY Discharge Exam ROS Constitutional: no chills, aches, sweats or fever Respiratory: no sob,cough, sputum, or wheezing Cardiac: no chest pain, palpitations, edema, orthopnea or lightheadedness GI: no abdominal pain, nausea, vomiting, diarrhea or constipation : no dysuria or hesitancy Extremities: no joint pain or weakness Skin: left pruritic abdominal rash All other systems reviewed and negative PE General: no distress Eyes: normal inspection, PERLL Respiratory: chest non tender, clear to auscultation, normal breath sounds, no respiratory distress, no accessory muscle use Cardiac: regular rate and rhythm, no rub or gallop, no murmur, no edema, no jvd GI/: active bowel sounds, no abd pain or tenderness, soft, non distended Extremities: normal range of motion, normal strength, non tender Neuro/Psych: alert and oriented x 3, normal mood and affect Skin: normal color, dry. left abdomen mild erythema - not hot to touch Hospital Course Ms. Funez is a 66-year-old female with past medical history of diastolic congestive heart failure, diabetes mellitus type 2 with diabetic neuropathy, hypertension, dyslipidemia, GERD, and anxiety, severe COPD and obstructive sleep apnea on CPAP. She presented to the hospital with epigastric burning sensation and diarrhea x 4 days. Viral gastritis - gastritis likely viral as she has had multiple sick contacts and reports chills and fever - stool cultures and c. diff never completed as patient did not have bm until day of discharge when her symptoms had resolved - no further intervention from GI as patient was feeling better - Trops neg x2 - do not suspect cardiac etiology for nausea, epigastric pain - Gallbladder Ultrasound showed no obstructive stone - continue sucralfate, protonix outpatient Acute on chronic kidney injury, CKD III - improving - patient back to baseline, down from peak at 2.14, back to baseline at discharge - gentle IVF provided during admission COPD - continue home inhalers, given nebulizer treatments inpatient - CXR did not show consolidation, blood cultures did not grow anything out SARIKA - continued home bipap with supplemental O2 at 3L - dc'd home with baseline O2 needs - patient did complain of productive cough while here however she did not desat , never developed wheezing, fever or increase in wbc - treated with nebs but did not give abx or steroids. DMII - bsgs stable, given ss inpatient - metformin held while inpatient - restarted for discharge I agree with RN CLINICAL TRIALS assessment and plan and have seen and examined pt myself VSS Labs reviewed Renal insuff improving Likely viral gastroenteritis Pt concerned about resp status Likely bronchitis vs developing sinusitis Pt at baseline resp status No endoscopy at this time, will be done as OP Discharge Total Time Spent: Greater than 30 minutes This includes examination of the patient, discharge planning, medication reconciliation, and communication with other providers. Discharge Instructions Please refer to the electronic Patient Visit Report (Discharge Instructions) for additional information. Follow-Up PCP and GI in 1-2 weeks PRP on Thursday - restarted lasix for discharge Additional Copies To Chaka Alfred M.D.
[2017-03-29] MEDS ORDERED: NYSTATIN CR 15 GM TUBE EXT SCH (20:00)
== END 2017-03-29 12:57 | disposition home health service (06) | DRG 683 ==
LOC: C.EDB 15:20 → C.2T 22:36 → ENRESERV 23:37 → EDBEDREQSVC 03-26 11:49 → ENRESERV 03-26 12:16 → C.MS4W 03-26 13:03
PROVIDERS: ADMIT Internal Medicine; ATTEND Hospitalist
DX: N17.9 Acute kidney failure, unspecified (principal); I50.30 Unspecified diastolic (congestive) heart failure; I13.0 Hypertensive heart and chronic kidney disease with heart failure and stage 1 through stage 4 chronic kidney disease, or unspecified chronic kidney disease; N18.3 Chronic kidney disease, stage 3 (moderate); A08.4 Viral intestinal infection, unspecified; J44.9 Chronic obstructive pulmonary disease, unspecified; E11.40 Type 2 diabetes mellitus with diabetic neuropathy, unspecified; E78.5 Hyperlipidemia, unspecified; Z79.84 Long term (current) use of oral hypoglycemic drugs; E11.21 Type 2 diabetes mellitus with diabetic nephropathy; G47.33 Obstructive sleep apnea (adult) (pediatric); Z83.3 Family history of diabetes mellitus; Z87.891 Personal history of nicotine dependence; Z79.82 Long term (current) use of aspirin; F32.9 Major depressive disorder, single episode, unspecified

== ENCOUNTER → 2017-05-20 | Outpatient (CLI) | payer OTHER ==
[~2017-05-20] MED LIST changes: -ACET-1256 PO; -CHOL1CAP51 PO; -COEN30CA6 PO; +CRFUDL PO; -DEXT1TAB50 PO; -ISOS30TA3 PO; +ISOS30TA35 PO; -ROSU5TAB PO; -VLTG EX
[2017-05-20 17:40] LABS: BASO % 0.5 %; BASO ABS # 0.04 K/uL (0-0.2); EOS % 3.6 %; EOS ABS # 0.32 K/uL (0-0.5); HEMATOCRIT 38.2 % (37-47); HEMOGLOBIN 12.1 g/dL (12.0-16.0); IG# 0.02 K/uL (0.00-0.02); LYMPH % 27.8 %; LYMPH ABS # 2.45 K/uL (1.2-3.4); MEAN CELL VOLUME 89.7 fL (80-100); MEAN CORPUSCULAR HEMOGLOBIN 28.4 pg (25-34); MEAN CORPUSCULAR HGB CONC 31.7 g/dl (32-36); MONO % 7.2 %; MONO ABS # 0.63 K/uL (0.11-0.59); NEUT % 60.7 %; NEUT ABS # 5.34 K/uL (1.4-6.5); PLATELET COUNT 315 K/uL (130-400); RED CELL DISTRIBUTION WIDTH CV 15.6 % (11.5-14.5); RED CELL DISTRIBUTION WIDTH SD 50.8 fL (36.4-46.3)
[2017-05-20 17:43] LABS: BLOOD UREA NITROGEN 22 mg/dl (7-18); CALCIUM 9.4 mg/dl (8.5-10.1); CARBON DIOXIDE 29 mmol/L (21-32); CREATININE 1.17 mg/dl (0.60-1.20); GLUCOSE 118 mg/dl (70-99); POTASSIUM 4.6 mmol/L (3.5-5.1); SODIUM 140 mmol/L (136-145)
[2017-05-21 07:06] LABS: HEMOGLOBIN A1C 6.3 % (4.5-5.6)
== END | disposition home or self-care (01) ==
LOC: C.LABBFT 14:18
PROVIDERS: ATTEND Internal Medicine
DX: J44.9 Chronic obstructive pulmonary disease, unspecified (principal); E11.9 Type 2 diabetes mellitus without complications; E55.9 Vitamin D deficiency, unspecified

== ENCOUNTER 2018-03-02 19:14 | Inpatient (IN) ==
[2018-03-02] MEDS ORDERED: SODIUM CHLORIDE 0.9% 500 ML IV ONE (19:26)
[2018-03-02] MEDS ORDERED: ALBUT/IPRATROP 3MG/0.5MG NEB 3 ML VIAL NEB STA (19:28)
[2018-03-02] MEDS ORDERED: NovoLIN-R INSULIN PER UNIT CHARGE IV STA ×2 (19:33→21:31)
--- NOTE | 2018-03-02 19:56 | XRay Report ---
XR chest 1V portable CLINICAL HISTORY: weakness COMPARISON STUDY: Chest CT February 02, 2018. FINDINGS: Incidental note is made of osteoarthritis of the bilateral glenohumeral joints, greater on the left. Linear left basilar opacity suggests atelectasis or scarring. There is no consolidation to suggest pneumonia. There is no evidence for pulmonary edema. No pneumothorax or pleural effusion is n oted. Mild cardiomegaly is unchanged. The appearance of the chest is unchanged. IMPRESSION: No acute cardiopulmonary findings. No change in appearance of the chest. Electronically signed by: Martínez Spears M.D. 03/02/2018 7:55 PM
[2018-03-02 19:58] LABS: Basophils # (auto) 0.01 K/uL (0-0.2); Basophils % (auto) 0.1 %; Eosinophils % (auto) 0.8 %; Hemoglobin 13.6 g/dL (12.0-16.0); Immature Granulocytes # (auto) 0.13 K/uL (0.00-0.02); Lymphocytes # (auto) 3.16 K/uL (1.2-3.4); Lymphocytes % (auto) 24.3 %; Mean Corpuscular Volume 82.6 fL (80-100); Mean Platelet Volume 9.5 fL (7.4-10.4); Monocytes # (auto) 0.92 K/uL (0.11-0.59); Monocytes % (auto) 7.1 %; Neutrophils # (auto) 8.67 K/uL (1.4-6.5); Neutrophils % (auto) 66.7 %; Platelet Count 250 K/uL (130-400); RDW Coefficient of Variation 16.6 % (11.5-14.5); RDW Standard Deviation 50.3 fL (36.4-46.3); Red Blood Count 4.84 M/uL (4.2-5.4); White Blood Count 12.99 K/uL (4.8-10.8)
[2018-03-02 20:26] LABS: Albumin Globulin Ratio 0.9 (0.9-2); Albumin Level 2.9 gm/dl (3.4-5.0); BUN Creatinine Ratio 9.3 (10-20); Bilirubin,Total 0.5 mg/dl (0.1-1); Calcium 8.8 mg/dl (8.5-10.1); Creatinine Clr Calc Pharmacy 43.2 ml/min; Est GFR (Non-African American) 30.2; Globulin 3.2 gm/dl (2.5-4.0); Magnesium 1.8 mg/dl (1.8-2.4); Potassium 3.9 mmol/L (3.5-5.1); Total Protein 6.1 gm/dl (6.4-8.2); Troponin I 0.022 ng/ml (0-0.045)
[2018-03-02 21:22] LABS: Appearance Urine Turbid (Clear); Bacteria Urine Automated 3+ (Negative); Bilirubin Urine Negative (Negative); Color Urine Yellow; Epithelial Cell Urine Auto >30 /lpf (0-5); Glucose Urine UA 3+ (Negative); Ketones Urine Trace (Negative); Leukocyte Esterase Urine 2+ (Negative); Nitrite Urine Negative (Negative); Protein Urine 2+ (Negative); Specific Gravity Urine 1.038 (1.000-1.030); Urobilinogen Urine Negative (Negative); WBC Urine Automated >30 /hpf (0-5); pH Urine 5.5 (4.5-7.5)
[2018-03-02] MEDS ORDERED: CIPROFLOXACIN 400 MG/200 ML BAG IV STA (21:35)
[2018-03-02 21:42] LABS: Cast Urine Automated 0 /lpf (0-5)
[2018-03-02] MEDS ORDERED: POTASSIUM CHLORIDE 10 MEQ TABCR PO STA (22:18)
[2018-03-02] MEDS: SODIUM CHLORIDE 0.9% 1000ML 1,000 ML IV SCH (23:13)
--- NOTE | 2018-03-03 00:16 | History & Physical Report ---
Date of Service March 03, 2018 Assessment & Plan (1) UTI (urinary tract infection): - patient with UTI symptoms and flank pain - No imaging done in ED; therefore will order CT ab/pelvis - continue IV ceftriaxone and follow urine culture - hydrate with IV fluids at 150 mls/hr (2) Hyperglycemia: - likely secondary to steroid taper - 20 units of regular insulin given in ED - will give [address] on ISS - hold metformin (3) Abdominal pain: - unsure of true diagnosis at this point - patient with fevers, chills, decreased appetite, weight loss, ab pain and flank pain - pyelonephritis seems likely considering patients UA - Will order CT abdomen/pelvis (4) CHF (congestive heart failure): - currently stable on 3L - patient without significant overload on exam - hold lasix and lisinopril due to JAIMEE - Echo 2016 - EF 60-65%; grade I diastolic dysfunction; septal motion with RV volume overload. (5) CAD (coronary artery disease): - Heart catheterization January 2017 - one vessel disease without intervention. - continue aspirin - continue isosorbide mononitrate (6) COPD (chronic obstructive pulmonary disease): - continue home inhalers and home meds - continue O2 via nasal cannula - maintain 88-92% - will stop home steroid taper considering patients lungs sounds good and CXR normal (7) Diabetes mellitus: - per above "hyperglycemia" (8) JAIMEE (acute kidney injury): - creatinine elevated at 1.7 from baseline' - likely pre-renal and secondary to diabetes - IV hydration per above - monitor I/O's - daily bmp (9) Depression: - continue venlafaxine (10) Yeast infection: - will treat w/ fluconazole one time dose 150mg (11) Peripheral neuropathy: - continue gabapentin (12) DVT prophylaxis: - heparin subq q8 Dispo - lives alone and ambulates with motorized wheelchair Full Code History of Present Illness Chief Complaint: Hyperglycemia Primary Care Provider: Gama Alfred MD Kathleen Funez is a 67 year old female with a PMG of HTN, chronic back pain, CAD , DM, COPD on 3L, peripheral neuropathy, CHF and depression that presents to [facility] on recommendation from her PCP due to elevated blood sugars in the 600's. The patient notes that for the past 1-2 months she has been having fevers, chills, weight loss (20 pounds) generalized abdominal pain, dysuria, swelling in her legs and worsening shortness of breath with exertion. She notes that she was discharged from [facility] on February 07 and was discharged with a 28 day steroid taper for a COPD exacerbation. She has been taking this as prescribed and notes she has 4 days remaining. She lives on her own and she gets around in a motorized wheelchair. She used to be a heavy smoker; however she has not smoked in 20 years In the ED she was tachycardic at 111 and she was saturating at 99% on 3L. Her labs were significant for a WCC of 13, Na of 130, Creat of 1.7, glucose in the 400's. Her UA was infected with bacteria and yeast. She was given IV Cipro, 500 mls of IVF, 150mls/hr of NS and 10 units of regular insulin x2 Allergies Allergy/AdvReac Type Severity Reaction Status Date / Time adhesive Allergy Intermediate HIVES Verified 02/02/18 16:52 atorvastatin Allergy Intermediate MYALGIA Verified 02/02/18 16:52 ceftriaxone Allergy Intermediate FELT Verified 02/02/18 16:52 FUNNY/STRANGE pravastatin Allergy Intermediate MYALGIA Verified 02/02/18 16:52 rosuvastatin Allergy Intermediate MYALGIA Verified 02/02/18 16:52 sucralfate [From Carafate] AdvReac Intermediate Gastrointestinal Verified 16:52 Upset Home Medications Home Medications Medication Instructions Recorded Confirmed Type acetaminophen [Tylenol Extra 1,000 mg PO BID PRN 02/02/18 03/02/18 History Strength] albuterol sulfate 2.5 mg CONTINUOUS NEBULIZATION Q4H 02/02/18 03/02/18 History PRN aspirin [Aspir-81] 81 mg PO DAILY 02/02/18 03/02/18 History budesonide-formoterol [Symbicort] 2 puff INHALATION BID 02/02/18 03/02/18 History dextromethorphan-guaifenesin 1 tab PO BID PRN 02/02/18 03/02/18 History [Mucinex DM] furosemide [Lasix] 20 mg PO DAILY 02/02/18 03/02/18 History gabapentin 300 mg PO TID 02/02/18 03/02/18 History isosorbide mononitrate 30 mg PO DAILY 02/02/18 03/02/18 History lisinopril 10 mg PO DAILY 02/02/18 03/02/18 History lorazepam 1 mg PO BID PRN 02/02/18 03/02/18 History metformin 1,000 mg PO DAILY 02/02/18 03/02/18 History montelukast [Singulair] 10 mg PO HS 02/02/18 03/02/18 History nitroglycerin [Nitrostat] 0.4 mg SUBLINGUAL DIRECTED PRN 02/02/18 03/02/18 History pantoprazole 40 mg PO DAILY 02/02/18 03/02/18 History spironolacton-hydrochlorothiaz 1 tab PO DAILY 02/02/18 03/02/18 History theophylline 400 mg PO BID 02/02/18 03/02/18 History tramadol 100 mg PO BID 02/02/18 03/02/18 History venlafaxine 75 mg PO HS 02/02/18 03/02/18 History prednisone See Taper PO DAILY #86 tab 02/07/18 03/02/18 Rx lorazepam 1 mg PO HS 03/02/18 03/02/18 History rosuvastatin 40 mg PO HS 03/02/18 03/02/18 History trazodone 100 mg PO HS 03/02/18 03/02/18 History Past Med/Surg History Social History Current Living Situation: Alone Other Information That Helps Us Care for You: No Feels Safe at Home: Yes Safety Concerns: Feels Safe At This Time Smoking Status: Former smoker Do You Dip or Chew Tobacco: No Second Hand Exposure: No Hx Alcohol Use: No Hx Substance Use: No Beliefs That Will Affect Care: None Preferred Language: Divehi Human Resources Officer Required: No Review of Systems All systems reviewed & are unremarkable except as noted in HPI & below Physical Exam 2 Vital Signs (Past 24 Hours): Last Vital Signs Temp 37.1 C 03/02/18 19:17 Pulse 90 03/03/18 00:11 Resp 22 03/03/18 00:11 BP 183/89 H 03/03/18 00:11 Pulse Ox 99 03/03/18 00:11 Constitutional: + ill appearing and + morbidly obese; no acute distress Eyes: PERRL, conjunctivae normal, anicteric sclerae ENMT: external ear and nose normal, oropharynx normal Neck: difficult to assess JVD due to thick neck Respiratory: normal respiratory effort, lungs clear to auscultation Cardiovascular: RRR, no murmur, no edema Vessels: dorsalis pedis pulses present Extremities: no calf tenderness and no pedal edema Gastrointestinal (Abdomen): generalized abdominal tenderness throughout, normal bowel sounds Musculoskeletal: no cyanosis or clubbing, extremities motor strength 5/5 Psychiatric: A+Ox3, euthymic affect Supervising Physician Co-Signing Physician Notes Attending addendum: I have physically seen this patient, have supervised the medical residents activities, and agree with the H&P unless as otherwise noted. Assessment and Plan: Urinary tract infection/flank pain-- Order CT of abdomen pelvis to assess for possible pyelonephritis Continue ceftriaxone 1 g IV daily. Follow urine culture and sensitivity.. Hyperglycemia associated with diabetes mellitus secondary to prednisone-- Initial [id number] glucose in the emergency department 535. Patient received 10 units of regular insulin IV x2, with repeat blood sugar down to 412. Studies are negative for DKA. Give Lantus insulin 14 units subcu x1 now. Placed on Accu-Cheks before meals and at bedtime with NovoLog coverage per scale. Serial laboratories at 4-hour intervals. Outpatient regimen consists only of metformin. Check hemoglobin A1c. Normal saline at 150 mils per hour to address both UTI and elevated blood sugar. Ejection fraction is noted to be 60-65% on echo in 2017. Remainder of orders and notations as noted. _ (1) Diabetes mellitus Chronic kidney disease stage: Diabetes mellitus complication detail: with polyneuropathy Diabetes mellitus complication status: with neurologic complications Diabetes mellitus oil heaterman insulin use: with jail use Diabetes mellitus macular edema: Diabetes mellitus type: type 2 Diabetic retinopathy severity: Laterality: Proliferative retinopathy type: Qualified Code(s): E11.42 - Type 2 diabetes mellitus with diabetic polyneuropathy; Z79.4 - long term care pharmacist (current) use of insulin (2) CAD (coronary artery disease) Associated angina: with unspecified angina Coronary Disease-Associated Artery /Lesion type: [place] artery [place] vs. transplanted heart: [place] heart Qualified Code(s): I25.119 - Atherosclerotic heart disease of [place] coronary artery with unspecified angina pectoris (3) CHF (congestive heart failure) Heart failure chronicity: acute Heart failure type: unspecified Qualified Code(s): I50.9 - Heart failure, unspecified
[2018-03-03] MEDS ORDERED: INSULIN GLARGINE SOLOSTAR 100 UNITS/ML 3 ML PEN SC ONE (01:45)
[2018-03-03] MEDS ORDERED: ONDANSETRON INJ 2 MG/ML 2 ML VIAL IV PRN (01:45)
[2018-03-03] MEDS ORDERED: LORazepam 1 MG TAB PO PRN (01:45)
[2018-03-03] MEDS ORDERED: ALBUTEROL 0.083% NEBU SOLN 3 ML VIAL INH PRN (01:45)
[2018-03-03] MEDS ORDERED: ACETAMINOPHEN 325 MG TAB PO PRN (01:45)
[2018-03-03] MEDS ORDERED: FLUCONAZOLE 50 MG TAB PO STA (01:45)
[2018-03-03] MEDS ORDERED: ALUMINUM/MAGNESIUM SUSP 30 ML UDC PO PRN (01:45)
--- NOTE | 2018-03-03 02:17 | Emergency Department Note ---
Entered by Abhijeet Mercado acting as a scribe for Chalo Bautista MD ED Provider Note CHIEF COMPLAINT: hyperglycemia HISTORY OF PRESENT ILLNESS: The patient is a 67 year old female with a long history of diabetes who presents to the Emergency Room after referral due to abnormal blood work results obtained today showing hyperglycemia. The patients results showed blood glucose level of 441, and there was trace blood in her urine. The patient reports that she does not remember the name of the physician that referred her. Her PCP is Dr. Alfred. The patient states that she has felt generally ill and short of breath for the past several months. She reports that she chronically wears 3 L of supplemental oxygen at home and is currently on a 28-day taper of prednisone prescribed by Dr. Olivas physician bankruptcy assistant for COPD and emphysema. She notes that she was hospitalized last month and given nebulizer treatments that improved her symptoms slightly. She reports that she only is taking metformin in the mornings and does not take insulin. She notes that she was not having problems with her blood sugar prior to starting the prednisone. She reports that 3 days ago, her blood sugar was elevated in the 500s. She states that she is drinking a lot of fluid and urinating very frequently. She also notes loose bowel movements. She reports a history of heart arrhythmia. Family states that she occasionally will leave the house in her chair when they run errands. Pt denies LOC, headache, fevers, chills, diaphoresis, visual changes, neck pain , chest pain, nausea, vomiting, abdominal pain, back pain, melena, hematochezia , numbness, lymphadenopathy, rash, or other complaints. REVIEW OF SYSTEMS: See HPI for pertinent positives and negatives. A total of ten systems were reviewed and were otherwise negative. PMHx/PSHx: diabetes, COPD, CAD, CHF SOCIAL HISTORY: Patient lives at home. PHYSICAL EXAM: GENERAL: Awake, alert, dyspneic-appearing, in no distress HENT: Normocephalic, atraumatic. Oropharynx unremarkable. EYES: Normal conjunctiva. Sclera non-icteric. NECK: Inspection normal. Non-tender. Supple. No nuchal rigidity. FROM. No masses. RESPIRATORY: Clear to auscultation. No wheezes. No rales. Normal respiratory effort. CARDIAC: Tachycardic rate. Normal rhythm. No murmurs. No rubs. Extremities warm and well perfused. Pulses equal. No JVD. GI: Soft, non-distended. No tenderness to palpation. No rebound or guarding. No masses. RECTAL: Deferred. MUSCULOSKELETAL: Atraumatic. Chest examination reveals no tenderness. The back is symmetrical on inspection without obvious abnormality. There is no CVA tenderness to palpation. No joint edema. LOWER EXTREMITIES: Calves are equal size bilaterally and non-tender. 1+ edema bilaterally. No discoloration. NEURO: Normal sensorium. No sensory or motor deficits noted. SKIN: No rash or jaundice noted. EMERGENCY DEPARTMENT COURSE: 1922: Past medical records reviewed. The patient was evaluated in room B10, and a complete history and physical examination were performed. 1928: The patients blood glucose is now 535. 2105: The patient's urine sample was cloudy with sediment. 2137: I updated the patient on her results. 2142: I consulted Dr. Ackerman [facility] Hospitalist. He will reevaluate the patient for hospitalization. MEDICAL DECISION MAKING: Prior records/ancillary studies reviewed. Outpatient laboratory testing revealed significant hyperglycemia without DKA. Nursing notes reviewed and agree them. Additional history obtained from family. The patient's history was concerning for hypoglycemia, shortness of breath, urinary symptoms and weakness. Differential diagnosis: Etiologies such as metabolic, infection, hypo/hyperglycemia, DKA, UTI, electrolyte abnormalities, cardiac sources, intracerebral event, toxicologic, neurologic, as well as others were entertained. Physical examination: As above. ER treatment provided: IV [place] hydration IV insulin 10 units x2 IV Cipro Supplemental oxygen On reassessment the patient felt better. Diagnostics interpretation by me: ECG: Tachycardia without acute ischemia The labs revealed a moderate leukocytosis on CBC. Chemistry panel revealed severe hyperglycemia without DKA. Urinalysis very concerning for infection. Imaging studies: Chest imaging performed and was negative for acute process. Consultation: A consultation was placed with the hospitalist. The case was discussed and diagnostics were reviewed. The patient was evaluated in the ER for further treatment. IMPRESSION: hyperglycemia, urinary tract infection, shortness of breath PLAN: evaluation by hospitalist ATTESTATION: The scribe's documentation has been prepared under my direction and personally reviewed by me in its entirety. I confirm that the note above accurately reflects all work, treatment, procedures, and medical decision making performed by me. Impression & Plan Hyperglycemia, Shortness of breath, Urinary tract infection Past Med/Surg History Medical History COPD exacerbation (Resolved) UTI (urinary tract infection) (Resolved) COPD (chronic obstructive pulmonary disease) (Chronic) Shortness of breath (Acute) Diabetes mellitus (Chronic 03/14/12) JAIMEE (acute kidney injury) (Resolved) Acute bronchitis (Resolved 10/23/13) Acute renal failure (Resolved 10/23/13) Bronchitis (Acute) CHF (congestive heart failure) (Chronic) Candidal skin infection (Resolved) Chest pain (Resolved) Depression Diabetic neuropathy Diarrhea of presumed infectious origin (Resolved 10/23/13) Elevated serum creatinine (Resolved) Gastritis (Resolved) Obesity (Chronic) Cataract H/O: hysterectomy Neuropathy Surgical History History of carpal tunnel surgery of left wrist History of carpal tunnel surgery of right wrist Total knee replacement status Social History Current Living Situation: Alone Feels Safe at Home: Yes Smoking Status: Former smoker Hx Alcohol Use: No Hx Substance Use: No Beliefs That Will Affect Care: None Visual Impairment: No Limitations Results & Data Vital Signs Vital Signs - 24 hr 03/02/18 19:17 03/02/18 19:26 03/02/18 21:49 Temperature 37.1 C Temperature Source Oral Sepsis Recent Fever Within 48 Hours No Sepsis New/Unexplained Change in Mental Status No Sepsis Action Taken by Nursing No Action Required Pulse Rate 111 H Pulse Rate [Right Finger] 99 H Pulse Rhythm Regular Pulse Rhythm [Right Finger] Pulse Strength Normal Pulse Strength [Right Finger] Respiratory Rate 22 16 Respiratory Effort / Characteristics Non-Labored Spontaneous Non-Labored Spontaneous Respiratory Depth Normal Normal Respiratory Pattern Regular Regular Blood Pressure 149/68 H Blood Pressure [Right Arm] 166/109 H Blood Pressure Mean 95 Blood Pressure Mean [Right Arm] 128 Blood Pressure Position Sitting Blood Pressure Position [Right Arm] Sitting Pulse Oximetry 96 95 99 Oxygen Delivery Method Room Air Room Air Nasal Cannula Oxygen Flow Rate 2 03/02/18 22:44 03/03/18 00:11 03/03/18 01:10 Temperature Temperature Source Sepsis Recent Fever Within 48 Hours Sepsis New/Unexplained Change in Mental Status Sepsis Action Taken by Nursing Pulse Rate 92 H Pulse Rate [Right Finger] 97 H 90 Pulse Rhythm Pulse Rhythm [Right Finger] Regular Pulse Strength Pulse Strength [Right Finger] Normal Respiratory Rate 19 22 20 Respiratory Effort / Characteristics Non-Labored Spontaneous Non-Labored Spontaneous Respiratory Depth Normal Normal Respiratory Pattern Regular Blood Pressure 160/75 H Blood Pressure [Right Arm] 133/75 183/89 H Blood Pressure Mean Blood Pressure Mean [Right Arm] 94 120 Blood Pressure Position Blood Pressure Position [Right Arm] Sitting Pulse Oximetry 99 99 Oxygen Delivery Method Nasal Cannula Nasal Cannula Nasal Cannula Oxygen Flow Rate 2 2 3 Home Medications Current Medication List: was personally reviewed by me Laboratory Data Attestation: I reviewed the patient's lab results. Result diagrams: 03/02/18 19:45 03/02/18 19:45 Lab Results 03/02/18 03/02/18 03/02/18 Range/Units 19:33 19:45 19:45 WBC 12.99 H (4.8-10.8) K/uL RBC 4.84 (4.2-5.4) M/uL Hgb 13.6 (12.0-16.0) g/dL Hct 40.0 (37-47) % MCV 82.6 (80-100) fL MCH 28.1 (25-34) pg MCHC 34.0 (32-36) g/dL RDW Std Deviation 50.3 H (36.4-46.3) fL RDW Coeff of Robert 16.6 H (11.5-14.5) % Plt Count 250 (130-400) K/uL MPV 9.5 (7.4-10.4) fL Immature Gran % (Auto) 1.0 % Neut % (Auto) 66.7 % Lymph % (Auto) 24.3 % Wise % (Auto) 7.1 % Eos % (Auto) 0.8 % Baso % (Auto) 0.1 % Immature Gran # (Auto) 0.13 H (0.00-0.02) K/uL Neut # (Auto) 8.67 H (1.4-6.5) K/uL Lymph # (Auto) 3.16 (1.2-3.4) K/uL Wise # (Auto) 0.92 H (0.11-0.59) K/uL Eos # (Auto) 0.10 (0-0.5) K/uL Baso # (Auto) 0.01 (0-0.2) K/uL Sodium 130 L (136-145) mmol/L Potassium 3.9 (3.5-5.1) mmol/L Chloride 96 L (98-107) mmol/L Carbon Dioxide 24 (21-32) mmol/L Anion Gap 11.0 (3-11) BUN 16 (7-18) mg/dl Creatinine 1.70 H (0.6-1.2) mg/dl Est Cr Clr Drug Dosing 43.2 ml/min Est GFR ( Amer) 35.0 Est GFR (Non-Af Amer) 30.2 BUN/Creatinine Ratio 9.3 L (10-20) Glucose 473 H* (70-99) mg/dl POC Glucose 535 H* (70-99) Calcium 8.8 (8.5-10.1) mg/dl Magnesium 1.8 (1.8-2.4) mg/dl Total Bilirubin 0.5 (0.1-1) mg/dl AST 8 L (15-37) U/L ALT 19 (12-78) U/L Alkaline Phosphatase 81 (45-117) U/L Troponin I 0.022 (0-0.045) ng/ml NT-Pro-B Natriuret Pep 274 (0-900) pg/ml Total Protein 6.1 L (6.4-8.2) gm/dl Albumin 2.9 L (3.4-5.0) gm/dl Globulin 3.2 (2.5-4.0) gm/dl Albumin/Globulin Ratio 0.9 (0.9-2) Beta-Hydroxybutyric Acd 2.05 (0.2-2.81) mg/dl TSH 1.880 (0.300-4.500) uIu/ml Urine Color Urine Appearance (Clear) Urine pH (4.5-7.5) Ur Specific [place] (1.000-1.030) Urine Protein (Negative) Urine Glucose (UA) (Negative) Urine Ketones (Negative) Urine Blood (Negative) Urine Nitrite (Negative) Urine Bilirubin (Negative) Urine Urobilinogen (Negative) Ur Leukocyte Esterase (Negative) Urine WBC (Auto) (0-5) /hpf Urine RBC (Auto) (0-4) /hpf U Hyaline Cast (Auto) (0-5) /lpf U Epithel Cells (Auto) (0-5) /lpf Urine Bacteria (Auto) (Negative) Urine Yeast (None Prsent) 03/02/18 03/02/18 03/02/18 Range/Units 20:11 21:00 22:12 WBC (4.8-10.8) K/uL RBC (4.2-5.4) M/uL Hgb (12.0-16.0) g/dL Hct (37-47) % MCV (80-100) fL MCH (25-34) pg MCHC (32-36) g/dL RDW Std Deviation (36.4-46.3) fL RDW Coeff of Robert (11.5-14.5) % Plt Count (130-400) K/uL MPV (7.4-10.4) fL Immature Gran % (Auto) % Neut % (Auto) % Lymph % (Auto) % Wise % (Auto) % Eos % (Auto) % Baso % (Auto) % Immature Gran # (Auto) (0.00-0.02) K/uL Neut # (Auto) (1.4-6.5) K/uL Lymph # (Auto) (1.2-3.4) K/uL Wise # (Auto) (0.11-0.59) K/uL Eos # (Auto) (0-0.5) K/uL Baso # (Auto) (0-0.2) K/uL Sodium (136-145) mmol/L Potassium (3.5-5.1) mmol/L Chloride (98-107) mmol/L Carbon Dioxide (21-32) mmol/L Anion Gap (3-11) BUN (7-18) mg/dl Creatinine (0.6-1.2) mg/dl Est Cr Clr Drug Dosing ml/min Est GFR ( Amer) Est GFR (Non-Af Amer) BUN/Creatinine Ratio (10-20) Glucose (70-99) mg/dl POC Glucose 482 H* 412 H* (70-99) Calcium (8.5-10.1) mg/dl Magnesium (1.8-2.4) mg/dl Total Bilirubin (0.1-1) mg/dl AST (15-37) U/L ALT (12-78) U/L Alkaline Phosphatase (45-117) U/L Troponin I (0-0.045) ng/ml NT-Pro-B Natriuret Pep (0-900) pg/ml Total Protein (6.4-8.2) gm/dl Albumin (3.4-5.0) gm/dl Globulin (2.5-4.0) gm/dl Albumin/Globulin Ratio (0.9-2) Beta-Hydroxybutyric Acd (0.2-2.81) mg/dl TSH (0.300-4.500) uIu/ml Urine Color Yellow Urine Appearance Turbid H (Clear) Urine pH 5.5 (4.5-7.5) Ur Specific [place] 1.038 H (1.000-1.030) Urine Protein 2+ H (Negative) Urine Glucose (UA) 3+ H (Negative) Urine Ketones Trace H (Negative) Urine Blood 2+ H (Negative) Urine Nitrite Negative (Negative) Urine Bilirubin Negative (Negative) Urine Urobilinogen Negative (Negative) Ur Leukocyte Esterase 2+ H (Negative) Urine WBC (Auto) >30 H (0-5) /hpf Urine RBC (Auto) >30 H (0-4) /hpf U Hyaline Cast (Auto) 0 (0-5) /lpf U Epithel Cells (Auto) >30 H (0-5) /lpf Urine Bacteria (Auto) 3+ H (Negative) Urine Yeast Budding H (None Prsent) 03/03/18 Range/Units 00:03 WBC (4.8-10.8) K/uL RBC (4.2-5.4) M/uL Hgb (12.0-16.0) g/dL Hct (37-47) % MCV (80-100) fL MCH (25-34) pg MCHC (32-36) g/dL RDW Std Deviation (36.4-46.3) fL RDW Coeff of Robert (11.5-14.5) % Plt Count (130-400) K/uL MPV (7.4-10.4) fL Immature Gran % (Auto) % Neut % (Auto) % Lymph % (Auto) % Wise % (Auto) % Eos % (Auto) % Baso % (Auto) % Immature Gran # (Auto) (0.00-0.02) K/uL Neut # (Auto) (1.4-6.5) K/uL Lymph # (Auto) (1.2-3.4) K/uL Wise # (Auto) (0.11-0.59) K/uL Eos # (Auto) (0-0.5) K/uL Baso # (Auto) (0-0.2) K/uL Sodium (136-145) mmol/L Potassium (3.5-5.1) mmol/L Chloride (98-107) mmol/L Carbon Dioxide (21-32) mmol/L Anion Gap (3-11) BUN (7-18) mg/dl Creatinine (0.6-1.2) mg/dl Est Cr Clr Drug Dosing ml/min Est GFR ( Amer) Est GFR (Non-Af Amer) BUN/Creatinine Ratio (10-20) Glucose (70-99) mg/dl POC Glucose 396 H* (70-99) Calcium (8.5-10.1) mg/dl Magnesium (1.8-2.4) mg/dl Total Bilirubin (0.1-1) mg/dl AST (15-37) U/L ALT (12-78) U/L Alkaline Phosphatase (45-117) U/L Troponin I (0-0.045) ng/ml NT-Pro-B Natriuret Pep (0-900) pg/ml Total Protein (6.4-8.2) gm/dl Albumin (3.4-5.0) gm/dl Globulin (2.5-4.0) gm/dl Albumin/Globulin Ratio (0.9-2) Beta-Hydroxybutyric Acd (0.2-2.81) mg/dl TSH (0.300-4.500) uIu/ml Urine Color Urine Appearance (Clear) Urine pH (4.5-7.5) Ur Specific [place] (1.000-1.030) Urine Protein (Negative) Urine Glucose (UA) (Negative) Urine Ketones (Negative) Urine Blood (Negative) Urine Nitrite (Negative) Urine Bilirubin (Negative) Urine Urobilinogen (Negative) Ur Leukocyte Esterase (Negative) Urine WBC (Auto) (0-5) /hpf Urine RBC (Auto) (0-4) /hpf U Hyaline Cast (Auto) (0-5) /lpf U Epithel Cells (Auto) (0-5) /lpf Urine Bacteria (Auto) (Negative) Urine Yeast (None Prsent) Administered Medications Sodium Chloride (Nss 1000ml) 1,000 mls @ 150 mls/hr IV .[id number] MAGDALENA Stop: 04/01/18 22:29 Last Admin: 03/02/18 23:13 Dose: 150 mls/hr Discontinued Medications Albuterol (Duoneb) 3 ml NEB NOW STA Stop: 03/02/18 19:29 Last Admin: 03/02/18 19:55 Dose: 3 ml Sodium Chloride (Nss) 500 mls @ 999 mls/hr IV .Q31M ONE Stop: 03/02/18 19:56 Last Infusion: 03/02/18 20:30 Dose: 0 mls/hr Admin: 03/02/18 19:55 Dose: 999 mls/hr Ciprofloxacin (Cipro) 400 mg in 200 mls @ 200 mls/hr IV NOW STA Stop: 03/02/18 22:34 Last Infusion: 03/02/18 23:13 Dose: 0 mls/hr Admin: 03/02/18 21:50 Dose: 200 mls/hr Insulin Human Regular (Novolin R U-100 Per Unit) 10 units IV NOW STA Stop: 03/02/18 19:34 Last Admin: 03/02/18 19:52 Dose: 10 units Insulin Human Regular (Novolin R U-100 Per Unit) 10 units IV NOW STA Stop: 03/02/18 21:32 Last Admin: 03/02/18 21:50 Dose: 10 units Potassium Chloride (Klor-Con M10) 40 meq PO NOW STA Stop: 03/02/18 22:19 Last Admin: 03/02/18 22:43 Dose: 40 meq Imaging Data Radiologist's Impression: Radiology results as stated below per my review and the radiologist's interpretation: XR chest 1V portable CLINICAL HISTORY: weakness COMPARISON STUDY: Chest CT February 02, 2018. FINDINGS: Incidental note is made of osteoarthritis of the bilateral glenohumeral joints, greater on the left. Linear left basilar opacity suggests atelectasis or scarring. There is no consolidation to suggest pneumonia. There is no evidence for pulmonary edema. No pneumothorax or pleural effusion is noted. Mild cardiomegaly is unchanged. The appearance of the chest is unchanged. IMPRESSION: No acute cardiopulmonary findings. No change in appearance of the chest. Electronically signed by: Martínez Spears M.D. 03/02/2018 7:55 PM ECG Data Attestation: I personally reviewed and interpreted this ECG as follows: Indication: weakness Rate (beats per minute): 101 Rhythm: sinus tachycardia Findings: + other (poor baseline data) and + Q waves (inferior); no ST depression and no ST elevation Blood Pressure Blood Pressure Findings: Elevated blood pressure Blood Pressure Disposition: further management by hospitalist Discharge Plan Visit Data *Final* Discharge Date/Time: 03/03/18 01:10 Chief Complaint: Referred by Doctor Stated Complaint: REF BY DOCTOR ED Provider: Chalo Bautista Discharge Problem: Hyperglycemia, Shortness of breath, Urinary tract infection Patient Disposition: Admitted As Inpatient Discharge Instructions Interventions: ED Discharge Assessment Last Done: 03/03/18 01:10 The scribe's documentation has been prepared under my direction and personally reviewed by me in its entirety. I confirm that the note above accurately reflects all work, treatment, procedures, and medical decision making performed by me.
[2018-03-03] MEDS ORDERED: INFLUENZA ADMINISTRATION CHARGE ONE (04:30)
[2018-03-03] MEDS ORDERED: INFLUENZA VACCINE HIGH DOSE 65+ 0.5 ML SYR IM ONE (04:30)
[2018-03-03 04:55] LABS: Appearance Urine Turbid (Clear); Bacteria Urine Automated 1+ (Negative); Bilirubin Urine Negative (Negative); Cast Urine Automated 0 /lpf (0-5); Color Urine Yellow; Epithelial Cell Urine Auto >30 /lpf (0-5); Glucose Urine UA 3+ (Negative); Ketones Urine Trace (Negative); Leukocyte Esterase Urine 1+ (Negative); Nitrite Urine Negative (Negative); Protein Urine 2+ (Negative); Specific Gravity Urine 1.034 (1.000-1.030); Urobilinogen Urine Negative (Negative); WBC Urine Automated >30 /hpf (0-5)
[2018-03-03] MEDS: SODIUM CHLORIDE 0.9% 1000ML 1,000 ML IV SCH ×2 (06:25→12:42)
--- NOTE | 2018-03-03 06:51 | CT Scan Report ---
CT abd pelvis wo con CT DOSE: 1952.53 mGy.cm HISTORY: Pain Generalized abdominal pain TECHNIQUE: Multiaxial CT images of the abdomen and pelvis were performed without contrast. A dose lo wering technique was utilized adhering to the principles of ALARA. COMPARISON STUDY: 03/25/2017 FINDINGS: Lung bases are clear. Liver spleen and pancreas are unremarkable in overall morphology. Gal lbladder is negative for distention. Kidneys show chronic perinephric fat stranding. This is unchanged. There is no evidence for an obstru cting urinary tract calculus. Nonobstructive bowel pattern. Prior hysterectomy. Bladder is midline. IMPRESSION: No significant abnormality identified within the abdomen or pelvis. The above report was generated using voice recognition software. It may contain grammatical, syntax or spelling errors. Electronically signed by: Sukhdev Islas M.D. 03/03/2018 6:50 AM
[2018-03-03 07:54] LABS: Prothrombin Time 10.4 Seconds (9.0-12.0)
[2018-03-03 07:55] LABS: Basophils # (auto) 0.01 K/uL (0-0.2); Basophils % (auto) 0.1 %; Eosinophils # (auto) 0.09 K/uL (0-0.5); Hematocrit (blood only) 34.9 % (37-47); Hemoglobin 11.7 g/dL (12.0-16.0); Immature Granulocytes # (auto) 0.11 K/uL (0.00-0.02); Immature Granulocytes % (auto) 1.2 %; Lymphocytes # (auto) 2.78 K/uL (1.2-3.4); Lymphocytes % (auto) 30.8 %; Mean Corpuscular Volume 82.5 fL (80-100); Mean Platelet Volume 9.5 fL (7.4-10.4); Monocytes # (auto) 0.72 K/uL (0.11-0.59); Neutrophils # (auto) 5.33 K/uL (1.4-6.5); Neutrophils % (auto) 58.9 %; Platelet Count 202 K/uL (130-400); RDW Coefficient of Variation 16.7 % (11.5-14.5); RDW Standard Deviation 50.6 fL (36.4-46.3); Red Blood Count 4.23 M/uL (4.2-5.4); White Blood Count 9.04 K/uL (4.8-10.8)
[2018-03-03 07:59] LABS: Mean Corpuscular Hgb Conc 33.5 g/dL (32-36)
[2018-03-03 08:08] LABS: Albumin Level 2.4 gm/dl (3.4-5.0); BUN Creatinine Ratio 10.3 (10-20); Calcium 8.1 mg/dl (8.5-10.1); Creatinine Clr Calc Pharmacy 55.9 ml/min; Est GFR (African American) 47.6; Est GFR (Non-African American) 41.1; Potassium 3.8 mmol/L (3.5-5.1)
[2018-03-03 08:11] LABS: Albumin Globulin Ratio 0.9 (0.9-2); Bilirubin,Total 0.5 mg/dl (0.1-1); Globulin 2.7 gm/dl (2.5-4.0); Total Protein 5.1 gm/dl (6.4-8.2)
[2018-03-03] MEDS: PANTOprazole 40 MG TAB PO SCH (08:42)
[2018-03-03] MEDS: BUDESONIDE/FORMOTEROL FUMARATE 160/4.5 60 PUFFS/INHALER INH SCH ×2 (08:43→21:56)
[2018-03-03] MEDS: LISINOPRIL 10 MG TAB PO SCH (08:43)
[2018-03-03] MEDS: ASPIRIN 81 MG ECTAB PO SCH (08:43)
[2018-03-03] MEDS: THEOPHYLLINE 400 MG EXTENDED REL TAB PO SCH ×2 (08:43→21:57)
[2018-03-03] MEDS: SPIRONOLACTONE/HCTZ 25-25 PO SCH (08:43)
[2018-03-03] MEDS: ISOSORBIDE MONO EXTENDED REL 30 MG TABCR PO SCH (08:43)
[2018-03-03] MEDS: GABAPENTIN 300 MG CAP PO SCH ×3 (08:43→21:56)
[2018-03-03] MEDS: TRAMADOL HCL 50 MG TABLET PO SCH ×2 (08:50→21:56)
[2018-03-03] MEDS: HEPARIN SOD 5,000 UNIT/0.5 ML VIAL SQ SCH ×3 (08:51→21:58)
[2018-03-03] MEDS: INSULIN ASPART 100 UNITS/ML 3 ML PEN SC SCH ×4 (08:53→21:53)
[2018-03-03] MEDS ORDERED: FUROSEMIDE 20 MG TAB PO SCH (09:00)
[2018-03-03] MEDS ORDERED: METFORMIN HCL ER 500 MG TABCR PO SCH (09:00)
[2018-03-03] MEDS: CIPROFLOXACIN 400 MG/200 ML BAG IV SCH ×2 (09:09→21:58)
[2018-03-03] MEDS: ACETAMINOPHEN 500 MG TAB PO PRN (15:57)
--- NOTE | 2018-03-03 18:16 | Family Medicine Progress Note ---
Date of Service March 03, 2018 Assessment & Plan (1) UTI (urinary tract infection): - patient with UTI symptoms and dysuria - CT ab/pelvis with no acute disease process - continue IV ceftriaxone and follow urine culture - hydrate with IV fluids at 100 mls/hr (2) Hyperglycemia: - likely secondary to steroid taper - 20 units of regular insulin given in ED - 14 lantus in AM and place on ISS - hold metformin - changed Lantus to 20 units tonight and will reeval in morning after calculating daily total insulin requirement (3) Abdominal pain: - CT abdomen/pelvis shows no acute disease process - most likely from hyperglycemia and fluid loss (4) CHF (congestive heart failure): - currently stable on 3L - patient without significant overload on exam - hold lasix and lisinopril due to JAIMEE - Echo 2016 - EF 60-65%; grade I diastolic dysfunction; septal motion with RV volume overload. (5) CAD (coronary artery disease): - Heart catheterization January 2017 - one vessel disease without intervention. - continue aspirin - continue isosorbide mononitrate (6) COPD (chronic obstructive pulmonary disease): - continue home inhalers and home meds - continue O2 via nasal cannula - maintain 88-92% - will stop home steroid taper considering patients lungs sounds good and CXR normal (7) Diabetes mellitus: - per above "hyperglycemia" (8) JAIMEE (acute kidney injury): - creatinine elevated at 1.7 from baseline on admit, now improved to 132 status post IV fluids - likely pre-renal and secondary to diabetes - IV hydration per above - monitor I/O's - daily bmp (9) Depression: - continue venlafaxine (10) Yeast infection: - treated w/ fluconazole one time dose 150mg (11) Peripheral neuropathy: - continue gabapentin (12) DVT prophylaxis: - heparin subq q8 Dispo - lives alone and ambulates with motorized wheelchair Full Code Supervising Physician Co-Signing Physician Notes I personally examined the patient and verified all andujar points of history and exam, discussed case, and agree with decision making with Dr Islas. Feeling better overall. No shortness of breath Vitals noted, cardio regular lungs clear skin no rashes pallor icterus Hyperglycemic dehydrationwith her A1c is all running in the sixes this is most likely acute related to steroids, dehydration, and UTI. Continue IV fluids with a low threshold to stop if she gets at all short of breath and serial re- evaluations. Systolic cardiomyopathy/CHFcontinue to hold Lasix since she came in dehydrated , continue IV fluids cautiously, but because her CHF appears to be fairly brittle, very low threshold to stop IV fluids. Otherwise as above Subjective Kathleen states she did not feel well for the past 4-5 days with symptoms of polyuria, polydipsia. She was on a pred taper for acute bronchitis on COPD. She states her breathing is stable this morning. She endorses central abdominal pain that she has had same in the past. She denies chest pain, nausea , vomiting, diarrhea. Last BM two days ago without black or bloody stools. She states she is only on Metformin at home for her DM. She states she has been compliant with home meds and has a home health nurse visit her once per week. She also endorses dysuria. Physical Exam 2 Vital Signs (Past 24 Hours): Last Vital Signs Temp 36.8 C 03/03/18 15:40 Pulse 83 03/03/18 17:45 Resp 19 03/03/18 17:45 BP 124/68 03/03/18 15:40 Pulse Ox 99 03/03/18 17:45 Constitutional: + ill appearing, + morbidly obese and cooperative Eyes: + anicteric sclerae and EOM intact bilaterally ENMT: Mouth: + dry oral mucous membranes and + edentulous Neck: normal visual inspection and trachea midline Respiratory: normal respiratory effort; no respiratory distress and does not use accessory muscles Auscultation: + diminished lung sounds Cardiovascular: Rate/Rhythm: regular rate and regular rhythm Extremities: + pedal edema Gastrointestinal (Abdomen): Inspection/Auscultation: normal bowel sounds Percussion/Palpation: + abdomen tender (mild umbilical without rebound ); no guarding and abdomen not rigid Musculoskeletal: Head/Neck/Chest: normocephalic and head atraumatic Skin: dry lower extremiities with scaling and discoloration consistent with chronic venous stasis Neurologic: moves all extremities and awake Psychiatric: A+Ox3, euthymic affect _ (1) Diabetes mellitus Chronic kidney disease stage: Diabetes mellitus complication detail: with polyneuropathy Diabetes mellitus complication status: with neurologic complications Diabetes mellitus 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 transplanted heart: nome heart Qualified Code(s): I25.119 - Atherosclerotic heart disease of [place] coronary artery with unspecified angina pectoris (3) CHF (congestive heart failure) Heart failure chronicity: acute Heart failure type: unspecified Qualified Code(s): I50.9 - Heart failure, unspecified
[2018-03-03] MEDS ORDERED: INSULIN HUMAN REGULAR PER UNIT 10 UNITS in SYRINGE 9.9 ML IV STA (21:03)
[2018-03-03] MEDS: LORazepam 1 MG TAB PO SCH (21:53)
[2018-03-03] MEDS: INSULIN GLARGINE 100 UNIT/ML VIAL SC SCH (21:55)
[2018-03-03] MEDS: MONTELUKAST SODIUM 10 MG TABLET PO SCH (21:55)
[2018-03-03] MEDS: ROSUVASTATIN CALCIUM 20 MG TAB PO SCH (21:55)
[2018-03-03] MEDS: VENLAFAXINE HCL XR 75 MG CAPXR PO SCH (21:56)
[2018-03-03] MEDS: TRAZODONE HCL 50 MG TAB PO SCH (21:56)
[2018-03-04] MEDS: HEPARIN SOD 5,000 UNIT/0.5 ML VIAL SQ SCH ×3 (05:51→21:14)
[2018-03-04 07:02] LABS: BUN Creatinine Ratio 9.2 (10-20); Calcium 8.9 mg/dl (8.5-10.1); Creatinine Clr Calc Pharmacy 61.8 ml/min; Est GFR (African American) 53.9; Est GFR (Non-African American) 46.5; Potassium 3.3 mmol/L (3.5-5.1)
[2018-03-04] MEDS: THEOPHYLLINE 400 MG EXTENDED REL TAB PO SCH ×2 (08:10→20:47)
[2018-03-04] MEDS: PANTOprazole 40 MG TAB PO SCH (08:11)
[2018-03-04] MEDS: GABAPENTIN 300 MG CAP PO SCH ×3 (08:11→20:45)
[2018-03-04] MEDS: ISOSORBIDE MONO EXTENDED REL 30 MG TABCR PO SCH (08:11)
[2018-03-04] MEDS: SPIRONOLACTONE/HCTZ 25-25 PO SCH (08:12)
[2018-03-04] MEDS: LISINOPRIL 10 MG TAB PO SCH (08:12)
[2018-03-04] MEDS: ASPIRIN 81 MG ECTAB PO SCH (08:13)
[2018-03-04] MEDS: BUDESONIDE/FORMOTEROL FUMARATE 160/4.5 60 PUFFS/INHALER INH SCH ×2 (08:13→20:47)
[2018-03-04] MEDS ORDERED: POTASSIUM CHLORIDE 20 MEQ TABCR PO STA (08:14)
[2018-03-04] MEDS: INSULIN ASPART 100 UNITS/ML 3 ML PEN SC SCH ×4 (08:14→21:15)
[2018-03-04] MEDS: TRAMADOL HCL 50 MG TABLET PO SCH ×2 (08:21→21:14)
[2018-03-04] MEDS: CIPROFLOXACIN 400 MG/200 ML BAG IV SCH (08:21)
--- NOTE | 2018-03-04 09:04 | Clinical Documentation Query ---
CLINICAL DOCUMENTATION QUERY Query #/2 67 y/o female with hyperglycemia and UTI. In your clinical opinion is this patient being managed for: ( ) Candidal UTI treated with IV Cipro ( ) Not Agree ( X) Other explanation of clinical findings (No explanation is considered a No Response) No UTI, negative cultures, vaginal yeast infection treated with antifungals ( ) Unable to determine ( ) Need to Discuss (Phone CDS or qliq) (No discussion is considered a No Response) The medical record reflects the following clinical findings, treatment, and risk factors. Clinical Indicators: urinary tract infection with + UA findings for wong. UA +budding yeast with hyphae Treatment: IV Cipro Risk Factors: 67-y/o female ======== Query #2/ H&P states hx of CHF. The medical record documentation is now expected to include definitive and explicit description of the patient's heart failure; vague terms such as "heart failure," ventricular dysfunction," and "CHF" may not fully capture the physician's intended level of severity. In your clinical opinion is this patient being managed for: ( ) Chronic diastolic heart failure (chronic HFpEF) ( ) Not Agree ( X) Other explanation of clinical findings (No explanation is considered a No Response) Left sided diastolic dysfunction, echo study limited by body habitus ( ) Unable to determine ( ) Need to Discuss (Phone CDS or qliq) (No discussion is considered a No Response) The medical record reflects the following clinical findings, treatment, and risk factors. Clinical Indicators: As above. Echo 2017 - EF 60-65%; grade I diastolic dysfunction; septal motion with RV volume overload. Treatment: daily weights, I/O's Risk Factors: Age, HTN, CAD Please clarify and document your clinical opinion in the progress notes and discharge summary. Terms such as "probable", "suspected", "likely", "questionable", "possible", or "still to be ruled out" are acceptable. IF IN AGREEMENT, YOU MUST DOCUMENT ABOVE DIAGNOSTIC STATEMENT IN DAILY PROGRESS NOTES AND DISCHARGE SUMMARY. This document is not part of the patient' s record. Thank You, Bharathi Thurston, RN [phone] & via qlThe [facility] Institute of St[facility] LouisMarie
--- NOTE | 2018-03-04 17:22 | Family Medicine Progress Note ---
Date of Service March 04, 2018 Assessment & Plan (1) Hyperglycemia: - likely secondary to Prednisone - 20 units of lantus given last night and 37 units total yesterday of Novolog, glucose 190 this morning and trending down - will continue with Lantus 20 units and Novolog coverage - Prednisone has been stopped - hold metformin - will reeval in morning - do not think she will need home insulin, she was well controlled prior to starting prednisone for bronchitis on COPD - IV fluids stopped - PT/OT eval and treat ordered today - discontinued telemetry and transferred to med/surg (2) UTI (urinary tract infection): - patient with UTI symptoms including dysuria and was started on Fluroquinolone on admit pending cultures - CT ab/pelvis with no acute disease process - however, UA was contaminated and was waiting for urine culture which showed more than three types of organisms present, all moderate counts mixed probable skin agnieszka, will D/C antibiotics to avoid adverse effects - was treated with fluconazole one time dose 150mg on admit, dysuria could be from yeast infection vs dehydration (3) Abdominal pain: - CT abdomen/pelvis shows no acute disease process - most likely from hyperglycemia and fluid loss - no complaints today (4) CHF (congestive heart failure): - currently stable on 3L - patient without significant overload on exam - hold lasix and lisinopril due to JAIMEE - Echo 2016 - EF 60-65%; grade I diastolic dysfunction; septal motion with RV volume overload. (5) CAD (coronary artery disease): - Heart catheterization January 2017 - one vessel disease without intervention. - continue aspirin - continue isosorbide mononitrate (6) COPD (chronic obstructive pulmonary disease): - continue home inhalers and home meds - continue O2 via nasal cannula - maintain 88-92% - will stop home steroid taper considering patients lungs sounds good and CXR normal (7) Diabetes mellitus: - per above "hyperglycemia" (8) JAIMEE (acute kidney injury): - resolved with normal creatinine today at 1.19 - likely pre-renal and secondary to diabetes - oral fluids - monitor I/O's - daily bmp (9) Depression: - continue venlafaxine (10) Yeast infection: - treated w/ fluconazole one time dose 150mg (11) Peripheral neuropathy: - continue gabapentin (12) DVT prophylaxis: - heparin subq q8 Dispo - lives alone and ambulates with motorized wheelchair Full Code Supervising Physician Co-Signing Physician Notes I personally examined the patient and verified all andujar points of history and exam, discussed case, and agree with decision making with Dr Islas. Breathing feeling better again, nebs helped. Vitals noted, lungs clear to auscultation bilaterally no rales rhonchi or wheezes good effort. Skin shows no rashes pallor or icterus. Hyperglycemic dehydrationimproved Systolic CHFfluids of been held, cautiously resume Lasix tomorrow Uncontrolled type 2 [id number] is running good, so this is almost certainly all acute. Continue insulin management for now, but hopefully will be other center, nothing beyond her regular metformin. Otherwise as above Subjective Kathleen states she feels improved overall from yesterday. She states her breathing has not worsened. She would like to stay for another day to get more treatment and to get therapy prior to returning home. She denies chest pain, nausea, vomiting, fever, chills, diarrhea. Physical Exam 2 Vital Signs (Past 24 Hours): Last Vital Signs Temp 36.5 C 03/04/18 15:38 Pulse 78 03/04/18 15:38 Resp 20 03/04/18 15:38 BP 116/69 03/04/18 15:38 Pulse Ox 99 03/04/18 15:38 Constitutional: + morbidly obese and cooperative Eyes: + anicteric sclerae and EOM intact bilaterally ENMT: Mouth: + edentulous Neck: normal visual inspection and trachea midline Respiratory: normal respiratory effort; no respiratory distress and does not use accessory muscles Auscultation: + diminished lung sounds Cardiovascular: Rate/Rhythm: regular rate and regular rhythm Extremities: + pedal edema Gastrointestinal (Abdomen): Inspection/Auscultation: normal bowel sounds Percussion/Palpation: no guarding and abdomen not rigid Musculoskeletal: Head/Neck/Chest: normocephalic and head atraumatic Neurologic: moves all extremities and awake Psychiatric: A+Ox3, euthymic affect Results & Data Laboratory Results Laboratory Results - last 24 hr 03/03/18 03/04/18 03/04/18 20:22 00:25 04:35 Sodium Potassium Chloride Carbon Dioxide Anion Gap BUN Creatinine Est Cr Clr Drug Dosing Est GFR ( Amer) Est GFR (Non-Af Amer) BUN/Creatinine Ratio Glucose POC Glucose 305 H 164 H 165 H Calcium 03/04/18 03/04/18 03/04/18 06:13 07:40 11:53 Sodium 140 Potassium 3.3 L Chloride 106 Carbon Dioxide 27 Anion Gap 7.0 BUN 11 Creatinine 1.19 Est Cr Clr Drug Dosing 61.8 Est GFR ( Amer) 53.9 Est GFR (Non-Af Amer) 46.5 BUN/Creatinine Ratio 9.2 L Glucose 190 H POC Glucose 177 H 323 H Calcium 8.9 03/04/18 16:16 Sodium Potassium Chloride Carbon Dioxide Anion Gap BUN Creatinine Est Cr Clr Drug Dosing Est GFR ( Amer) Est GFR (Non-Af Amer) BUN/Creatinine Ratio Glucose POC Glucose 234 H Calcium Medications Administered Acetaminophen (Tylenol) 1,000 mg PO BID PRN PRN Reason: Pain Stop: 04/02/18 01:44 Last Admin: 03/03/18 15:57 Dose: 1,000 mg Albuterol (Ventolin 0.083% 2.5mg/3ml) 2.5 mg INH Q4H PRN PRN Reason: Shortness Of Breath Or Wheezing Stop: 04/02/18 01:44 Last Admin: 03/03/18 17:43 Dose: 2.5 mg Aspirin (Ecotrin) 81 mg PO DAILY [facility] Stop: 04/02/18 08:59 Last Admin: 03/04/18 08:13 Dose: 81 mg Admin: 03/03/18 08:43 Dose: 81 mg Budesonide/Formoterol Fumarate (Symbicort 160mcg/4.5mcg) 2 puffs INH BID [facility] Stop: 04/02/18 08:59 Last Admin: 03/04/18 08:13 Dose: 2 puffs Admin: 03/03/18 21:56 Dose: 2 puffs Admin: 03/03/18 08:43 Dose: 2 puffs Gabapentin (Neurontin) 300 mg PO TID [facility] Stop: 04/02/18 08:59 Last Admin: 03/04/18 12:44 Dose: 300 mg Admin: 03/04/18 08:11 Dose: 300 mg Admin: 03/03/18 21:56 Dose: 300 mg Admin: 03/03/18 12:44 Dose: 300 mg Admin: 03/03/18 08:43 Dose: 300 mg HCTZ/Spironolactone (Aldactazide 25/25) 1 tab PO DAILY [facility] Stop: 04/02/18 08:59 Last Admin: 03/04/18 08:12 Dose: 1 tab Admin: 03/03/18 08:43 Dose: 1 tab Heparin Sodium (Porcine) (Heparin Sodium (Porcine)) 5,000 units SQ Q8 [facility] Stop: 04/02/18 07:59 Last Admin: 03/04/18 12:44 Dose: 5,000 units Admin: 03/04/18 05:51 Dose: 5,000 units Admin: 03/03/18 21:58 Dose: 5,000 units Admin: 03/03/18 12:43 Dose: 5,000 units Admin: 03/03/18 08:51 Dose: 5,000 units Ciprofloxacin (Cipro) 400 mg in 200 mls @ 100 mls/hr IV Q12H [facility] Stop: 03/08/18 09:59 Last Infusion: 03/04/18 10:44 Dose: 0 mls/hr Admin: 03/04/18 08:21 Dose: 100 mls/hr Infusion: 03/04/18 01:17 Dose: 0 mls/hr Infusion: 03/03/18 22:50 Dose: 100 mls/hr Infusion: 03/03/18 22:08 Dose: 0 mls/hr Admin: 03/03/18 21:58 Dose: 100 mls/hr Infusion: 03/03/18 12:01 Dose: 0 mls/hr Admin: 03/03/18 09:09 Dose: 100 mls/hr Insulin Aspart (Novolog Flexpen) 0 units SC ACHS [facility] Stop: 04/02/18 07:29 Last Admin: 03/04/18 17:10 Dose: 11 units Admin: 03/04/18 12:45 Dose: 13 units Admin: 03/04/18 08:14 Dose: 8 units Admin: 03/03/18 21:53 Dose: 7 units Admin: 03/03/18 17:20 Dose: 9 units Admin: 03/03/18 12:42 Dose: 9 units Admin: 03/03/18 08:53 Dose: 12 units Insulin Glargine (Lantus) 20 units SC HS [facility] Stop: 04/02/18 20:59 Last Admin: 03/03/18 21:55 Dose: 20 units Isosorbide Mononitrate (Imdur Extended Rel) 30 mg PO DAILY [facility] Stop: 04/02/18 08:59 Last Admin: 03/04/18 08:11 Dose: 30 mg Admin: 03/03/18 08:43 Dose: 30 mg Lisinopril (Zestril) 10 mg PO DAILY [facility] Stop: 04/02/18 08:59 Last Admin: 03/04/18 08:12 Dose: 10 mg Admin: 03/03/18 08:43 Dose: 10 mg Lorazepam (Ativan) 1 mg PO HS [facility] Stop: 04/02/18 20:59 Last Admin: 03/03/18 21:53 Dose: 1 mg Montelukast Sodium (Singulair) 10 mg PO HS [facility] Stop: 04/02/18 20:59 Last Admin: 03/03/18 21:55 Dose: 10 mg Pantoprazole Sodium (Protonix) 40 mg PO DAILY [facility] Stop: 04/02/18 08:59 Last Admin: 03/04/18 08:11 Dose: 40 mg Admin: 03/03/18 08:42 Dose: 40 mg Rosuvastatin Calcium (Crestor) 40 mg PO [facility] Stop: 04/02/18 20:59 Last Admin: 03/03/18 21:55 Dose: 40 mg Theophylline (Theophylline Er) 400 mg PO BID [facility] Stop: 04/02/18 08:59 Last Admin: 03/04/18 08:10 Dose: 400 mg Admin: 03/03/18 21:57 Dose: 400 mg Admin: 03/03/18 08:43 Dose: 400 mg Tramadol HCl (Ultram) 100 mg PO BID [facility] Stop: 04/02/18 08:59 Last Admin: 03/04/18 08:21 Dose: 100 mg Admin: 03/03/18 21:56 Dose: 100 mg Admin: 03/03/18 08:50 Dose: 100 mg Trazodone HCl (Desyrel) 100 mg PO [facility] Stop: 04/02/18 20:59 Last Admin: 03/03/18 21:56 Dose: 100 mg Venlafaxine HCl (Effexor Extended Release) 75 mg PO [facility] Stop: 04/02/18 20:59 Last Admin: 03/03/18 21:56 Dose: 75 mg _ (1) Diabetes mellitus Chronic kidney disease stage: Diabetes mellitus complication detail: with polyneuropathy Diabetes mellitus complication status: with neurologic complications 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 transplanted heart: [place] heart Qualified Code(s): I25.119 - Atherosclerotic heart disease of [place] coronary artery with unspecified angina pectoris (3) CHF (congestive heart failure) Heart failure chronicity: acute Heart failure type: unspecified Qualified Code(s): I50.9 - Heart failure, unspecified
[2018-03-04] MEDS ORDERED: guaiFENesin 600 MG TABCR PO PRN (18:30)
[2018-03-04] MEDS: MAGNESIUM HYDROXIDE SUSP 30 ML UDC PO PRN (18:34)
[2018-03-04] MEDS: VENLAFAXINE HCL XR 75 MG CAPXR PO SCH (20:45)
[2018-03-04] MEDS: ROSUVASTATIN CALCIUM 20 MG TAB PO SCH (20:46)
[2018-03-04] MEDS: TRAZODONE HCL 50 MG TAB PO SCH (20:46)
[2018-03-04] MEDS: MONTELUKAST SODIUM 10 MG TABLET PO SCH (20:47)
[2018-03-04] MEDS ORDERED: INSULIN GLARGINE SOLOSTAR 100 UNITS/ML 3 ML PEN SC SCH (21:00)
[2018-03-04] MEDS: LORazepam 1 MG TAB PO SCH (21:14)
[2018-03-04] MEDS: INSULIN GLARGINE 100 UNIT/ML VIAL SC SCH (21:23)
[2018-03-05] MEDS: HEPARIN SOD 5,000 UNIT/0.5 ML VIAL SQ SCH ×3 (05:32→21:18)
[2018-03-05 08:12] LABS: Basophils # (auto) 0.01 K/uL (0-0.2); Basophils % (auto) 0.1 %; Eosinophils # (auto) 0.11 K/uL (0-0.5); Eosinophils % (auto) 1.4 %; Hematocrit (blood only) 38.4 % (37-47); Hemoglobin 12.6 g/dL (12.0-16.0); Immature Granulocytes # (auto) 0.12 K/uL (0.00-0.02); Immature Granulocytes % (auto) 1.5 %; Lymphocytes # (auto) 2.18 K/uL (1.2-3.4); Lymphocytes % (auto) 27.4 %; Mean Corpuscular Hgb Conc 32.8 g/dL (32-36); Mean Corpuscular Volume 84.6 fL (80-100); Mean Platelet Volume 8.9 fL (7.4-10.4); Monocytes # (auto) 0.53 K/uL (0.11-0.59); Monocytes % (auto) 6.6 %; Neutrophils # (auto) 5.02 K/uL (1.4-6.5); Platelet Count 209 K/uL (130-400); RDW Coefficient of Variation 17.5 % (11.5-14.5); RDW Standard Deviation 54.2 fL (36.4-46.3); Red Blood Count 4.54 M/uL (4.2-5.4); White Blood Count 7.97 K/uL (4.8-10.8)
[2018-03-05] MEDS: INSULIN ASPART 100 UNITS/ML 3 ML PEN SC SCH ×4 (08:53→21:16)
[2018-03-05] MEDS: ISOSORBIDE MONO EXTENDED REL 30 MG TABCR PO SCH (08:54)
[2018-03-05] MEDS: FUROSEMIDE 20 MG TAB PO SCH (08:54)
[2018-03-05] MEDS: SPIRONOLACTONE/HCTZ 25-25 PO SCH (08:54)
[2018-03-05] MEDS: ASPIRIN 81 MG ECTAB PO SCH (08:54)
[2018-03-05] MEDS: THEOPHYLLINE 400 MG EXTENDED REL TAB PO SCH ×2 (08:55→21:11)
[2018-03-05] MEDS: BUDESONIDE/FORMOTEROL FUMARATE 160/4.5 60 PUFFS/INHALER INH SCH ×2 (08:55→21:11)
[2018-03-05] MEDS: PANTOprazole 40 MG TAB PO SCH (08:55)
[2018-03-05] MEDS: GABAPENTIN 300 MG CAP PO SCH ×3 (08:55→21:11)
[2018-03-05] MEDS: LISINOPRIL 10 MG TAB PO SCH (08:56)
[2018-03-05] MEDS: TRAMADOL HCL 50 MG TABLET PO SCH ×2 (09:00→21:08)
[2018-03-05 09:02] LABS: BUN Creatinine Ratio 8.3 (10-20); Calcium 8.9 mg/dl (8.5-10.1); Creatinine Clr Calc Pharmacy 46.2 ml/min; Est GFR (African American) 37.7; Est GFR (Non-African American) 32.5; Potassium 3.9 mmol/L (3.5-5.1)
--- NOTE | 2018-03-05 15:51 | Family Medicine Progress Note ---
Date of Service March 05, 2018 Assessment & Plan (1) Hyperglycemia: - likely secondary to Prednisone - 22 units of lantus plus changed Novolog 1:5 and CF 15 - Prednisone has been stopped - hold metformin - will reeval in morning - do not think she will need home insulin, she was well controlled prior to starting prednisone for bronchitis on COPD - IV fluids stopped - PT/OT - discontinued telemetry and transferred to med/surg (2) UTI (urinary tract infection): - patient with UTI symptoms including dysuria and was started on Fluroquinolone on admit pending cultures - CT ab/pelvis with no acute disease process - however, UA was contaminated and was waiting for urine culture which showed more than three types of organisms present, all moderate counts mixed probable skin agnieszka, will D/C antibiotics to avoid adverse effects - was treated with fluconazole one time dose 150mg on admit, dysuria could be from yeast infection vs dehydration (3) Abdominal pain: - CT abdomen/pelvis shows no acute disease process - most likely from hyperglycemia and fluid loss - no complaints today (4) CHF (congestive heart failure): - currently stable on 3L - patient without significant overload on exam - hold lasix and lisinopril due to JAIMEE - Echo 2016 - EF 60-65%; grade I diastolic dysfunction; septal motion with RV volume overload. (5) CAD (coronary artery disease): - Heart catheterization January 2017 - one vessel disease without intervention. - continue aspirin - continue isosorbide mononitrate (6) COPD (chronic obstructive pulmonary disease): - continue home inhalers and home meds - continue O2 via nasal cannula - maintain 88-92% - will stop home steroid taper considering patients lungs sounds good and CXR normal (7) Diabetes mellitus: - per above "hyperglycemia" (8) JAIMEE (acute kidney injury): - resolved with normal creatinine today at 1.19 - likely pre-renal and secondary to diabetes - oral fluids - monitor I/O's - daily bmp (9) Depression: - continue venlafaxine (10) Yeast infection: - treated w/ fluconazole one time dose 150mg (11) Peripheral neuropathy: - continue gabapentin (12) DVT prophylaxis: - heparin subq q8 Dispo - lives alone and ambulates with motorized wheelchair Full Code Supervising Physician Co-Signing Physician Notes I personally examined the patient and verified all andujar points of history and exam, discussed case, and agree with decision making with Dr Islas. She is generally feeling okay, just waiting on SNF placement. Her breathing is feeling good. Vitals noted, in general she is in no acute distress, HEENT normocephalic atraumatic mucous members are moist. Breathing is unlabored no accessory muscle use good effort. Hyperglycemic dehydrationimproved Systolic CHFfluids of been held, cautiously resumed Lasix and seems to be doing well Uncontrolled type 2 [id number] is running good, so this is almost certainly all acute. Continue insulin management for now, but barring any surprises in her sugar management, more than likely at discharge will be able to reduce her to her regular home regimens. Abnormal UAmore than likely mostly contaminanther culture was negative and antibiotics of been stopped. Given that she is not floridly symptomatic, the yeast is more than likely a contaminant as well, although she was given a dose of fluconazole at admission. Otherwise as above Subjective Kathleen is feeling improved today. She would like to go to acute rehab to improve her function at home and gain strength lost with illness. Referral placed and pending. She denies chest pain, states breathing is improved. Physical Exam 2 Vital Signs (Past 24 Hours): Last Vital Signs Temp 36.7 C 03/05/18 14:32 Pulse 82 03/05/18 14:32 Resp 18 03/05/18 14:32 BP 117/65 03/05/18 14:32 Pulse Ox 98 03/05/18 14:32 Constitutional: + morbidly obese and cooperative Eyes: + anicteric sclerae and EOM intact bilaterally ENMT: Mouth: + edentulous Neck: normal visual inspection and trachea midline Respiratory: normal respiratory effort; no respiratory distress and does not use accessory muscles Auscultation: + diminished lung sounds Cardiovascular: Rate/Rhythm: regular rate and regular rhythm Extremities: + pedal edema Gastrointestinal (Abdomen): Inspection/Auscultation: normal bowel sounds Percussion/Palpation: no guarding Musculoskeletal: Head/Neck/Chest: normocephalic and head atraumatic Neurologic: moves all extremities and awake Psychiatric: A+Ox3, euthymic affect _ (1) Diabetes mellitus Chronic kidney disease stage: Diabetes mellitus complication detail: with polyneuropathy Diabetes mellitus complication status: with neurologic complications 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 transplanted heart: [place] heart Qualified Code(s): I25.119 - Atherosclerotic heart disease of [place] coronary artery with unspecified angina pectoris (3) CHF (congestive heart failure) Heart failure chronicity: acute Heart failure type: unspecified Qualified Code(s): I50.9 - Heart failure, unspecified
[2018-03-05] MEDS ORDERED: INSULIN GLARGINE SOLOSTAR 100 UNITS/ML 3 ML PEN SC SCH (21:00)
[2018-03-05] MEDS: LORazepam 1 MG TAB PO SCH (21:10)
[2018-03-05] MEDS: VENLAFAXINE HCL XR 75 MG CAPXR PO SCH (21:11)
[2018-03-05] MEDS: ROSUVASTATIN CALCIUM 20 MG TAB PO SCH (21:12)
[2018-03-05] MEDS: TRAZODONE HCL 50 MG TAB PO SCH (21:13)
[2018-03-05] MEDS: MONTELUKAST SODIUM 10 MG TABLET PO SCH (21:13)
[2018-03-06] MEDS: HEPARIN SOD 5,000 UNIT/0.5 ML VIAL SQ SCH ×3 (05:44→20:27)
[2018-03-06] MEDS: ACETAMINOPHEN 500 MG TAB PO PRN (06:14)
[2018-03-06 07:52] LABS: Basophils # (auto) 0.01 K/uL (0-0.2); Basophils % (auto) 0.1 %; Eosinophils # (auto) 0.13 K/uL (0-0.5); Eosinophils % (auto) 1.9 %; Hematocrit (blood only) 32.8 % (37-47); Hemoglobin 10.9 g/dL (12.0-16.0); Immature Granulocytes # (auto) 0.08 K/uL (0.00-0.02); Immature Granulocytes % (auto) 1.2 %; Lymphocytes # (auto) 2.18 K/uL (1.2-3.4); Lymphocytes % (auto) 32.5 %; Mean Corpuscular Hgb Conc 33.2 g/dL (32-36); Mean Corpuscular Volume 84.1 fL (80-100); Mean Platelet Volume 9.6 fL (7.4-10.4); Monocytes # (auto) 0.72 K/uL (0.11-0.59); Monocytes % (auto) 10.7 %; Neutrophils # (auto) 3.59 K/uL (1.4-6.5); Neutrophils % (auto) 53.6 %; Platelet Count 193 K/uL (130-400); RDW Coefficient of Variation 17.7 % (11.5-14.5); RDW Standard Deviation 54.5 fL (36.4-46.3); White Blood Count 6.71 K/uL (4.8-10.8)
[2018-03-06 08:27] LABS: Calcium 8.8 mg/dl (8.5-10.1); Creatinine Clr Calc Pharmacy 52.1 ml/min; Est GFR (African American) 43.6; Est GFR (Non-African American) 37.6; Potassium 3.6 mmol/L (3.5-5.1)
[2018-03-06] MEDS: TRAMADOL HCL 50 MG TABLET PO SCH ×2 (08:55→20:30)
[2018-03-06] MEDS: BUDESONIDE/FORMOTEROL FUMARATE 160/4.5 60 PUFFS/INHALER INH SCH ×2 (08:59→20:25)
[2018-03-06] MEDS: THEOPHYLLINE 400 MG EXTENDED REL TAB PO SCH ×2 (08:59→20:25)
[2018-03-06] MEDS: GABAPENTIN 300 MG CAP PO SCH ×3 (09:00→20:24)
[2018-03-06] MEDS ORDERED: INSULIN GLARGINE SOLOSTAR 100 UNITS/ML 3 ML PEN SC SCH ×2 (09:00→21:00)
[2018-03-06] MEDS: ASPIRIN 81 MG ECTAB PO SCH (09:01)
[2018-03-06] MEDS: ISOSORBIDE MONO EXTENDED REL 30 MG TABCR PO SCH (09:01)
[2018-03-06] MEDS: LISINOPRIL 10 MG TAB PO SCH (09:01)
[2018-03-06] MEDS: SPIRONOLACTONE/HCTZ 25-25 PO SCH (09:01)
[2018-03-06] MEDS: PANTOprazole 40 MG TAB PO SCH (09:01)
[2018-03-06] MEDS: FUROSEMIDE 20 MG TAB PO SCH (09:02)
[2018-03-06] MEDS: INSULIN ASPART 100 UNITS/ML 3 ML PEN SC SCH ×4 (09:08→20:31)
[2018-03-06] MEDS ORDERED: DICLOFENAC SOD 1% GEL 100 GM TUBE EXT PRN (10:45)
--- NOTE | 2018-03-06 12:06 | Family Medicine Progress Note ---
Date of Service March 06, 2018 Assessment & Plan (1) Hyperglycemia: - likely secondary to Prednisone - 15 units of lantus plus changed Novolog 1:5 and CF 15 - hold metformin - will reeval in morning - do not think she will need home insulin, she was well controlled prior to starting prednisone for bronchitis on COPD - IV fluids not currently needed - PT/OT - dispo pending acute rehab referral (2) UTI (urinary tract infection): Resolved - patient with UTI symptoms including dysuria and was started on Fluroquinolone on admit pending cultures - CT ab/pelvis with no acute disease process - however, UA was contaminated and was waiting for urine culture which showed more than three types of organisms present, all moderate counts mixed probable skin agnieszka, will D/C antibiotics to avoid adverse effects - was treated with fluconazole one time dose 150mg on admit, dysuria could be from yeast infection vs dehydration (3) Abdominal pain: Resolved - CT abdomen/pelvis shows no acute disease process - most likely from hyperglycemia and fluid loss - no complaints today (4) CHF (congestive heart failure): - currently stable on 3L - patient without significant overload on exam - hold lasix and lisinopril due to JAIMEE - Echo 2016 - EF 60-65%; grade I diastolic dysfunction; septal motion with RV volume overload. (5) CAD (coronary artery disease): - Heart catheterization January 2017 - one vessel disease without intervention. - continue aspirin - continue isosorbide mononitrate (6) COPD (chronic obstructive pulmonary disease): - continue home inhalers and home meds - continue O2 via nasal cannula - maintain 88-92% (7) Diabetes mellitus: - per above "hyperglycemia" (8) JAIMEE (acute kidney injury): - resolved with normal creatinine today at 1.19 on 03/04 - today 1.42, but do not consider there is re-injury, could be close to her usual baseline, will continue to monitor - likely pre-renal and secondary to diabetes on admission - oral fluids - monitor I/O's - daily bmp (9) Depression: - continue venlafaxine (10) Yeast infection: - treated w/ fluconazole one time dose 150mg (11) Peripheral neuropathy: - continue gabapentin (12) DVT prophylaxis: - heparin subq q8 Dispo - lives alone and ambulates with motorized wheelchair Full Code Supervising Physician Co-Signing Physician Notes I personally examined the patient and verified all andujar points of history and exam, discussed case, and agree with decision making with Dr Islas. She is generally feeling okay, just waiting on SNF placement. Her breathing is feeling good. Sugars are still a bit more elevated than we but we are adjusting insulins. Her main complaint today is actually that of low back pain. It is mostly in her right lower back towards her buttock and hip, it does not radiate down her leg. She notes she has a history of disc bulges and that injections used to help but not anymore. It is unclear if she ever had a more classically radicular pattern. Vitals noted, in general she is in no acute distress, HEENT normocephalic atraumatic mucous members are moist. Breathing is unlabored no accessory muscle use good effort. Osteopathic structural exam is somewhat difficult, but does show her pelvic musculature on the right to be high tone with a bit of a painful range of motion, with the range of motion tested predominantly being that such as piriformis. Post isometric relaxation muscle energy was done x3 repetitions with some improvement in range of motion, patient tolerated well. Hyperglycemic dehydrationimproved Systolic CHFfluids of been held, cautiously resumed Lasix and seems to be doing well, her creatinine did bump from yesterday, we will continue to follow this closely. If it rises further we will hold her Lasix for now given that her eating habits probably entail far less sodium Uncontrolled type 2 [id number] is running good, so this is almost certainly all acute. Continue to titrate insulin management for now, but barring any surprises in her sugar management, more than likely at discharge will be able to reduce her to her regular home regimens. Or at least be able to fall back to her home regimen in the near future. Abnormal UAmore than likely mostly contaminanther culture was negative and antibiotics of been stopped. Given that she is not floridly symptomatic, the yeast is more than likely a contaminant as well, although she was given a dose of fluconazole at admission. Low back paindespite her disc disease her history and physical on this seem much more consistent with muscular pain at this point in time. She probably has both disc disease and muscular pain as causes of her back pain. Brandon jaimes, consider referral to Dr. Taylor for OMT as an outpatient after she is discharged from SNF. Somatic dysfunction pelvisOMT as above Otherwise as above Subjective Kathleen had no acute events overnight. Referral placed and pending for skilled rehab. She denies chest pain, states breathing is improved. Physical Exam 2 Vital Signs (Past 24 Hours): Last Vital Signs Temp 37.1 C 03/06/18 07:11 Pulse 68 03/06/18 07:11 Resp 18 03/06/18 07:11 BP 112/61 03/06/18 07:11 Pulse Ox 98 03/06/18 07:11 Constitutional: + morbidly obese and cooperative Eyes: + anicteric sclerae and EOM intact bilaterally ENMT: Mouth: + edentulous Neck: normal visual inspection and trachea midline Respiratory: normal respiratory effort; no respiratory distress and does not use accessory muscles Cardiovascular: Rate/Rhythm: regular rate and regular rhythm Extremities: + pedal edema Musculoskeletal: Head/Neck/Chest: normocephalic and head atraumatic Neurologic: moves all extremities and awake Psychiatric: A+Ox3, euthymic affect Results & Data Laboratory Results Laboratory Results - last 24 hr 03/05/18 03/05/18 03/06/18 16:40 20:26 07:05 WBC 6.71 RBC 3.90 L Hgb 10.9 L Hct 32.8 L MCV 84.1 MCH 27.9 MCHC 33.2 RDW Std Deviation 54.5 H RDW Coeff of Robert 17.7 H Plt Count 193 MPV 9.6 Immature Gran % (Auto) 1.2 Neut % (Auto) 53.6 Lymph % (Auto) 32.5 Cherry % (Auto) 10.7 Eos % (Auto) 1.9 Baso % (Auto) 0.1 Immature Gran # (Auto) 0.08 H Neut # (Auto) 3.59 Lymph # (Auto) 2.18 Cherry # (Auto) 0.72 H Eos # (Auto) 0.13 Baso # (Auto) 0.01 Sodium Potassium Chloride Carbon Dioxide Anion Gap BUN Creatinine Est Cr Clr Drug Dosing Est GFR ( Amer) Est GFR (Non-Af Amer) BUN/Creatinine Ratio Glucose POC Glucose 257 H 249 H Calcium 03/06/18 03/06/18 03/06/18 07:05 07:32 11:36 WBC RBC Hgb Hct MCV MCH MCHC RDW Std Deviation RDW Coeff of Robert Plt Count MPV Immature Gran % (Auto) Neut % (Auto) Lymph % (Auto) Cherry % (Auto) Eos % (Auto) Baso % (Auto) Immature Gran # (Auto) Neut # (Auto) Lymph # (Auto) Cherry # (Auto) Eos # (Auto) Baso # (Auto) Sodium 137 Potassium 3.6 Chloride 101 Carbon Dioxide 27 Anion Gap 8.0 BUN 17 Creatinine 1.42 H Est Cr Clr Drug Dosing 52.1 Est GFR ( Amer) 43.6 Est GFR (Non-Af Amer) 37.6 BUN/Creatinine Ratio 12.0 Glucose 179 H POC Glucose 175 H 294 H Calcium 8.8 Medications Administered Acetaminophen (Tylenol) 1,000 mg PO BID PRN PRN Reason: Pain Stop: 04/02/18 01:44 Last Admin: 03/06/18 06:14 Dose: 1,000 mg Admin: 03/03/18 15:57 Dose: 1,000 mg Albuterol (Ventolin 0.083% 2.5mg/3ml) 2.5 mg INH Q4H PRN PRN Reason: Shortness Of Breath Or Wheezing Stop: 04/02/18 01:44 Last Admin: 03/03/18 17:43 Dose: 2.5 mg Aspirin (Ecotrin) 81 mg PO DAILY [facility] Stop: 04/02/18 08:59 Last Admin: 03/06/18 09:01 Dose: 81 mg Admin: 03/05/18 08:54 Dose: 81 mg Admin: 03/04/18 08:13 Dose: 81 mg Admin: 03/03/18 08:43 Dose: 81 mg Budesonide/Formoterol Fumarate (Symbicort 160mcg/4.5mcg) 2 puffs INH BID [facility] Stop: 04/02/18 08:59 Last Admin: 03/06/18 08:59 Dose: 2 puffs Admin: 03/05/18 21:11 Dose: 2 puffs Admin: 03/05/18 08:55 Dose: 2 puffs Admin: 03/04/18 20:47 Dose: 2 puffs Admin: 03/04/18 08:13 Dose: 2 puffs Admin: 03/03/18 21:56 Dose: 2 puffs Admin: 03/03/18 08:43 Dose: 2 puffs Furosemide (Lasix) 20 mg PO QAM [facility] Stop: 04/04/18 08:59 Last Admin: 03/06/18 09:02 Dose: 20 mg Admin: 03/05/18 08:54 Dose: 20 mg Gabapentin (Neurontin) 300 mg PO TID [facility] Stop: 04/02/18 08:59 Last Admin: 03/06/18 13:26 Dose: 300 mg Admin: 03/06/18 09:00 Dose: 300 mg Admin: 03/05/18 21:11 Dose: 300 mg Admin: 03/05/18 12:59 Dose: 300 mg Admin: 03/05/18 08:55 Dose: 300 mg Admin: 03/04/18 20:45 Dose: 300 mg Admin: 03/04/18 12:44 Dose: 300 mg Admin: 03/04/18 08:11 Dose: 300 mg Admin: 03/03/18 21:56 Dose: 300 mg Admin: 03/03/18 12:44 Dose: 300 mg Admin: 03/03/18 08:43 Dose: 300 mg HCTZ/Spironolactone (Aldactazide 25/25) 1 tab PO DAILY [facility] Stop: 04/02/18 08:59 Last Admin: 03/06/18 09:01 Dose: 1 tab Admin: 03/05/18 08:54 Dose: 1 tab Admin: 03/04/18 08:12 Dose: 1 tab Admin: 03/03/18 08:43 Dose: 1 tab Heparin Sodium (Porcine) (Heparin Sodium (Porcine)) 5,000 units SQ Q8 [facility] Stop: 04/02/18 07:59 Last Admin: 03/06/18 13:26 Dose: 5,000 units Admin: 03/06/18 05:44 Dose: 5,000 units Admin: 03/05/18 21:18 Dose: 5,000 units Admin: 03/05/18 12:58 Dose: 5,000 units Admin: 03/05/18 05:32 Dose: 5,000 units Admin: 03/04/18 21:14 Dose: 5,000 units Admin: 03/04/18 12:44 Dose: 5,000 units Admin: 03/04/18 05:51 Dose: 5,000 units Admin: 03/03/18 21:58 Dose: 5,000 units Admin: 03/03/18 12:43 Dose: 5,000 units Admin: 03/03/18 08:51 Dose: 5,000 units Insulin Aspart (Novolog Flexpen) 0 units SC ACHS [facility] Stop: 04/02/18 07:29 Last Admin: 03/06/18 12:33 Dose: 21 units Admin: 03/06/18 09:08 Dose: 18 units Admin: 03/05/18 21:16 Dose: 5 units Admin: 03/05/18 18:07 Dose: 23 units Admin: 03/05/18 12:57 Dose: 15 units Admin: 03/05/18 08:53 Dose: 7 units Admin: 03/04/18 21:15 Dose: Not Given Admin: 03/04/18 17:10 Dose: 11 units Admin: 03/04/18 12:45 Dose: 13 units Admin: 03/04/18 08:14 Dose: 8 units Admin: 03/03/18 21:53 Dose: 7 units Admin: 03/03/18 17:20 Dose: 9 units Admin: 03/03/18 12:42 Dose: 9 units Admin: 03/03/18 08:53 Dose: 12 units Insulin Glargine (Lantus Solostar Pen) 15 units SC DAILY [facility] Stop: 04/05/18 08:59 Last Admin: 03/06/18 09:07 Dose: 15 units Isosorbide Mononitrate (Imdur Extended Rel) 30 mg PO DAILY [facility] Stop: 04/02/18 08:59 Last Admin: 03/06/18 09:01 Dose: 30 mg Admin: 03/05/18 08:54 Dose: 30 mg Admin: 03/04/18 08:11 Dose: 30 mg Admin: 03/03/18 08:43 Dose: 30 mg Lisinopril (Zestril) 10 mg PO DAILY [facility] Stop: 04/02/18 08:59 Last Admin: 03/06/18 09:01 Dose: 10 mg Admin: 03/05/18 08:56 Dose: 10 mg Admin: 03/04/18 08:12 Dose: 10 mg Admin: 03/03/18 08:43 Dose: 10 mg Lorazepam (Ativan) 1 mg PO HS [facility] Stop: 04/02/18 20:59 Last Admin: 03/05/18 21:10 Dose: 1 mg Admin: 03/04/18 21:14 Dose: 1 mg Admin: 03/03/18 21:53 Dose: 1 mg Magnesium Hydroxide (Milk Of Magnesia) 30 ml PO Q12H PRN PRN Reason: Constipation Stop: 04/02/18 01:44 Last Admin: 03/04/18 18:34 Dose: 30 ml Montelukast Sodium (Singulair) 10 mg PO [facility] Stop: 04/02/18 20:59 Last Admin: 03/05/18 21:13 Dose: 10 mg Admin: 03/04/18 20:47 Dose: 10 mg Admin: 03/03/18 21:55 Dose: 10 mg Pantoprazole Sodium (Protonix) 40 mg PO DAILY [facility] Stop: 04/02/18 08:59 Last Admin: 03/06/18 09:01 Dose: 40 mg Admin: 03/05/18 08:55 Dose: 40 mg Admin: 03/04/18 08:11 Dose: 40 mg Admin: 03/03/18 08:42 Dose: 40 mg Rosuvastatin Calcium (Crestor) 40 mg PO [facility] Stop: 04/02/18 20:59 Last Admin: 03/05/18 21:12 Dose: 40 mg Admin: 03/04/18 20:46 Dose: 40 mg Admin: 03/03/18 21:55 Dose: 40 mg Theophylline (Theophylline Er) 400 mg PO BID [facility] Stop: 04/02/18 08:59 Last Admin: 03/06/18 08:59 Dose: 400 mg Admin: 03/05/18 21:11 Dose: 400 mg Admin: 03/05/18 08:55 Dose: 400 mg Admin: 03/04/18 20:47 Dose: 400 mg Admin: 03/04/18 08:10 Dose: 400 mg Admin: 03/03/18 21:57 Dose: 400 mg Admin: 03/03/18 08:43 Dose: 400 mg Tramadol HCl (Ultram) 100 mg PO BID [facility] Stop: 04/02/18 08:59 Last Admin: 03/06/18 08:55 Dose: 100 mg Admin: 03/05/18 21:08 Dose: 100 mg Admin: 03/05/18 09:00 Dose: 100 mg Admin: 03/04/18 21:14 Dose: 100 mg Admin: 03/04/18 08:21 Dose: 100 mg Admin: 03/03/18 21:56 Dose: 100 mg Admin: 03/03/18 08:50 Dose: 100 mg Trazodone HCl (Desyrel) 100 mg PO HS [facility] Stop: 04/02/18 20:59 Last Admin: 03/05/18 21:13 Dose: 100 mg Admin: 03/04/18 20:46 Dose: 100 mg Admin: 03/03/18 21:56 Dose: 100 mg Venlafaxine HCl (Effexor Extended Release) 75 mg PO HS [facility] Stop: 04/02/18 20:59 Last Admin: 03/05/18 21:11 Dose: 75 mg Admin: 03/04/18 20:45 Dose: 75 mg Admin: 03/03/18 21:56 Dose: 75 mg _ (1) Diabetes mellitus Chronic kidney disease stage: Diabetes mellitus complication detail: with polyneuropathy Diabetes mellitus complication status: with neurologic complications Diabetes mellitus intermediate insulin use: with termite inspector use Diabetes mellitus macular edema: Diabetes mellitus type: type 2 Diabetic retinopathy severity: Laterality: Proliferative retinopathy type: Qualified Code(s): E11.42 - Type 2 diabetes mellitus with diabetic polyneuropathy; Z79.4 - FPC (current) use of insulin (2) CAD (coronary artery disease) Associated angina: with unspecified angina Coronary Disease-Associated Artery /Lesion type: [place] artery [place] vs. transplanted heart: [place] heart Qualified Code(s): I25.119 - Atherosclerotic heart disease of [place] coronary artery with unspecified angina pectoris (3) CHF (congestive heart failure) Heart failure chronicity: acute Heart failure type: unspecified Qualified Code(s): I50.9 - Heart failure, unspecified
[2018-03-06] MEDS: DICLOFENAC SOD 1% GEL 100 GM TUBE EXT SCH ×2 (17:20→20:26)
[2018-03-06] MEDS: ROSUVASTATIN CALCIUM 20 MG TAB PO SCH (20:23)
[2018-03-06] MEDS: LORazepam 1 MG TAB PO SCH (20:23)
[2018-03-06] MEDS: VENLAFAXINE HCL XR 75 MG CAPXR PO SCH (20:24)
[2018-03-06] MEDS: TRAZODONE HCL 50 MG TAB PO SCH (20:24)
[2018-03-06] MEDS: MONTELUKAST SODIUM 10 MG TABLET PO SCH (20:25)
[2018-03-07] MEDS: HEPARIN SOD 5,000 UNIT/0.5 ML VIAL SQ SCH ×3 (05:43→20:56)
[2018-03-07 07:20] LABS: BUN Creatinine Ratio 13.4 (10-20); Calcium 9.1 mg/dl (8.5-10.1); Creatinine Clr Calc Pharmacy 40.4 ml/min; Est GFR (African American) 32.1; Est GFR (Non-African American) 27.7; Potassium 3.7 mmol/L (3.5-5.1)
--- NOTE | 2018-03-07 07:44 | Family Medicine Progress Note ---
Date of Service March 07, 2018 Assessment & Plan (1) Hyperglycemia: - likely secondary to Prednisone - 15 units of lantus plus changed Novolog 1:5 and CF 15 - hold metformin - will reeval in morning - do not think she will need home insulin, she was well controlled prior to starting prednisone for bronchitis on COPD - IV fluids not currently needed - PT/OT - dispo pending acute rehab referral (2) UTI (urinary tract infection): Resolved - patient with UTI symptoms including dysuria and was started on Fluroquinolone on admit pending cultures - CT ab/pelvis with no acute disease process - however, UA was contaminated and was waiting for urine culture which showed more than three types of organisms present, all moderate counts mixed probable skin agnieszka, will D/C antibiotics to avoid adverse effects - was treated with fluconazole one time dose 150mg on admit, dysuria could be from yeast infection vs dehydration (3) Abdominal pain: Resolved - CT abdomen/pelvis shows no acute disease process - most likely from hyperglycemia and fluid loss - no complaints today (4) CHF (congestive heart failure): - currently stable on 3L - patient without significant overload on exam - hold lasix and lisinopril due to JAIMEE - Echo 2016 - EF 60-65%; grade I diastolic dysfunction; septal motion with RV volume overload. (5) CAD (coronary artery disease): - Heart catheterization January 2017 - one vessel disease without intervention. - continue aspirin - continue isosorbide mononitrate (6) COPD (chronic obstructive pulmonary disease): - continue home inhalers and home meds - continue O2 via nasal cannula - maintain 88-92% (7) Diabetes mellitus: - per above "hyperglycemia" (8) JAIMEE (acute kidney injury): - resolved with normal creatinine 1.19 on 03/04 - today 1.83, but do not consider there is re-injury, could be close to her usual baseline, will continue to monitor and will hold Lasix, will give 500cc of fluids today, she states she is drinking adequate water - likely pre-renal and secondary to diabetes on admission - oral fluids - monitor I/O's - daily bmp (9) Depression: - continue venlafaxine (10) Yeast infection: - treated w/ fluconazole one time dose 150mg (11) Peripheral neuropathy: - continue gabapentin (12) DVT prophylaxis: - heparin subq q8 Dispo - lives alone and ambulates with motorized wheelchair Full Code Supervising Physician Co-Signing Physician Notes I personally examined the patient and verified all andujar points of history and exam, discussed case, and agree with decision making with Dr Islas. No new complaints, waiting on SNF placement. Back pain is about the same. Sugars and creatinine noted. Vitals noted, in general she is in no acute distress, HEENT normocephalic atraumatic mucous members are moist. Breathing is unlabored no accessory muscle use good effort. Osteopathic structural exam is somewhat difficult, but does show her pelvic musculature on the right to be high tone with a bit of a painful range of motion, with the range of motion tested predominantly being that such as piriformis. Post isometric relaxation muscle energy was done x3 repetitions with some improvement in range of motion, patient tolerated well. She also was palpably tender in the soft tissue in the region of her right piriformis, ligamentous articular strain was done with some improvement in soft tissue texture. Patient tolerated this well too Hyperglycemic dehydrationimproved Systolic CHFfluids of been held, but it appears that with the resumption of her Lasix her creatinine is rising, we will hold this and follow. I suspect that given that she came in fairly dehydrated and we got her to euvolemic, she does not necessarily need her especially because I also suspect her diet is much more sodium controlled here. Elevated creatinine see above Uncontrolled type 2 [id number] is running good, so this is almost certainly all acute. Continuing to titrate insulins. Given her current need, she might actually need to use insulin for a little while at SNF before hopefully being able to feed back to her regular home regimen with lifestyle modification. Abnormal UAmore than likely mostly contaminanther culture was negative and antibiotics of been stopped. Given that she is not floridly symptomatic, the yeast is more than likely a contaminant as well, although she was given a dose of fluconazole at admission. Low back paindespite her disc disease her history and physical on this seem much more consistent with muscular pain at this point in time. She probably has both disc disease and muscular pain as causes of her back pain. Continue Voltaren gel, consider referral to Dr. Taylor for OMT as an outpatient after she is discharged from SNF. Somatic dysfunction pelvisOMT as above done again today Otherwise as above Subjective Kathleen had no acute events overnight, she does complain of feeling fatigued today. She states she is drinking adequate fluids. Referral placed and pending for skilled rehab. She denies chest pain, states breathing is improved. Physical Exam 2 Vital Signs (Past 24 Hours): Last Vital Signs Temp 36.9 C 03/07/18 07:09 Pulse 77 03/07/18 07:09 Resp 18 03/07/18 07:09 BP 146/64 H 03/07/18 07:09 Pulse Ox 98 03/07/18 07:09 Constitutional: + ill appearing, + morbidly obese and cooperative Eyes: + anicteric sclerae and EOM intact bilaterally ENMT: Mouth: + edentulous Neck: normal visual inspection and trachea midline Respiratory: normal respiratory effort; no respiratory distress and does not use accessory muscles Cardiovascular: Rate/Rhythm: regular rate and regular rhythm Extremities: + pedal edema Musculoskeletal: Head/Neck/Chest: normocephalic and head atraumatic Neurologic: moves all extremities and awake Psychiatric: A+Ox3, euthymic affect Results & Data Laboratory Results Laboratory Results - last 24 hr 03/06/18 03/06/18 03/07/18 16:29 19:31 06:39 Sodium 138 Potassium 3.7 Chloride 101 Carbon Dioxide 29 Anion Gap 8.0 BUN 25 H Creatinine 1.83 H D Est Cr Clr Drug Dosing 40.4 Est GFR ( Amer) 32.1 Est GFR (Non-Af Amer) 27.7 BUN/Creatinine Ratio 13.4 Glucose 202 H POC Glucose 190 H 133 H Calcium 9.1 03/07/18 03/07/18 07:31 11:08 Sodium Potassium Chloride Carbon Dioxide Anion Gap BUN Creatinine Est Cr Clr Drug Dosing Est GFR ( Amer) Est GFR (Non-Af Amer) BUN/Creatinine Ratio Glucose POC Glucose 210 H 218 H Calcium Medications Administered Acetaminophen (Tylenol) 1,000 mg PO BID PRN PRN Reason: Pain Stop: 04/02/18 01:44 Last Admin: 03/06/18 06:14 Dose: 1,000 mg Admin: 03/03/18 15:57 Dose: 1,000 mg Acetaminophen (Tylenol) 650 mg PO Q4H PRN PRN Reason: Pain or Fever Stop: 04/02/18 01:44 Last Admin: 03/07/18 12:06 Dose: 650 mg Albuterol (Ventolin 0.083% 2.5mg/3ml) 2.5 mg INH Q4H PRN PRN Reason: Shortness Of Breath Or Wheezing Stop: 04/02/18 01:44 Last Admin: 03/03/18 17:43 Dose: 2.5 mg Aspirin (Ecotrin) 81 mg PO DAILY [facility] Stop: 04/02/18 08:59 Last Admin: 03/07/18 08:21 Dose: 81 mg Admin: 03/06/18 09:01 Dose: 81 mg Admin: 03/05/18 08:54 Dose: 81 mg Admin: 03/04/18 08:13 Dose: 81 mg Admin: 03/03/18 08:43 Dose: 81 mg Budesonide/Formoterol Fumarate (Symbicort 160mcg/4.5mcg) 2 puffs INH BID [facility] Stop: 04/02/18 08:59 Last Admin: 03/07/18 08:20 Dose: 2 puffs Admin: 03/06/18 20:25 Dose: 2 puffs Admin: 03/06/18 08:59 Dose: 2 puffs Admin: 03/05/18 21:11 Dose: 2 puffs Admin: 03/05/18 08:55 Dose: 2 puffs Admin: 03/04/18 20:47 Dose: 2 puffs Admin: 03/04/18 08:13 Dose: 2 puffs Admin: 03/03/18 21:56 Dose: 2 puffs Admin: 03/03/18 08:43 Dose: 2 puffs Diclofenac Sodium (Voltaren 1% Top) 1 appln EXT QID [facility] Stop: 04/05/18 16:59 Last Admin: 03/07/18 12:03 Dose: 1 appln Admin: 03/07/18 08:26 Dose: 1 appln Admin: 03/06/18 20:26 Dose: 1 appln Admin: 03/06/18 17:20 Dose: 1 appln Furosemide (Lasix) 20 mg PO QAM [facility] Stop: 04/04/18 08:59 Last Admin: 03/06/18 09:02 Dose: 20 mg Admin: 03/05/18 08:54 Dose: 20 mg Gabapentin (Neurontin) 300 mg PO TID [facility] Stop: 04/02/18 08:59 Last Admin: 03/07/18 13:31 Dose: 300 mg Admin: 03/07/18 08:22 Dose: 300 mg Admin: 03/06/18 20:24 Dose: 300 mg Admin: 03/06/18 13:26 Dose: 300 mg Admin: 03/06/18 09:00 Dose: 300 mg Admin: 03/05/18 21:11 Dose: 300 mg Admin: 03/05/18 12:59 Dose: 300 mg Admin: 03/05/18 08:55 Dose: 300 mg Admin: 03/04/18 20:45 Dose: 300 mg Admin: 03/04/18 12:44 Dose: 300 mg Admin: 03/04/18 08:11 Dose: 300 mg Admin: 03/03/18 21:56 Dose: 300 mg Admin: 03/03/18 12:44 Dose: 300 mg Admin: 03/03/18 08:43 Dose: 300 mg HCTZ/Spironolactone (Aldactazide ) 1 tab PO DAILY [facility] Stop: 04/02/18 08:59 Last Admin: 03/07/18 08:22 Dose: 1 tab Admin: 03/06/18 09:01 Dose: 1 tab Admin: 03/05/18 08:54 Dose: 1 tab Admin: 03/04/18 08:12 Dose: 1 tab Admin: 03/03/18 08:43 Dose: 1 tab Heparin Sodium (Porcine) (Heparin Sodium (Porcine)) 5,000 units SQ Q8 [facility] Stop: 04/02/18 07:59 Last Admin: 03/07/18 13:31 Dose: 5,000 units Admin: 03/07/18 05:43 Dose: 5,000 units Admin: 03/06/18 20:27 Dose: 5,000 units Admin: 03/06/18 13:26 Dose: 5,000 units Admin: 03/06/18 05:44 Dose: 5,000 units Admin: 03/05/18 21:18 Dose: 5,000 units Admin: 03/05/18 12:58 Dose: 5,000 units Admin: 03/05/18 05:32 Dose: 5,000 units Admin: 03/04/18 21:14 Dose: 5,000 units Admin: 03/04/18 12:44 Dose: 5,000 units Admin: 03/04/18 05:51 Dose: 5,000 units Admin: 03/03/18 21:58 Dose: 5,000 units Admin: 03/03/18 12:43 Dose: 5,000 units Admin: 03/03/18 08:51 Dose: 5,000 units Sodium Chloride (Nss) 500 mls @ 125 mls/hr IV .Q4H ONE Stop: 03/07/18 15:04 Last Admin: 03/07/18 12:03 Dose: 125 mls/hr Insulin Aspart (Novolog Flexpen) 0 units SC ACHS [facility] Stop: 04/02/18 07:29 Last Admin: 03/07/18 12:09 Dose: 16 units Admin: 03/07/18 08:28 Dose: 17 units Admin: 03/06/18 20:31 Dose: Not Given Admin: 03/06/18 17:08 Dose: 16 units Admin: 03/06/18 12:33 Dose: 21 units Admin: 03/06/18 09:08 Dose: 18 units Admin: 03/05/18 21:16 Dose: 5 units Admin: 03/05/18 18:07 Dose: 23 units Admin: 03/05/18 12:57 Dose: 15 units Admin: 03/05/18 08:53 Dose: 7 units Admin: 03/04/18 21:15 Dose: Not Given Admin: 03/04/18 17:10 Dose: 11 units Admin: 03/04/18 12:45 Dose: 13 units Admin: 03/04/18 08:14 Dose: 8 units Admin: 03/03/18 21:53 Dose: 7 units Admin: 03/03/18 17:20 Dose: 9 units Admin: 03/03/18 12:42 Dose: 9 units Admin: 03/03/18 08:53 Dose: 12 units Insulin Glargine (Lantus Solostar Pen) 20 units SC DAILY [facility] Stop: 04/06/18 08:59 Last Admin: 03/07/18 08:25 Dose: 20 units Isosorbide Mononitrate (Imdur Extended Rel) 30 mg PO DAILY [facility] Stop: 04/02/18 08:59 Last Admin: 03/07/18 08:22 Dose: 30 mg Admin: 03/06/18 09:01 Dose: 30 mg Admin: 03/05/18 08:54 Dose: 30 mg Admin: 03/04/18 08:11 Dose: 30 mg Admin: 03/03/18 08:43 Dose: 30 mg Lisinopril (Zestril) 10 mg PO DAILY [facility] Stop: 04/02/18 08:59 Last Admin: 03/07/18 08:21 Dose: 10 mg Admin: 03/06/18 09:01 Dose: 10 mg Admin: 03/05/18 08:56 Dose: 10 mg Admin: 03/04/18 08:12 Dose: 10 mg Admin: 03/03/18 08:43 Dose: 10 mg Lorazepam (Ativan) 1 mg PO HS [facility] Stop: 04/02/18 20:59 Last Admin: 03/06/18 20:23 Dose: 1 mg Admin: 03/05/18 21:10 Dose: 1 mg Admin: 03/04/18 21:14 Dose: 1 mg Admin: 03/03/18 21:53 Dose: 1 mg Magnesium Hydroxide (Milk Of Magnesia) 30 ml PO Q12H PRN PRN Reason: Constipation Stop: 04/02/18 01:44 Last Admin: 03/07/18 08:19 Dose: 30 ml Admin: 03/04/18 18:34 Dose: 30 ml Montelukast Sodium (Singulair) 10 mg PO HS [facility] Stop: 04/02/18 20:59 Last Admin: 03/06/18 20:25 Dose: 10 mg Admin: 03/05/18 21:13 Dose: 10 mg Admin: 03/04/18 20:47 Dose: 10 mg Admin: 03/03/18 21:55 Dose: 10 mg Pantoprazole Sodium (Protonix) 40 mg PO DAILY [facility] Stop: 04/02/18 08:59 Last Admin: 03/07/18 08:22 Dose: 40 mg Admin: 03/06/18 09:01 Dose: 40 mg Admin: 03/05/18 08:55 Dose: 40 mg Admin: 03/04/18 08:11 Dose: 40 mg Admin: 03/03/18 08:42 Dose: 40 mg Rosuvastatin Calcium (Crestor) 40 mg PO HS [facility] Stop: 04/02/18 20:59 Last Admin: 03/06/18 20:23 Dose: 40 mg Admin: 03/05/18 21:12 Dose: 40 mg Admin: 03/04/18 20:46 Dose: 40 mg Admin: 03/03/18 21:55 Dose: 40 mg Theophylline (Theophylline Er) 400 mg PO BID [facility] Stop: 04/02/18 08:59 Last Admin: 03/07/18 08:20 Dose: 400 mg Admin: 03/06/18 20:25 Dose: 400 mg Admin: 03/06/18 08:59 Dose: 400 mg Admin: 03/05/18 21:11 Dose: 400 mg Admin: 03/05/18 08:55 Dose: 400 mg Admin: 03/04/18 20:47 Dose: 400 mg Admin: 03/04/18 08:10 Dose: 400 mg Admin: 03/03/18 21:57 Dose: 400 mg Admin: 03/03/18 08:43 Dose: 400 mg Tramadol HCl (Ultram) 100 mg PO BID [facility] Stop: 04/02/18 08:59 Last Admin: 03/07/18 08:19 Dose: 100 mg Admin: 03/06/18 20:30 Dose: 100 mg Admin: 03/06/18 08:55 Dose: 100 mg Admin: 03/05/18 21:08 Dose: 100 mg Admin: 03/05/18 09:00 Dose: 100 mg Admin: 03/04/18 21:14 Dose: 100 mg Admin: 03/04/18 08:21 Dose: 100 mg Admin: 03/03/18 21:56 Dose: 100 mg Admin: 03/03/18 08:50 Dose: 100 mg Trazodone HCl (Desyrel) 100 mg PO [facility] Stop: 04/02/18 20:59 Last Admin: 03/06/18 20:24 Dose: 100 mg Admin: 03/05/18 21:13 Dose: 100 mg Admin: 03/04/18 20:46 Dose: 100 mg Admin: 03/03/18 21:56 Dose: 100 mg Venlafaxine HCl (Effexor Extended Release) 75 mg PO [facility] Stop: 04/02/18 20:59 Last Admin: 03/06/18 20:24 Dose: 75 mg Admin: 03/05/18 21:11 Dose: 75 mg Admin: 03/04/18 20:45 Dose: 75 mg Admin: 03/03/18 21:56 Dose: 75 mg _ (1) Diabetes mellitus Chronic kidney disease stage: Diabetes mellitus complication detail: with polyneuropathy Diabetes mellitus complication status: with neurologic complications Diabetes mellitus fpc insulin use: with fpc use Diabetes mellitus macular edema: Diabetes mellitus type: type 2 Diabetic retinopathy severity: Laterality: Proliferative retinopathy type: Qualified Code(s): E11.42 - Type 2 diabetes mellitus with diabetic polyneuropathy; 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 transplanted heart: [place] heart Qualified Code(s): I25.119 - Atherosclerotic heart disease of [place] coronary artery with unspecified angina pectoris (3) CHF (congestive heart failure) Heart failure chronicity: acute Heart failure type: unspecified Qualified Code(s): I50.9 - Heart failure, unspecified
[2018-03-07] MEDS ORDERED: POLYETHYLENE (MIRALAX) 17 GM PACK PO PRN (07:54)
[2018-03-07] MEDS: TRAMADOL HCL 50 MG TABLET PO SCH ×2 (08:19→20:43)
[2018-03-07] MEDS: MAGNESIUM HYDROXIDE SUSP 30 ML UDC PO PRN (08:19)
[2018-03-07] MEDS: THEOPHYLLINE 400 MG EXTENDED REL TAB PO SCH ×2 (08:20→20:44)
[2018-03-07] MEDS: BUDESONIDE/FORMOTEROL FUMARATE 160/4.5 60 PUFFS/INHALER INH SCH ×2 (08:20→20:46)
[2018-03-07] MEDS: LISINOPRIL 10 MG TAB PO SCH (08:21)
[2018-03-07] MEDS: ASPIRIN 81 MG ECTAB PO SCH (08:21)
[2018-03-07] MEDS: SPIRONOLACTONE/HCTZ 25-25 PO SCH (08:22)
[2018-03-07] MEDS: GABAPENTIN 300 MG CAP PO SCH ×3 (08:22→20:43)
[2018-03-07] MEDS: ISOSORBIDE MONO EXTENDED REL 30 MG TABCR PO SCH (08:22)
[2018-03-07] MEDS: PANTOprazole 40 MG TAB PO SCH (08:22)
[2018-03-07] MEDS: DICLOFENAC SOD 1% GEL 100 GM TUBE EXT SCH ×4 (08:26→20:46)
[2018-03-07] MEDS: INSULIN ASPART 100 UNITS/ML 3 ML PEN SC SCH ×4 (08:28→20:56)
[2018-03-07] MEDS ORDERED: INSULIN GLARGINE SOLOSTAR 100 UNITS/ML 3 ML PEN SC SCH ×2 (09:00→21:00)
[2018-03-07] MEDS ORDERED: SODIUM CHLORIDE 0.9% 500 ML IV ONE (11:05)
[2018-03-07] MEDS ORDERED: PHARMACY GLYCEMIC MGMT CONSULT PRN (18:00)
[2018-03-07] MEDS: LORazepam 1 MG TAB PO SCH (20:43)
[2018-03-07] MEDS: VENLAFAXINE HCL XR 75 MG CAPXR PO SCH (20:44)
[2018-03-07] MEDS: ROSUVASTATIN CALCIUM 20 MG TAB PO SCH (20:44)
[2018-03-07] MEDS: TRAZODONE HCL 50 MG TAB PO SCH (20:44)
[2018-03-07] MEDS: MONTELUKAST SODIUM 10 MG TABLET PO SCH (20:45)
[2018-03-07] MEDS: INSULIN GLARGINE SOLOSTAR 100 UNITS/ML 3 ML PEN SC SCH (20:56)
[2018-03-08] MEDS: INSULIN ASPART 100 UNITS/ML 3 ML PEN SC SCH ×6 (00:12→21:27)
[2018-03-08] MEDS: HEPARIN SOD 5,000 UNIT/0.5 ML VIAL SQ SCH ×3 (04:56→21:27)
[2018-03-08 07:38] LABS: BUN Creatinine Ratio 15.6 (10-20); Calcium 9.2 mg/dl (8.5-10.1); Creatinine Clr Calc Pharmacy 39.1 ml/min; Est GFR (African American) 30.8; Est GFR (Non-African American) 26.6; Potassium 4.5 mmol/L (3.5-5.1)
--- NOTE | 2018-03-08 08:00 | Family Medicine Progress Note ---
Date of Service March 08, 2018 Assessment & Plan (1) Hyperglycemia: 1)Hyperglycemia in DM likely 2/2 to Prednisone, have had difficulty controlling while inpatient, initially tried holding metformin as well as 15 units of lantus plus changed Novolog 1:5 and CF 15 - do not think she will need home insulin, she was well controlled prior to starting prednisone for bronchitis on COPD - Glycemic Cx 2) Dysuria Resolved 03/07, presented with dysuria - started on quinolone, CT ab/pelvis demonstrated no acute disease process. urine cx with 3 organism. abx d/yasmine. 3) ABD Pain Resolved - CT abdomen/pelvis shows no acute disease process - most likely from hyperglycemia and fluid loss - no complaints today 4)Chronic diastolic CHF Echo 2016 - EF 60-65%; grade I diastolic dysfunction; septal motion with RV volume overload. Currently stable on 3L, presented without significant overload on exam. - holding lasix and lisinopril 2/2 JAIMEE, monitor for si/sx of fluid overload 5)CAD S/P Heart catheterization January 2017 - one vessel disease without intervention. - continue aspirin - continue isosorbide mononitrate 6)COPD - continue home inhalers and home meds - continue O2 via nasal cannula - goal SPO2 88-92% 7) DM See Hyperglycemia 8) JAIMEE - prerenal resolved with normal creatinine 1.19 on 03/04 however today 1.89, re-injury vs her baseline, will continue to trend. - Holding Lasix - oral fluids - monitor I/O's - daily bmp 9) Depression - continue venlafaxine 11)Peripheral Neuropathy - continue gabapentin FENA:Diabetic/Heart Healthy Diet DVT PPX: Heparin SQ q8h Full Code Dispo: Refferal to SNF Placed - PT/OT - dispo pending acute rehab referral (2) UTI (urinary tract infection): (3) Abdominal pain: (4) CHF (congestive heart failure): (5) CAD (coronary artery disease): (6) COPD (chronic obstructive pulmonary disease): (7) Diabetes mellitus: (8) JAIMEE (acute kidney injury): (9) Depression: (10) Yeast infection: (11) Peripheral neuropathy: (12) DVT prophylaxis: Supervising Physician Co-Signing Physician Notes Resident Physician Supervision Note: I independently interviewed and examined the patient and verified the andujar history and physical, reviewed labs and image studies, discussed the case with the resident Dr. Melgar and agree with the findings and care plan. Subjective Pt doing well overnight, no acute complaints, does endorse fatigue. PPt is eating, voiding and sleeping appropriately. Pt endorses constipation and is on a bowel regimen. Pt denies chest pain, sob, palpitations, congestion, fever, cough, N/V/D, or other syx concerning for acute illness. Awaiting Placement at [facility]. Physical Exam 2 Vital Signs (Past 24 Hours): Last Vital Signs Temp 36.8 C 03/08/18 07:18 Pulse 80 03/08/18 07:18 Resp 18 03/08/18 07:18 BP 110/63 03/08/18 07:18 Pulse Ox 91 03/08/18 07:18 Constitutional: + ill appearing, + morbidly obese and cooperative; no acute distress Eyes: PERRL, conjunctivae normal, anicteric sclerae normal visual solitario by confrontation ENMT: Mouth: + edentulous Neck: normal visual inspection and trachea midline Respiratory: normal respiratory effort, lungs clear to auscultation normal respiratory effort; no respiratory distress and does not use accessory muscles Auscultation: + diminished lung sounds Cardiovascular: RRR, no murmur, no edema Rate/Rhythm: regular rate and regular rhythm Heart Sounds: normal S1 and normal S2 Vessels: dorsalis pedis pulses present Extremities: + pedal edema; no calf tenderness Gastrointestinal (Abdomen): Inspection/Auscultation: normal bowel sounds Percussion/Palpation: + abdomen tender (mild umbilical without rebound ); no guarding and abdomen not rigid Musculoskeletal: no cyanosis or clubbing, extremities motor strength 5/5 Head/Neck/Chest: normocephalic and head atraumatic Neurologic: moves all extremities and awake Psychiatric: A+Ox3, euthymic affect Results & Data Laboratory Results 03/08/18 03/08/18 03/08/18 Range/Units 07:08 06:43 04:48 Sodium 135 L (136-145) mmol/L Potassium 4.5 D (3.5-5.1) mmol/L Chloride 100 (98-107) mmol/L Carbon Dioxide 29 (21-32) mmol/L Anion Gap 6.0 (3-11) BUN 30 H (7-18) mg/dl Creatinine 1.89 H (0.6-1.2) mg/dl Est Cr Clr Drug Dosing 39.1 ml/min Est GFR ( Amer) 30.8 Est GFR (Non-Af Amer) 26.6 BUN/Creatinine Ratio 15.6 (10-20) Glucose 161 H (70-99) mg/dl POC Glucose 167 H 153 H (70-99) Calcium 9.2 (8.5-10.1) mg/dl 03/07/18 03/07/18 03/07/18 Range/Units 23:56 19:53 16:23 Sodium (136-145) mmol/L Potassium (3.5-5.1) mmol/L Chloride (98-107) mmol/L Carbon Dioxide (21-32) mmol/L Anion Gap (3-11) BUN (7-18) mg/dl Creatinine (0.6-1.2) mg/dl Est Cr Clr Drug Dosing ml/min Est GFR ( Amer) Est GFR (Non-Af Amer) BUN/Creatinine Ratio (10-20) Glucose (70-99) mg/dl POC Glucose 175 H 236 H 244 H (70-99) Calcium (8.5-10.1) mg/dl 03/07/18 Range/Units 11:08 Sodium (136-145) mmol/L Potassium (3.5-5.1) mmol/L Chloride (98-107) mmol/L Carbon Dioxide (21-32) mmol/L Anion Gap (3-11) BUN (7-18) mg/dl Creatinine (0.6-1.2) mg/dl Est Cr Clr Drug Dosing ml/min Est GFR ( Amer) Est GFR (Non-Af Amer) BUN/Creatinine Ratio (10-20) Glucose (70-99) mg/dl POC Glucose 218 H (70-99) Calcium (8.5-10.1) mg/dl Medications Administered Current Inpatient Medications Acetaminophen (Tylenol) 650 mg PO Q4H PRN PRN Reason: Pain or Fever Stop: 04/02/18 01:44 Last Admin: 03/07/18 12:06 Dose: 650 mg Al Hydrox/Mg Hydrox/Simethicone (Maalox) 15 ml PO Q4H PRN PRN Reason: Dyspepsia Stop: 04/02/18 01:44 Albuterol (Ventolin 0.083% 2.5mg/3ml) 2.5 mg INH Q4H PRN PRN Reason: Shortness Of Breath Or Wheezing Stop: 04/02/18 01:44 Last Admin: 03/03/18 17:43 Dose: 2.5 mg Aspirin (Ecotrin) 81 mg PO DAILY [facility] Stop: 04/02/18 08:59 Last Admin: 03/07/18 08:21 Dose: 81 mg Budesonide/Formoterol Fumarate (Symbicort 160mcg/4.5mcg) 2 puffs INH BID [facility] Stop: 04/02/18 08:59 Last Admin: 03/07/18 20:46 Dose: 2 puffs Diclofenac Sodium (Voltaren 1% Top) 1 appln EXT QID [facility] Stop: 04/05/18 16:59 Last Admin: 03/07/18 20:46 Dose: 1 appln Furosemide (Lasix) 20 mg PO QAM [facility] Stop: 04/04/18 08:59 Last Admin: 03/06/18 09:02 Dose: 20 mg Gabapentin (Neurontin) 300 mg PO TID [facility] Stop: 04/02/18 08:59 Last Admin: 03/07/18 20:43 Dose: 300 mg Guaifenesin (Mucinex) 600 mg PO BID PRN PRN Reason: Congestion HCTZ/Spironolactone (Aldactazide 25/25) 1 tab PO DAILY [facility] Stop: 04/02/18 08:59 Last Admin: 03/07/18 08:22 Dose: 1 tab Heparin Sodium (Porcine) (Heparin Sodium (Porcine)) 5,000 units SQ Q8 [facility] Stop: 04/02/18 07:59 Last Admin: 03/08/18 04:56 Dose: 5,000 units Insulin Aspart (Novolog Flexpen) 0 units SC ACHS [facility] Stop: 04/02/18 07:29 Last Admin: 03/07/18 20:56 Dose: 10 units Insulin Glargine (Lantus Solostar Pen) 25 units SC Q12 [facility] Stop: 04/06/18 18:29 Last Admin: 03/07/18 20:56 Dose: 25 units Isosorbide Mononitrate (Imdur Extended Rel) 30 mg PO DAILY [facility] Stop: 04/02/18 08:59 Last Admin: 03/07/18 08:22 Dose: 30 mg Lisinopril (Zestril) 10 mg PO DAILY [facility] Stop: 04/02/18 08:59 Last Admin: 03/07/18 08:21 Dose: 10 mg Lorazepam (Ativan) 1 mg PO HS [facility] Stop: 04/02/18 20:59 Last Admin: 03/07/18 20:43 Dose: 1 mg Lorazepam (Ativan) 1 mg PO BID PRN PRN Reason: Anxiety Stop: 04/02/18 01:44 Magnesium Hydroxide (Milk Of Magnesia) 30 ml PO Q12H PRN PRN Reason: Constipation Stop: 04/02/18 01:44 Last Admin: 03/07/18 08:19 Dose: 30 ml Miscellaneous Information (Consult Glycemic Management Pharmacy) 1 ea N/A UD PRN PRN Reason: Consult Stop: 04/06/18 17:59 Montelukast Sodium (Singulair) 10 mg PO HS [facility] Stop: 04/02/18 20:59 Last Admin: 03/07/18 20:45 Dose: 10 mg Ondansetron HCl (Zofran) 4 mg IV Q6H PRN PRN Reason: Nausea Stop: 04/02/18 01:44 Pantoprazole Sodium (Protonix) 40 mg PO DAILY [facility] Stop: 04/02/18 08:59 Last Admin: 03/07/18 08:22 Dose: 40 mg Polyethylene Glycol (Miralax Powder Packet) 17 gm PO DAILY PRN PRN Reason: Constipation Stop: 04/06/18 07:53 Rosuvastatin Calcium (Crestor) 40 mg PO HS [facility] Stop: 04/02/18 20:59 Last Admin: 03/07/18 20:44 Dose: 40 mg Theophylline (Theophylline Er) 400 mg PO BID [facility] Stop: 04/02/18 08:59 Last Admin: 03/07/18 20:44 Dose: 400 mg Tramadol HCl (Ultram) 100 mg PO BID [facility] Stop: 04/02/18 08:59 Last Admin: 03/07/18 20:43 Dose: 100 mg Trazodone HCl (Desyrel) 100 mg PO HS [facility] Stop: 04/02/18 20:59 Last Admin: 03/07/18 20:44 Dose: 100 mg Venlafaxine HCl (Effexor Extended Release) 75 mg PO [facility] Stop: 04/02/18 20:59 Last Admin: 03/07/18 20:44 Dose: 75 mg Resident Activity Tracking Resident Involvement: Resident Care Provided Care Provided: [facility] Medicine _ (1) Diabetes mellitus Chronic kidney disease stage: Diabetes mellitus complication detail: with polyneuropathy Diabetes mellitus complication status: with neurologic complications Diabetes mellitus assisted insulin use: with assisted use Diabetes mellitus macular edema: Diabetes mellitus type: type 2 Diabetic retinopathy severity: Laterality: Proliferative retinopathy type: Qualified Code(s): E11.42 - Type 2 diabetes mellitus with diabetic polyneuropathy; Z79.4 - snf (current) use of insulin (2) CAD (coronary artery disease) Associated angina: with unspecified angina Coronary Disease-Associated Artery /Lesion type: [place] artery [place] vs. transplanted heart: [place] heart Qualified Code(s): I25.119 - Atherosclerotic heart disease of [place] coronary artery with unspecified angina pectoris (3) CHF (congestive heart failure) Heart failure chronicity: acute Heart failure type: unspecified Qualified Code(s): I50.9 - Heart failure, unspecified
[2018-03-08] MEDS: INSULIN GLARGINE SOLOSTAR 100 UNITS/ML 3 ML PEN SC SCH ×2 (08:39→21:27)
[2018-03-08] MEDS: BUDESONIDE/FORMOTEROL FUMARATE 160/4.5 60 PUFFS/INHALER INH SCH ×2 (08:45→21:04)
[2018-03-08] MEDS: THEOPHYLLINE 400 MG EXTENDED REL TAB PO SCH ×2 (08:45→21:03)
[2018-03-08] MEDS: ISOSORBIDE MONO EXTENDED REL 30 MG TABCR PO SCH (08:46)
[2018-03-08] MEDS: ASPIRIN 81 MG ECTAB PO SCH (08:46)
[2018-03-08] MEDS: SPIRONOLACTONE/HCTZ 25-25 PO SCH (08:46)
[2018-03-08] MEDS: GABAPENTIN 300 MG CAP PO SCH ×3 (08:46→21:05)
[2018-03-08] MEDS: LISINOPRIL 10 MG TAB PO SCH (08:46)
[2018-03-08] MEDS: PANTOprazole 40 MG TAB PO SCH (08:47)
[2018-03-08] MEDS: DICLOFENAC SOD 1% GEL 100 GM TUBE EXT SCH ×4 (08:49→21:05)
[2018-03-08] MEDS: TRAMADOL HCL 50 MG TABLET PO SCH ×2 (08:50→21:02)
[2018-03-08] MEDS ORDERED: PHARMACY GLYCEMIC MGMT CONSULT PRN (11:35)
--- NOTE | 2018-03-08 14:43 | Pharmacy Report ---
Pharmacy Glycemic Short Note 2 - Date of Service March 08, 2018 - Glycemic Short BSG Results (Last 24 hours): 03/07/18 03/07/18 03/07/18 16:23 19:53 23:56 Glucose POC Glucose 244 H 236 H 175 H 03/08/18 03/08/18 03/08/18 04:48 06:43 07:08 Glucose 161 H POC Glucose 153 H 167 H 03/08/18 11:22 Glucose POC Glucose 264 H OUTPATIENT ANTIDIABETIC REGIMEN: * Metformin 1000mg PO daily * HbA1c: 6.8% (03/07/18) ASSESSMENT: * Ms Funez is a 67yo diabetic female admitted with hyperglycemia/UTI/JAIMEE. * Pharmacy was consulted last evening to assist with glycemic management. * Lantus was increased last evening, with improved fasting BSG this morning. * Pre-lunch BSG was elevated, so Novolog adjusted to provide additional carb coverage. * Will continue to adjust regimen as needed until BSGs are controlled. PLAN FOR INPATIENT GLYCEMIC CONTROL: * Hold outpatient oral diabetes medications * Consider resuming Metformin when renal function is appropriate. * Basal insulin * Lantus 25 units SQ BID * Bolus insulin * NovoLog per scale ACHS or Q6hrs while NPO, plus 00 and 04 * Goal Range: Low 110 mg/dL - High 140 mg/dL * Correction Factor: 10 mg/dL/unit * Nutritional / Prandial insulin per carb ratio of 1 unit per 4 grams CHO consumed PLAN FOR DISCHARGE: * Patient's A1c (6.8%) is reasonable and indicates that patient may resume home regimen on discharge. * If renal function remains impaired, however, may not be able to resume Metformin. * More recommendations to follow as admission progresses.
[2018-03-08] MEDS ORDERED: BISACODYL 5 MG TABEC PO PRN (16:09)
[2018-03-08] MEDS: MONTELUKAST SODIUM 10 MG TABLET PO SCH (21:03)
[2018-03-08] MEDS: ROSUVASTATIN CALCIUM 20 MG TAB PO SCH (21:03)
[2018-03-08] MEDS: LORazepam 1 MG TAB PO SCH (21:03)
[2018-03-08] MEDS: TRAZODONE HCL 50 MG TAB PO SCH (21:04)
[2018-03-08] MEDS: VENLAFAXINE HCL XR 75 MG CAPXR PO SCH (21:04)
[2018-03-09] MEDS: INSULIN ASPART 100 UNITS/ML 3 ML PEN SC SCH ×6 (00:21→21:10)
[2018-03-09] MEDS: HEPARIN SOD 5,000 UNIT/0.5 ML VIAL SQ SCH ×3 (06:17→21:05)
[2018-03-09 06:48] LABS: Calcium 9.2 mg/dl (8.5-10.1); Creatinine Clr Calc Pharmacy 50.3 ml/min; Est GFR (African American) 41.8; Potassium 4.2 mmol/L (3.5-5.1)
[2018-03-09] MEDS: BUDESONIDE/FORMOTEROL FUMARATE 160/4.5 60 PUFFS/INHALER INH SCH ×2 (08:30→21:07)
[2018-03-09] MEDS: DICLOFENAC SOD 1% GEL 100 GM TUBE EXT SCH ×4 (08:31→21:10)
[2018-03-09] MEDS: INSULIN GLARGINE SOLOSTAR 100 UNITS/ML 3 ML PEN SC SCH ×2 (08:32→21:08)
[2018-03-09] MEDS: THEOPHYLLINE 400 MG EXTENDED REL TAB PO SCH ×2 (08:32→21:06)
[2018-03-09] MEDS: ISOSORBIDE MONO EXTENDED REL 30 MG TABCR PO SCH (08:33)
[2018-03-09] MEDS: TRAMADOL HCL 50 MG TABLET PO SCH ×2 (08:33→21:04)
[2018-03-09] MEDS: GABAPENTIN 300 MG CAP PO SCH ×3 (08:33→21:06)
[2018-03-09] MEDS: ASPIRIN 81 MG ECTAB PO SCH (08:33)
[2018-03-09] MEDS: PANTOprazole 40 MG TAB PO SCH (08:33)
[2018-03-09] MEDS: SPIRONOLACTONE/HCTZ 25-25 PO SCH (08:33)
--- NOTE | 2018-03-09 10:05 | Pharmacy Report ---
Pharmacy Glycemic Short Note 2 - Date of Service March 09, 2018 - Glycemic Short BSG Results (Last 24 hours): 03/08/18 03/08/18 03/08/18 11:22 16:31 20:13 Glucose POC Glucose 264 H 181 H 182 H 03/09/18 03/09/18 03/09/18 00:10 03:49 06:05 Glucose 160 H POC Glucose 158 H 162 H 03/09/18 07:18 Glucose POC Glucose 156 H OUTPATIENT ANTIDIABETIC REGIMEN: * Metformin 1000mg PO daily * HbA1c: 6.8% (03/07/18) ASSESSMENT: * BSGs have improved with additional basal insulin and increased carb coverage with meals. * Fasting BSG still above goal this morning, so Lantus dose was increased 20% this morning. * No further changes at this time. PLAN FOR INPATIENT GLYCEMIC CONTROL: * Hold outpatient oral diabetes medications * Consider resuming Metformin when renal function is appropriate. * Basal insulin * Lantus 30 units SQ BID * Bolus insulin * NovoLog per scale ACHS or Q6hrs while NPO, plus 00 and 04 * Goal Range: Low 110 mg/dL - High 140 mg/dL * Correction Factor: 10 mg/dL/unit * Nutritional / Prandial insulin per carb ratio of 1 unit per 4 grams CHO consumed PLAN FOR DISCHARGE: * Patient's A1c (6.8%) is reasonable and indicates that patient may resume home regimen on discharge. * If renal function remains impaired, however, may not be able to resume Metformin. * More recommendations to follow as admission progresses.
--- NOTE | 2018-03-09 15:10 | Family Medicine Progress Note ---
Date of Service March 09, 2018 Assessment & Plan (1) Hyperglycemia: 1)Hyperglycemia (active) likely 2/2 to Prednisone, have had difficulty controlling while inpatient, initially tried holding metformin as well as 15 units of lantus plus changed Novolog 1:5 and CF 15 - do not think she will need home insulin, she was well controlled prior to starting prednisone for bronchitis on COPD - PT/OT - dispo pending acute rehab referral - Glycemic Cx placed following recs -Resume metformin when able cr today is 1.47 assuming it <1.47 tomorrow would restart -lantus 30 units BID, -Novolog per scale ACHS; goal: low 110 high 140, CF:10, Ratio 1:4 2)Abnromal UA with dysuria Urine culture with 3 organism. d/yasmine abx. 3) ABD Pain (Resolved 03/07) - CT abdomen/pelvis shows no acute disease process - most likely from hyperglycemia and fluid loss - no complaints today 4)Chronic CHF Echo 2016 - EF 60-65%; grade I diastolic dysfunction; septal motion with RV volume overload. Currently stable on 3L, presented without significant overload on exam. - holding lasix and lisinopril 2/2 JAIMEE, monitor for si/sx of fluid overload, would consider restarting when possible 5)CAD (Active) S/P Heart catheterization January 2017 - one vessel disease without intervention. - continue aspirin - continue isosorbide mononitrate 6)COPD (Active) - continue home inhalers and home meds - continue O2 via nasal cannula - goal SPO2 88-92% 7) DM (Active) See Hyperglycemia 8) JAIMEE (Active) likely pre-renal and secondary to diabetes on admission, resolved with normal creatinine 1.19 on 03/04 however 03/08 1.89 -> 03/09 1.47, re-injury vs her baseline, will continue to trend. - Holding Lasix - oral fluids - monitor I/O's - daily bmp 9) Depression (Active) - continue venlafaxine Chronic venous stasis in legs - monitor 11)Peripheral Neuropathy (active) - continue gabapentin FENA:Diabetic/Heart Healthy Diet DVT PPX: Heparin SQ q8h Full Code Dispo: D/C to SNF pending insurance approval Supervising Physician Co-Signing Physician Notes Resident Physician Supervision Note: I independently interviewed and examined the patient and verified the andujar history and physical, reviewed labs and image studies, discussed the case with the resident Dr. Melgar and agree with the findings and care plan. Subjective Pt doing well today, resting in bed through out the examination. Reports no acute events overnight, still complaining of fatigue. Reports foot feels better not as itchy. Patient is tolerating diet, voiding and sleeping well. Pt still has not had a bowel movement. Pt has a bed at [facility] awaiting authorization. Pt denies headache, fevers, chills, N/V/D, congestion, chest pain, or other si/ sx of acute process. Physical Exam 2 Vital Signs (Past 24 Hours): Last Vital Signs Temp 36.7 C 03/09/18 07:11 Pulse 78 03/09/18 07:11 Resp 20 03/09/18 07:11 BP 112/72 03/09/18 07:11 Pulse Ox 98 03/09/18 10:00 Constitutional: + ill appearing, + morbidly obese and cooperative; no acute distress Eyes: PERRL, conjunctivae normal, anicteric sclerae normal visual solitario by confrontation ENMT: Mouth: + dry oral mucous membranes and + edentulous Neck: normal visual inspection and trachea midline Respiratory: normal respiratory effort, lungs clear to auscultation normal respiratory effort; no respiratory distress and does not use accessory muscles Auscultation: + diminished lung sounds Cardiovascular: RRR, no murmur, no edema Rate/Rhythm: regular rate and regular rhythm Heart Sounds: normal S1 and normal S2 Vessels: dorsalis pedis pulses present Extremities: + pedal edema; no calf tenderness Gastrointestinal (Abdomen): Inspection/Auscultation: normal bowel sounds Percussion/Palpation: + abdomen tender (mild umbilical without rebound ); no guarding and abdomen not rigid Musculoskeletal: no cyanosis or clubbing, extremities motor strength 5/5 Head/Neck/Chest: normocephalic and head atraumatic Neurologic: moves all extremities and awake Psychiatric: A+Ox3, euthymic affect Results & Data Laboratory Results 03/09/18 03/09/18 03/09/18 Range/Units 11:09 07:18 06:05 Sodium 138 (136-145) mmol/L Potassium 4.2 (3.5-5.1) mmol/L Chloride 103 (98-107) mmol/L Carbon Dioxide 30 (21-32) mmol/L Anion Gap 6.0 (3-11) BUN 25 H (7-18) mg/dl Creatinine 1.47 H D (0.6-1.2) mg/dl Est Cr Clr Drug Dosing 50.3 ml/min Est GFR ( Amer) 41.8 Est GFR (Non-Af Amer) 36.0 BUN/Creatinine Ratio 17.0 (10-20) Glucose 160 H (70-99) mg/dl POC Glucose 230 H 156 H (70-99) Calcium 9.2 (8.5-10.1) mg/dl 03/09/18 03/09/18 03/08/18 Range/Units 03:49 00:10 20:13 Sodium (136-145) mmol/L Potassium (3.5-5.1) mmol/L Chloride (98-107) mmol/L Carbon Dioxide (21-32) mmol/L Anion Gap (3-11) BUN (7-18) mg/dl Creatinine (0.6-1.2) mg/dl Est Cr Clr Drug Dosing ml/min Est GFR ( Amer) Est GFR (Non-Af Amer) BUN/Creatinine Ratio (10-20) Glucose (70-99) mg/dl POC Glucose 162 H 158 H 182 H (70-99) Calcium (8.5-10.1) mg/dl 03/08/18 Range/Units 16:31 Sodium (136-145) mmol/L Potassium (3.5-5.1) mmol/L Chloride (98-107) mmol/L Carbon Dioxide (21-32) mmol/L Anion Gap (3-11) BUN (7-18) mg/dl Creatinine (0.6-1.2) mg/dl Est Cr Clr Drug Dosing ml/min Est GFR ( Amer) Est GFR (Non-Af Amer) BUN/Creatinine Ratio (10-20) Glucose (70-99) mg/dl POC Glucose 181 H (70-99) Calcium (8.5-10.1) mg/dl Medications Administered Current Inpatient Medications Acetaminophen (Tylenol) 650 mg PO Q4H PRN PRN Reason: Pain or Fever Stop: 04/02/18 01:44 Last Admin: 03/07/18 12:06 Dose: 650 mg Al Hydrox/Mg Hydrox/Simethicone (Maalox) 15 ml PO Q4H PRN PRN Reason: Dyspepsia Stop: 04/02/18 01:44 Albuterol (Ventolin 0.083% 2.5mg/3ml) 2.5 mg INH Q4H PRN PRN Reason: Shortness Of Breath Or Wheezing Stop: 04/02/18 01:44 Last Admin: 03/03/18 17:43 Dose: 2.5 mg Aspirin (Ecotrin) 81 mg PO DAILY [facility] Stop: 04/02/18 08:59 Last Admin: 03/09/18 08:33 Dose: 81 mg Bisacodyl (Dulcolax) 5 mg PO DAILY PRN PRN Reason: Constipation Stop: 04/07/18 16:08 Last Admin: 03/08/18 16:56 Dose: 5 mg Budesonide/Formoterol Fumarate (Symbicort 160mcg/4.5mcg) 2 puffs INH BID [facility] Stop: 04/02/18 08:59 Last Admin: 03/09/18 08:30 Dose: 2 puffs Diclofenac Sodium (Voltaren 1% Top) 1 appln EXT QID [facility] Stop: 04/05/18 16:59 Last Admin: 03/09/18 13:23 Dose: 1 appln Diphenhydramine HCl (Benadryl) 25 mg PO Q6RWA PRN PRN Reason: Itching Stop: 04/07/18 15:13 Last Admin: 03/08/18 16:56 Dose: 25 mg Furosemide (Lasix) 20 mg PO QAM [facility] Stop: 04/04/18 08:59 Last Admin: 03/06/18 09:02 Dose: 20 mg Gabapentin (Neurontin) 300 mg PO TID [facility] Stop: 04/02/18 08:59 Last Admin: 03/09/18 13:23 Dose: 300 mg Guaifenesin (Mucinex) 600 mg PO BID PRN PRN Reason: Congestion Last Admin: 03/08/18 08:47 Dose: 600 mg HCTZ/Spironolactone (Aldactazide 25/25) 1 tab PO DAILY [facility] Stop: 04/02/18 08:59 Last Admin: 03/09/18 08:33 Dose: 1 tab Heparin Sodium (Porcine) (Heparin Sodium (Porcine)) 5,000 units SQ Q8 [facility] Stop: 04/02/18 07:59 Last Admin: 03/09/18 13:23 Dose: 5,000 units Insulin Aspart (Novolog Flexpen) 0 units SC ACHS [facility] Stop: 04/02/18 07:29 Last Admin: 03/09/18 12:00 Dose: 26 units Insulin Aspart (Novolog Flexpen) 0 units SC 0000,0400 [facility] Stop: 04/08/18 00:00 Last Admin: 03/09/18 03:54 Dose: 3 units Insulin Glargine (Lantus Solostar Pen) 30 units SC Q12 [facility]; Protocol Stop: 04/08/18 08:59 Last Admin: 03/09/18 08:32 Dose: 30 units Isosorbide Mononitrate (Imdur Extended Rel) 30 mg PO DAILY [facility] Stop: 04/02/18 08:59 Last Admin: 03/09/18 08:33 Dose: 30 mg Lisinopril (Zestril) 10 mg PO DAILY [facility] Stop: 04/02/18 08:59 Last Admin: 03/08/18 08:46 Dose: 10 mg Lorazepam (Ativan) 1 mg PO HS [facility] Stop: 04/02/18 20:59 Last Admin: 03/08/18 21:03 Dose: 1 mg Lorazepam (Ativan) 1 mg PO BID PRN PRN Reason: Anxiety Stop: 04/02/18 01:44 Magnesium Hydroxide (Milk Of Magnesia) 30 ml PO Q12H PRN PRN Reason: Constipation Stop: 04/02/18 01:44 Last Admin: 03/07/18 08:19 Dose: 30 ml Miscellaneous Information (Consult Glycemic Management Pharmacy) 1 ea N/A UD PRN PRN Reason: Consult Stop: 04/06/18 17:59 Montelukast Sodium (Singulair) 10 mg PO HS [facility] Stop: 04/02/18 20:59 Last Admin: 03/08/18 21:03 Dose: 10 mg Ondansetron HCl (Zofran) 4 mg IV Q6H PRN PRN Reason: Nausea Stop: 04/02/18 01:44 Pantoprazole Sodium (Protonix) 40 mg PO DAILY [facility] Stop: 04/02/18 08:59 Last Admin: 03/09/18 08:33 Dose: 40 mg Polyethylene Glycol (Miralax Powder Packet) 17 gm PO DAILY PRN PRN Reason: Constipation Stop: 04/06/18 07:53 Last Admin: 03/08/18 08:50 Dose: 17 gm Rosuvastatin Calcium (Crestor) 40 mg PO [facility] Stop: 04/02/18 20:59 Last Admin: 03/08/18 21:03 Dose: 40 mg Theophylline (Theophylline Er) 400 mg PO BID [facility] Stop: 04/02/18 08:59 Last Admin: 03/09/18 08:32 Dose: 400 mg Tramadol HCl (Ultram) 100 mg PO BID [facility] Stop: 04/02/18 08:59 Last Admin: 03/09/18 08:33 Dose: 100 mg Trazodone HCl (Desyrel) 100 mg PO [facility] Stop: 04/02/18 20:59 Last Admin: 03/08/18 21:04 Dose: 100 mg Venlafaxine HCl (Effexor Extended Release) 75 mg PO [facility] Stop: 04/02/18 20:59 Last Admin: 03/08/18 21:04 Dose: 75 mg Resident Activity Tracking Resident Involvement: Resident Care Provided Care Provided: Adult Hospital Medicine
[2018-03-09] MEDS ORDERED: MICONAZOLE NITRATE POWDER 43 GM EXT PRN (15:11)
[2018-03-09] MEDS: LORazepam 1 MG TAB PO SCH (21:04)
[2018-03-09] MEDS: ROSUVASTATIN CALCIUM 20 MG TAB PO SCH (21:05)
[2018-03-09] MEDS: TRAZODONE HCL 50 MG TAB PO SCH (21:06)
[2018-03-09] MEDS: MONTELUKAST SODIUM 10 MG TABLET PO SCH (21:07)
[2018-03-09] MEDS: VENLAFAXINE HCL XR 75 MG CAPXR PO SCH (21:07)
[2018-03-10] MEDS: INSULIN ASPART 100 UNITS/ML 3 ML PEN SC SCH ×4 (00:26→12:05)
[2018-03-10] MEDS: HEPARIN SOD 5,000 UNIT/0.5 ML VIAL SQ SCH ×2 (05:12→13:53)
[2018-03-10] MEDS: TRAMADOL HCL 50 MG TABLET PO SCH (08:11)
[2018-03-10] MEDS: DICLOFENAC SOD 1% GEL 100 GM TUBE EXT SCH ×2 (08:11→13:53)
[2018-03-10] MEDS: THEOPHYLLINE 400 MG EXTENDED REL TAB PO SCH (08:11)
[2018-03-10] MEDS: BUDESONIDE/FORMOTEROL FUMARATE 160/4.5 60 PUFFS/INHALER INH SCH (08:11)
[2018-03-10] MEDS: ISOSORBIDE MONO EXTENDED REL 30 MG TABCR PO SCH (08:12)
[2018-03-10] MEDS: SPIRONOLACTONE/HCTZ 25-25 PO SCH (08:12)
[2018-03-10] MEDS: ASPIRIN 81 MG ECTAB PO SCH (08:12)
[2018-03-10] MEDS: PANTOprazole 40 MG TAB PO SCH (08:12)
[2018-03-10] MEDS: GABAPENTIN 300 MG CAP PO SCH ×2 (08:12→13:53)
[2018-03-10] MEDS: INSULIN GLARGINE SOLOSTAR 100 UNITS/ML 3 ML PEN SC SCH (08:13)
[2018-03-10 08:27] LABS: BUN Creatinine Ratio 17.2 (10-20); Calcium 9.6 mg/dl (8.5-10.1); Est GFR (African American) 45.5; Est GFR (Non-African American) 39.3; Potassium 4.4 mmol/L (3.5-5.1)
--- NOTE | 2018-03-10 14:11 | Family Medicine Progress Note ---
Date of Service March 10, 2018 Subjective Patient is sitting comfortably at the bedside in her chair. She has no Physical Exam 2 Vital Signs (Past 24 Hours): Last Vital Signs Temp 36.7 C 03/10/18 07:00 Pulse 84 03/10/18 07:00 Resp 20 03/10/18 07:00 BP 136/75 03/10/18 07:00 Pulse Ox 98 03/10/18 07:00
--- NOTE | 2018-03-10 14:29 | Discharge Summary ---
Date of Service March 10, 2018 Admission HPI Per Admitting Provider Kathleen Funez is a 67 year old female with a PMG of HTN, chronic back pain, CAD , DM, COPD on 3L, peripheral neuropathy, CHF and depression that presents to [facility] on recommendation from her PCP due to elevated blood sugars in the 600's. The patient notes that for the past 1-2 months she has been having fevers, chills, weight loss (20 pounds) generalized abdominal pain, dysuria, swelling in her legs and worsening shortness of breath with exertion. She notes that she was discharged from [facility] on February 07 and was discharged with a 28 day steroid taper for a COPD exacerbation. She has been taking this as prescribed and notes she has 4 days remaining. She lives on her own and she gets around in a motorized wheelchair. She used to be a heavy smoker; however she has not smoked in 20 years In the ED she was tachycardic at 111 and she was saturating at 99% on 3L. Her labs were significant for a WCC of 13, Na of 130, Creat of 1.7, glucose in the 400's. Her UA was infected with bacteria and yeast. She was given IV Cipro, 500 mls of IVF, 150mls/hr of NS and 10 units of regular insulin x2 Principal Diagnosis Hyperglycemia and vaginal yeast infection Discharge Exam Constitutional WD/WN, vitals as above + obese; no acute distress Eyes PERRL, conjunctivae normal, anicteric sclerae ENMT adentulous, moist mucous membranes Neck trachea midline, no thyromegaly Respiratory normal respiratory effort, lungs clear to auscultation Cardiovascular RRR, no murmur, no edema Gastrointestinal (Abdomen) normal bowel sounds, soft, nontender, no hepatosplenomegaly Musculoskeletal no cyanosis or clubbing, extremities motor strength 5/5 Skin lower extremities with chronic venous skin changes, no edema Psychiatric A+Ox3, euthymic affect Discharge Data Allergies Allergy/AdvReac Type Severity Reaction Status Date / Time adhesive Allergy Intermediate HIVES Verified 02/02/18 16:52 atorvastatin Allergy Intermediate MYALGIA Verified 02/02/18 16:52 ceftriaxone Allergy Intermediate FELT Verified 02/02/18 16:52 FUNNY/STRANGE pravastatin Allergy Intermediate MYALGIA Verified 02/02/18 16:52 rosuvastatin Allergy Intermediate MYALGIA Verified 02/02/18 16:52 sucralfate [From Carafate] AdvReac Intermediate Gastrointestinal Verified 16:52 Upset Consultations 03/02/18 21:36 ED Decision to Admit Stat Ordered Studies 03/03/18 00:12 CT abd pelvis wo con Urgent Hospital Course (1) Hyperglycemia: 1)Hyperglycemia (active) in setting of DM type 2 - likely 2/2 to Prednisone for bronchitis, have had difficulty controlling while inpatient, initially tried holding metformin as well as 15 units of lantus plus changed Novolog 1:5 and CF 15 - blood sugars better controlled prior to discharge between 110-180 - no need for home insulin - continue home metformin dose upon discharge 2)Abnormal UA with dysuria (Resolved 03/07) UA on admit was contaminated and obtained repeat urine culture demonstrating more than three types of organisms present, all moderate counts mixed probable skin agnieszka, subsequently abx were D/C'd. 3) ABD Pain (Resolved 03/07) - CT abdomen/pelvis shows no acute disease process - no complaints upon discharge 4)Chronic CHF - Echo 2016 - EF 60-65%; grade I diastolic dysfunction; septal motion with RV volume overload. Currently stable on 3L, presented without significant overload on exam. - patient instructed to restart lasix and lisinopril upon discharge and is to get repeat labs with her PCP tomorrow 5)CAD S/P Heart catheterization January 2017 - one vessel disease without intervention. - continue aspirin - continue isosorbide mononitrate 6)COPD - continue home inhalers and home meds - continue O2 via nasal cannula - goal SPO2 88-92% 7) DM See Hyperglycemia 9) Depression (Active) - continue venlafaxine 11)Peripheral Neuropathy (active) - continue gabapentin Dispo: We did try to get patient approved for a SNF upon discharge however she was denied this by insurance and she was set up with home health upon discharge Total Time Total Time Spent Total Time Spent (In Minutes): 30 Discharge Plan Discharge Items Patient Disposition: Home - Home Health Services Reason For Visit: HYPERGLYCEMIA, JAIMEE, UTI Discharge Diagnosis: Complications from DMII Discharge Goals: Decrease discomfort, Diagnostic testing and Improve nutritional status Activity: Resume your previous activity Non-emergency contact: Primary Care Provider Call non-emergency contact if: you have any medication questions, your symptoms worsen, your pain is worsening and your temperature is above 100.5 Follow-up/Referrals: Gama Alfred MD [Primary Care Provider] - 03/11/18 11:00 am (Please, follow up with Dr. Alfred's medical assistant internal medicine, Shaylee Degroot PA-C, on March 11 at 11:00 am. *If you need to change this appointment, call the office at [phone].) Diet: Carb Consistent or DM2 Addtl Provider Instructions: During this hospitalization you were evaluated for UTI symptoms. Your urine was tested and cultures were obtained demonstrating no UTI. YOu were also treated for a yeast infection. While hospitalized it was determined that your blood sugar was elevated from recent prednisone usage for an episode of Bronchitis. You were given intensive insulin therapy and your blood sugar resolved as did your symptoms. Upon discharge please resume your home medication regimen with the following exceptions. -Benedryl for itching -Voltaren for pain -Zofran for nausea Thank you for allowing us to participate in your care during this hospitalization. Shameka Garcia, Happy New Year, and most of all Feel Better!! Prescriptions: New diclofenac sodium [Voltaren] 1 % Gel 1 applic EXT QID Qty: 100 RF: 0 Continue furosemide [Lasix] 40 mg Tablet 20 mg PO DAILY RF: 0 venlafaxine 75 mg Capsule,Extended Release 24hr 75 mg PO HS RF: 0 albuterol sulfate 2.5 mg /3 mL (0.083 %) Solution For Nebulization 2.5 mg Continuous Nebulization Q4H PRN (Reason: Shortness Of Breath Or Wheezing) RF: 0 spironolacton-hydrochlorothiaz 25-25 mg Tablet 1 tab PO DAILY RF: 0 isosorbide mononitrate 30 mg Tablet Extended Release 24 Hr 30 mg PO DAILY RF: 0 aspirin [Aspir-81] 81 mg Tablet,Delayed Release (Dr/Ec) 81 mg PO DAILY RF: 0 tramadol 50 mg Tablet 100 mg PO BID RF: 0 acetaminophen [Tylenol Extra Strength] 500 mg Tablet 1,000 mg PO BID PRN (Reason: Pain) RF: 0 pantoprazole 40 mg Tablet,Delayed Release (Dr/Ec) 40 mg PO DAILY RF: 0 lisinopril 10 mg Tablet 10 mg PO DAILY RF: 0 nitroglycerin [Nitrostat] 0.4 mg Tablet, Sublingual 0.4 mg Sublingual DIRECTED PRN (Reason: Chest Pain) RF: 0 gabapentin 300 mg Capsule 300 mg PO TID RF: 0 dextromethorphan-guaifenesin [Mucinex DM] 60-1,200 mg Tablet Extended Release 12 Hr 1 tab PO BID PRN (Reason: Congestion) RF: 0 montelukast [Singulair] 10 mg Tablet 10 mg PO HS RF: 0 lorazepam 1 mg Tablet 1 mg PO BID PRN (Reason: Anxiety) RF: 0 metformin 500 mg Tablet Extended Release 24 Hr 1,000 mg PO DAILY RF: 0 theophylline 400 mg Capsule,Extended Release 24hr 400 mg PO BID RF: 0 budesonide-formoterol [Symbicort] 160-4.5 mcg/actuation Hfa Aerosol Inhaler 2 puff INHALATION BID RF: 0 trazodone 50 mg tablet 100 mg PO HS RF: 0 rosuvastatin 40 mg tablet 40 mg PO HS RF: 0 lorazepam 1 mg tablet 1 mg PO HS RF: 0 Discontinued prednisone 10 mg tablet PO DAILY Qty: 86 RF: 0 Stand-Alone Forms: [email or web address] [facility] [place] [employer]/Other Patient Handouts: Diabetes Resources, Diabetes Type 2 Oral Meds, Diabetes Healthy Meals Discharge Orders: Discharge Order (Routine); Ordered 03/10/18 Ordered By: Juan Funes Admission Data Admit Date/Time: 03/03/18 00:32 Attending Provider: Sivan Luque Admit Provider: Juan Funes Primary Care Provider: Gama Alfred Other Providers: Talha Ackerman ; Dirk Meneses Service: Medical Other Interventions: Discharge Summary Assessment (RN) Last Done: 03/10/18 15:07 DC Date/Time DO NOT enter until pt leaves facility: 03/10/18 16:41 Supervising Physician Co-Signing Physician Notes Resident Physician Supervision Note: I independently interviewed and examined the patient and verified the andujar history and physical, reviewed labs and image studies, discussed the case with the resident Dr. Funes and agree with the findings and care plan. Time spent in discharge 35 min
[2018-03-10] MEDS ORDERED: INSULIN ASPART 100 UNITS/ML 3 ML PEN SC SCH (16:30)
[2018-03-11] MEDS ORDERED: INSULIN ASPART 100 UNITS/ML 3 ML PEN SC SCH (07:30)
== END 2018-03-10 16:41 | disposition home health service (06) | DRG 638 ==
LOC: ED 19:14 → SUATTDRO 03-03 00:32 → 2S 03-03 00:32 → 2W 03-04 14:44

== ENCOUNTER 2019-10-19 17:06 | Inpatient (IN) ==
--- NOTE | 2019-10-19 17:27 | Emergency Department Note ---
Impression & Plan COPD exacerbation ED Provider Note NAME: ANDREW BURGER AGE: 68 SEX: F : 1950 ARRIVES VIA: Walk-In INFORMANT: Patient, ED PROVIDER(S): Mak Ramírez MD Chief Complaint: Shortness of breath, cough HPI: Patient does present with worsening shortness of breath and cough. The patient described as productive and yellow. Patient was a former smoker and has not smoked in approximate 30 years. Patient was treated with a course of antibiotics earlier in the month via Dr. Alfred's office. The patient does state that she has some lower extremity edema but this is unchanged. Prior. The patient does use a CPAP as well as chronic 2 to 3 L of oxygen at all times. Patient states that her nebulizer treatments do improve her symptoms but it is very brief in nature. Patient describes her symptoms as fairly constant and they have worsened over the last 4 weeks. Patient is not had a COVID test. Patient denies any recent travel and does live by herself. No sick contacts. ROS: See HPI for pertinent positives and negatives. A total of 10 systems were reviewed and otherwise negative. Past medical history: See below Surgical history: See below Social history: See below Physical Exam: GENERAL: Obese, wearing a mask and nasal cannula. NAD, non-toxic. EYE EXAM: Normal conjunctiva. PERRL, no anisocoria and EOM's grossly intact w/o pain. NECK: Supple, no nuchal rigidity, no adenopathy, non-tender. No signs of meningismus. LUNGS: Diffuse wheezes throughout no obvious tachypnea. HEART: NSR, no MRG. ABDOMEN: Abdomen soft, non-tender, normo-active bowel sounds, no masses, no rebound or guarding. BACK: No CVA TTP. SKIN: No rashes and no bruising. UPPER EXTREMITIES: Upper extremities are grossly normal. LOWER EXTREMITIES: Grossly normal, mild nonpitting lower extremity edema. No obvious asymmetry or redness. Negative Homans sign. NEURO EXAM: A&O x3, cranial nerves II-XII grossly intact, normal speech, moves all 4 extremities on command w/o issue. Differential diagnoses: Reactive airway disease, pneumonia, pneumothorax, COPD, CHF, infections, cardiac ischemia, pulmonary embolism, musculoskeletal, gastrointestinal, as well as other pathologies. Course: Patient was seen and evaluated the bedside. Full history physical exam was performed. EKG: Indication: Shortness of breath Sinus with PVCs, rate 92, normal intervals, normal axis, Q wave and T wave inversion in lead III. No significant change from May 15, 2018. Imaging Studies: Radiology results as stated below per my review in the radiologist's interpretation: XR chest 1V portable CLINICAL HISTORY: Dyspnea COMPARISON STUDY: Chest CT February 02, 2018. Chest radiograph January 17, 2019. FINDINGS: Lung volumes are normal. Mild left basilar opacity favors atelectasis. There is no pneumothorax or pleural effusion. Cardiac size is stable. Mediastinal contours are normal. There is no evidence for pulmonary edema. Incidental note is made of severe osteoarthritis of the bilateral glenohumeral joints, greater on the left. IMPRESSION: No acute cardiopulmonary findings. No significant change in appearance of the chest. ACT 112: Negative or not required by law. Electronically signed by: Martínez Spears M.D. 10/19/2019 6:06 PM Dictated: 10/19/191803 Transcribed: 10/19/191803 Cardiac monitoring: An order was placed for continuous cardiac monitoring. The monitor shows a rate of 92 with sinus rhythm. MDM: Patient did present with concern for shortness of breath. Blood work is obtaine d given the patient's wheezing she is given DuoNeb treatment, methylprednisone, magnesium and empiric antibiotics along with blood cultures. EKG unchanged. Chest x-ray is clear. Patient does have a normal white count H&H and platelet count. Patient on reassessment did have some mild improvement. The patient is over 300 pounds with a BMI greater than 60 and lives by herself. Given that the patient is only had mild improvement that she has had symptoms for approximately 1 month I do believe that the patient would benefit from additional treatments nebulizers continue steroids and monitoring. Patient did have persistent wheezing status post treatment which included duo nebs, steroids, and magnesium. Patient did receive antibiotics. I did speak the on-call hospitalist agreed to further evaluate treat the patient. Patient was admitted to medicine service by Dr. Krystal Melgar. Past Med/Surg History Medical History Acute renal failure (Resolved 10/23/13) Anxiety (Acute) Arthralgia of multiple sites (Acute) Asthma (Chronic) BMI 60.0-69.9, adult (Acute) CAD (coronary artery disease) (Acute) Candidal skin infection (Resolved) Carotid artery stenosis (Acute) Carpal tunnel syndrome (Acute) Cataract Chronic diastolic congestive heart failure (Acute) Chronic respiratory failure with hypoxia, on home oxygen therapy 3 L/min nasal cannula. Chronic sinusitis (Acute) Constipation (Acute) COPD (chronic obstructive pulmonary disease) (Chronic) Depression (Chronic) Diabetes mellitus (Chronic 03/14/12) Diabetic peripheral neuropathy associated with type 2 diabetes mellitus (Acute) Diverticulosis of colon (Acute) Edema (Acute) Eustachian tube dysfunction (Acute) Fatty liver disease, nonalcoholic (Acute) Gait disturbance (Acute) Gastritis (Resolved) GERD (gastroesophageal reflux disease) (Chronic) Hernia (Acute) Hyperlipidemia (Acute) Hypertension (Chronic) Internal hemorrhoids (Acute) Interstitial lung disease (Acute) Leukocytosis (Acute) Lumbar facet joint syndrome (Chronic) Lumbosacral radiculopathy (Acute) Morbid obesity (Acute) MRSA (methicillin resistant Staphylococcus aureus) carrier Nontoxic multinodular goiter (Acute) Obstructive sleep apnea (Acute) Osteopenia (Acute) Polyosteoarthritis, unspecified (Acute) Proteinuria (Acute) Rectocele (Acute) Sacroiliitis (Acute) Seborrheic dermatitis of scalp (Acute) Sensorineural hearing loss (SNHL) of both ears (Acute) Shortness of breath (Acute) Solitary pulmonary nodule (Acute) Systolic murmur (Acute) Ulnar neuropathy of both upper extremities (Acute) Urinary incontinence (Acute) Vitamin D deficiency (Chronic) Surgical History H/O: hysterectomy History of carpal tunnel surgery of left wrist History of carpal tunnel surgery of right wrist History of dilation and curettage History of eye surgery History of nasal surgery History of tooth extraction History of tubal ligation Total knee replacement status Family History Father Diabetes Blood clotting disorder Mother Cardiac pacemaker Grandfather Myocardial infarction Brother Stroke Grandmother (Maternal) Breast cancer Denies family history of Ovarian cancer Prostate cancer Colorectal cancer Social History Smoking Status: Former smoker Age Started Using Tobacco: 9; Age Quit Using Tobacco: 28; Second Hand Exposure: No; Hx Alcohol Use: No Hx Substance Use: No Preferred Language: French Communication Ability: Effective Visual Impairment: Limited Hearing Ability: Normal Services Manager Required: No Beliefs That Will Affect Care: None marital status: / Current Living Situation: Alone current occupational status: retired Feels Safe at Home: Yes Dental Care, Regularly: No Physical Activity Frequency: Does not Exercise Allergies Allergies Allergy/AdvReac Type Severity Reaction Status Date / Time adhesive Allergy Intermediate HIVES Verified 10/19/19 19:40 atorvastatin Allergy Intermediate MYALGIA Verified 10/19/19 19:40 ceftriaxone Allergy Intermediate FELT Verified 10/19/19 19:40 FUNNY/STRANGE pravastatin Allergy Intermediate MYALGIA Verified 10/19/19 19:40 sucralfate [From Carafate] AdvReac Intermediate Gastrointestinal Verified 10/19/19 19:40 Upset Home Meds Home Medications Medication Instructions Recorded Confirmed acetaminophen [Tylenol Extra 1,000 mg PO BID PRN 02/02/18 10/19/19 Strength] aspirin [Aspir-81] 81 mg PO DAILY 02/02/18 10/19/19 dextromethorphan-guaifenesin 1 tab PO BID PRN 02/02/18 10/19/19 [Mucinex DM] Oxygen Home #1 ea 12/09/18 09/21/19 lisinopril 5 mg tablet 5 mg PO DAILY 12/09/18 10/19/19 nitroglycerin 0.4 mg sublingual 0.4 mg SUBLINGUAL Q5M PRN tab 12/09/18 09/21/19 tablet diclofenac sodium 1 % topical gel 0 g TOP QID PRN 09/21/19 10/19/19 meclizine 25 mg tablet 25 mg PO TID PRN 09/21/19 10/19/19 zolpidem 10 mg tablet mg PO .TAKE 1 TABLET AT BED 09/21/19 09/21/19 furosemide [Lasix] 40 mg PO DAILY 10/19/19 10/19/19 lorazepam 1 mg PO BID PRN 10/19/19 10/19/19 lorazepam [Ativan] 1 mg PO HS 10/19/19 10/19/19 mirtazapine 15 mg PO HS 10/19/19 10/19/19 Previous Rx's Medication Instructions Recorded blood-glucose meter #1 ea 10/05/18 cholecalciferol (vitamin D3) 25 2,000 units PO DAILY #30 cap 02/01/19 mcg (1,000 unit) capsule gabapentin 300 mg capsule 300 mg PO TID #270 cap 05/11/19 montelukast 10 mg tablet 10 mg PO QPM #90 tab 05/12/19 arformoterol 15 mcg/2 mL solution 2 ml INH BID #120 ml 05/18/19 for nebulization budesonide 1 mg/2 mL suspension 1 mg INH BID #120 ml 05/18/19 for nebulization glimepiride 2 mg tablet 2 mg PO QAM #90 tab 07/11/19 metformin 500 mg tablet 500 mg PO BID #180 tab 07/11/19 fluticasone 250 mcg-salmeterol 50 1 puffs INH BID #60 ea 08/05/19 mcg/dose blistr powdr for inhalation isosorbide mononitrate 60 mg 60 mg PO DAILY #90 tab 08/26/19 tablet,extended release 24 hr tramadol 50 mg tablet 100 mg PO BID #120 tab 09/05/19 Results & Data (ED) Vital Signs Vital Signs - 24 hr 10/19/19 17:13 10/19/19 17:24 10/19/19 17:28 Temperature 37.4 C Temperature Source Oral Pulse Rate 50 L 86 88 Pulse Rate [Right Radial] Pulse Rate from SpO2 Sensor 58 L 73 Pulse Rhythm Regular Pulse Strength Normal Respiratory Rate 18 22 21 Respiratory Effort / Characteristics Non-Labored Respiratory Depth Normal Respiratory Pattern Regular Blood Pressure 145/64 H 158/96 H Blood Pressure Mean 91 115 Blood Pressure Position Sitting Pulse Oximetry 94 97 97 Oxygen Delivery Method Room Air Oxygen Flow Rate 3 3 Sepsis Recent Fever Within 48 Hours No Sepsis New/Unexplained Change in Mental Status No Sepsis Action Taken by Nursing No Action Required 10/19/19 17:30 10/19/19 17:31 10/19/19 18:00 Temperature Temperature Source Pulse Rate 91 H 89 91 H Pulse Rate [Right Radial] Pulse Rate from SpO2 Sensor 51 L 57 L 55 L Pulse Rhythm Pulse Strength Respiratory Rate 19 21 21 Respiratory Effort / Characteristics Respiratory Depth Respiratory Pattern Blood Pressure 179/107 H Blood Pressure Mean 125 Blood Pressure Position Pulse Oximetry 98 98 97 Oxygen Delivery Method Oxygen Flow Rate 3 3 3 Sepsis Recent Fever Within 48 Hours Sepsis New/Unexplained Change in Mental Status Sepsis Action Taken by Nursing 10/19/19 18:02 10/19/19 18:05 10/19/19 18:30 Temperature Temperature Source Pulse Rate 89 Pulse Rate [Right Radial] 98 H Pulse Rate from SpO2 Sensor 85 Pulse Rhythm Pulse Strength Respiratory Rate 20 24 Respiratory Effort / Characteristics Non-Labored Spontaneous Respiratory Depth Respiratory Pattern Blood Pressure Blood Pressure Mean Blood Pressure Position Pulse Oximetry 97 98 98 Oxygen Delivery Method Nasal Cannula Nasal Cannula Oxygen Flow Rate 3 3 3 Sepsis Recent Fever Within 48 Hours Sepsis New/Unexplained Change in Mental Status Sepsis Action Taken by Nursing 10/19/19 18:35 10/19/19 19:00 10/19/19 19:15 Temperature Temperature Source Pulse Rate 89 86 92 H Pulse Rate [Right Radial] Pulse Rate from SpO2 Sensor 67 66 70 Pulse Rhythm Pulse Strength Respiratory Rate 27 H 20 22 Respiratory Effort / Characteristics Respiratory Depth Respiratory Pattern Blood Pressure 165/69 H 164/87 H 153/74 H Blood Pressure Mean 95 101 84 Blood Pressure Position Pulse Oximetry 98 95 96 Oxygen Delivery Method Oxygen Flow Rate 3 3 3 Sepsis Recent Fever Within 48 Hours Sepsis New/Unexplained Change in Mental Status Sepsis Action Taken by [facility] Medications Current Medication List: was personally reviewed by me Laboratory Data Attestation: I reviewed the patient's lab results. Result diagrams: 10/19/19 17:57 10/19/19 17:57 Lab Results 10/19/19 10/19/19 10/19/19 Range/Units 17:57 17:57 17:57 WBC 9.15 (4.8-10.8) K/uL RBC 4.89 (4.2-5.4) M/uL Hgb 14.1 (12.0-16.0) g/dL Hct 42.2 (37-47) % MCV 86.3 (80-100) fL MCH 28.8 (25-34) pg MCHC 33.4 (32-36) g/dL RDW Std Deviation 44.6 (36.4-46.3) fL RDW Coeff of Robert 14.1 (11.5-14.5) % Plt Count 318 (130-400) K/uL MPV 9.9 (7.4-10.4) fL Immature Gran % (Auto) 0.3 % Neut % (Auto) 58.9 % Lymph % (Auto) 28.4 % [place] % (Auto) 7.2 % Eos % (Auto) 4.7 % Baso % (Auto) 0.5 % Neut # (Auto) 5.38 (1.4-6.5) K/uL Lymph # (Auto) 2.60 (1.2-3.4) K/uL [place] # (Auto) 0.66 H (0.11-0.59) K/uL Eos # (Auto) 0.43 (0-0.5) K/uL Baso # (Auto) 0.05 (0-0.2) K/uL Immature Gran # (Auto) 0.03 H (0.00-0.02) K/uL PT 10.6 (9.0-12.0) Seconds INR 1.0 (0.9-1.1) APTT 27.1 (21.0-31.0) Seconds PTT Ratio 1.0 Sodium 140 (136-145) mmol/L Potassium 4.3 (3.5-5.1) mmol/L Chloride 106 (98-107) mmol/L Carbon Dioxide 28 (21-32) mmol/L Anion Gap 6.0 (3-11) BUN 24 H (7-18) mg/dl Creatinine 1.24 H (0.6-1.2) mg/dl Est Cr Clr Drug Dosing Not Reportable Est GFR ( Amer) 51.0 Est GFR (Non-Af Amer) 44.0 BUN/Creatinine Ratio 19.1 (10-20) Glucose 134 H (70-99) mg/dl Calcium 9.1 (8.5-10.1) mg/dl Magnesium 1.9 (1.8-2.4) mg/dl Total Bilirubin 0.3 (0.2-1) mg/dl AST 16 (15-37) U/L ALT 24 (12-78) U/L Alkaline Phosphatase 100 (45-117) U/L Troponin I < 0.015 (0-0.045) ng/ml NT-Pro-B Natriuret Pep 55 (0-900) pg/ml Total Protein 7.0 (6.4-8.2) gm/dl Albumin 3.3 L (3.4-5.0) gm/dl Globulin 3.7 (2.5-4.0) gm/dl Albumin/Globulin Ratio 0.9 (0.9-2) Administered Medications Magnesium Sulfate/Dextrose (Magnesium Sulfate / D5w) 1 gm in 100 mls @ 100 mls/hr IV Q1H MAGDALENA Stop: 10/19/19 19:44 Last Admin: 10/19/19 18:41 Dose: 100 mls/hr Documented by: [id number] Discontinued Medications Albuterol (Duoneb) 9 ml INH ONE STA Stop: 10/19/19 17:37 Last Admin: 10/19/19 18:05 Dose: 9 ml Documented by: [id number] Levofloxacin/Dextrose (Levaquin/D5w) 750 mg in 150 mls @ 100 mls/hr IV NOW STA Stop: 10/19/19 19:05 Last Admin: 10/19/19 18:39 Dose: 100 mls/hr Documented by: [id number] Methylprednisolone (Solumedrol) 60 mg IV NOW STA Stop: 10/19/19 17:37 Last Admin: 10/19/19 18:35 Dose: 60 mg Documented by: [id number] Discharge Plan Visit Data Chief Complaint: Cough Stated Complaint: COUGH, RIGHT HIP PAIN ED Provider: Mak Ramírez Discharge Problem: COPD exacerbation Patient Disposition: Home - Self-Care Condition: Good Forms Stand Alone Forms: [facility], Virtual Emergency Department, Important Visit Information Prescriptions Prescriptions: No Action cholecalciferol (vitamin D3) 1,000 unit capsule 2,000 units PO DAILY Qty: 30 RF: 0 montelukast 10 mg tablet 10 mg PO QPM Qty: 90 RF: 3 Brovana 15 mcg/2 mL solution for nebulization 2 ml INH BID Qty: 120 RF: 5 budesonide [Pulmicort] 1 mg/2 mL suspension for nebulization 1 mg INH BID Qty: 120 RF: 5 glimepiride 2 mg tablet 2 mg PO QAM Qty: 90 RF: 3 metformin 500 mg tablet 500 mg PO BID Qty: 180 RF: 3 fluticasone propion-salmeterol 250-50 mcg/dose blister with device 1 puffs INH BID Qty: 60 RF: 5 tramadol 50 mg tablet 100 mg PO BID Qty: 120 RF: 2 (DME) Oxygen Home Liters Per Minute See Dose Instructions .ROUTE .MEDSUPPLY Qty: 1 RF: 0 lisinopril 5 mg tablet 5 mg PO DAILY RF: 0 isosorbide mononitrate 60 mg tablet extended release 24 hr 60 mg PO DAILY Qty: 90 RF: 3 meclizine 25 mg tablet 25 mg PO TID PRN (Reason: DIZZYNESS) RF: 0 diclofenac sodium [Voltaren] 1 % gel 0 g TOP QID PRN (Reason: Pain) RF: 0 zolpidem 10 mg tablet PO .TAKE 1 TABLET AT BED RF: 0 (DME) blood-glucose meter [Blood Glucose Monitoring] kit See Dose Instructions .ROUTE .MEDSUPPLY Qty: 1 RF: 0 gabapentin 300 mg capsule 300 mg PO TID Qty: 270 RF: 3 aspirin [Aspir-81] 81 mg Tablet,Delayed Release (Dr/Ec) 81 mg PO DAILY RF: 0 acetaminophen [Tylenol Extra Strength] 500 mg Tablet 1,000 mg PO BID PRN (Reason: Pain) RF: 0 dextromethorphan-guaifenesin [Mucinex DM] 60-1,200 mg Tablet Extended Release 12 Hr 1 tab PO BID PRN (Reason: Congestion) RF: 0 nitroglycerin [Nitrostat] 0.4 mg tablet, sublingual 0.4 mg Sublingual Q5M PRN (Reason: Chest Pain) RF: 0 lorazepam [Ativan] 1 mg tablet 1 mg PO HS RF: 0 furosemide [Lasix] 40 mg tablet 40 mg PO DAILY RF: 0 mirtazapine 15 mg tablet 15 mg PO HS RF: 0 lorazepam 1 mg tablet 1 mg PO BID PRN (Reason: Anxiety) RF: 0 Referrals Referrals: Gama Alfred MD [Primary Care Provider] -
[2019-10-19] MEDS ORDERED: methylPREDNISolone 125 MG/2 ML VIAL IV STA (17:36)
[2019-10-19] MEDS ORDERED: LEVOFLOXACIN/D5W 750 MG/150 ML BAG IV STA (17:36)
[2019-10-19] MEDS ORDERED: ALBUT/IPRATROP 3MG/0.5MG NEB 3 ML VIAL INH STA (17:36)
--- NOTE | 2019-10-19 18:07 | XRay Report ---
XR chest 1V portable CLINICAL HISTORY: Dyspnea COMPARISON STUDY: Chest CT February 02, 2018. Chest radiograph January 17, 2019. FINDINGS: Lung volumes are normal. Mild left basilar opacity favors atelectasis. There is no pneumoth orax or pleural effusion. Cardiac size is stable. Mediastinal contours are normal. There is no eviden ce for pulmonary edema. Incidental note is made of severe osteoarthritis of the bilateral glenohumera l joints, greater on the left. IMPRESSION: No acute cardiopulmonary findings. No significant change in appearance of the chest. ACT 112: Negative or not required by law. Electronically signed by: Martínez Spears M.D. 10/19/2019 6:06 PM
[2019-10-19 18:08] LABS: Basophils # (auto) 0.05 K/uL (0-0.2); Basophils % (auto) 0.5 %; Eosinophils # (auto) 0.43 K/uL (0-0.5); Eosinophils % (auto) 4.7 %; Hematocrit (blood only) 42.2 % (37-47); Hemoglobin 14.1 g/dL (12.0-16.0); Immature Granulocytes # (auto) 0.03 K/uL (0.00-0.02); Immature Granulocytes % (auto) 0.3 %; Lymphocytes % (auto) 28.4 %; Mean Corpuscular Hemoglobin 28.8 pg (25-34); Mean Corpuscular Hgb Conc 33.4 g/dL (32-36); Mean Corpuscular Volume 86.3 fL (80-100); Mean Platelet Volume 9.9 fL (7.4-10.4); Monocytes # (auto) 0.66 K/uL (0.11-0.59); Monocytes % (auto) 7.2 %; Neutrophils # (auto) 5.38 K/uL (1.4-6.5); Neutrophils % (auto) 58.9 %; Platelet Count 318 K/uL (130-400); RDW Coefficient of Variation 14.1 % (11.5-14.5); RDW Standard Deviation 44.6 fL (36.4-46.3); Red Blood Count 4.89 M/uL (4.2-5.4); White Blood Count 9.15 K/uL (4.8-10.8)
[2019-10-19 18:24] LABS: Partial Thromboplastin Time 27.1 Seconds (21.0-31.0); Prothrombin Time 10.6 Seconds (9.0-12.0)
[2019-10-19 18:32] LABS: Alanine Aminotransferase 24 U/L (12-78); Albumin Globulin Ratio 0.9 (0.9-2); Albumin Level 3.3 gm/dl (3.4-5.0); Alkaline Phosphatase 100 U/L (45-117); Aspartate Aminotransferase 16 U/L (15-37); BUN Creatinine Ratio 19.1 (10-20); Bilirubin,Total 0.3 mg/dl (0.2-1); Blood Urea Nitrogen 24 mg/dl (7-18); Calcium 9.1 mg/dl (8.5-10.1); Carbon Dioxide 28 mmol/L (21-32); Chloride 106 mmol/L (98-107); Globulin 3.7 gm/dl (2.5-4.0); Glucose 134 mg/dl (70-99); Magnesium 1.9 mg/dl (1.8-2.4); NT Pro B Type Natriuretic Pept 55 pg/ml (0-900); Potassium 4.3 mmol/L (3.5-5.1); Sodium 140 mmol/L (136-145); Troponin I < 0.015 ng/ml (0-0.045)
[2019-10-19] MEDS: MAGNESIUM SULFATE / D5W 1 GM/100 ML BAG IV SCH ×2 (18:41→19:42)
--- NOTE | 2019-10-19 19:54 | History & Physical Report ---
Date of Service October 19, 2019 Assessment & Plan (1) COPD exacerbation: 68yo f with one month of progressive SOB, cough productive for thick yellow sputum. Suspect COPD exacerbation. Patient afebrile, no infiltrate on CXR. Patient given Solumedrol, DuoNeb and Magnesium in the ER. Still with persistent SOB and diffuse wheezing -Admit to medical floor -Check procalcitonin -Supplemental O2 as needed to maintain saturation 88-92% -DuoNebs q 6 hours -Albuterol q 2 hours as needed -Continue Aformoterol and Budesonide -Solumedrol 40mg IV q 6 -Azithromycin -Flutter valve and incentive spirometry -Mucinex BID Present on Admission?: Yes (2) Hypertension: Blood pressure stable -Continue Lisinopril -Continue Imdur -Continue to monitor Present on Admission?: Yes (3) Hyperlipidemia: Chronic. Statin intolerant Present on Admission?: Yes (4) Chronic diastolic congestive heart failure: Patient appears euvolemic at present although difficult assessment due to body habitus. No pulmonary edema noted on CXR. BNP unremarkable -Continue Lasix -Continue Isosorbide [place] -Continue Lisinopril Present on Admission?: Yes (5) CAD (coronary artery disease): Chronic. Stable. Patient denies chest pain. No EKG evidence of ischemia -Continue ASA -Patient is intolerant to statins Present on Admission?: Yes (6) Diabetes mellitus: Well controlled. GevA1C=8.1 on 08/25/19 -Hold oral agents while inpatient -Lantus 10u SQ BID with ISS -Goal blood sugar 100 - 140 -Continue Gabapentin 300mg po TID for neuropathic pain Present on Admission?: Yes (7) Depression: Chronic -Continue Mirtazapine -Continue Lorazepam PRN and qHS Present on Admission?: Yes (8) Right hip pain: Patient reports pain in the right hip with ambulation, radiation to the groin -Check x-ray right hip 2V -Continue pain management with Tylenol, Tramadol F/E/N - [place]. Electrolytes WNL. CC diet as tolerated Ppx -Heparin Code - Full Dispo - Observation to medical floor Present on Admission?: Yes Admission and Anticipated Discharge Date Admission Date: 10/19/19 Anticipated date of discharge: 10/21/19 History of Present Illness Chief Complaint: SOB Primary Care Provider: Chaka Alfred MD Kathleen Funez is a 68-year-old female with multiple medical problems to include COPD, CHF, CAD, morbid obesity. She presents to the ER today with complaints of progressive shortness of breath x1 month as well as cough productive with thick, yellow sputum. She reports some dizziness that occurs with coughing. She denies chest pain/palpitations/abdominal pain/nausea/vomiting/fever/chills. She has had some occasional diarrhea as well as poor appetite and decreased p.o. intake over the last 2 weeks. Patient denies worsening edema or orthopnea. She does think she may have gained some weight. Additionally, she is complaining of severe right hip pain with weightbearing with radiation to the groin and left knee pain. Patient has been using her inhalers as needed but states that she ran out of nebulizer solution approximately 1 month ago ER course: Levaquin, albuterol 9 mL neb, magnesium x2 g, Solu-Medrol 60 mg IV Allergies Allergy/AdvReac Type Severity Reaction Status Date / Time adhesive Allergy Intermediate HIVES Verified 10/19/19 19:40 atorvastatin Allergy Intermediate MYALGIA Verified 10/19/19 19:40 ceftriaxone Allergy Intermediate FELT Verified 10/19/19 19:40 FUNNY/STRANGE pravastatin Allergy Intermediate MYALGIA Verified 10/19/19 19:40 sucralfate [From Carafate] AdvReac Intermediate Gastrointestinal Verified 10/19/19 19:40 Upset Home Medications Home Medications Medication Instructions Recorded Confirmed Type acetaminophen [Tylenol Extra 1,000 mg PO BID PRN 02/02/18 10/19/19 History Strength] aspirin [Aspir-81] 81 mg PO DAILY 02/02/18 10/19/19 History dextromethorphan-guaifenesin 1 tab PO BID PRN 02/02/18 10/19/19 History [Mucinex DM] blood-glucose meter #1 ea 10/05/18 09/21/19 Rx Oxygen Home #1 ea 12/09/18 09/21/19 History lisinopril 5 mg tablet 5 mg PO DAILY 12/09/18 10/19/19 History nitroglycerin 0.4 mg sublingual 0.4 mg SUBLINGUAL Q5M PRN tab 12/09/18 09/21/19 History tablet cholecalciferol (vitamin D3) 25 2,000 units PO DAILY #30 cap 02/01/19 10/19/19 Rx mcg (1,000 unit) capsule gabapentin 300 mg capsule 300 mg PO TID #270 cap 05/11/19 10/19/19 Rx montelukast 10 mg tablet 10 mg PO QPM #90 tab 05/12/19 10/19/19 Rx arformoterol 15 mcg/2 mL solution 2 ml INH BID #120 ml 05/18/19 10/19/19 Rx for nebulization budesonide 1 mg/2 mL suspension 1 mg INH BID #120 ml 05/18/19 10/19/19 Rx for nebulization glimepiride 2 mg tablet 2 mg PO QAM #90 tab 07/11/19 10/19/19 Rx metformin 500 mg tablet 500 mg PO BID #180 tab 07/11/19 10/19/19 Rx fluticasone 250 mcg-salmeterol 50 1 puffs INH BID #60 ea 08/05/19 10/19/19 Rx mcg/dose blistr powdr for inhalation isosorbide mononitrate 60 mg 60 mg PO DAILY #90 tab 08/26/19 10/19/19 Rx tablet,extended release 24 hr tramadol 50 mg tablet 100 mg PO BID #120 tab 09/05/19 10/19/19 Rx diclofenac sodium 1 % topical gel 0 g TOP QID PRN 09/21/19 10/19/19 History meclizine 25 mg tablet 25 mg PO TID PRN 09/21/19 10/19/19 History zolpidem 10 mg tablet mg PO .TAKE 1 TABLET AT BED 09/21/19 09/21/19 History furosemide [Lasix] 40 mg PO DAILY 10/19/19 10/19/19 History lorazepam 1 mg PO BID PRN 10/19/19 10/19/19 History lorazepam [Ativan] 1 mg PO HS 10/19/19 10/19/19 History mirtazapine 15 mg PO HS 10/19/19 10/19/19 History Past Med/Surg History Medical History Acute renal failure (Resolved 10/23/13) Anxiety (Acute) Arthralgia of multiple sites (Acute) Asthma (Chronic) BMI 60.0-69.9, adult (Acute) CAD (coronary artery disease) (Acute) Candidal skin infection (Resolved) Carotid artery stenosis (Acute) Carpal tunnel syndrome (Acute) Cataract Chronic diastolic congestive heart failure (Acute) Chronic respiratory failure with hypoxia, on home oxygen therapy 3 L/min nasal cannula. Chronic sinusitis (Acute) Constipation (Acute) COPD (chronic obstructive pulmonary disease) (Chronic) Depression (Chronic) Diabetes mellitus (Chronic 03/14/12) Diabetic peripheral neuropathy associated with type 2 diabetes mellitus (Acute) Diverticulosis of colon (Acute) Edema (Acute) Eustachian tube dysfunction (Acute) Fatty liver disease, nonalcoholic (Acute) Gait disturbance (Acute) Gastritis (Resolved) GERD (gastroesophageal reflux disease) (Chronic) Hernia (Acute) Hyperlipidemia (Acute) Hypertension (Chronic) Internal hemorrhoids (Acute) Interstitial lung disease (Acute) Leukocytosis (Acute) Lumbar facet joint syndrome (Chronic) Lumbosacral radiculopathy (Acute) Morbid obesity (Acute) MRSA (methicillin resistant Staphylococcus aureus) carrier Nontoxic multinodular goiter (Acute) Obstructive sleep apnea (Acute) Osteopenia (Acute) Polyosteoarthritis, unspecified (Acute) Proteinuria (Acute) Rectocele (Acute) Sacroiliitis (Acute) Seborrheic dermatitis of scalp (Acute) Sensorineural hearing loss (SNHL) of both ears (Acute) Shortness of breath (Acute) Solitary pulmonary nodule (Acute) Systolic murmur (Acute) Ulnar neuropathy of both upper extremities (Acute) Urinary incontinence (Acute) Vitamin D deficiency (Chronic) Surgical History H/O: hysterectomy History of carpal tunnel surgery of left wrist History of carpal tunnel surgery of right wrist History of dilation and curettage History of eye surgery History of nasal surgery History of tooth extraction History of tubal ligation Total knee replacement status Family History Father Diabetes Blood clotting disorder Mother Cardiac pacemaker Grandfather Myocardial infarction Brother Stroke Grandmother (Maternal) Breast cancer Denies family history of Ovarian cancer Prostate cancer Colorectal cancer Social History Smoking Status: Former smoker Age Started Using Tobacco: 9; Age Quit Using Tobacco: 28; Second Hand Exposure: No; Hx Alcohol Use: No Hx Substance Use: No Preferred Language: Greek Communication Ability: Effective Visual Impairment: Limited Hearing Ability: Normal Authorization Manager Required: No Beliefs That Will Affect Care: None marital status: / Current Living Situation: Alone current occupational status: retired Feels Safe at Home: Yes Dental Care, Regularly: No Physical Activity Frequency: Does not Exercise Review of Systems Review of Systems: All systems reviewed & are unremarkable except as noted in HPI & below Physical Exam Physical Exam: General: Morbidly obese patient resting comfortably in bed, NAD, non-toxic in appearance, AA&O x 4 Skin: warm, dry, intact, no rashes or lesions HEENT: NC/AT, PERRL, EOMI, anicteric sclera, conjunctiva without injection, external ear normal to inspection and nontender, nares patent, moist mucus membranes, dentition intact, no oropharyngeal lesions, neck supple, trachea midline, no LAD, no thyromegaly, no JVD Heart: +S1/S2, regular, no m/r/g Lungs: equal air entry bilaterally, + rales and coarse breath sounds present left base, diminished throughout with diffuse end expiratory wheezing, patient became quite short of breath with repositioning for the pulmonary exam Abd: +BS, soft, NT/ND, no masses/organomegaly/ascites Ext: warm, 2+ pulses in UE/LE bilaterally, no clubbing/cyanosis or edema Neuro: nonfocal, patient AA&O x 4, speech intact, no facial droop, moving all extremities on command with equal strength 5/5 Results & Data Results & Data ([facility]) Vital Signs (Past 12 Hours) Vital Signs Temp Pulse Pulse Resp BP Pulse Ox 10/19/19 19:15 92 H 22 153/74 H 96 10/19/19 19:00 86 20 164/87 H 95 10/19/19 18:35 89 27 H 165/69 H 98 10/19/19 18:30 89 24 98 10/19/19 18:05 98 H 20 98 10/19/19 18:02 97 10/19/19 18:00 91 H 21 97 10/19/19 17:31 89 21 98 10/19/19 17:30 91 H 19 179/107 H 98 10/19/19 17:28 88 21 97 10/19/19 17:24 86 22 158/96 H 97 07/29/20 17:13 37.4 C 50 L 18 145/64 H 94 Laboratory Results Lab Results 10/19/19 10/19/19 10/19/19 Range/Units 17:57 17:57 17:57 WBC 9.15 (4.8-10.8) K/uL RBC 4.89 (4.2-5.4) M/uL Hgb 14.1 (12.0-16.0) g/dL Hct 42.2 (37-47) % MCV 86.3 (80-100) fL MCH 28.8 (25-34) pg MCHC 33.4 (32-36) g/dL RDW Std Deviation 44.6 (36.4-46.3) fL RDW Coeff of Robert 14.1 (11.5-14.5) % Plt Count 318 (130-400) K/uL MPV 9.9 (7.4-10.4) fL Immature Gran % (Auto) 0.3 % Neut % (Auto) 58.9 % Lymph % (Auto) 28.4 % [place] % (Auto) 7.2 % Eos % (Auto) 4.7 % Baso % (Auto) 0.5 % Neut # (Auto) 5.38 (1.4-6.5) K/uL Lymph # (Auto) 2.60 (1.2-3.4) K/uL [place] # (Auto) 0.66 H (0.11-0.59) K/uL Eos # (Auto) 0.43 (0-0.5) K/uL Baso # (Auto) 0.05 (0-0.2) K/uL Immature Gran # (Auto) 0.03 H (0.00-0.02) K/uL PT 10.6 (9.0-12.0) Seconds INR 1.0 (0.9-1.1) APTT 27.1 (21.0-31.0) Seconds PTT Ratio 1.0 Sodium 140 (136-145) mmol/L Potassium 4.3 (3.5-5.1) mmol/L Chloride 106 (98-107) mmol/L Carbon Dioxide 28 (21-32) mmol/L Anion Gap 6.0 (3-11) BUN 24 H (7-18) mg/dl Creatinine 1.24 H (0.6-1.2) mg/dl Est Cr Clr Drug Dosing Not Reportable Est GFR ( Amer) 51.0 Est GFR (Non-Af Amer) 44.0 BUN/Creatinine Ratio 19.1 (10-20) Glucose 134 H (70-99) mg/dl Calcium 9.1 (8.5-10.1) mg/dl Magnesium 1.9 (1.8-2.4) mg/dl Total Bilirubin 0.3 (0.2-1) mg/dl AST 16 (15-37) U/L ALT 24 (12-78) U/L Alkaline Phosphatase 100 (45-117) U/L Troponin I < 0.015 (0-0.045) ng/ml NT-Pro-B Natriuret Pep 55 (0-900) pg/ml Total Protein 7.0 (6.4-8.2) gm/dl Albumin 3.3 L (3.4-5.0) gm/dl Globulin 3.7 (2.5-4.0) gm/dl Albumin/Globulin Ratio 0.9 (0.9-2) Diagnostic Findings XR chest 1V portable CLINICAL HISTORY: Dyspnea COMPARISON STUDY: Chest CT February 02, 2018. Chest radiograph January 17, 2019. FINDINGS: Lung volumes are normal. Mild left basilar opacity favors atelectasis. There is no pneumothorax or pleural effusion. Cardiac size is stable. Mediastinal contours are normal. There is no evidence for pulmonary edema. Incidental note is made of severe osteoarthritis of the bilateral glenohumeral joints, greater on the left. IMPRESSION: No acute cardiopulmonary findings. No significant change in appearance of the chest. ACT 112: Negative or not required by law. Electronically signed by: Martínez Spears M.D. 10/19/2019 6:06 PM Dictated: 10/19/19 1804 ECG Additional Comments: SR at 92bpm with PVCs, RF=336, QRS=88, DZp=936, no acute ischemic changes Code Status & VTE Plan Code Status Full PG Care Time/CCT Total # of Minutes Spent Total Time Spent with Patient: Total time spent is greater than 50% in coordination of care (as documented) at patient's floor/unit and/or counseling patient: Coding Level of Care Code 06862 OBS Care - Level 3 Diagnoses COPD exacerbation J44.1 Hypertension I10 Hypertension type: essential hypertension Hyperlipidemia E78.5 Hyperlipidemia type: unspecified Chronic diastolic congestive heart failure I50.32 CAD (coronary artery disease) I25.10 Coronary Disease-Associated Artery/Lesion type: [place] artery [place] vs. transplanted heart: [place] heart Associated angina: without angina Diabetes mellitus E11.42; Z79.4 Diabetes mellitus complication detail: with polyneuropathy Diabetes mellitus complication status: with neurologic complications Diabetes mellitus intermission coordinator insulin use: with shelter use Diabetes mellitus type: type 2 Depression F32.9 Depression Type: major depressive disorder Major depression recurrence: unspecified whether recurrent Active/Remission status: remission status unspecified Right hip pain M25.551 (1) Diabetes mellitus Diabetes mellitus complication detail: with polyneuropathy Diabetes mellitus complication status: with neurologic complications Diabetes mellitus shelter insulin use: with intermission coordinator use Diabetes mellitus type: type 2 Qualified Code(s): E11.42 - Type 2 diabetes mellitus with diabetic polyneuropathy; 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 transplanted heart: [place] heart Associated angina: without angina Qualified Code(s): I25.10 - Atherosclerotic heart disease of [place] coronary artery without angina pectoris (3) Depression Depression Type: major depressive disorder Major depression recurrence: u nspecified whether recurrent Active/Remission status: remission status unspecified Qualified Code(s): F32.9 - Major depressive disorder, single episode, unspecified (4) Hyperlipidemia Hyperlipidemia type: unspecified Qualified Code(s): E78.5 - Hyperlipidemia, unspecified (5) Hypertension Hypertension type: essential hypertension Qualified Code(s): I10 - Essential (primary) hypertension
[2019-10-19] MEDS ORDERED: CARBOHYDRATES FOR HYPOGLYCEMIA PO PRN (21:26)
[2019-10-19] MEDS ORDERED: GLUCOSE 40% GEL 15 GM TUBE PO PRN (21:26)
[2019-10-19] MEDS ORDERED: GLUCOSE 10 TABS/TUBE PO PRN (21:26)
[2019-10-19] MEDS ORDERED: ACETAMINOPHEN 500 MG TAB PO PRN (21:26)
[2019-10-19] MEDS ORDERED: LORazepam 1 MG TAB PO PRN (21:26)
[2019-10-19] MEDS ORDERED: ALBUTEROL 0.5% NEB SOLN 2.5 MG/0.5 ML VIAL NEB PRN (21:26)
[2019-10-19] MEDS ORDERED: ONDANSETRON INJ 2 MG/ML 2 ML VIAL IV PRN (21:26)
[2019-10-19] MEDS ORDERED: DEXTROSE 50% 50 ML SYRINGE IV PRN (21:26)
[2019-10-19] MEDS ORDERED: GLUCAGON FOR INJ 1 MG VIAL SQ PRN (21:26)
[2019-10-19] MEDS: AZITHROMYCIN 500 MG in DEXTROSE 5% 250 ML IV SCH (21:59)
[2019-10-19] MEDS ORDERED: BUDESONIDE 0.5 MG/2 ML VIAL (PULMICORT) INH ONE (22:00)
[2019-10-19] MEDS: guaiFENesin 600 MG TABCR PO SCH (22:01)
[2019-10-19] MEDS: GABAPENTIN 300 MG CAP PO SCH (22:02)
[2019-10-19] MEDS: MIRTAZAPINE TAB 15 MG TAB PO SCH (22:04)
[2019-10-19] MEDS: MONTELUKAST SODIUM 10 MG TABLET PO SCH (22:04)
[2019-10-19] MEDS: TRAMADOL HCL 50 MG TABLET PO SCH (22:09)
[2019-10-19] MEDS: LORazepam 1 MG TAB PO SCH (22:09)
[2019-10-19] MEDS: INSULIN GLARGINE SOLOSTAR 100 UNITS/ML 3 ML PEN SC SCH (22:12)
[2019-10-19] MEDS: INSULIN ASPART 100 UNITS/ML 3 ML PEN SC SCH (22:13)
[2019-10-19] MEDS: HEPARIN SOD 5,000 UNIT/0.5 ML VIAL SQ SCH (22:15)
[2019-10-20] MEDS: methylPREDNISolone 40 MG in SYRINGE 0 ML IV SCH ×5 (00:04→23:23)
[2019-10-20] MEDS: ALBUT/IPRATROP 3MG/0.5MG NEB 3 ML VIAL INH SCH ×4 (01:04→19:31)
[2019-10-20] MEDS: HEPARIN SOD 5,000 UNIT/0.5 ML VIAL SQ SCH ×3 (05:22→21:07)
--- NOTE | 2019-10-20 06:30 | XRay Report ---
XR hip RT min 2V HISTORY: 68 years-old Female pain in hip and groin acute right hip pain without reported trauma COMPARISON: Pelvis and hip radiographs 10/10/2018 TECHNIQUE: AP and crosstable lateral views of the right hip FINDINGS: Limited exam secondary to body habitus and overlying pannus. Demineralized appearance of the bones. M oderate right hip osteoarthritis. No acute fracture, dislocation or avascular necrosis. IMPRESSION: No acute fracture or dislocation. ACT 112: Negative or not required by law. The above report was generated using voice recognition software. It may contain grammatical, syntax o r spelling errors. Electronically signed by: Arnold Perez M.D. 10/20/2019 6:29 AM
[2019-10-20] MEDS ORDERED: FORMOTEROL 20 MCG/2 ML VIAL INH SCH (07:00)
[2019-10-20] MEDS: BUDESONIDE 0.5 MG/2 ML VIAL (PULMICORT) INH SCH ×2 (07:05→19:31)
[2019-10-20] MEDS: ASPIRIN 81 MG ECTAB PO SCH (07:31)
[2019-10-20] MEDS: GABAPENTIN 300 MG CAP PO SCH ×3 (07:32→20:34)
[2019-10-20] MEDS: ISOSORBIDE MONO EXTENDED REL 60 MG TABCR PO SCH (07:32)
[2019-10-20] MEDS: guaiFENesin 600 MG TABCR PO SCH ×2 (07:32→20:34)
[2019-10-20] MEDS: FUROSEMIDE 40 MG TAB PO SCH (07:32)
[2019-10-20] MEDS: lisinopriL 5 MG TAB PO SCH (07:33)
[2019-10-20] MEDS: TRAMADOL HCL 50 MG TABLET PO SCH ×2 (07:36→20:40)
--- NOTE | 2019-10-20 08:42 | Electrocardiogram Report ---
Test Reason : Blood Pressure : / mmHG Vent. Rate : 092 BPM Atrial Rate : 092 BPM P-R Int : 180 ms QRS Dur : 088 ms QT Int : 356 ms P-R-T Axes : 050 075 033 degrees QTc Int : 440 ms Sinus rhythm with frequent Premature ventricular complexes Low voltage QRS Borderline ECG When compared with ECG of 15-MAY-2018 10:48, No significant change was found Confirmed by Michael Oliveira ([id number]) on 10/20/2019 8:41:43 AM Referred By: REFERRED SELF Confirmed By:Michael Oliveira
[2019-10-20] MEDS: INSULIN ASPART 100 UNITS/ML 3 ML PEN SC SCH ×4 (08:44→20:38)
[2019-10-20] MEDS: INSULIN GLARGINE SOLOSTAR 100 UNITS/ML 3 ML PEN SC SCH ×2 (08:45→20:36)
--- NOTE | 2019-10-20 14:29 | Medical Student Progress Note ---
Date of Service October 20, 2019 Assessment & Plan (1) COPD exacerbation: 68 year old female with a history of COPD, CHF, AND DMII who presents with a COPD exacerbation 1. COPD exacerbation - CXR unremarkable - Patient has improved since admission - continue Solumedrol 40 mg IV q6, Albuterol q2 PRN, DuoNeb q6 treatments - continue home aformeterol and budesonide - continue azithromycin - continue mucinex PRN - encouraged flutter valve and incentive spirometry Chronic respiratory failure - Chronically on 2-3 L of oxygen; on 3 L in hospital 2. Chronic diastolic congestive heart failure - CXR clear - Normal BNP - last echo (01/2018) showed EF of 60-65% and concern for "RV volume overload" - Continue Lasix, Isosorbide [place], Lisinopril 3. Diabetes mellitus type 2 with neuropathy: - Most recent VtzG4P=0.1 - Hold oral agents - Glargine 10u SQ BID with SSI - Continue Gabapentin 300mg po TID for neuropathic pain 4. R Hip Pain - no fracture on hip XR - pain is currently not bothering her - outpt follow-up 5. Dysphagia - patient is still able to eat, she just feels like "food sticks" in her throat when she swallows - no concern of aspiration - outpt follow-up - ? EGD 6. Hypertension: -Continue lisinopril and imdur 7. CAD (coronary artery disease): - no symptoms - Continue ASA 8. Depression: -Continue Mirtazapine FEN/GI - No fluids, diabetic diet. DVT ppx -Heparin Full code Dispo - Med floor (2) Right hip pain: (3) Cough: (4) Dysphagia: (5) Dyspnea: Supervising Attestation Medical Student Supervision Note: I independently interviewed and examined the patient and verified the andujar history and physical, reviewed labs and image studies, discussed the case with Roz Castrejon and agree with the findings and care plan. Breathing well. Oxygenation at baseline. exacerbation likely from the warm humid air - Air conditioning only in her kitchen. continue current meds. Subjective Anais is "able to breathe better" and coughing less this am. She does have chest pain after coughing fits. She complains of feeling like "food gets stuck" lower in her esophagus when she eats. She is still having R hip pain that radiates into her groin, but she says that it is bothering her less now because she's in bed and not walking. Review of Systems Constitutional: no fever Respiratory: + cough and + dyspnea; no wheezing Cardiovascular: + chest pain (after coughing) Gastrointestinal: + dysphagia (as in HPI) Physical Exam Constitutional: + morbidly obese Respiratory: + labored breathing and + cough Auscultation: + wheezes (scattered) Results & Data ([facility]) Vital Signs (Past 12 Hours) Vital Signs Temp Pulse Resp BP Pulse Ox 10/20/19 13:06 90 18 96 10/20/19 07:08 83 18 95 10/20/19 07:06 36.5 C 83 20 147/78 H 93
[2019-10-20] MEDS: MIRTAZAPINE TAB 15 MG TAB PO SCH (20:35)
[2019-10-20] MEDS: MONTELUKAST SODIUM 10 MG TABLET PO SCH (20:36)
[2019-10-20] MEDS: LORazepam 1 MG TAB PO SCH (20:41)
[2019-10-20] MEDS: AZITHROMYCIN 500 MG in DEXTROSE 5% 250 ML IV SCH (21:07)
[2019-10-21] MEDS: ALBUT/IPRATROP 3MG/0.5MG NEB 3 ML VIAL INH SCH ×4 (00:27→19:33)
[2019-10-21] MEDS: HEPARIN SOD 5,000 UNIT/0.5 ML VIAL SQ SCH ×3 (05:50→22:03)
[2019-10-21] MEDS: methylPREDNISolone 40 MG in SYRINGE 0 ML IV SCH ×2 (05:51→13:12)
[2019-10-21] MEDS: BUDESONIDE 0.5 MG/2 ML VIAL (PULMICORT) INH SCH ×2 (07:09→19:33)
[2019-10-21 07:43] LABS: Hemoglobin 13.7 g/dL (12.0-16.0); Mean Corpuscular Hemoglobin 28.4 pg (25-34); Mean Corpuscular Hgb Conc 32.6 g/dL (32-36); Mean Corpuscular Volume 87.1 fL (80-100); Platelet Count 322 K/uL (130-400); RDW Coefficient of Variation 14.6 % (11.5-14.5); RDW Standard Deviation 46.4 fL (36.4-46.3); Red Blood Count 4.82 M/uL (4.2-5.4); White Blood Count 20.41 K/uL (4.8-10.8)
[2019-10-21 08:11] LABS: Calcium 9.9 mg/dl (8.5-10.1); Creatinine Clr Calc Pharmacy 48.6 ml/min; Est GFR (African American) 39.8; Est GFR (Non-African American) 34.4
[2019-10-21] MEDS: ASPIRIN 81 MG ECTAB PO SCH (08:54)
[2019-10-21] MEDS: guaiFENesin 600 MG TABCR PO SCH ×2 (08:54→21:57)
[2019-10-21] MEDS: FUROSEMIDE 40 MG TAB PO SCH (08:54)
[2019-10-21] MEDS: ISOSORBIDE MONO EXTENDED REL 60 MG TABCR PO SCH (08:54)
[2019-10-21] MEDS: lisinopriL 5 MG TAB PO SCH (08:55)
[2019-10-21] MEDS: GABAPENTIN 300 MG CAP PO SCH ×3 (08:55→21:57)
[2019-10-21] MEDS: INSULIN GLARGINE SOLOSTAR 100 UNITS/ML 3 ML PEN SC SCH ×2 (08:59→22:03)
[2019-10-21] MEDS: INSULIN ASPART 100 UNITS/ML 3 ML PEN SC SCH ×4 (09:00→22:13)
[2019-10-21] MEDS: TRAMADOL HCL 50 MG TABLET PO SCH ×2 (09:10→22:15)
[2019-10-21] MEDS ORDERED: POLYETHYLENE (MIRALAX) 17 GM PACK PO ONE (13:37)
--- NOTE | 2019-10-21 15:48 | Hospitalist Progress Note ---
Date of Service October 21, 2019 Assessment & Plan Admission and Anticipated Discharge Date Admission Date: October 19, 2019 (1) COPD exacerbation: 68 year old female with a history of COPD, CHF, AND DMII who presents with a COPD exacerbation, found to have hospital acquired pneumonia. COPD exacerbation, continues to be short of breath when walking. Currently on 3L w/ baseline of 3L. WBC elevated in the setting of high dose steroid use. - admission CXR unremarkable - continue Solumedrol 40 mg IV QAM, Albuterol q2 PRN, DuoNeb q6 treatments - continue home aformeterol and budesonide - continue azithromycin - continue mucinex PRN - encouraged flutter valve and incentive spirometry Tachycardia, with pulse elevated to 143 from 118 on ambulation - calves mildly tender to palpation, no history of VTE, on heparin for DVT prophylaxis - EKG today unchanged from prior - CT PE protocol ordered to further evaluate found to have consolidation - will obtain ECHO, prior in 2018 Healthcare associated pneumonia - history of MRSA - started Cefepime and Vancomycin Chronic respiratory failure - Chronically on 2-3 L of oxygen; on 3 L in hospital Chronic diastolic congestive heart failure - CXR clear - Normal BNP - last echo (01/2018) showed EF of 60-65% and concern for "RV volume overload" - Continue Lasix, Isosorbide [place], Lisinopril R Hip Pain - no fracture on hip XR - pain is currently not bothering her - outpt follow-up Dysphagia - patient is still able to eat, she just feels like "food sticks" in her throat when she swallows - no concern of aspiration - outpt follow-up - ? EGD Diabetes mellitus type 2 with neuropathy: - Most recent DhcD2J=7.1 - Hold oral agents - Glargine 10u SQ BID with SSI - Continue Gabapentin 300mg po TID for neuropathic pain Hypertension: -Continue lisinopril and imdur CAD- no symptoms - Continue ASA Depression: -Continue Mirtazapine FEN/GI - No fluids, diabetic diet. DVT ppx -Heparin Full code Dispo - Med floor Anticipated date of discharge: 10/21/19 Supervising Physician Co-Signing Physician Notes Resident Physician Supervision Note: I independently interviewed and examined the patient and verified the andujar history and physical, reviewed labs and image studies, discussed the case with the resident Dr. Bravo and agree with the findings and care plan. Subjective Kathleen Funez is doing okay. She felt lightheaded and short of breath. She brought up that she may have PFT's scheduled. her last bowel movement was on Thursday. She normally uses Miralax and Senna. Review of Systems Review of Systems: Constitutional: denies fever, admits chills Cardiac: denies chest pain admits palpitations (she describes this as chronic) Pulm: admit cough and shortness of breath denies sputum production : denies pain, urgency and frequency Physical Exam Constitutional: well developed and well nourished Eyes: PERRL, conjunctivae normal, anicteric sclerae ENMT: external ear and nose normal, oropharynx normal - slight tenderness of the left cheek Respiratory: slight wheeze with decrease breath sounds bilaterally Cardiovascular: RRR, no murmur, no edema Gastrointestinal (Abdomen): normal bowel sounds, soft, nontender, no hepatosplenomegaly Skin: no rashes, warm and dry Results & Data Results & Data ([facility]) Vital Signs (Past 12 Hours) Vital Signs Temp Pulse Resp BP Pulse Ox 10/21/19 15:42 36.6 C 77 16 109/62 100 10/21/19 13:33 88 18 97 10/21/19 07:09 36.6 C 78 18 104/50 L 95 CBC Results Results Complete Blood Count Results: RBC 4.82 M/uL (4.2-5.4) 10/21/19 WBC 20.41 K/uL (4.8-10.8) H 10/21/19 Hgb 13.7 g/dL (12.0-16.0) 10/21/19 Hct 42.0 % (37-47) 10/21/19 Plt Count 322 K/uL (130-400) 10/21/19 Chemistry (BMP) Results BMP Results: Sodium 136 mmol/L (136-145) 10/21/19 Potassium 4.0 mmol/L (3.5-5.1) 10/21/19 Chloride 102 mmol/L (98-107) 10/21/19 BUN 34 mg/dl (7-18) H 10/21/19 Creatinine 1.52 mg/dl (0.6-1.2) H 10/21/19 Glucose 269 mg/dl (70-99) H 10/21/19 Resident Activity Tracking Resident Involvement: Resident Care Provided Care Provided: Adult Hospital Medicine
[2019-10-21] MEDS ORDERED: OPTIRAY 320 125ml IV ONE (16:01)
--- NOTE | 2019-10-21 16:32 | CT Scan Report ---
CT angio chest PE protocol CT DOSE: 953.78 mGy.cm HISTORY: Chest pain. Dyspnea. PE TECHNIQUE: Multiaxial CT images of the chest were performed following the intravenous administration of contrast to evaluate the pulmonary arteries. Maximal intensity projection images were also obtaine d. A dose lowering technique was utilized adhering to the principles of ALARA. COMPARISON STUDY: None. FINDINGS: There is a normal caliber thoracic aorta with no evidence for dissection. There is no evide nce for pulmonary embolus. No pleural effusions. No pneumothorax. The liver and spleen are unremarkab le. No mediastinal or hilar lymphadenopathy. The central airways are patent. The lungs are clear. The re is a focal region of consolidative change medial aspect left lung base. This may be inflammatory. Lungs again otherwise remain clear. IMPRESSION: 1. No evidence for pulmonary embolus. 2. Negative thoracic aorta. 3. Focus of consolidative/infiltrative change left lung base. 4. Minimal atelectasis right base. ACT 112: Negative or not required by law. The above report was generated using voice recognition software. It may contain grammatical, syntax or spelling errors. Electronically signed by: Sukhdev Islas M.D. 10/21/2019 4:31 PM
[2019-10-21] MEDS ORDERED: DiphenhydrAMINE HCL 50 MG/ML VIAL IV PRN (17:11)
[2019-10-21] MEDS ORDERED: FAMOTIDINE 20 MG in SYRINGE 3 ML IV PRN (17:12)
[2019-10-21] MEDS ORDERED: VANCOMYCIN CONSULT ACTIVE PRN (17:15)
[2019-10-21] MEDS ORDERED: VANCOMYCIN HCL 2,750 MG in SODIUM CHLORIDE 0.9% 500 ML IV ONE (18:00)
[2019-10-21] MEDS: SENNA 8.6 MG TAB PO SCH (18:08)
[2019-10-21] MEDS: MIRTAZAPINE TAB 15 MG TAB PO SCH (21:58)
[2019-10-21] MEDS: MONTELUKAST SODIUM 10 MG TABLET PO SCH (21:58)
[2019-10-21] MEDS: CEFEPIME 2,000 MG in SYRINGE 7.5 ML IV SCH (22:14)
[2019-10-21] MEDS: LORazepam 1 MG TAB PO SCH (22:15)
[2019-10-21] MEDS: AZITHROMYCIN 500 MG in DEXTROSE 5% 250 ML IV SCH (22:15)
[2019-10-22] MEDS: ALBUT/IPRATROP 3MG/0.5MG NEB 3 ML VIAL INH SCH ×4 (01:03→18:55)
[2019-10-22] MEDS ORDERED: VANCOMYCIN HCL 1,750 MG in SODIUM CHLORIDE 0.9% 500 ML IV SCH (06:00)
[2019-10-22] MEDS: CEFEPIME 2,000 MG in SYRINGE 7.5 ML IV SCH (06:05)
[2019-10-22] MEDS: HEPARIN SOD 5,000 UNIT/0.5 ML VIAL SQ SCH ×3 (06:05→21:13)
--- NOTE | 2019-10-22 07:19 | Electrocardiogram Report ---
Test Reason : Blood Pressure : / mmHG Vent. Rate : 077 BPM Atrial Rate : 077 BPM P-R Int : 186 ms QRS Dur : 088 ms QT Int : 356 ms P-R-T Axes : 065 038 019 degrees QTc Int : 402 ms Sinus rhythm with occasional Premature ventricular complexes Possible Inferior infarct , age undetermined Abnormal ECG When compared with ECG of 19-OCT-2019 17:46, Borderline criteria for Inferior infarct are now Present Confirmed by Joe Sandoval ([id number]) on 10/22/2019 7:18:51 AM Referred By: REFERRED SELF Confirmed By:Joe Sandoval
[2019-10-22] MEDS: BUDESONIDE 0.5 MG/2 ML VIAL (PULMICORT) INH SCH ×2 (07:20→18:55)
[2019-10-22] MEDS: ISOSORBIDE MONO EXTENDED REL 60 MG TABCR PO SCH (07:36)
[2019-10-22] MEDS: FUROSEMIDE 40 MG TAB PO SCH (07:36)
[2019-10-22] MEDS: ASPIRIN 81 MG ECTAB PO SCH (07:36)
[2019-10-22] MEDS: GABAPENTIN 300 MG CAP PO SCH ×3 (07:37→21:21)
[2019-10-22] MEDS: lisinopriL 5 MG TAB PO SCH (07:37)
[2019-10-22] MEDS: guaiFENesin 600 MG TABCR PO SCH ×2 (07:37→21:22)
[2019-10-22] MEDS: TRAMADOL HCL 50 MG TABLET PO SCH ×2 (07:38→21:21)
[2019-10-22] MEDS: SENNA 8.6 MG TAB PO SCH (07:38)
[2019-10-22] MEDS ORDERED: methylPREDNISolone 40 MG in SYRINGE 0 ML IV SCH (08:00)
[2019-10-22] MEDS: INSULIN ASPART 100 UNITS/ML 3 ML PEN SC SCH ×4 (09:05→21:12)
[2019-10-22] MEDS: INSULIN GLARGINE SOLOSTAR 100 UNITS/ML 3 ML PEN SC SCH (09:06)
[2019-10-22 11:32] LABS: Basophils # (auto) 0.01 K/uL (0-0.2); Basophils % (auto) 0.1 %; Hematocrit (blood only) 41.1 % (37-47); Hemoglobin 13.2 g/dL (12.0-16.0); Immature Granulocytes # (auto) 0.07 K/uL (0.00-0.02); Immature Granulocytes % (auto) 0.4 %; Lymphocytes # (auto) 1.14 K/uL (1.2-3.4); Lymphocytes % (auto) 6.6 %; Mean Corpuscular Hemoglobin 28.2 pg (25-34); Mean Corpuscular Hgb Conc 32.1 g/dL (32-36); Mean Corpuscular Volume 87.8 fL (80-100); Monocytes # (auto) 0.38 K/uL (0.11-0.59); Monocytes % (auto) 2.2 %; Neutrophils # (auto) 15.77 K/uL (1.4-6.5); Neutrophils % (auto) 90.7 %; Platelet Count 324 K/uL (130-400); RDW Standard Deviation 47.8 fL (36.4-46.3); Red Blood Count 4.68 M/uL (4.2-5.4); White Blood Count 17.37 K/uL (4.8-10.8)
[2019-10-22 11:58] LABS: BUN Creatinine Ratio 25.2 (10-20); Calcium 9.5 mg/dl (8.5-10.1); Creatinine Clr Calc Pharmacy 42.5 ml/min; Est GFR (African American) 33.8; Est GFR (Non-African American) 29.2
[2019-10-22 12:11] LABS: Beta-Hydroxybutyrate 1.6 mg/dl (0.2-2.81)
[2019-10-22 12:31] LABS: Potassium 5.5 mmol/L (3.5-5.1)
[2019-10-22] MEDS ORDERED: PHARMACY GLYCEMIC MGMT CONSULT PRN (13:40)
[2019-10-22] MEDS ORDERED: INSULIN GLARGINE SOLOSTAR 100 UNITS/ML 3 ML PEN SC ONE (14:00)
--- NOTE | 2019-10-22 14:55 | Hospitalist Progress Note ---
Date of Service October 22, 2019 Assessment & Plan (1) COPD exacerbation: 68 year old female with a history of COPD, CHF, AND DMII who presents with a COPD exacerbation. Patient began to clinically improve, but when walked on 10/20, she became significantly tachycardic. Chest CTA ruled out a PE, but identified a left basilar consolidation that was interpreted as inflammatory. Initially this was felt tor represent a possible HCAP, but upon further consideration, antibiotic coverage was deescalated to cover community-based pathogens only. COPD exacerbation - CXR on admission showing left basilar consolidation, favoring atelectasis - Patient has improved since admission - convert Solumedrol 40 mg IV aAM to prednisone 40mg, PO daily - continue Albuterol q2 PRN, DuoNeb q6 treatments - continue home aformeterol and budesonide - continue mucinex PRN - encouraged flutter valve and incentive spirometry Chronic respiratory failure - Chronically on 2-3 L of oxygen; saturating in at 96% on 3 L in hospital Tachycardia with exertion - initial concern for PE, although patient was on anticoagulation prior to admission. Chest CTA 10/20 negative - CT did provide further clarification of L basilar nodule: because it appeared to be inflammatory and WBC was elevated, HCAP coverage was initiated. - upon careful chart review, given that consolidation was present on admission CXR, unlikely to be an HCAP. antibiotics deescalated to CAP coverage (Rocephin + azithromax) - it is also possible that lung consolidation does not represent acute infection, as patient is afebrile, not tachypneic. Tachycardia with exertion may be simply secondary to deconditioning - PT/OT ordered Leukocytosis - WBC elevated to 20 on admission, down to 17 today - secondary to CAP vs. IV steroid use - we will continue antibiotics as above - continue to trend Chronic diastolic congestive heart failure - CXR without evidence of pleural effusions - Normal BNP - last echo (01/2018) showed EF of 60-65% and concern for "RV volume overload" - Continue home Lasix, Isosorbide [place], Lisinopril Diabetes mellitus type 2 with neuropathy: - Most recent HteU2G=2.1 - Hold oral agents - Glargine 10u SQ BID with SSI - Continue Gabapentin 300mg po TID for neuropathic pain R Hip Pain - no fracture on hip XR - pain is currently not bothering her - outpt follow-up Dysphagia - patient is still able to eat, she just feels like "food sticks" in her throat when she swallows - no concern of aspiration - outpt follow-up - ? EGD Hypertension: -Continue lisinopril and imdur CAD (coronary artery disease): - no symptoms - Continue ASA Depression: -Continue Mirtazapine FEN/GI - diabetic diet. DVT ppx -Heparin Full code Dispo - Med floor (2) Right hip pain: (3) Cough: (4) Dysphagia: (5) Dyspnea: Admission and Anticipated Discharge Date Admission Date: October 21, 2019 Anticipated date of discharge: 10/21/19 Supervising Physician Co-Signing Physician Notes Resident Physician Supervision Note: I independently interviewed and examined the patient and verified the andujar history and physical, reviewed labs and image studies, discussed the case with the resident Dr. Foss and agree with the findings and care plan. Subjective no acute events overnight. eating and drinking well. reports breathing is much improved Review of Systems Review of Systems: All systems reviewed & are unremarkable except as noted in HPI & below Physical Exam Constitutional: WD/WN, vitals as above + obese and cooperative Eyes: PERRL, conjunctivae normal, anicteric sclerae ENMT: external ear and nose normal, oropharynx normal Neck: normal visual inspection and trachea midline Respiratory: normal respiratory effort; no respiratory distress and no labored breathing Auscultation: + rhonchi and + wheezes (expiratory, b/l lung bases ) Cardiovascular: RRR, no murmur, no edema Skin: no rashes, warm and dry Psychiatric: A+Ox3, euthymic affect Results & Data Results & Data ([facility]) Vital Signs (Past 12 Hours) Vital Signs Temp Pulse Resp BP Pulse Ox 10/22/19 13:39 90 22 96 10/22/19 07:44 36.9 C 69 18 126/73 100 10/22/19 07:20 59 L 18 93 Resident Activity Tracking Resident Involvement: Resident Care Provided Care Provided: Adult Hospital Medicine
--- NOTE | 2019-10-22 14:57 | Pharmacy Report ---
Pharmacy Glycemic Short Note 2 - Date of Service October 22, 2019 - Glycemic Short BSG Results (Last 24 hours): 10/21/19 10/21/19 10/22/19 17:24 20:45 08:31 Glucose POC Glucose 195 H 261 H 182 H 10/22/19 10/22/19 11:15 12:13 Glucose 319 H* POC Glucose 287 H OUTPATIENT ANTIDIABETIC REGIMEN: * metformin 500 mg PO BID * glimepiride 2 mg Po qAM * A1c = 7.1% (08/23/19) ASSESSMENT: * Kathleen is a 68 yo T2DM female with h/o COPD, CHF who presents with a COPD exacerbation * Uncontrolled BSGs likely due to steroid induced hyperglycemia. She was recently on high dose solu medrol IV. She received one dose of 40 mg IV this morning and is ordered to start prednisone 40 mg daily on 8 am. * Fasting BSG = 182 mg/dL. She has been on Lantus 10 units BID since 10/18 PM. I will give an additional dose of 12 units at lunch time and increase HS dose. * Tighten Novolog correction factor and carb ratio. * Since patient is transitioning to once daily oral steroid tomorrow, will consider switch to NPH in the AM. PLAN FOR INPATIENT GLYCEMIC CONTROL: * Hold outpatient oral diabetes medications * Basal insulin - increase * Lantus 10 units given this morning * Give additional 12 units of Lantus with lunch * Lantus 10-15 units at bedtime (15 units for BSG > 180 mg/dL) * Bolus insulin - tighten * NovoLog per scale ACHS or Q6hrs while NPO * Goal Range: Low 100 mg/dL - High 140 mg/dL * Correction Factor: 20 mg/dL/unit * Nutritional / Prandial insulin per carb ratio of 1 unit per 5 grams CHO consumed * Add overnight checks PLAN FOR DISCHARGE: * A1c of 7.1% indicates adequate outpatient glycemic control * Continue metformin + glimepiride; may titrate metformin to goal dose of 1000 mg BID with meals (increase by 500 mg per week)
[2019-10-22] MEDS ORDERED: INSULIN GLARGINE SOLOSTAR 100 UNITS/ML 3 ML PEN SC SCH (21:00)
[2019-10-22] MEDS: LORazepam 1 MG TAB PO SCH (21:21)
[2019-10-22] MEDS: MONTELUKAST SODIUM 10 MG TABLET PO SCH (21:21)
[2019-10-22] MEDS: MIRTAZAPINE TAB 15 MG TAB PO SCH (21:21)
[2019-10-23] MEDS: INSULIN ASPART 100 UNITS/ML 3 ML PEN SC SCH ×6 (00:15→21:21)
[2019-10-23] MEDS: ALBUT/IPRATROP 3MG/0.5MG NEB 3 ML VIAL INH SCH ×4 (01:54→19:15)
[2019-10-23] MEDS: HEPARIN SOD 5,000 UNIT/0.5 ML VIAL SQ SCH ×3 (05:11→21:19)
[2019-10-23 06:24] LABS: Hematocrit (blood only) 38.9 % (37-47); Hemoglobin 12.8 g/dL (12.0-16.0); Mean Corpuscular Hemoglobin 28.6 pg (25-34); Mean Corpuscular Hgb Conc 32.9 g/dL (32-36); Mean Corpuscular Volume 86.8 fL (80-100); Mean Platelet Volume 10.1 fL (7.4-10.4); Platelet Count 295 K/uL (130-400); RDW Coefficient of Variation 14.9 % (11.5-14.5); RDW Standard Deviation 47.4 fL (36.4-46.3); Red Blood Count 4.48 M/uL (4.2-5.4); White Blood Count 13.41 K/uL (4.8-10.8)
[2019-10-23 06:55] LABS: Creatinine Clr Calc Pharmacy 52.4 ml/min; Est GFR (African American) 43.6; Est GFR (Non-African American) 37.6
[2019-10-23] MEDS: BUDESONIDE 0.5 MG/2 ML VIAL (PULMICORT) INH SCH ×2 (07:18→19:15)
[2019-10-23] MEDS ORDERED: INSULIN HUMAN NPH SC SCH (08:00)
[2019-10-23] MEDS: TRAMADOL HCL 50 MG TABLET PO SCH ×2 (10:21→21:16)
[2019-10-23] MEDS: guaiFENesin 600 MG TABCR PO SCH ×2 (10:31→21:16)
[2019-10-23] MEDS: predniSONE 20 MG TAB PO SCH (10:31)
[2019-10-23] MEDS: GABAPENTIN 300 MG CAP PO SCH ×3 (10:32→21:17)
[2019-10-23] MEDS: AZITHROMYCIN 250 MG TAB PO SCH (10:32)
[2019-10-23] MEDS: ISOSORBIDE MONO EXTENDED REL 60 MG TABCR PO SCH (10:33)
[2019-10-23] MEDS: FUROSEMIDE 40 MG TAB PO SCH (10:33)
[2019-10-23] MEDS: SENNA 8.6 MG TAB PO SCH (10:33)
[2019-10-23] MEDS: lisinopriL 5 MG TAB PO SCH (10:34)
[2019-10-23] MEDS: ASPIRIN 81 MG ECTAB PO SCH (10:34)
--- NOTE | 2019-10-23 14:10 | Hospitalist Progress Note ---
Date of Service October 23, 2019 Assessment & Plan (1) COPD exacerbation: 68 year old female with a history of COPD, CHF, AND DMII who presents with a COPD exacerbation. Patient began to clinically improve, but when walked on 10/20, she became significantly tachycardic. Chest CTA ruled out a PE, but identified a left basilar consolidation that was interpreted as inflammatory. Initially this was felt to represent a possible HCAP, but upon further consideration, antibiotic coverage was deescalated to cover community-based pathogens only. COPD exacerbation - CXR on admission showing left basilar consolidation, favoring atelectasis - Patient has improved since admission, although with upper airway mucous collection on exam - continue prednisone 40mg, PO daily - continue Albuterol q2 PRN, DuoNeb q6 treatments - continue home aformeterol and budesonide - continue mucinex 1200mg, PO, BID - encouraged flutter valve and incentive spirometry - ordered humidified oxygen for mucous thinning purposes Chronic respiratory failure - Chronically on 2-3 L of oxygen; saturating in at 96% on 3 L in hospital Tachycardia with exertion - initial concern for PE, although patient was on anticoagulation prior to admission. Chest CTA 10/20 negative - CT did provide further clarification of L basilar nodule: because it appeared to be inflammatory and WBC was elevated, HCAP coverage was initiated. - upon careful chart review, given that consolidation was present on admission CXR, unlikely to be an HCAP. antibiotics deescalated to CAP coverage (Rocephin + azithromax); currently on day 3 of therapy - it is also possible that lung consolidation does not represent acute infection, as patient is afebrile, not tachypneic. Tachycardia with exertion may be simply secondary to deconditioning - PT/OT ordered Leukocytosis - WBC elevated to 20 on admission, down to 13 today - secondary to CAP vs. IV steroid use - we will continue antibiotics as above - continue to trend Chronic diastolic congestive heart failure - CXR without evidence of pleural effusions - Normal BNP - last echo (01/2018) showed EF of 60-65% and concern for "RV volume overload" - Continue home Lasix, Isosorbide [place], Lisinopril Diabetes mellitus type 2 with neuropathy: - Most recent [id number]=4.1 - Hold oral agents - Glargine 10u SQ BID with SSI - Continue Gabapentin 300mg po TID for neuropathic pain R Hip Pain - no fracture on hip XR - pain is currently not bothering her - outpt follow-up Dysphagia - patient is still able to eat, she just feels like "food sticks" in her throat when she swallows - no concern of aspiration - outpt follow-up - ? EGD Hypertension: -Continue lisinopril and imdur CAD (coronary artery disease): - no symptoms - Continue ASA Depression: -Continue Mirtazapine FEN/GI - diabetic diet. DVT ppx -Heparin Full code Dispo - Med floor (2) Right hip pain: (3) Cough: (4) Dysphagia: (5) Dyspnea: Admission and Anticipated Discharge Date Admission Date: October 21, 2019 Anticipated date of discharge: 10/21/19 Supervising Physician Co-Signing Physician Notes Resident Physician Supervision Note: I independently interviewed and examined the patient and verified the andujar history and physical, reviewed labs and image studies, discussed the case with the resident Dr. Foss and agree with the findings and care plan. Subjective No acute events overnight. Patient reports worsening breathing, complaining of inability to clear mucous Review of Systems Review of Systems: All systems reviewed & are unremarkable except as noted in HPI & below Physical Exam Constitutional: WD/WN, vitals as above + obese and cooperative Eyes: PERRL, conjunctivae normal, anicteric sclerae ENMT: external ear and nose normal, oropharynx normal Neck: normal visual inspection and trachea midline Respiratory: normal respiratory effort; no respiratory distress and no labored breathing Auscultation: + rhonchi and + wheezes (expiratory, b/l lung bases ) Cardiovascular: RRR, no murmur, no edema Skin: no rashes, warm and dry Psychiatric: A+Ox3, euthymic affect Results & Data Results & Data ([facility]) Vital Signs (Past 12 Hours) Vital Signs Temp Pulse Resp BP Pulse Ox 10/23/19 13:09 64 18 96 10/23/19 07:55 36.2 C L 62 16 112/62 98 10/23/19 07:26 97 H 18 96 Resident Activity Tracking Resident Involvement: Resident Care Provided Care Provided: Adult [facility] Hospital Medicine
--- NOTE | 2019-10-23 14:56 | Pharmacy Report ---
Pharmacy Glycemic Short Note 2 - Date of Service October 23, 2019 - Glycemic Short BSG Results (Last 24 hours): 10/22/19 10/22/19 10/23/19 17:02 20:50 00:11 POC Glucose 290 H 238 H 179 H 10/23/19 10/23/19 10/23/19 04:03 08:40 12:03 POC Glucose 151 H 126 H 169 H OUTPATIENT ANTIDIABETIC REGIMEN: * metformin 500 mg PO BID * glimepiride 2 mg Po qAM * A1c = 7.1% (08/23/19) ASSESSMENT: 10/22: * Poor glycemia control noted over the past 24 hours. Patient received an average of 86 units of insulin yesterday: * 37 units of basal insulin * 49 units of prandial/correctional insulin * BSGs ranging 179- 319 over the past 24hrs * Started on prednisone 40 mg PO once daily today -> will transition basal insulin from Lantus to NPH to better cover peak effect of steroid induced hyperglycemia. Will start with a slightly reduced dose of NPH for day #1 since patient still has Lantus on board. May need to increase NPH on 10/23 or consider addition of a PM dose of NPH if fasting is elevated without Lantus. * Will loosen Novolog carb coverage after NPH is added to regimen. 10/21: * Kathleen is a 68 yo T2DM female with h/o COPD, CHF who presents with a COPD exacerbation * Uncontrolled BSGs likely due to steroid induced hyperglycemia. She was recently on high dose solu medrol IV. She received one dose of 40 mg IV this morning and is ordered to start prednisone 40 mg daily on 10/22 am. * Fasting BSG = 182 mg/dL. She has been on Lantus 10 units BID since 10/18 PM. I will give an additional dose of 12 units at lunch time and increase HS dose. * Tighten Novolog correction factor and carb ratio. * Since patient is transitioning to once daily oral steroid tomorrow, will consider switch to NPH in the AM. PLAN FOR INPATIENT GLYCEMIC CONTROL: * Hold outpatient oral diabetes medications * Basal insulin * Stop Lantus * NPH 30 units SQ qAM (dose to be reassessed tomorrow) * Bolus insulin - loosen carb ratio * NovoLog per scale ACHS or Q6hrs while NPO * Goal Range: Low 100 mg/dL - High 140 mg/dL * Correction Factor: 20 mg/dL/unit * Nutritional / Prandial insulin per carb ratio of 1 unit per 7 grams CHO consumed * Keep BSG check at midnight incase carb coverage is too conservative PLAN FOR DISCHARGE: * A1c of 7.1% indicates adequate outpatient glycemic control * Continue metformin + glimepiride; may titrate metformin to goal dose of 1000 mg BID with meals (increase by 500 mg per week)
[2019-10-23] MEDS: cefTRIAXone SODIUM 2,000 MG in DEXTROSE 5% 50 ML IV SCH (16:08)
[2019-10-23] MEDS: MIRTAZAPINE TAB 15 MG TAB PO SCH (21:16)
[2019-10-23] MEDS: LORazepam 1 MG TAB PO SCH (21:16)
[2019-10-23] MEDS: MONTELUKAST SODIUM 10 MG TABLET PO SCH (21:17)
[2019-10-24] MEDS ORDERED: INSULIN ASPART 100 UNITS/ML 3 ML PEN SC SCH
[2019-10-24] MEDS: ALBUT/IPRATROP 3MG/0.5MG NEB 3 ML VIAL INH SCH ×4 (01:05→18:58)
[2019-10-24] MEDS: HEPARIN SOD 5,000 UNIT/0.5 ML VIAL SQ SCH ×3 (05:36→21:22)
[2019-10-24] MEDS: BUDESONIDE 0.5 MG/2 ML VIAL (PULMICORT) INH SCH ×2 (06:58→18:58)
[2019-10-24 07:28] LABS: Hematocrit (blood only) 37.5 % (37-47); Hemoglobin 12.2 g/dL (12.0-16.0); Mean Corpuscular Hemoglobin 28.1 pg (25-34); Mean Corpuscular Hgb Conc 32.5 g/dL (32-36); Mean Corpuscular Volume 86.4 fL (80-100); Mean Platelet Volume 9.8 fL (7.4-10.4); Platelet Count 275 K/uL (130-400); RDW Coefficient of Variation 14.9 % (11.5-14.5); RDW Standard Deviation 47.5 fL (36.4-46.3); Red Blood Count 4.34 M/uL (4.2-5.4); White Blood Count 10.81 K/uL (4.8-10.8)
[2019-10-24 08:13] LABS: Creatinine Clr Calc Pharmacy 60.6 ml/min; Est GFR (Non-African American) 44.8
[2019-10-24] MEDS ORDERED: INSULIN HUMAN NPH SC SCH (09:00)
[2019-10-24] MEDS: INSULIN ASPART 100 UNITS/ML 3 ML PEN SC SCH ×4 (09:06→21:20)
[2019-10-24] MEDS: FUROSEMIDE 40 MG TAB PO SCH (09:10)
[2019-10-24] MEDS: AZITHROMYCIN 250 MG TAB PO SCH (09:10)
[2019-10-24] MEDS: ISOSORBIDE MONO EXTENDED REL 60 MG TABCR PO SCH (09:10)
[2019-10-24] MEDS: guaiFENesin 600 MG TABCR PO SCH ×2 (09:10→20:44)
[2019-10-24] MEDS: predniSONE 20 MG TAB PO SCH (09:10)
[2019-10-24] MEDS: ASPIRIN 81 MG ECTAB PO SCH (09:10)
[2019-10-24] MEDS: SENNA 8.6 MG TAB PO SCH (09:10)
[2019-10-24] MEDS: GABAPENTIN 300 MG CAP PO SCH ×3 (09:11→20:43)
[2019-10-24] MEDS: lisinopriL 5 MG TAB PO SCH (09:11)
[2019-10-24] MEDS: TRAMADOL HCL 50 MG TABLET PO SCH ×2 (09:15→20:43)
[2019-10-24] MEDS: cefTRIAXone SODIUM 2,000 MG in DEXTROSE 5% 50 ML IV SCH (14:08)
--- NOTE | 2019-10-24 17:44 | Hospitalist Progress Note ---
Date of Service October 24, 2019 Assessment & Plan (1) COPD exacerbation: 68 year old female with a history of COPD, CHF, AND DMII who presents with a COPD exacerbation. Patient began to clinically improve, but when walked on 10/20, she became significantly tachycardic. Chest CTA ruled out a PE, but identified a left basilar consolidation that was interpreted as inflammatory. Initially this was felt to represent a possible HCAP, but upon further consideration, antibiotic coverage was deescalated to cover community-based pathogens only. COPD exacerbation - CXR on admission showing left basilar consolidation, favoring atelectasis - Patient has improved since admission, although with upper airway mucous collection on exam - continue prednisone 40mg, PO daily - continue Albuterol q2 PRN, DuoNeb q6 treatments - continue home aformeterol and budesonide - continue mucinex 1200mg, PO, BID - encouraged flutter valve and incentive spirometry - ordered humidified oxygen for mucous thinning purposes - chest physiotherapy with vest ordered Chronic respiratory failure - Chronically on 2-3 L of oxygen; saturating in at 96% on 3 L in hospital Tachycardia with exertion - initial concern for PE, although patient was on anticoagulation prior to admission. Chest CTA 10/20 negative - CT did provide further clarification of L basilar nodule: because it appeared to be inflammatory and WBC was elevated, HCAP coverage was initiated. - upon careful chart review, given that consolidation was present on admission CXR, unlikely to be an HCAP. antibiotics deescalated to CAP coverage (Rocephin + azithromax); currently on day 4 of therapy - it is also possible that lung consolidation does not represent acute infection, as patient is afebrile, not tachypneic. Tachycardia with exertion may be simply secondary to deconditioning - PT/OT ordered Leukocytosis - WBC elevated to 20 on admission, down to 13 today - secondary to CAP vs. IV steroid use - we will continue antibiotics as above - continue to trend Chronic diastolic congestive heart failure - CXR without evidence of pleural effusions - Normal BNP - last echo (01/2018) showed EF of 60-65% and concern for "RV volume overload" - Continue home Lasix, Isosorbide [place], Lisinopril Diabetes mellitus type 2 with neuropathy: - Most recent [id number] - Hold oral agents - Glargine 10u SQ BID with SSI - Continue Gabapentin 300mg po TID for neuropathic pain Bilateral Knee OA - patient reports "bone on bone" on bilateral knee xrays in past - saw on orthopedic surgeon who told her that she was not a joint replacement candidate due to her breathing issues - this is a barrier to improved conditioning - scheduled acetaminophen for pain - will work on getting patient a recumbent bicycle R Hip Pain - no fracture on hip XR - pain is currently not bothering her - outpt follow-up Dysphagia - patient is still able to eat, she just feels like "food sticks" in her throat when she swallows - no concern of aspiration - outpt follow-up - ? EGD Hypertension: -Continue lisinopril and imdur CAD (coronary artery disease): - no symptoms - Continue ASA Depression: -Continue Mirtazapine FEN/GI - diabetic diet. DVT ppx -Heparin Full code Dispo - Med floor (2) Right hip pain: (3) Cough: (4) Dysphagia: (5) Dyspnea: Admission and Anticipated Discharge Date Admission Date: October 21, 2019 Anticipated date of discharge: 10/21/19 Supervising Physician Co-Signing Physician Notes I personally examined the patient and verified all andujar points of history and exam, discussed case, and agree with decision making with Dr Foss. feeling sob, then coughs, then gets lightheaded - although main complaint seems to be focused on mucous she's not able to get out of her chest. vitals noted nad heent nc at mmm breathing unlabored but does have diffuse R>L rhonchi on expiration. use of flutter valve causes vigorous cough. COPD exacerbation with chronic hypoxic respiratory failure - seems improving. continue current care, anticipate ongoing improvement. hopefully home soon. otherwise as above Subjective no acute events overnight. still complaining of difficulty bringing up mucous. Review of Systems Respiratory: + dyspnea and + sputum production Physical Exam Constitutional: WD/WN, vitals as above + obese and cooperative Eyes: PERRL, conjunctivae normal, anicteric sclerae ENMT: external ear and nose normal, oropharynx normal Neck: normal visual inspection and trachea midline Respiratory: normal respiratory effort; no respiratory distress and no labored breathing Auscultation: + rhonchi and + wheezes (expiratory, b/l lung bases ) Cardiovascular: RRR, no murmur, no edema Skin: no rashes, warm and dry Psychiatric: A+Ox3, euthymic affect Results & Data Results & Data ([facility]) Vital Signs (Past 12 Hours) Vital Signs Temp Pulse Resp BP Pulse Ox 10/24/19 13:00 73 20 92 10/24/19 08:06 37.0 C 70 18 144/67 H 97 10/24/19 06:58 67 18 94 Resident Activity Tracking Resident Involvement: Resident Care Provided Care Provided: Adult Hospital Medicine
[2019-10-24] MEDS ORDERED: POLYETHYLENE (MIRALAX) 17 GM PACK PO PRN (19:17)
--- NOTE | 2019-10-24 19:26 | Billing Data ---
Date of Service October 24, 2019 Coding Level of Care Code 03581 Subseq Hosp Care Lvl 2
[2019-10-24] MEDS: ACETAMINOPHEN 500 MG TAB PO SCH (20:43)
[2019-10-24] MEDS: MIRTAZAPINE TAB 15 MG TAB PO SCH (20:43)
[2019-10-24] MEDS: LORazepam 1 MG TAB PO SCH (20:43)
[2019-10-24] MEDS: MONTELUKAST SODIUM 10 MG TABLET PO SCH (20:43)
[2019-10-25] MEDS: ALBUT/IPRATROP 3MG/0.5MG NEB 3 ML VIAL INH SCH ×4 (00:27→19:15)
[2019-10-25] MEDS: HEPARIN SOD 5,000 UNIT/0.5 ML VIAL SQ SCH ×2 (05:40→13:29)
[2019-10-25 06:49] LABS: Creatinine Clr Calc Pharmacy 58.6 ml/min; Est GFR (Non-African American) 43.1
[2019-10-25] MEDS: BUDESONIDE 0.5 MG/2 ML VIAL (PULMICORT) INH SCH ×2 (07:34→19:15)
[2019-10-25] MEDS: INSULIN ASPART 100 UNITS/ML 3 ML PEN SC SCH ×3 (08:55→18:29)
[2019-10-25] MEDS: ACETAMINOPHEN 500 MG TAB PO SCH (08:57)
[2019-10-25] MEDS: guaiFENesin 600 MG TABCR PO SCH (08:57)
[2019-10-25] MEDS: ISOSORBIDE MONO EXTENDED REL 60 MG TABCR PO SCH (08:57)
[2019-10-25] MEDS: GABAPENTIN 300 MG CAP PO SCH ×2 (08:57→13:29)
[2019-10-25] MEDS: FUROSEMIDE 40 MG TAB PO SCH (08:57)
[2019-10-25] MEDS: ASPIRIN 81 MG ECTAB PO SCH (08:57)
[2019-10-25] MEDS: SENNA 8.6 MG TAB PO SCH (08:57)
[2019-10-25] MEDS: predniSONE 20 MG TAB PO SCH (08:57)
[2019-10-25] MEDS: lisinopriL 5 MG TAB PO SCH (08:57)
[2019-10-25] MEDS ORDERED: INSULIN HUMAN NPH SC SCH (09:00)
[2019-10-25] MEDS: TRAMADOL HCL 50 MG TABLET PO SCH (09:03)
[2019-10-25] MEDS: AZITHROMYCIN 250 MG TAB PO SCH (09:25)
--- NOTE | 2019-10-25 09:53 | Pharmacy Report ---
Pharmacy Glycemic Short Note 2 - Date of Service October 25, 2019 - Glycemic Short BSG Results (Last 24 hours): 10/24/19 10/24/19 10/24/19 12:24 19:41 20:41 POC Glucose 136 H 230 H 217 H 10/25/19 08:03 POC Glucose 142 H OUTPATIENT ANTIDIABETIC REGIMEN: * metformin 500 mg PO BID * glimepiride 2 mg Po qAM * A1c = 7.1% (08/23/19) ASSESSMENT: * Ms Funez received 64 units of insulin yesterday: * 35 units of basal insulin (NPH to cover prednisone) * 29 units of prandial/correctional insulin * BSGs ranging from 104-230 during the past 24 hours * Since it does not appear as though NPH is covering prednisone sufficiently into the afternoon/evening, dose was increased slightly this morning. Novolog parameters may need to be tightened slightly if this change doesn't adequately improve BSGs. * As prednisone tapers or stops, expect patient's insulin needs to decrease. Will continue to follow and adjust as necessary. PLAN FOR INPATIENT GLYCEMIC CONTROL: * Hold outpatient oral diabetes medications * Basal insulin * NPH 40 units SQ qAM (to be given at the same time prednisone is administered) * Bolus insulin - * NovoLog per scale ACHS or Q6hrs while NPO * Goal Range: Low 110 mg/dL - High 140 mg/dL * Correction Factor: 20 mg/dL/unit * Nutritional / Prandial insulin per carb ratio of 1 unit per 6 grams CHO consumed PLAN FOR DISCHARGE: * A1c of 7.1% indicates adequate outpatient glycemic control * Continue metformin + glimepiride; may titrate metformin to goal dose of 1000 mg BID with meals (increase by 500 mg per week) * If patient will require ongoing steroids on discharge, may need to make some adjustments to pt's diabetic regimen.
[2019-10-25 09:59] LABS: Basophils # (auto) 0.02 K/uL (0-0.2); Basophils % (auto) 0.2 %; Eosinophils # (auto) 0.12 K/uL (0-0.5); Eosinophils % (auto) 0.9 %; Hematocrit (blood only) 38.3 % (37-47); Hemoglobin 12.6 g/dL (12.0-16.0); Immature Granulocytes # (auto) 0.15 K/uL (0.00-0.02); Immature Granulocytes % (auto) 1.1 %; Lymphocytes # (auto) 4.19 K/uL (1.2-3.4); Lymphocytes % (auto) 31.6 %; Mean Corpuscular Hemoglobin 28.7 pg (25-34); Mean Corpuscular Hgb Conc 32.9 g/dL (32-36); Mean Corpuscular Volume 87.2 fL (80-100); Mean Platelet Volume 9.8 fL (7.4-10.4); Monocytes # (auto) 1.05 K/uL (0.11-0.59); Monocytes % (auto) 7.9 %; Neutrophils # (auto) 7.74 K/uL (1.4-6.5); Neutrophils % (auto) 58.3 %; Platelet Count 286 K/uL (130-400); RDW Coefficient of Variation 15.2 % (11.5-14.5); RDW Standard Deviation 48.6 fL (36.4-46.3); Red Blood Count 4.39 M/uL (4.2-5.4); White Blood Count 13.27 K/uL (4.8-10.8)
[2019-10-25] MEDS: cefTRIAXone SODIUM 2,000 MG in DEXTROSE 5% 50 ML IV SCH (14:03)
--- NOTE | 2019-10-25 19:52 | Discharge Summary ---
Date of Service October 25, 2019 Admission HPI Per Admitting Provider Kathleen Funez is a 68-year-old female with multiple medical problems to include COPD, CHF, CAD, morbid obesity. She presents to the ER today with complaints of progressive shortness of breath x1 month as well as cough productive with thick, yellow sputum. She reports some dizziness that occurs with coughing. She denies chest pain/palpitations/abdominal pain/nausea/vomiting/fever/chills. She has had some occasional diarrhea as well as poor appetite and decreased p.o. intake over the last 2 weeks. Patient denies worsening edema or orthopnea. She does think she may have gained some weight. Additionally, she is complaining of severe right hip pain with weightbearing with radiation to the groin and left knee pain. Patient has been using her inhalers as needed but states that she ran out of nebulizer solution approximately 1 month ago ER course: Levaquin, albuterol 9 mL neb, magnesium x2 g, Solu-Medrol 60 mg IV Principal Diagnosis COPD exacerbation Discharge Exam gen aao x3 pleasant nad heent nc at mmm lungs just faint wheeze throughout otherwise good air entry better than yesterday no rales no accessory muscles good effort. skin no rashes no pallor or icterus. neuro no focal deficits. Discharge Data Allergies Allergy/AdvReac Type Severity Reaction Status Date / Time adhesive Allergy Intermediate HIVES Verified 10/19/19 19:40 atorvastatin Allergy Intermediate MYALGIA Verified 10/19/19 19:40 ceftriaxone Allergy Intermediate FELT Verified 10/19/19 19:40 FUNNY/STRANGE pravastatin Allergy Intermediate MYALGIA Verified 10/19/19 19:40 sucralfate [From Carafate] AdvReac Intermediate Gastrointestinal Verified 10/19/19 19:40 Upset Consultations 10/19/19 19:34 ED Decision to Admit Stat 10/21/19 13:38 Consult Case Management - Discharge Planning Routine Ordered Studies 10/21/19 15:46 CT angio chest PE protocol Stat Hospital Course (1) COPD exacerbation: 68 year old female with a history of COPD, CHF, AND DMII who presents with a COPD exacerbation 1. COPD exacerbation - CXR unremarkable - Patient has improved since admission - transition to PO steroids - taper - continue home aformeterol and budesonide, added duonebs (reasonable to continue indefinitely for anticholinergic - if weaned to prn then would add something like tiotropium) - finished 5 days zithromax - continue flutter valve and incentive spirometry Chronic respiratory failure - Chronically on 2-3 L of oxygen; at baseline requirements 2. Chronic diastolic congestive heart failure - CXR clear - Normal BNP - last echo (01/2018) showed EF of 60-65% and concern for "RV volume overload" - Continue Lasix, Isosorbide [place], Lisinopril - stable for home 3. Diabetes mellitus type 2 with neuropathy: - Most recent [id number]=[id number] - stable for home on home meds 4. R Hip Pain - no fracture on hip XR - pain is currently not bothering her - outpt follow-up 5. Dysphagia - patient is still able to eat, she just feels like "food sticks" in her throat when she swallows - no concern of aspiration - outpt follow-up - ? EGD 6. Hypertension: -Continue lisinopril and imdur 7. CAD (coronary artery disease): - no symptoms - Continue ASA 8. Depression: -Continue Mirtazapine stable for discharge to home (2) Right hip pain: see above (3) Cough: (4) Dysphagia: (5) Dyspnea: Total Time Total Time Spent Total Time Spent (In Minutes): <30 Discharge Plan Discharge Items Patient Disposition: Home - Self-Care Reason For Visit: COPD EXACERBATION Discharge Diagnosis: COPD exacerbation Condition on Discharge: Good Activity: Resume your previous activity Non-emergency contact: Primary Care Provider Call non-emergency contact if: your symptoms worsen Follow-up/Referrals: Gama Alfred MD [Primary Care Provider] - Diet: Carb Consistent or DM2 Addtl Attending Provider Instructions: You were hospitalized for an acute exacerbation of your chronic obstructive pulmonary disease. You were treated with IV steroids, Nebulizer treatments, BIPAP therapy and antibiotics. Over the course of your hospital stay, you felt like you had mucous in your upper airway that you could not cough up. We treated you with your high-dose Mucinex, humidified oxygen (in an effort to loosen the mucous) and encouraged you to use your flutter valve. I also ordered "chest pe rcussion" - respiratory therapists placed a wrap about your thorax, and reported you did well with it. There was a small consolidation in your left lung base that was visualized on a chest at scan. The radiologist thought it looked like a pneumonia. We treated you with antibiotics while in the hospital. Please continue all of your typical medications for your COPD after discharge, including your ADVAIR INHALER and Aminophyllin. You may continue to use albuterol as your rescue inhaler. Your breathing improved while under our care. When physical therapy worked with you, you tired very easily. You explained how difficult it is to build up stamina due to your knee osteoarthritis. We recommend taking Tylenol for the arthritis pain. You can also consider getting a recumbent bicycle for your home, which will allow you to improve your stamina while not straining your joints. Pending Studies at Discharge: No Stand-Alone Forms: [facility] Medications and DC Order Prescriptions: New prednisone 10 mg tablet 10 mg PO DAILY Qty: 42 RF: 0 ipratropium-albuterol 0.5 mg-3 mg(2.5 mg base)/3 mL solution for nebulization 3 ml INH QID Qty: 180 RF: 0 Continued cholecalciferol (vitamin D3) 1,000 unit capsule 2,000 units PO DAILY Qty: 30 RF: 0 montelukast 10 mg tablet 10 mg PO QPM Qty: 90 RF: 3 Brovana 15 mcg/2 mL solution for nebulization 2 ml INH BID Qty: 120 RF: 5 budesonide [Pulmicort] 1 mg/2 mL suspension for nebulization 1 mg INH BID Qty: 120 RF: 5 glimepiride 2 mg tablet 2 mg PO QAM Qty: 90 RF: 3 metformin 500 mg tablet 500 mg PO BID Qty: 180 RF: 3 fluticasone propion-salmeterol 250-50 mcg/dose blister with device 1 puffs INH BID Qty: 60 RF: 5 tramadol 50 mg tablet 100 mg PO BID Qty: 120 RF: 2 (DME) Oxygen Home Liters Per Minute See Dose Instructions .ROUTE .MEDSUPPLY Qty: 1 RF: 0 lisinopril 5 mg tablet 5 mg PO DAILY RF: 0 isosorbide mononitrate 60 mg tablet extended release 24 hr 60 mg PO DAILY Qty: 90 RF: 3 meclizine 25 mg tablet 25 mg PO TID PRN (Reason: DIZZYNESS) RF: 0 diclofenac sodium [Voltaren] 1 % gel 0 g TOP QID PRN (Reason: Pain) RF: 0 zolpidem 10 mg tablet PO .TAKE 1 TABLET AT BED RF: 0 (DME) blood-glucose meter [Blood Glucose Monitoring] kit See Dose Instructions .ROUTE .MEDSUPPLY Qty: 1 RF: 0 gabapentin 300 mg capsule 300 mg PO TID Qty: 270 RF: 3 aspirin [Aspir-81] 81 mg Tablet,Delayed Release (Dr/Ec) 81 mg PO DAILY RF: 0 acetaminophen [Tylenol Extra Strength] 500 mg Tablet 1,000 mg PO BID PRN (Reason: Pain) RF: 0 dextromethorphan-guaifenesin [Mucinex DM] 60-1,200 mg Tablet Extended Release 12 Hr 1 tab PO BID PRN (Reason: Congestion) RF: 0 nitroglycerin [Nitrostat] 0.4 mg tablet, sublingual 0.4 mg Sublingual Q5M PRN (Reason: Chest Pain) RF: 0 lorazepam [Ativan] 1 mg tablet 1 mg PO HS RF: 0 furosemide [Lasix] 40 mg tablet 40 mg PO DAILY RF: 0 mirtazapine 15 mg tablet 15 mg PO HS RF: 0 lorazepam 1 mg tablet 1 mg PO BID PRN (Reason: Anxiety) RF: 0 Discharge Orders: Discharge Order (Routine); Ordered 10/25/19 Ordered By: Dirk Gonzalez/Other Patient Handouts: COPD: Coping with Mucus Admission Data Admit Date/Time: 10/21/19 17:42 Attending Provider: Dirk Meneses Admit Provider: Krystal Melgar Primary Care Provider: Gama Alfred Other Providers: Krystal Melgar ; Sivan Luque Other Interventions: Discharge Summary Assessment (RN) Last Done: 10/25/19 17:51 Coding Level of Care Code D/C Day Management <30 mins Diagnoses COPD exacerbation J44.1 Right hip pain M25.551 Cough R05 Dysphagia R13.10 Dyspnea R06.00
--- NOTE | 2019-11-05 15:00 | Coding Query ---
CODING QUERY To promote full compliance with coding requirements relating to patient care, provider participation is requested in all cases of repair manager uncertainty. Please assist us with the question(s) below: Coding Question(s): Dr. Meneses, A possible diagnosis was documented in the progress notes, but not carried through to the discharge summary. Coding Guidelines require a query for clarification in these circumstances. The progress notes from 10/20 and later state the following: Patient began to clinically improve, but when walked on 10/20, she became significantly tachycardic. Chest CTA ruled out a PE, but identified a left basilar consolidation that was interpreted as inflammatory. Initially this was felt to represent a possible HCAP, but upon further consideration, antibiotic coverage was deescalated to cover community-based pathogens only. COPD exacerbation - CXR on admission showing left basilar consolidation, favoring atelectasis Tachycardia with exertion - initial concern for PE, although patient was on anticoagulation prior to admission. Chest CTA 10/20 negative - CT did provide further clarification of L basilar nodule: because it appeared to be inflammatory and WBC was elevated, HCAP coverage was initiated. - upon careful chart review, given that consolidation was present on admission CXR, unlikely to be an HCAP. antibiotics deescalated to CAP coverage (Rocephin + azithromax); currently on day 4 of therapy - it is also possible that lung consolidation does not represent acute infection, as patient is afebrile, not tachypneic. Tachycardia with exertion may be simply secondary to deconditioning - PT/OT ordered Please clarify if: The patient had: ( x) Community acquired pneumonia (x ) POA ( ) Not POA ( ) Clinically unable to determine if POA ( ) Healthcare acquired pneumonia ( ) POA ( ) Not POA ( ) Clinically unable to determine if POA ( ) Atelectasis ( ) POA ( ) Not POA ( ) Clinically unable to determine if POA ( ) Deconditioning ( ) POA ( ) Not POA ( ) Clinically unable to determine if POA ( ) Other, please explain ( ) POA ( ) Not POA ( ) Clinically unable to determine if POA ( ) Unable to determine Physician's Response(s): Thank you for your time, Tasneem Earl, [facility], [facility]
== END 2019-10-25 20:21 | disposition home health service (06) | DRG 190 ==
LOC: ED 17:06 → 3W 17:06 → SUATTDRO 19:51 → 3W 20:30 → SUATTDRO 10-21 17:42

== ENCOUNTER 2021-06-30 19:59 | Observation (INO) ==
[2021-06-30] MEDS ORDERED: ALBUT/IPRATROP 3MG/0.5MG NEB 3 ML VIAL NEB STA (20:33)
[2021-06-30] MEDS ORDERED: ONDANSETRON INJ 2 MG/ML 2 ML VIAL IV STA (20:33)
--- NOTE | 2021-06-30 20:40 | Emergency Department Note ---
Impression & Plan SOB (shortness of breath), Wheezing, COPD exacerbation, Flu-like symptoms, Lip ulcer ED Provider Note NAME: ANDREW BURGER AGE: 70 SEX: F : 1950 ARRIVES VIA: Walk-In INFORMANT: [Patient] ED PROVIDER(S): [Car Stafford MD] CHIEF COMPLAINT: Fever HISTORY OF PRESENT ILLNESS: The patient is a 70-year-old female presents to the ER with 4 days of feeling ill. She has had fevers, chills, sweats. 2 days ago, she developed some blisters on her lips. She has had a productive cough. The sputum is yellow to jacobson. She has felt a bit short of breath. She has had nausea but no vomiting. She is always incontinent of urine, she has not noticed any urinary burning. There has been no diarrhea. The patient has not had any sick contacts. She is vaccinated for COVID x3, she does have her influenza vaccine. She does live alone. She wears 3 L of oxygen at all times because of COPD. REVIEW OF SYSTEMS: See HPI for pertinent positives and negatives. A total of ten systems were reviewed and were otherwise negative. PMHx/PSHx: See Below SOCIAL HISTORY: See Below. PHYSICAL EXAM: GENERAL: Patient is in no acute distress. HEENT: No acute trauma, normocephalic atraumatic, mucous membranes moist, no nasal congestion, no scleral icterus. No throat erythema or exudate. There are some small blisters on her lips. None to the back of the throat. NECK: No stridor, no adenopathy, no meningismus, trachea is midline. LUNGS: Moist cough noted, wheezing bilaterally, breath sounds are somewhat diminished, no respiratory distress. HEART: Without murmurs gallops or rubs, regular rate and rhythm. ABDOMEN: Soft, nontender, bowel sounds positive, no hernias, no peritonitis. EXTREMITIES: No cyanosis, moderate bilateral pedal edema, full range of motion of all the joints without pain or difficulty, no signs for acute trauma. NEUROLOGIC: Oriented x 3, no acute motor or sensory deficits, no focal weakness. SKIN: No rash, no jaundice, no diaphoresis. DIFFERENTIAL DIAGNOSIS: Infection, generalized viral illness, UTI, pneumonia, bronchitis, exacerbation of COPD, COVID-19, influenza, dehydration, metabolic abnormality, hypo/ hyperglycemia, electrolyte disturbance, anemia, hypoxia, cardiac sources, as well as other pathologies. EMERGENCY DEPARTMENT COURSE/PROCEDURES: ECG: Indication was shortness of breath. The ECG shows a sinus rhythm with a PVC. The rate is 71. There is no ST elevation. There is a potential old inferior infarct. There is some poor R wave progression. The QTc is 434. Continuous Cardiac Monitoring: An order was placed for continuous cardiac monitoring. The monitor shows a rate of 78 with sinus rhythm with some PVCs. MEDICAL DECISION MAKING: There is no leukocytosis or concerning anemia. There is no coagulopathy. No significant electrolyte abnormality or renal failure. Lactic acid level is not elevated making severe sepsis less likely. No concerning liver enzyme elevation. Procalcitonin level is not elevated. ECG shows a sinus rhythm with some PVCs, no obvious ischemia. Cardiac enzyme testing x1 is not consistent with acute cardiac injury. Urinalysis does not show infection. Covid, influenza and RSV test returned negative. Chest x-ray did not show CHF or pneumonia. On exam, the patient was wheezing. She had a few ulcers on her lips. Patient received a DuoNeb, IV Solu-Medrol, IV Zofran and IV saline. She is resting comfortably. The patient has a viral illness which has flared her COPD. She presents short of breath. I do think she requires a hospital stay. She will not do well if left to go home. She does live alone. I spoke with the patient and correctional case records supervisor. The on-call hospitalist was consulted. Past Med/Surg History Medical History (Updated 07/01/21 @ 00:07 by Car Stafford MD) Acute renal failure (10/23/13) Anxiety Arthralgia of multiple sites Asthma BMI 60.0-69.9, adult CAD (coronary artery disease) Candidal skin infection Carotid artery stenosis Carpal tunnel syndrome Cataract Chronic diastolic congestive heart failure Chronic respiratory failure with hypoxia, on home oxygen therapy 3 L/min nasal cannula. Chronic sinusitis Constipation COPD (chronic obstructive pulmonary disease) Depression Diabetes mellitus (03/14/12) Diabetic peripheral neuropathy associated with type 2 diabetes mellitus Diverticulosis of colon Edema Eustachian tube dysfunction Fatty liver disease, nonalcoholic Gait disturbance Gastritis GERD (gastroesophageal reflux disease) Hernia Hyperlipidemia Hypertension Internal hemorrhoids Interstitial lung disease Leukocytosis Lumbar facet joint syndrome Lumbosacral radiculopathy Morbid obesity MRSA (methicillin resistant Staphylococcus aureus) carrier Nontoxic multinodular goiter Obstructive sleep apnea Osteopenia Polyosteoarthritis, unspecified Proteinuria Rectocele Sacroiliitis Seborrheic dermatitis of scalp Sensorineural hearing loss (SNHL) of both ears Shortness of breath Solitary pulmonary nodule Systolic murmur Ulnar neuropathy of both upper extremities Urinary incontinence Vitamin D deficiency Surgical History H/O: hysterectomy History of carpal tunnel surgery of left wrist History of carpal tunnel surgery of right wrist History of dilation and curettage History of eye surgery History of nasal surgery History of tooth extraction History of tubal ligation Total knee replacement status Family History Father Diabetes Blood clotting disorder Mother Cardiac pacemaker Grandfather Myocardial infarction Brother Stroke Grandmother (Maternal) Breast cancer Denies family history of Ovarian cancer Prostate cancer Colorectal cancer Social History Smoking Status: Never smoker Age Started Using Tobacco: 9; Age Quit Using Tobacco: 28; Second Hand Exposure: No; Hx Alcohol Use: No Hx Substance Use: No Preferred Language: [place] Communication Ability: Effective Visual Impairment: Limited Hearing Ability: Hard of Hearing Oracle Adf Consultant Required: No Beliefs That Will Affect Care: None marital status: / Current Living Situation: Alone current occupational status: retired Feels Safe at Home: Yes Childhood Exposure to Second-Hand Smoke: Yes caffeine: No Dental Care, Regularly: No Physical Activity Frequency: Does not Exercise Seatbelt Use: always Sunscreen Use: Yes (very little) Assistive Devices: Walker Allergies Allergies Allergy/AdvReac Type Severity Reaction Status Date / Time adhesive Allergy Intermediate HIVES Verified 06/30/21 20:28 atorvastatin Allergy Intermediate MYALGIA Verified 06/30/21 20:28 ceftriaxone Allergy Intermediate FELT Verified 06/30/21 20:28 FUNNY/STRANGE pravastatin Allergy Intermediate MYALGIA Verified 06/30/21 20:28 sucralfate [From Carafate] AdvReac Intermediate Gastrointestinal Verified 06/30/21 20:28 Upset Home Meds Home Medications Medication Instructions Recorded Confirmed Oxygen Home #1 ea 12/09/18 06/12/21 zolpidem 10 mg tablet 10 mg PO HS 09/21/19 06/30/21 aspirin 81 mg tablet,delayed 81 mg PO QAM 06/30/21 06/30/21 release (Aspirin Low Dose) cholecalciferol (vitamin D3) 25 2,000 unit PO QAM 06/30/21 06/30/21 mcg (1,000 unit) capsule empagliflozin 10 mg tablet 10 mg PO DAILY 06/30/21 06/30/21 (Jardiance) furosemide 40 mg tablet (Lasix) 40 mg PO QAM 06/30/21 06/30/21 isosorbide mononitrate 60 mg 90 mg PO QAM 06/30/21 06/30/21 tablet,extended release 24 hr lorazepam 1 mg tablet 1 mg PO HS 06/30/21 06/30/21 venlafaxine 150 mg 150 mg PO QAM 06/30/21 06/30/21 capsule,extended release 24 hr Previous Rx's Medication Instructions Recorded fluticasone 250 mcg-salmeterol 50 1 inh INH BID #180 ea 07/30/20 mcg/dose blistr powdr for inhalation glimepiride 2 mg tablet 2 mg PO QAM #90 tab 08/09/20 rosuvastatin 40 mg tablet 40 mg PO HS #90 tab 09/18/20 gabapentin 300 mg capsule 300 mg PO TID #270 cap 10/30/20 metformin 500 mg tablet 500 mg PO BID #180 tab 10/30/20 montelukast 10 mg tablet 10 mg PO QPM #90 tab 11/22/20 blood glucose control, low (True #1 ea 11/28/20 Metrix Level 1) blood-glucose meter (True Metrix #1 ea 11/28/20 Glucose Meter) lancets 33 gauge (TRUEplus Lancets) #100 ea 11/28/20 mirtazapine 15 mg tablet 15 mg PO HS #90 tab 11/28/20 blood sugar diagnostic (True #100 ea 12/03/20 Metrix Glucose Test Strip) blood-glucose meter (Blood Glucose #1 ea 01/18/21 Monitoring) tramadol 50 mg tablet 100 mg PO BID #360 tab 05/14/21 nitroglycerin 0.4 mg sublingual 0.4 mg SUBLINGUAL Q5M PRN #25 tab 05/27/21 tablet (Nitrostat) Portable Oxygen #1 ea 06/11/21 Results & Data (ED) Vital Signs Vital Signs - 24 hr 06/30/21 20:01 06/30/21 20:24 06/30/21 20:33 Temperature 36.9 C Temperature Source Oral Pulse Rate 70 76 Pulse Rate [Left Radial] 78 Pulse Rhythm Regular Regular Pulse Strength Normal Respiratory Rate 20 22 20 Respiratory Effort / Characteristics Non-Labored Non-Labored Spontaneous Respiratory Depth Normal Normal Blood Pressure 167/85 H Blood Pressure [Left Arm] Blood Pressure Mean 112 Blood Pressure Mean [Left Arm] Blood Pressure Position Sitting Pulse Oximetry 93 98 99 Oxygen Delivery Method Room Air Nasal Cannula Nasal Cannula Oxygen Flow Rate 3 3 Sepsis Recent Fever Within 48 Hours No Sepsis New/Unexplained Change in Mental Status N/A Sepsis Action Taken by Nursing No Action Required 06/30/21 20:46 06/30/21 21:03 06/30/21 21:30 Temperature Temperature Source Pulse Rate Pulse Rate [Left Radial] Pulse Rhythm Pulse Strength Respiratory Rate 20 Respiratory Effort / Characteristics Non-Labored Spontaneous Non-Labored Spontaneous Non-Labored Spontaneous Respiratory Depth Blood Pressure Blood Pressure [Left Arm] Blood Pressure Mean Blood Pressure Mean [Left Arm] Blood Pressure Position Pulse Oximetry 98 98 99 Oxygen Delivery Method Nasal Cannula Nasal Cannula Oxygen Flow Rate 3 3 3 Sepsis Recent Fever Within 48 Hours Sepsis New/Unexplained Change in Mental Status Sepsis Action Taken by Nursing 06/30/21 22:00 06/30/21 22:30 06/30/21 23:00 Temperature Temperature Source Pulse Rate Pulse Rate [Left Radial] Pulse Rhythm Pulse Strength Respiratory Rate 20 20 20 Respiratory Effort / Characteristics Non-Labored Spontaneous Non-Labored Spontaneous Non-Labored Spontaneous Respiratory Depth Blood Pressure Blood Pressure [Left Arm] Blood Pressure Mean Blood Pressure Mean [Left Arm] Blood Pressure Position Pulse Oximetry 97 99 99 Oxygen Delivery Method Nasal Cannula Nasal Cannula Nasal Cannula Oxygen Flow Rate 3 3 3 Sepsis Recent Fever Within 48 Hours Sepsis New/Unexplained Change in Mental Status Sepsis Action Taken by Nursing 06/30/21 23:22 Temperature Temperature Source Pulse Rate Pulse Rate [Left Radial] 67 Pulse Rhythm Pulse Strength Respiratory Rate 20 Respiratory Effort / Characteristics Non-Labored Spontaneous Respiratory Depth Normal Blood Pressure Blood Pressure [Left Arm] 176/104 H Blood Pressure Mean Blood Pressure Mean [Left Arm] 128 Blood Pressure Position Pulse Oximetry 98 Oxygen Delivery Method Nasal Cannula Oxygen Flow Rate 3 Sepsis Recent Fever Within 48 Hours Sepsis New/Unexplained Change in Mental Status Sepsis Action Taken by [facility] Medications Current Medication List: was personally reviewed by me Laboratory Data Attestation: I reviewed the patient's lab results. Result diagrams: 06/30/21 21:05 06/30/21 21:05 Lab Results 06/30/21 06/30/21 06/30/21 Range/Units 20:58 21:05 21:05 WBC 9.31 (4.8-10.8) K/uL RBC 5.05 (4.2-5.4) M/uL Hgb 13.7 (12.0-16.0) g/dL Hct 41.7 (37-47) % MCV 82.6 (80-100) fL MCH 27.1 (25-34) pg MCHC 32.9 (32-36) g/dL RDW Std Deviation 45.5 (36.4-46.3) fL RDW Coeff of Robert 15.2 H (11.5-14.5) % Plt Count 371 (130-400) K/uL MPV 9.7 (7.4-10.4) fL Immature Gran % (Auto) 0.3 % Neut % (Auto) 50.4 % Lymph % (Auto) 33.2 % Wells % (Auto) 6.6 % Eos % (Auto) 8.7 % Baso % (Auto) 0.8 % Neut # (Auto) 4.70 (1.4-6.5) K/uL Lymph # (Auto) 3.09 (1.2-3.4) K/uL Wells # (Auto) 0.61 H (0.11-0.59) K/uL Eos # (Auto) 0.81 H (0-0.5) K/uL Baso # (Auto) 0.07 (0-0.2) K/uL Immature Gran # (Auto) 0.03 H (0.00-0.02) K/uL PT 11.0 (9.0-12.0) Seconds INR 1.0 (0.9-1.1) APTT 27.4 (21.0-31.0) Seconds PTT Ratio 1.0 Sodium (136-145) mmol/L Potassium (3.5-5.1) mmol/L Chloride (98-107) mmol/L Carbon Dioxide (21-32) mmol/L Anion Gap (3-11) BUN (6-23) mg/dl Creatinine (0.6-1.2) mg/dl Est Cr Clr Drug Dosing Est GFR ( Amer) ml/min Est GFR (Non-Af Amer) ml/min BUN/Creatinine Ratio (10-20) Glucose (70-99(Fasting)) mg/dl Lactate (0.4-2.0) mmol/L Calcium (8.5-10.1) mg/dl Magnesium (1.7-2.4) mg/dl Total Bilirubin (0.2-1.0) mg/dl AST (13-39) U/L ALT (7-52) U/L Alkaline Phosphatase (34-104) U/L Troponin I (0-0.04) ng/ml Total Protein (6.0-8.3) gm/dl Albumin (3.4-5.0) gm/dl Globulin (2.5-4.0) gm/dl Albumin/Globulin Ratio (0.9-2) Procalcitonin (0-0.5) ng/ml Urine Color Dark Yellow Urine Appearance Cloudy A (Clear) Urine pH 6.5 (4.5-7.5) Ur Specific [place] 1.018 (1.000-1.030) Urine Protein 1+ H (Negative) Urine Glucose (UA) Negative (Negative) Urine Ketones Trace H (Negative) Urine Blood Negative (Negative) Urine Nitrite Negative (Negative) Urine Bilirubin Negative (Negative) Urine Urobilinogen Negative (Negative) Ur Leukocyte Esterase Trace H (Negative) Urine WBC (Auto) 5-10 H (0-5) /hpf Urine RBC (Auto) 5-10 H (0-4) /hpf U Hyaline Cast (Auto) 1-5 (0-5) /lpf U Epithel Cells (Auto) >30 H (0-5) /lpf Urine Bacteria (Auto) 1+ H (Negative) Urine Crystals Not Reportable Calcium Oxalate Crystal Present A (None Prsent) SARS-CoV-2 (PCR) (Negative) Influenza Type A (PCR) (Neg) Influenza Type B (PCR) (Neg) RSV (RT-PCR) (Neg) 06/30/21 06/30/21 06/30/21 Range/Units 21:05 21:05 21:05 WBC (4.8-10.8) K/uL RBC (4.2-5.4) M/uL Hgb (12.0-16.0) g/dL Hct (37-47) % MCV (80-100) fL MCH (25-34) pg MCHC (32-36) g/dL RDW Std Deviation (36.4-46.3) fL RDW Coeff of Robert (11.5-14.5) % Plt Count (130-400) K/uL MPV (7.4-10.4) fL Immature Gran % (Auto) % Neut % (Auto) % Lymph % (Auto) % Wells % (Auto) % Eos % (Auto) % Baso % (Auto) % Neut # (Auto) (1.4-6.5) K/uL Lymph # (Auto) (1.2-3.4) K/uL [place] # (Auto) (0.11-0.59) K/uL Eos # (Auto) (0-0.5) K/uL Baso # (Auto) (0-0.2) K/uL Immature Gran # (Auto) (0.00-0.02) K/uL PT (9.0-12.0) Seconds INR (0.9-1.1) APTT (21.0-31.0) Seconds PTT Ratio Sodium 141 (136-145) mmol/L Potassium 3.7 (3.5-5.1) mmol/L Chloride 105 (98-107) mmol/L Carbon Dioxide 30 (21-32) mmol/L Anion Gap 6 (3-11) BUN 10 (6-23) mg/dl Creatinine 0.90 (0.6-1.2) mg/dl Est Cr Clr Drug Dosing Not Reportable Est GFR ( Amer) 74.0 ml/min Est GFR (Non-Af Amer) 63.9 ml/min BUN/Creatinine Ratio 11.1 (10-20) Glucose 168 H (70-99(Fasting)) mg/dl Lactate 1.3 (0.4-2.0) mmol/L Calcium 9.5 (8.5-10.1) mg/dl Magnesium 1.8 (1.7-2.4) mg/dl Total Bilirubin 0.4 (0.2-1.0) mg/dl AST 17 (13-39) U/L ALT 14 (7-52) U/L Alkaline Phosphatase 85 (34-104) U/L Troponin I < 0.03 (0-0.04) ng/ml Total Protein 6.2 (6.0-8.3) gm/dl Albumin 3.6 (3.4-5.0) gm/dl Globulin 2.6 (2.5-4.0) gm/dl Albumin/Globulin Ratio 1.4 (0.9-2) Procalcitonin < 0.05 (0-0.5) ng/ml Urine Color Urine Appearance (Clear) Urine pH (4.5-7.5) Ur Specific [place] (1.000-1.030) Urine Protein (Negative) Urine Glucose (UA) (Negative) Urine Ketones (Negative) Urine Blood (Negative) Urine Nitrite (Negative) Urine Bilirubin (Negative) Urine Urobilinogen (Negative) Ur Leukocyte Esterase (Negative) Urine WBC (Auto) (0-5) /hpf Urine RBC (Auto) (0-4) /hpf U Hyaline Cast (Auto) (0-5) /lpf U Epithel Cells (Auto) (0-5) /lpf Urine Bacteria (Auto) (Negative) Urine Crystals Calcium Oxalate Crystal (None Prsent) SARS-CoV-2 (PCR) (Negative) Influenza Type A (PCR) (Neg) Influenza Type B (PCR) (Neg) RSV (RT-PCR) (Neg) 06/30/21 Range/Units 21:50 WBC (4.8-10.8) K/uL RBC (4.2-5.4) M/uL Hgb (12.0-16.0) g/dL Hct (37-47) % MCV (80-100) fL MCH (25-34) pg MCHC (32-36) g/dL RDW Std Deviation (36.4-46.3) fL RDW Coeff of Robert (11.5-14.5) % Plt Count (130-400) K/uL MPV (7.4-10.4) fL Immature Gran % (Auto) % Neut % (Auto) % Lymph % (Auto) % Wells % (Auto) % Eos % (Auto) % Baso % (Auto) % Neut # (Auto) (1.4-6.5) K/uL Lymph # (Auto) (1.2-3.4) K/uL [place] # (Auto) (0.11-0.59) K/uL Eos # (Auto) (0-0.5) K/uL Baso # (Auto) (0-0.2) K/uL Immature Gran # (Auto) (0.00-0.02) K/uL PT (9.0-12.0) Seconds INR (0.9-1.1) APTT (21.0-31.0) Seconds PTT Ratio Sodium (136-145) mmol/L Potassium (3.5-5.1) mmol/L Chloride (98-107) mmol/L Carbon Dioxide (21-32) mmol/L Anion Gap (3-11) BUN (6-23) mg/dl Creatinine (0.6-1.2) mg/dl Est Cr Clr Drug Dosing Est GFR ( Amer) ml/min Est GFR (Non-Af Amer) ml/min BUN/Creatinine Ratio (10-20) Glucose (70-99(Fasting)) mg/dl Lactate (0.4-2.0) mmol/L Calcium (8.5-10.1) mg/dl Magnesium (1.7-2.4) mg/dl Total Bilirubin (0.2-1.0) mg/dl AST (13-39) U/L ALT (7-52) U/L Alkaline Phosphatase (34-104) U/L Troponin I (0-0.04) ng/ml Total Protein (6.0-8.3) gm/dl Albumin (3.4-5.0) gm/dl Globulin (2.5-4.0) gm/dl Albumin/Globulin Ratio (0.9-2) Procalcitonin (0-0.5) ng/ml Urine Color Urine Appearance (Clear) Urine pH (4.5-7.5) Ur Specific [place] (1.000-1.030) Urine Protein (Negative) Urine Glucose (UA) (Negative) Urine Ketones (Negative) Urine Blood (Negative) Urine Nitrite (Negative) Urine Bilirubin (Negative) Urine Urobilinogen (Negative) Ur Leukocyte Esterase (Negative) Urine WBC (Auto) (0-5) /hpf Urine RBC (Auto) (0-4) /hpf U Hyaline Cast (Auto) (0-5) /lpf U Epithel Cells (Auto) (0-5) /lpf Urine Bacteria (Auto) (Negative) Urine Crystals Calcium Oxalate Crystal (None Prsent) SARS-CoV-2 (PCR) NEGATIVE (Negative) Influenza Type A (PCR) Negative (Neg) Influenza Type B (PCR) Negative (Neg) RSV (RT-PCR) Negative (Neg) Administered Medications Discontinued Medications Albuterol (Albut/Ipratrop 3mg/0.5mg Neb 3 Ml Vial) 3 ml NEB NOW STA; Protocol Stop: 06/30/21 20:34 Last Admin: 06/30/21 21:44 Dose: 3 ml Documented by: [id number] Sodium Chloride (Nss 1000ml) 1,000 mls @ 999 mls/hr IV .[id number] Stop: 06/30/21 21:45 Last Infusion: 06/30/21 23:01 Dose: 0 mls/hr Documented by: [id number] Admin: 06/30/21 21:43 Dose: 999 mls/hr Documented by: [id number] Methylprednisolone (Methylprednisolone 125 Mg/2 Ml Vial) 60 mg IV NOW STA Stop: 06/30/21 21:52 Last Admin: 06/30/21 22:30 Dose: 60 mg Documented by: [id number] Ondansetron HCl (Ondansetron Inj 2 Mg/Ml 2 Ml Vial) 4 mg IV NOW STA Stop: 06/30/21 20:34 Last Admin: 06/30/21 21:44 Dose: 4 mg Documented by: [id number] Imaging Data Attestation: I personally reviewed and interpreted this imaging study as follows: My Impression: Chest x-ray: I see no pneumonia, CHF or pneumothorax. Discharge Plan Visit Data Chief Complaint: Fever Stated Complaint: CHILLS, BLISTER ON LIP AND TIP OF TONGUE ED Provider: Car Stafford Discharge Problem: SOB (shortness of breath), Wheezing, COPD exacerbation, Flu-like symptoms, Lip ulcer Patient Disposition: Admitted As Inpatient Condition: Fair Forms Stand Alone Forms: My [facility] Prescriptions Prescriptions: No Action fluticasone propion-salmeterol 250-50 mcg/dose blister with device 1 inh INH BID Qty: 180 RF: 5 glimepiride 2 mg tablet 2 mg PO QAM Qty: 90 RF: 3 rosuvastatin 40 mg tablet 40 mg PO HS Qty: 90 RF: 3 gabapentin 300 mg capsule 300 mg PO TID Qty: 270 RF: 3 metformin 500 mg tablet 500 mg PO BID Qty: 180 RF: 3 montelukast 10 mg tablet 10 mg PO QPM Qty: 90 RF: 3 (DME) True Metrix Glucose Test Strip Strip See Rx Instructions .Route Qty: 100 RF: 3 (DME) blood-glucose meter [Blood Glucose Monitoring] Kit See Dose Instructions .ROUTE .MEDSUPPLY Qty: 1 RF: 0 tramadol 50 mg tablet 100 mg PO BID Qty: 360 RF: 0 (DME) Oxygen Home Liters Per Minute See Dose Instructions .ROUTE .MEDSUPPLY Qty: 1 RF: 0 zolpidem 10 mg tablet 10 mg PO HS RF: 0 (DME) Portable Oxygen Misc See Rx Instructions .Route Qty: 1 RF: 0 nitroglycerin [Nitrostat] 0.4 mg tablet, sublingual 0.4 mg Sublingual Q5M PRN (Reason: Chest Pain) Qty: 25 RF: 2 (DME) True Metrix Level 1 Solution See Rx Instructions .Route Qty: 1 RF: 0 (DME) blood-glucose meter [True Metrix Glucose Meter] Misc See Rx Instructions .Route Qty: 1 RF: 0 (DME) lancets [TRUEplus Lancets] 33 gauge misc See Rx Instructions .Route Qty: 100 RF: 3 mirtazapine 15 mg tablet 15 mg PO HS Qty: 90 RF: 3 Jardiance 10 mg tablet 10 mg PO DAILY RF: 0 aspirin [Aspirin Low Dose] 81 mg Tablet,Delayed Release (Dr/Ec) 81 mg PO QAM RF: 0 lorazepam 1 mg tablet 1 mg PO HS RF: 0 furosemide [Lasix] 40 mg tablet 40 mg PO QAM RF: 0 venlafaxine 150 mg capsule,extended release 24hr 150 mg PO QAM RF: 0 isosorbide mononitrate 60 mg tablet extended release 24 hr 90 mg PO QAM RF: 0 cholecalciferol (vitamin D3) 25 mcg (1,000 unit) capsule 2,000 unit PO QAM RF: 0 Referrals Referrals: Chaka Alfred MD [Primary Care Provider] -
[2021-06-30] MEDS ORDERED: SODIUM CHLORIDE 0.9% 1000ML 1,000 ML IV SCH (20:45)
[2021-06-30 21:22] LABS: Basophils # (auto) 0.07 K/uL (0-0.2); Basophils % (auto) 0.8 %; Eosinophils # (auto) 0.81 K/uL (0-0.5); Eosinophils % (auto) 8.7 %; Hematocrit (blood only) 41.7 % (37-47); Hemoglobin 13.7 g/dL (12.0-16.0); Immature Granulocytes # (auto) 0.03 K/uL (0.00-0.02); Immature Granulocytes % (auto) 0.3 %; Lymphocytes # (auto) 3.09 K/uL (1.2-3.4); Lymphocytes % (auto) 33.2 %; Mean Corpuscular Hemoglobin 27.1 pg (25-34); Mean Corpuscular Hgb Conc 32.9 g/dL (32-36); Mean Corpuscular Volume 82.6 fL (80-100); Mean Platelet Volume 9.7 fL (7.4-10.4); Monocytes # (auto) 0.61 K/uL (0.11-0.59); Monocytes % (auto) 6.6 %; Neutrophils % (auto) 50.4 %; Platelet Count 371 K/uL (130-400); RDW Coefficient of Variation 15.2 % (11.5-14.5); RDW Standard Deviation 45.5 fL (36.4-46.3); Red Blood Count 5.05 M/uL (4.2-5.4); White Blood Count 9.31 K/uL (4.8-10.8)
[2021-06-30 21:32] LABS: Partial Thromboplastin Time 27.4 Seconds (21.0-31.0)
[2021-06-30 21:45] LABS: Troponin I < 0.03 ng/ml (0-0.04)
[2021-06-30 21:49] LABS: Alanine Aminotransferase 14 U/L (7-52); Albumin Globulin Ratio 1.4 (0.9-2); Albumin Level 3.6 gm/dl (3.4-5.0); Alkaline Phosphatase 85 U/L (34-104); Anion Gap 6 (3-11); Aspartate Aminotransferase 17 U/L (13-39); BUN Creatinine Ratio 11.1 (10-20); Bilirubin,Total 0.4 mg/dl (0.2-1.0); Blood Urea Nitrogen 10 mg/dl (6-23); Calcium 9.5 mg/dl (8.5-10.1); Carbon Dioxide 30 mmol/L (21-32); Chloride 105 mmol/L (98-107); Est GFR (Non-African American) 63.9 ml/min; Globulin 2.6 gm/dl (2.5-4.0); Glucose 168 mg/dl (70-99(Fasting)); Magnesium 1.8 mg/dl (1.7-2.4); Potassium 3.7 mmol/L (3.5-5.1); Sodium 141 mmol/L (136-145); Total Protein 6.2 gm/dl (6.0-8.3)
[2021-06-30] MEDS ORDERED: methylPREDNISolone 125 MG/2 ML VIAL IV STA (21:51)
[2021-06-30 22:08] LABS: Appearance Urine Cloudy (Clear); Bacteria Urine Automated 1+ (Negative); Bilirubin Urine Negative (Negative); Blood Urine Negative (Negative); Color Urine Dark Yellow; Epithelial Cell Urine Auto >30 /lpf (0-5); Glucose Urine UA Negative (Negative); Ketones Urine Trace (Negative); Leukocyte Esterase Urine Trace (Negative); Nitrite Urine Negative (Negative); Protein Urine 1+ (Negative); Specific Gravity Urine 1.018 (1.000-1.030); Urobilinogen Urine Negative (Negative); pH Urine 6.5 (4.5-7.5)
[2021-06-30 22:31] LABS: Calcium Oxalate Crystals Urine Present (None Prsent)
[2021-06-30 22:39] LABS: Influenza A virus by PCR Negative (Neg); Influenza B virus by PCR Negative (Neg); RSV by PCR Negative (Neg); SARS CoV2 RNA(COVID-19) InHosp NEGATIVE (Negative)
--- NOTE | 2021-06-30 23:58 | History & Physical Report ---
Date of Service June 30, 2021 Assessment & Plan (1) COPD exacerbation: Plan: 70 y/o F w/ PMHx of COPD on 3L O2, SARIKA on cpap, diastolic CHF, nonobstructive CAD, DM2, HTN, HLD who presents w/ 4 days of malaise, subjective fever, and chills. She has some component of fluid overload per exam and hx. She will be treated for COPD exaceration w/ the subjective symptoms (sputum, dyspnea, subj fevers/chills) and findings on exam (wheezes, rhonchi). - methylpred 40mg IV q8h - PO azithro - duoneb q6h - incentive spirometry - flutter valve - Mucinex - lasix 40 mg IV daily while inpatient - lower suspicion for pneumonia at this time. cxr reviewed. (2) Obstructive sleep apnea: Plan: - continue home cpap qhs 8 mmhg (3) Hypertension: Plan: - continue home regimen. IV instead of PO lasix while inpatient (4) Hyperlipidemia: Plan: - contnue home regimen (5) CAD (coronary artery disease): Plan: - follows [facility]. 2017 cardiac cath w/ nonobstructive cad (6) Depression: Plan: - continue home regimen - patient is on lorazepam, zolpidem and mirtazapine. caution against polypharmacy. f/u w/ pcp (7) Diabetes mellitus: Plan: - hold PO regimen - lantus 8u BID + SSI (8) COPD (chronic obstructive pulmonary disease): Plan: - see above. continue home inhalers (9) Chronic diastolic congestive heart failure: Plan: - diurese as above (10) Chronic respiratory failure: Plan: - continue home 3L O2 (11) GERD (gastroesophageal reflux disease): Plan: - hx of noted. not on ppi/h2 ethel (12) Chronic kidney disease, stage 3a: Plan: - follow BMP Plan: FEN/GI: DM2, low Na diet ppx: SCDs + Lovenox dispo: med/surg code: full History of Present Illness Chief Complaint: malaise, subjective fever, and chills Primary Care Provider: Chaka Alfred MD 70 y/o F w/ PMHx of COPD on 3L O2, SARIKA on cpap, diastolic CHF, nonobstructive CAD, DM2, HTN, HLD who presents w/ 4 days of malaise, subjective fever, and chills. She reports increased yellow sputum production. Her dyspnea on exertion is slightly worse than usual. She has had fatigue, decreased appetite and generally nor feeling well. She had a hospital admission in 2019 for similar symptoms and was treated for copd exacerbation at the time. Patient lives alone. She took her AM meds. She has noted 5 lb wt gain in 2 wks. She has had covid booster. ED course: IV methylpred 60mg, 1L NSS, duoneb. Allergies Allergy/AdvReac Type Severity Reaction Status Date / Time adhesive Allergy Intermediate HIVES Verified 06/30/21 20:28 atorvastatin Allergy Intermediate MYALGIA Verified 06/30/21 20:28 ceftriaxone Allergy Intermediate FELT Verified 06/30/21 20:28 FUNNY/STRANGE pravastatin Allergy Intermediate MYALGIA Verified 06/30/21 20:28 sucralfate [From Carafate] AdvReac Intermediate Gastrointestinal Verified 06/30/21 20:28 Upset Home Medications Medication Instructions Recorded Confirmed Type Oxygen Home #1 ea 12/09/18 06/12/21 History zolpidem 10 mg tablet 10 mg PO HS 09/21/19 06/30/21 History fluticasone 250 mcg-salmeterol 50 1 inh INH BID #180 ea 07/30/20 06/30/21 Rx mcg/dose blistr powdr for inhalation glimepiride 2 mg tablet 2 mg PO QAM #90 tab 08/09/20 06/30/21 Rx rosuvastatin 40 mg tablet 40 mg PO HS #90 tab 09/18/20 06/30/21 Rx gabapentin 300 mg capsule 300 mg PO TID #270 cap 10/30/20 06/30/21 Rx metformin 500 mg tablet 500 mg PO BID #180 tab 10/30/20 06/30/21 Rx montelukast 10 mg tablet 10 mg PO QPM #90 tab 11/22/20 06/30/21 Rx blood glucose control, low (True #1 ea 11/28/20 06/12/21 Rx Metrix Level 1) blood-glucose meter (True Metrix #1 ea 11/28/20 06/12/21 Rx Glucose Meter) lancets 33 gauge (TRUEplus Lancets) #100 ea 11/28/20 06/12/21 Rx mirtazapine 15 mg tablet 15 mg PO HS #90 tab 11/28/20 06/30/21 Rx blood sugar diagnostic (True #100 ea 12/03/20 06/12/21 Rx Metrix Glucose Test Strip) blood-glucose meter (Blood Glucose #1 ea 01/18/21 06/12/21 Rx Monitoring) tramadol 50 mg tablet 100 mg PO BID #360 tab 05/14/21 06/30/21 Rx nitroglycerin 0.4 mg sublingual 0.4 mg SUBLINGUAL Q5M PRN #25 tab 05/27/21 06/30/21 Rx tablet (Nitrostat) Portable Oxygen #1 ea 06/11/21 06/12/21 Rx aspirin 81 mg tablet,delayed 81 mg PO QAM 06/30/21 06/30/21 History release (Aspirin Low Dose) cholecalciferol (vitamin D3) 25 2,000 unit PO QAM 06/30/21 06/30/21 History mcg (1,000 unit) capsule empagliflozin 10 mg tablet 10 mg PO DAILY 06/30/21 06/30/21 History (Jardiance) furosemide 40 mg tablet (Lasix) 40 mg PO QAM 06/30/21 06/30/21 History isosorbide mononitrate 60 mg 90 mg PO QAM 06/30/21 06/30/21 History tablet,extended release 24 hr lorazepam 1 mg tablet 1 mg PO HS 06/30/21 06/30/21 History venlafaxine 150 mg 150 mg PO QAM 06/30/21 06/30/21 History capsule,extended release 24 hr Past Med/Surg History Medical History Acute renal failure (10/23/13) Anxiety Arthralgia of multiple sites Asthma BMI 60.0-69.9, adult CAD (coronary artery disease) Candidal skin infection Carotid artery stenosis Carpal tunnel syndrome Cataract Chronic diastolic congestive heart failure Chronic respiratory failure with hypoxia, on home oxygen therapy 3 L/min nasal cannula. Chronic sinusitis Constipation COPD (chronic obstructive pulmonary disease) Depression Diabetes mellitus (03/14/12) Diabetic peripheral neuropathy associated with type 2 diabetes mellitus Diverticulosis of colon Edema Eustachian tube dysfunction Fatty liver disease, nonalcoholic Gait disturbance Gastritis GERD (gastroesophageal reflux disease) Hernia Hyperlipidemia Hypertension Internal hemorrhoids Interstitial lung disease Leukocytosis Lumbar facet joint syndrome Lumbosacral radiculopathy Morbid obesity MRSA (methicillin resistant Staphylococcus aureus) carrier Nontoxic multinodular goiter Obstructive sleep apnea Osteopenia Polyosteoarthritis, unspecified Proteinuria Rectocele Sacroiliitis Seborrheic dermatitis of scalp Sensorineural hearing loss (SNHL) of both ears Shortness of breath Solitary pulmonary nodule Systolic murmur Ulnar neuropathy of both upper extremities Urinary incontinence Vitamin D deficiency Surgical History H/O: hysterectomy History of carpal tunnel surgery of left wrist History of carpal tunnel surgery of right wrist History of dilation and curettage History of eye surgery History of nasal surgery History of tooth extraction History of tubal ligation Total knee replacement status Family History Father Diabetes Blood clotting disorder Mother Cardiac pacemaker Grandfather Myocardial infarction Brother Stroke Grandmother (Maternal) Breast cancer Denies family history of Ovarian cancer Prostate cancer Colorectal cancer Social History Smoking Status: Former smoker Age Started Using Tobacco: 9; Age Quit Using Tobacco: 28; Second Hand Exposure: No; Hx Alcohol Use: No Hx Substance Use: No Preferred Language: Yi Communication Ability: Effective Visual Impairment: Limited Hearing Ability: Hard of Hearing [employer] Required: No Beliefs That Will Affect Care: None marital status: / Current Living Situation: Alone current occupational status: retired Feels Safe at Home: Yes Childhood Exposure to Second-Hand Smoke: Yes caffeine: No Dental Care, Regularly: No Physical Activity Frequency: Does not Exercise Seatbelt Use: always Sunscreen Use: Yes (very little) Assistive Devices: CPAP, Glasses, Oxygen - Continuous and Wheelchair Review of Systems Review of Systems: All systems reviewed & are unremarkable except as noted in HPI & below Cardiovascular: Additional Comments: No current chest pain. She is following [facility] cardiology for CAD. She has stress test scheduled for 07/03/21 for intermittent chest pains. Physical Exam Physical Exam: General: Grossly A&O. NAD. Cooperative. HEENT: Atraumatic, normocephalic. EOMI. + mild JVD on right. Pulm: Mild transmitted upper airway sounds. Lungs diffusely diminished. Mild left anterior inspiratory crackles. Faint end expiratory wheezes and rhonchi posteriorly. Wet sounding cough, productive of white sputum. No respiratory d istress. Cardiac: RRR. 2/6 systolic murmur. Puffy lower extremities w/ chronic venous stasis dermatitis. Trace edema, but difficult exam given the dermatitis. Abdominal: Nontender, nondistended, soft. Integ: Warm, dry, intact. Results & Data Results & Data ([facility]) Vital Signs (Past 12 Hours) Vital Signs Temp Pulse Pulse Resp BP BP Pulse Ox 06/30/21 23:22 67 20 176/104 H 98 06/30/21 23:00 20 99 06/30/21 22:30 20 99 06/30/21 22:00 20 97 06/30/21 21:30 20 99 06/30/21 21:03 98 06/30/21 20:46 98 06/30/21 20:33 76 20 99 06/30/21 20:24 78 22 98 06/30/21 20:01 36.9 C 70 20 167/85 H 93 Vitals reviewed. Saturating mostly 98 on 3L O2 (home 3L). Afebrile. Laboratory Results cbc, cmp stable. neg tropx1. US w/ trace leuks, 5-10wbc, >30 epithelial cells, 1+ bact. BC, UC pending. 06/30/21 21:05 06/30/21 21:05 Cardiac Enzymes 06/30/21 Range/Units 21:05 AST 17 (13-39) U/L Troponin I < 0.03 (0-0.04) ng/ml Coagulation 06/30/21 Range/Units 21:05 PT 11.0 (9.0-12.0) Seconds APTT 27.4 (21.0-31.0) Seconds CBC 06/30/21 Range/Units 21:05 WBC 9.31 (4.8-10.8) K/uL RBC 5.05 (4.2-5.4) M/uL Hgb 13.7 (12.0-16.0) g/dL Hct 41.7 (37-47) % Plt Count 371 (130-400) K/uL Neut # (Auto) 4.70 (1.4-6.5) K/uL Lymph # (Auto) 3.09 (1.2-3.4) K/uL Alcorn # (Auto) 0.61 H (0.11-0.59) K/uL Eos # (Auto) 0.81 H (0-0.5) K/uL Baso # (Auto) 0.07 (0-0.2) K/uL Comprehensive Metabolic Panel 06/30/21 Range/Units 21:05 Sodium 141 (136-145) mmol/L Potassium 3.7 (3.5-5.1) mmol/L Chloride 105 (98-107) mmol/L Carbon Dioxide 30 (21-32) mmol/L BUN 10 (6-23) mg/dl Creatinine 0.90 (0.6-1.2) mg/dl Glucose 168 H (70-99(Fasting)) mg/dl Calcium 9.5 (8.5-10.1) mg/dl AST 17 (13-39) U/L ALT 14 (7-52) U/L Alkaline Phosphatase 85 (34-104) U/L Total Protein 6.2 (6.0-8.3) gm/dl Albumin 3.6 (3.4-5.0) gm/dl Intake and Output 06/30/21 06/30/21 07/01/21 14:59 22:59 06:59 Intake Total 1000 / 1000 Balance 1000 / 1000 Intake: IV 1000 / 1000 Sodium Chloride 0.9% 1000ML 1, 1000 / 1000 000 ml @ 999 mls/hr IV .Q1H1M [facility] Rx#:[id number] Diagnostic Findings cxr per my read: mild cardiomegaly. no overt pulmonary edema. ECG Additional Comments: ecg per my read. NSR 71 occasional pvcs. Type 1 AV block. Normal qrs and axis. Mostly unchanged from 10/21/19 ecg. Code Status & VTE Plan Code Status full VTE Prophylaxis Plan VTE Prophylaxis will be ordered: Yes Supervising Physician Co-Signing Physician Notes Patient seen and examined, chart reviewed, case discussed with Dr. Diaz and I agree with his assessment and plan as documented above. In brief, patient is a 70-year-old female with multiple medical comorbidities to include asthma, COPD on home oxygen therapy 3L baseline, chronic diastolic CHF, SARIKA, hypertension, hyperlipidemia, diabetes, GERD, and obstructive CAD presenting with 4 days of malaise, fevers and chills as well as cough productive for thick, yellow sputum. Also admits to 5 pound weight gain over the last 2 weeks. Physical exam patient is afebrile, hypertensive otherwise hemodynamically stable. She is saturating well on her baseline 3 L of oxygen by nasal cannula in no respiratory distress. She is coughing quite frequently during my enco unter and is expectorating thick, yellow sputum Skinwarm, dry, intact without rashes or lesions HEENTnormocephalic/atraumatic, pupils equal and reactive to light, moist mucous membranes, neck supple Heart+ S1, S2 regular, 2 out of 6 systolic ejection murmur across precordium, extremities warm with palpable pulses, 1+ edema Lungsequal air entry bilaterally with diminished breath sounds, + crackles mostly on left anterior, diffuse inspiratory and expiratory wheezing Abdomenobese, soft, nontender/nondistended extremitieswarm, well-perfused with 1+ edema as above Labs and images reviewed. Significant for mild elevation of peripheral eosinophils at 0.81 well as immature granulocytes Chest x-ray does not appear to have edema. No pneumothorax or infiltrate appreciated Assessment/[id number] female with multiple medical comorbidities including chronic diastolic CHF, asthma/COPD on chronic home oxygen therapy presenting with 4 days of flulike symptoms, cough productive for thick yellow sputum. Suspect URI contributing to symptoms. Concomitant COPD exacerbation, possible fluid component as well. Patient is in no acute distress and is saturating well on her baseline oxygen. Lasix IV Solu-Medrol and nebs Azithromycin Remainder as above Resident Activity Tracking Resident Involvement: Resident Care Provided Care Provided: Adult Hospital Medicine (1) Diabetes mellitus Diabetes mellitus complication detail: with polyneuropathy Diabetes mellitus complication status: with neurologic complications Diabetes mellitus terminologist insulin use: with fci use Diabetes mellitus type: type 2 Qualified Code(s): E11.42 - Type 2 diabetes mellitus with diabetic polyneuropathy; Z79.4 - watermelon inspector (current) use of insulin (2) CAD (coronary artery disease) Associated angina: without angina Coronary Disease-Associated Artery/Lesion type: [place] artery [place] vs. transplanted heart: [place] heart Qualified Code(s): I25.10 - Atherosclerotic heart disease of [place] coronary artery without angina pectoris (3) Depression Active/Remission status: remission status unspecified Depression Type: major depressive disorder Major depression recurrence: unspecified whether recurrent Qualified Code(s): F32.9 - Major depressive disorder, single episode, unspecified (4) Hyperlipidemia Hyperlipidemia type: unspecified Qualified Code(s): E78.5 - Hyperlipidemia, unspecified (5) GERD (gastroesophageal reflux disease) Esophagitis presence: esophagitis presence not specified Qualified Code(s): K21.9 - Gastro-esophageal reflux disease without esophagitis (6) Hypertension Hypertension type: essential hypertension Qualified Code(s): I10 - Essential (primary) hypertension
[2021-07-01] MEDS ORDERED: ACETAMINOPHEN 325 MG TAB PO PRN (02:11)
[2021-07-01] MEDS ORDERED: ONDANSETRON INJ 2 MG/ML 2 ML VIAL IV PRN (02:11)
--- NOTE | 2021-07-01 02:11 | Billing Data ---
Date of Service June 30, 2021 Coding Level of Care Code INT OBSERVATION CARE 70M LVL 3
[2021-07-01] MEDS ORDERED: AZITHROMYCIN 250 MG TAB PO STA (02:16)
[2021-07-01] MEDS ORDERED: GLUCOSE 10 TABS/TUBE PO PRN (02:20)
[2021-07-01] MEDS ORDERED: GLUCOSE 40% GEL 15 GM TUBE PO PRN (02:20)
[2021-07-01] MEDS ORDERED: GLUCAGON FOR INJ 1 MG VIAL SQ PRN (02:20)
[2021-07-01] MEDS ORDERED: CARBOHYDRATES FOR HYPOGLYCEMIA PO PRN (02:20)
[2021-07-01] MEDS ORDERED: DEXTROSE 50% 50 ML SYRINGE IV PRN (02:20)
[2021-07-01] MEDS ORDERED: FUROSEMIDE 40 MG/4 ML VIAL IV STA (02:25)
[2021-07-01] MEDS ORDERED: NITROGLYCERIN SL 0.4 MG/TAB TAB SL PRN (02:30)
[2021-07-01] MEDS: methylPREDNISolone 40 MG in SYRINGE 0 ML IV SCH ×3 (05:18→21:06)
[2021-07-01 06:16] LABS: Basophils # (auto) 0.03 K/uL (0-0.2); Basophils % (auto) 0.5 %; Eosinophils # (auto) 0.01 K/uL (0-0.5); Eosinophils % (auto) 0.2 %; Hematocrit (blood only) 40.6 % (37-47); Hemoglobin 13.9 g/dL (12.0-16.0); Immature Granulocytes # (auto) 0.03 K/uL (0.00-0.02); Immature Granulocytes % (auto) 0.5 %; Lymphocytes # (auto) 1.05 K/uL (1.2-3.4); Lymphocytes % (auto) 17.9 %; Mean Corpuscular Hemoglobin 28.2 pg (25-34); Mean Corpuscular Hgb Conc 34.2 g/dL (32-36); Mean Corpuscular Volume 82.4 fL (80-100); Mean Platelet Volume 9.6 fL (7.4-10.4); Monocytes # (auto) 0.04 K/uL (0.11-0.59); Monocytes % (auto) 0.7 %; Neutrophils # (auto) 4.72 K/uL (1.4-6.5); Neutrophils % (auto) 80.2 %; Platelet Count 337 K/uL (130-400); RDW Coefficient of Variation 15.2 % (11.5-14.5); Red Blood Count 4.93 M/uL (4.2-5.4); White Blood Count 5.88 K/uL (4.8-10.8)
[2021-07-01 06:39] LABS: BUN Creatinine Ratio 12.2 (10-20); Calcium 9.3 mg/dl (8.5-10.1); Creatinine Clr Calc Pharmacy 77.7 ml/min; Est GFR (Non-African American) 63.9 ml/min; Potassium 4.2 mmol/L (3.5-5.1)
[2021-07-01] MEDS: ALBUT/IPRATROP 3MG/0.5MG NEB 3 ML VIAL NEB SCH ×4 (07:00→23:26)
--- NOTE | 2021-07-01 07:47 | XRay Report ---
XR chest 1V portable CLINICAL HISTORY: SEPSIS TECHNIQUE: Single frontal radiograph of the chest was obtained. Comparison: Comparison is made to chest one view 10/19/2019 FINDINGS: No lines and tubes are seen. Calcified aortic knob is seen. Stable prominence of the cardiac silhouet te is noted. The lungs are clear. No evidence of pleural effusion or pneumothorax. IMPRESSION: No acute chest disease. ACT 112: Negative or not required by law. Electronically signed by: Basim Maddox M.D. 07/01/2021 7:46 AM
[2021-07-01] MEDS: ENOXAPARIN INJ 40 MG/0.4 ML SYR SQ SCH (08:20)
[2021-07-01] MEDS: INSULIN ASPART PER UNIT SC SCH ×4 (08:20→21:00)
[2021-07-01] MEDS: guaiFENesin 600 MG TABCR PO SCH ×2 (08:21→20:12)
[2021-07-01] MEDS: ASPIRIN 81 MG ECTAB PO SCH (08:21)
[2021-07-01] MEDS: ISOSORBIDE MONO EXTENDED REL 30 MG TABCR PO SCH (08:21)
[2021-07-01] MEDS: VENLAFAXINE HCL XR 150 MG CAPXR PO SCH (08:21)
[2021-07-01] MEDS: GABAPENTIN 300 MG CAP PO SCH ×3 (08:21→20:12)
[2021-07-01] MEDS: INSULIN GLARGINE SOLOSTAR 100 UNITS/ML 3 ML PEN SC SCH ×2 (08:22→21:01)
[2021-07-01] MEDS: POLYETHYLENE (MIRALAX) 17 GM PACK PO PRN (08:29)
[2021-07-01] MEDS: traMADol HCL 50 MG TABLET PO SCH ×2 (08:30→20:11)
[2021-07-01] MEDS ORDERED: FLUTICASONE/VILANTEROL 100/25MCG 14 PUFFS/INHALER INH SCH (09:00)
[2021-07-01] MEDS: BUDESONIDE 0.5 MG/2 ML VIAL (PULMICORT) NEB SCH ×2 (10:29→19:17)
[2021-07-01] MEDS: FORMOTEROL 20 MCG/2 ML VIAL NEB SCH ×2 (10:36→19:17)
--- NOTE | 2021-07-01 11:07 | CT Scan Report ---
CT chest diagnostic wo con CLINICAL HISTORY: cough. r/o pna TECHNIQUE: Multidetector row helical CT of the chest was performed. Coronal and sagittal reformations were obtained. Automated dose lowering techniques and/or adjustment according to patient size were u tilized for this exam. Comparison: Comparison is made to CT chest 10/21/2019 FINDINGS: Lungs and pleura: Atelectasis versus scarring is seen in the dependent portions of the lungs. Emphyse matous changes are seen. No consolidation is noted. Heart and pericardium: Mitral annular calcification is seen. Aortic valvular calcifications are also noted. Vessels: Moderate atherosclerotic changes in the aorta and coronary arteries. The pulmonary trunk marina sures 32 mm. Mediastinum and tiffanie: Unremarkable. Chest wall and lower neck: Unremarkable. Abdomen: Unremarkable. Bones: Degenerative changes in the thoracic spine. IMPRESSION: 1. No evidence of consolidation to suggest pneumonia. 2. Pulmonary hypertension. 3. Additional changes as above. ACT 112: Negative or not required by law. Electronically signed by: Basim Maddox M.D. 07/01/2021 11:06 AM
--- NOTE | 2021-07-01 17:04 | Hospitalist Progress Note ---
Date of Service July 01, 2021 Assessment & Plan (1) COPD exacerbation: Plan: 70 y/o F w/ PMHx of COPD on 3L O2, SARIKA on cpap, diastolic CHF, nonobstructive CAD, DM2, HTN, HLD who presents w/ 4 days of malaise, subjective fever, and chills. She has some component of fluid overload per exam and hx. - CXR: prominent pulmonary vessels without fulminant CHF - CT of the chest without acute cardiopulmonary process - continue IV solumedrol. - Empirically on abx therapy but no obvious infection-- stop - add aggressive nebulized treatments: routine duoneb tx along with pulmicort/perforomist - continue to follow clinically (2) Obstructive sleep apnea: Plan: - continue home cpap qhs 8 mmhg (3) Hypertension: Plan: - continue home regimen (4) GERD (gastroesophageal reflux disease): Plan: - continue home regimen (5) Hyperlipidemia: Plan: - contnue home regimen (6) Asthma: Plan: - continue home regimen (7) Depression: Plan: - continue home regimen (8) Diabetes mellitus: Plan: - hold PO regimen - SSI on board while in house. - may have increased BS while on steroids (9) COPD (chronic obstructive pulmonary disease): Plan: - see above. continue home inhalers (10) Chronic diastolic congestive heart failure: Plan: - patient with known DD - BNP 106 - prominent pulmonary vessels. No fulminant CHF - currently receiving IV over her PO lasix - last Echo done 2018, will update (11) Chronic respiratory failure: Plan: - continue home 3L O2 (12) Chronic kidney disease, stage 3a: Plan: - follow BMP, creatinine at baseline - renally adjust medications when appropriate Plan: FEN/GI: DM2, low Na diet ppx: SCDs + Lovenox code: full plan of care to be D/W Dr. Lopez Admission and Anticipated Discharge Date Admission Date: June 30, 2021 Subjective Patient seen on daily rounds today. Hospitalized yesterday with an acute exacerbation of COPD. Reports ongoing dyspnea on exertion, productive cough, and generalized weakness ongoing X several days. Typically wears 3 L of supplemental oxygen. Has not been requiring increased amounts. Has had subjective but no objective fevers. Reports subjective chills. Was recently treated with a tapering course of prednisone approximately 4 to 6 weeks ago by PCP. Got better while on this up until several days ago. In addition to aforementioned symptoms, has also had increased edema of the lower extremities, orthopnea. Denies PND. Has noticed approximately a 10 lbs w eight gain Review of Systems Review of Systems: All systems reviewed and are unremarkable except as noted in HPI and below Denies headache, nasal congestion, sore throat, cough, chest pain, palpitations, PND, abdominal pain, nausea, vomiting, diarrhea, constipation, dysuria, hematuria, frequency, back pain, joint pain or swelling, easy bruising or bleeding, skin lesions or rashes. Physical Exam Physical Exam: General: Resting comfortably in her hospital bed. She does not appear ill or toxic. NAD. HEENT: Head is AT/NC. Buccal mucosa is moist and pink Neck: No JVD. Mild HJR Cardiac: Very distant heart rounds. Lungs: breathing comfortably on supplemental O2. end inspiratory and mid-end expiratory wheezes throughout. no rales Abdomen: Normoactive X4. Soft and nontender in all quadrants. Extremities: + adiposity without true pitting edema Neuro: A&O X4. Cranial nerves II through XII are grossly intact. No focal neuro deficits Skin: No obvious skin lesions or rashes Psych: Appropriate affect. Pleasant and cooperative Results & Data Results & Data ([facility]) Vital Signs (Past 12 Hours) Vital Signs Temp Pulse Pulse Pulse Resp BP Pulse Ox 07/01/21 15:11 37.1 C 90 18 125/62 95 07/01/21 12:54 80 22 96 07/01/21 10:36 75 20 97 07/01/21 07:33 36.8 C 63 19 151/76 H 97 07/01/21 07:03 73 73 24 96 07/01/21 05:23 36.9 C 69 20 177/90 H 97 Laboratory Results 07/01/21 05:59 07/01/21 05:59 PG Care Time/CCT Total # of Minutes Spent Total Time Spent with Patient: Total time spent is greater than 50% in coordination of care (as documented) at patient's floor/unit and/or counseling patient: Coding Level of Care Code 11644 Subseq Hosp Care Lvl 2 Diagnoses COPD exacerbation J44.1 Obstructive sleep apnea G47.33 Hypertension I10 Hypertension type: essential hypertension GERD (gastroesophageal reflux disease) K21.9 Esophagitis presence: esophagitis presence not specified Hyperlipidemia E78.5 Hyperlipidemia type: unspecified Asthma J45.909 Depression F32.9 Depression Type: major depressive disorder Major depression recurrence: unspecified whether recurrent Active/Remission status: remission status unspecified Diabetes mellitus E11.42; Z79.4 Diabetes mellitus type: type 2 Diabetes mellitus mcc insulin use: with mcc use Diabetes mellitus complication status: with neurologic complications Diabetes mellitus complication detail: with polyneuropathy COPD (chronic obstructive pulmonary disease) J44.9 Chronic diastolic congestive heart failure I50.32 Chronic respiratory failure J96.10 Chronic kidney disease, stage 3a N18.31 (1) Hypertension Hypertension type: essential hypertension Qualified Code(s): I10 - Essential (primary) hypertension (2) GERD (gastroesophageal reflux disease) Esophagitis presence: esophagitis presence not specified Qualified Code(s): K21.9 - Gastro-esophageal reflux disease without esophagitis (3) Hyperlipidemia Hyperlipidemia type: unspecified Qualified Code(s): E78.5 - Hyperlipidemia, unspecified (4) Depression Depression Type: major depressive disorder Major depression recurrence: unspecified whether recurrent Active/Remission status: remission status unspecified Qualified Code(s): F32.9 - Major depressive disorder, single episode, unspecified (5) Diabetes mellitus Diabetes mellitus type: type 2 Diabetes mellitus mcc insulin use: with machine long goods helper use Diabetes mellitus complication status: with neurologic complications Diabetes mellitus complication detail: with polyneuropathy Qualified Code(s): E11.42 - Type 2 diabetes mellitus with diabetic polyneuropathy; Z79.4 - long-term (current) use of insulin
--- NOTE | 2021-07-01 17:57 | XCELERA ---
[id number] \\[id number]
[2021-07-01] MEDS: LORazepam 1 MG TAB PO SCH (20:11)
[2021-07-01] MEDS: MIRTAZAPINE TAB 15 MG TAB PO SCH (20:11)
[2021-07-01] MEDS: ROSUVASTATIN CALCIUM 20 MG TAB PO SCH (20:11)
[2021-07-01] MEDS: ZOLPIDEM TARTRATE 10 MG TAB PO SCH (20:11)
[2021-07-01] MEDS: MONTELUKAST SODIUM 10 MG TABLET PO SCH (20:11)
[2021-07-02 05:43] LABS: Basophils # (auto) 0.01 K/uL (0-0.2); Basophils % (auto) 0.1 %; Hematocrit (blood only) 38.3 % (37-47); Hemoglobin 12.4 g/dL (12.0-16.0); Immature Granulocytes # (auto) 0.05 K/uL (0.00-0.02); Immature Granulocytes % (auto) 0.5 %; Lymphocytes # (auto) 1.32 K/uL (1.2-3.4); Lymphocytes % (auto) 13.1 %; Mean Corpuscular Hemoglobin 26.9 pg (25-34); Mean Corpuscular Hgb Conc 32.4 g/dL (32-36); Mean Corpuscular Volume 83.1 fL (80-100); Monocytes # (auto) 0.26 K/uL (0.11-0.59); Monocytes % (auto) 2.6 %; Neutrophils # (auto) 8.44 K/uL (1.4-6.5); Neutrophils % (auto) 83.7 %; Platelet Count 355 K/uL (130-400); RDW Coefficient of Variation 15.6 % (11.5-14.5); RDW Standard Deviation 47.2 fL (36.4-46.3); Red Blood Count 4.61 M/uL (4.2-5.4); White Blood Count 10.08 K/uL (4.8-10.8)
[2021-07-02] MEDS: methylPREDNISolone 40 MG in SYRINGE 0 ML IV SCH (05:53)
[2021-07-02 06:02] LABS: Calcium 9.3 mg/dl (8.5-10.1); Creatinine Clr Calc Pharmacy 63.1 ml/min; Est GFR (African American) 57.5 ml/min; Est GFR (Non-African American) 49.6 ml/min; Magnesium 1.9 mg/dl (1.7-2.4); Potassium 4.3 mmol/L (3.5-5.1)
--- NOTE | 2021-07-02 06:06 | Electrocardiogram Report ---
Test Reason : Blood Pressure : / mmHG Vent. Rate : 071 BPM Atrial Rate : 071 BPM P-R Int : 204 ms QRS Dur : 098 ms QT Int : 400 ms P-R-T Axes : 063 029 -03 degrees QTc Int : 434 ms Sinus rhythm with occasional Premature ventricular complexes Inferior infarct (cited on or before 21-OCT-2019) Cannot rule out Anterior infarct , age undetermined Abnormal ECG When compared with ECG of 21-OCT-2019 15:09, No significant change Confirmed by Regan Snyder ([id number]) on 07/02/2021 6:06:31 AM Referred By: REFERRED SELF Confirmed By:Regan Snyder
[2021-07-02] MEDS: FORMOTEROL 20 MCG/2 ML VIAL NEB SCH ×2 (06:58→19:33)
[2021-07-02] MEDS: BUDESONIDE 0.5 MG/2 ML VIAL (PULMICORT) NEB SCH ×2 (06:58→19:33)
[2021-07-02] MEDS: ALBUT/IPRATROP 3MG/0.5MG NEB 3 ML VIAL NEB SCH ×3 (06:58→19:33)
[2021-07-02] MEDS: guaiFENesin 600 MG TABCR PO SCH ×2 (08:33→20:48)
[2021-07-02] MEDS: traMADol HCL 50 MG TABLET PO SCH ×2 (08:33→20:50)
[2021-07-02] MEDS: GABAPENTIN 300 MG CAP PO SCH ×3 (08:33→20:48)
[2021-07-02] MEDS: VENLAFAXINE HCL XR 150 MG CAPXR PO SCH (08:34)
[2021-07-02] MEDS: ASPIRIN 81 MG ECTAB PO SCH (08:34)
[2021-07-02] MEDS: ISOSORBIDE MONO EXTENDED REL 30 MG TABCR PO SCH (08:34)
[2021-07-02] MEDS: ENOXAPARIN INJ 40 MG/0.4 ML SYR SQ SCH (08:41)
[2021-07-02] MEDS: INSULIN GLARGINE SOLOSTAR 100 UNITS/ML 3 ML PEN SC SCH ×2 (08:46→20:50)
[2021-07-02] MEDS: INSULIN ASPART PER UNIT SC SCH ×4 (08:47→20:48)
[2021-07-02] MEDS ORDERED: FUROSEMIDE 40 MG/4 ML VIAL IV SCH (09:00)
[2021-07-02] MEDS ORDERED: AZITHROMYCIN 250 MG TAB PO SCH (09:00)
[2021-07-02] MEDS ORDERED: INSULIN HUMAN REGULAR PER UNIT 7 UNITS in SYRINGE 6.93 ML IV ONE (13:10)
--- NOTE | 2021-07-02 13:10 | Hospitalist Progress Note ---
Date of Service July 02, 2021 Assessment & Plan (1) COPD exacerbation: Plan: 70 y/o F w/ PMHx of COPD on 3L O2, SARIKA on cpap, diastolic CHF, nonobstructive CAD, DM2, HTN, HLD who presents w/ 4 days of malaise, subjective fever, and chills. She has some component of fluid overload per exam and hx. - CXR: prominent pulmonary vessels without fulminant CHF - CT of the chest without acute cardiopulmonary process - Has been on IV Solu-Medrol with favorable response. Transition to oral prednisone with quick down titration - Continue nebulized treatments: routine duoneb tx along with pulmicort/perforomist - Patient requiring 3 L of supplemental oxygen which is her baseline - From a respiratory standpoint, stable for discharge to home. We will keep overnight given steroid-induced hyperglycemiasee below (2) Hyperglycemia: Plan: - Blood sugars now in the 200-300 range with recent A1c of 6.7%. Suspect this is steroid-induced - Patient improving in regards to her COPD exacerbation and can be transitioned from IV steroids but will still need tapering oral which will likely cause steroid-induced hyperglycemia - Her oral antihypertensive agents have been on hold. Have been utilizing Lantus/log - Continue Lantus with up titration. Will give 7 units of regular insulin IV now for blood sugar of 361 - Add NPH concurrently with prednisone - Reassured that blood sugars should improve with down taper of prednisone (3) Obstructive sleep apnea: Plan: - continue home cpap qhs 8 mmhg (4) Hypertension: Plan: - continue home regimen (5) GERD (gastroesophageal reflux disease): Plan: - continue home regimen (6) Hyperlipidemia: Plan: - contnue home regimen (7) Asthma: Plan: - continue home regimen (8) Depression: Plan: - continue home regimen (9) Diabetes mellitus: Plan: - Takes Metformin, Jardiance, and Amaryl which were held with this admission - Currently receiving Lantus/log - IV insulin X1 dose for blood sugar of 361-- see above (10) Chronic diastolic congestive heart failure: Plan: - patient with known DD - BNP 106 - prominent pulmonary vessels. No fulminant CHF - is currently euvolemic - Admitted with IV Lasix. Convert this back to her p.o. dose - Echocardiogram updated: Hyperdynamic EF of greater than 70% with no regional wall motion abnormalities. No significant valvular stenosis or regurgitation. Difficult study to interpret. (11) Chronic respiratory failure: Plan: - continue home 3L O2 (12) Chronic kidney disease, stage 3a: Plan: - follow BMP, creatinine at baseline - renally adjust medications when appropriate Plan: awaiting PT/OT stable for D/C from respiratory standpoint (as at baseline) Blood sugars now elevated-- steroid induced hyperglycemic. Medications adjusted. Keep overnight. Change in inpatient plan of care to be D/W Dr. Lopez Admission and Anticipated Discharge Date Admission Date: June 30, 2021 Subjective Patient seen on daily rounds today. Denies shortness of breath at rest but is getting short of breath with exertion. She claims that she feels pretty much back to her baseline. She is requiring 3 L of supplemental oxygen at rest which is her baseline. Her only real complaint today is feeling fatigued. PT/OT has been consulted but not yet evaluated the patient. Patient's blood sugars have been up trending and are now in the 200-300 range. I suspect this is steroid-induced as her recent A1c was 6.7%. She does not take insulin at home. Typically on Amaryl Metformin and Jardiance which are all on hold. Review of Systems Review of Systems: All systems reviewed and are unremarkable except as noted in HPI and below Denies fevers, chills, headache, nasal congestion, sore throat, cough, chest pain, shortness of breath, palpitations, orthopnea, PND, abdominal pain, nausea, vomiting, diarrhea, constipation, dysuria, hematuria, frequency, back pain, joint pain or swelling, easy bruising or bleeding, skin lesions or rashes. Physical Exam Physical Exam: General: Resting comfortably in her hospital bed. She does not appear ill or toxic. NAD. HEENT: Head is AT/NC. Buccal mucosa is moist and pink Neck: No JVD. Mild HJR Cardiac: Very distant heart rounds. Lungs: breathing comfortably on supplemental O2. end inspiratory and mid-end expiratory wheezes throughout. no rales Abdomen: Normoactive X4. Soft and nontender in all quadrants. Extremities: + adiposity without true pitting edema Neuro: A&O X4. Cranial nerves II through XII are grossly intact. No focal neuro deficits Skin: No obvious skin lesions or rashes Psych: Appropriate affect. Pleasant and cooperative Results & Data Results & Data ([facility]) Vital Signs (Past 12 Hours) Vital Signs Temp Pulse Resp BP Pulse Ox 07/02/21 07:23 36.9 C 71 16 119/63 94 07/02/21 06:59 67 16 97 Laboratory Results 07/02/21 05:05 07/02/21 05:05 PG Care Time/CCT Total # of Minutes Spent Total Time Spent with Patient: Total time spent is greater than 50% in coordination of care (as documented) at patient's floor/unit and/or counseling patient: Coding Level of Care Code 79603 Subseq Hosp Care Lvl 2 Diagnoses COPD exacerbation J44.1 Obstructive sleep apnea G47.33 Hypertension I10 Hypertension type: essential hypertension GERD (gastroesophageal reflux disease) K21.9 Esophagitis presence: esophagitis presence not specified Hyperlipidemia E78.5 Hyperlipidemia type: unspecified Asthma J45.909 Depression F32.9 Depression Type: major depressive disorder Major depression recurrence: unspecified whether recurrent Active/Remission status: remission status unspecified Diabetes mellitus E11.42; Z79.4 Diabetes mellitus type: type 2 Diabetes mellitus terminal worker insulin use: with terminal worker use Diabetes mellitus complication status: with neurologic complications Diabetes mellitus complication detail: with polyneuropathy Chronic diastolic congestive heart failure I50.32 Chronic respiratory failure J96.10 Chronic kidney disease, stage 3a N18.31 Hyperglycemia R73.9 (1) Hypertension Hypertension type: essential hypertension Qualified Code(s): I10 - Essential (primary) hypertension (2) GERD (gastroesophageal reflux disease) Esophagitis presence: esophagitis presence not specified Qualified Code(s): K21.9 - Gastro-esophageal reflux disease without esophagitis (3) Hyperlipidemia Hyperlipidemia type: unspecified Qualified Code(s): E78.5 - Hyperlipidemia, unspecified (4) Depression Depression Type: major depressive disorder Major depression recurrence: unspecified whether recurrent Active/Remission status: remission status unspecified Qualified Code(s): F32.9 - Major depressive disorder, single episode, unspecified (5) Diabetes mellitus Diabetes mellitus type: type 2 Diabetes mellitus halfway insulin use: with halfway use Diabetes mellitus complication status: with neurologic c omplications Diabetes mellitus complication detail: with polyneuropathy Qualified Code(s): E11.42 - Type 2 diabetes mellitus with diabetic polyneuropathy; Z79.4 - MCC (current) use of insulin
[2021-07-02] MEDS: POLYETHYLENE (MIRALAX) 17 GM PACK PO PRN (17:54)
[2021-07-02] MEDS: ZOLPIDEM TARTRATE 10 MG TAB PO SCH (20:50)
[2021-07-02] MEDS: MIRTAZAPINE TAB 15 MG TAB PO SCH (20:51)
[2021-07-02] MEDS: LORazepam 1 MG TAB PO SCH (20:51)
[2021-07-02] MEDS: MONTELUKAST SODIUM 10 MG TABLET PO SCH (20:52)
[2021-07-02] MEDS: ROSUVASTATIN CALCIUM 20 MG TAB PO SCH (20:52)
[2021-07-03] MEDS: ALBUT/IPRATROP 3MG/0.5MG NEB 3 ML VIAL NEB SCH ×3 (01:49→13:50)
[2021-07-03] MEDS ORDERED: diphenhydrAMINE 50 MG/ML VIAL IV STA (06:05)
[2021-07-03] MEDS ORDERED: HYDROCORTISONE 1% CRM 30 GM TUBE EXT ONE (06:06)
--- NOTE | 2021-07-03 06:08 | Communication Note ---
Date of Service: July 03, 2021 Bilat arm redness and itching per nursing. Ordering IV benadryl 12.5mg and 1% hydrocortisone cream. Follow.
[2021-07-03 06:21] LABS: Basophils # (auto) 0.02 K/uL (0-0.2); Basophils % (auto) 0.1 %; Eosinophils # (auto) 0.03 K/uL (0-0.5); Eosinophils % (auto) 0.2 %; Hematocrit (blood only) 41.3 % (37-47); Hemoglobin 13.4 g/dL (12.0-16.0); Immature Granulocytes # (auto) 0.08 K/uL (0.00-0.02); Immature Granulocytes % (auto) 0.6 %; Lymphocytes # (auto) 3.31 K/uL (1.2-3.4); Lymphocytes % (auto) 23.7 %; Mean Corpuscular Hgb Conc 32.4 g/dL (32-36); Mean Corpuscular Volume 83.1 fL (80-100); Mean Platelet Volume 10.4 fL (7.4-10.4); Monocytes # (auto) 0.98 K/uL (0.11-0.59); Neutrophils # (auto) 9.54 K/uL (1.4-6.5); Neutrophils % (auto) 68.4 %; Platelet Count 330 K/uL (130-400); RDW Coefficient of Variation 15.6 % (11.5-14.5); RDW Standard Deviation 47.2 fL (36.4-46.3); Red Blood Count 4.97 M/uL (4.2-5.4); White Blood Count 13.96 K/uL (4.8-10.8)
[2021-07-03 07:08] LABS: BUN Creatinine Ratio 23.9 (10-20); Calcium 9.6 mg/dl (8.5-10.1); Creatinine Clr Calc Pharmacy 52.1 ml/min; Est GFR (African American) 45.8 ml/min; Est GFR (Non-African American) 39.5 ml/min; Magnesium 2.1 mg/dl (1.7-2.4); Potassium 3.5 mmol/L (3.5-5.1)
[2021-07-03] MEDS: BUDESONIDE 0.5 MG/2 ML VIAL (PULMICORT) NEB SCH (07:17)
[2021-07-03] MEDS: FORMOTEROL 20 MCG/2 ML VIAL NEB SCH (07:17)
[2021-07-03] MEDS ORDERED: FUROSEMIDE 40 MG TAB PO SCH ×2 (07:50→09:00)
[2021-07-03] MEDS: INSULIN GLARGINE SOLOSTAR 100 UNITS/ML 3 ML PEN SC SCH (08:22)
[2021-07-03] MEDS: INSULIN ASPART PER UNIT SC SCH ×2 (08:22→12:26)
[2021-07-03] MEDS: traMADol HCL 50 MG TABLET PO SCH (08:24)
[2021-07-03] MEDS: ENOXAPARIN INJ 40 MG/0.4 ML SYR SQ SCH (08:24)
[2021-07-03] MEDS: guaiFENesin 600 MG TABCR PO SCH (08:24)
[2021-07-03] MEDS: GABAPENTIN 300 MG CAP PO SCH ×2 (08:24→12:27)
[2021-07-03] MEDS: VENLAFAXINE HCL XR 150 MG CAPXR PO SCH (08:25)
[2021-07-03] MEDS: ASPIRIN 81 MG ECTAB PO SCH (08:26)
[2021-07-03] MEDS: ISOSORBIDE MONO EXTENDED REL 30 MG TABCR PO SCH (08:26)
[2021-07-03] MEDS ORDERED: INSULIN HUMAN NPH SC SCH (09:00)
[2021-07-03] MEDS ORDERED: predniSONE 20 MG TAB PO SCH (09:00)
--- NOTE | 2021-07-03 16:02 | Discharge Summary ---
Date of Service July 03, 2021 Admission HPI Per Admitting Provider 70 y/o F w/ PMHx of COPD on 3L O2, SARIKA on cpap, diastolic CHF, nonobstructive CAD, DM2, HTN, HLD who presents w/ 4 days of malaise, subjective fever, and chills. She reports increased yellow sputum production. Her dyspnea on exertion is slightly worse than usual. She has had fatigue, decreased appetite and generally nor feeling well. She had a hospital admission in 2019 for similar symptoms and was treated for copd exacerbation at the time. Patient lives alone. She took her AM meds. She has noted 5 lb wt gain in 2 wks. She has had covid booster. ED course: IV methylpred 60mg, 1L NSS, duoneb. Principal Diagnosis 1. Acute Exacerbation of COPD 2. Hyperglycemia (elevated blood sugar)-- steroid induced 3. Acute Kidney Injury-- likely a result of IV steroids and IV Lasix given Discharge Exam General: Resting comfortably in her hospital bed. She does not appear ill or toxic. NAD. HEENT: Head is AT/NC. Buccal mucosa is moist and pink Neck: No JVD. Mild HJR Cardiac: Very distant heart rounds. Lungs: breathing comfortably on supplemental O2. Improved air exchange throughout. End expiratory wheezes throughout. no rales Abdomen: Normoactive X4. Soft and nontender in all quadrants. Extremities: + adiposity without true pitting edema Neuro: A&O X4. Cranial nerves II through XII are grossly intact. No focal neuro deficits Skin: No obvious skin lesions or rashes Psych: Appropriate affect. Pleasant and cooperative Discharge Data Allergies Allergy/AdvReac Type Severity Reaction Status Date / Time adhesive Allergy Intermediate HIVES Verified 06/30/21 20:28 atorvastatin Allergy Intermediate MYALGIA Verified 06/30/21 20:28 ceftriaxone Allergy Intermediate FELT Verified 06/30/21 20:28 FUNNY/STRANGE pravastatin Allergy Intermediate MYALGIA Verified 06/30/21 20:28 sucralfate [From Carafate] AdvReac Intermediate Gastrointestinal Verified 06/30/21 20:28 Upset Consultations 06/30/21 23:01 ED Decision to Admit Stat Ordered Studies 07/01/21 09:29 CT chest diagnostic wo con Urgent IMPRESSION: 1. No evidence of consolidation to suggest pneumonia. 2. Pulmonary hypertension. 3. Additional changes as above. Hospital Course (1) COPD exacerbation: 70 y/o F w/ PMHx of COPD on 3L O2, SARIKA on cpap, diastolic CHF, nonobstructive CAD, DM2, HTN, HLD who presents w/ 4 days of malaise, subjective fever, and chills. She has some component of fluid overload per exam and hx. - CXR: prominent pulmonary vessels without fulminant CHF - CT of the chest without acute cardiopulmonary process - Has been on IV Solu-Medrol with favorable response. Transitioned to oral prednisone with quick down titration - Utilize aggressive pulmonary toilet while in house (Pulmicort/Perforomist and scheduled DuoNeb treatments) - Patient requiring 3 L of supplemental oxygen which is her baseline - From a respiratory standpoint, stable for discharge to home with continued prednisone taper. No need for empiric antibiotics at this point as no obvious source of infection. Patient afebrile, no leukocytosis. CT scan negative. Patient has a mixed underlying lung disease. Does have an underlying history of asthma with COPD. In addition, she is morbidly obese and likely has a component of obesity hypoventilation syndrome. She takes Advair twice daily with utilization of an albuterol rescue inhaler as needed. I have added Spiriva. In addition, I have arranged for a home nebulizer to use as needed. I have encouraged her to use it 3 times daily throughout the rest of this week and into the weekend. As she continues to improve, she can transition to as needed. Follow-up with PCP within 7 to 10 days (2) Hyperglycemia: - on 07/02: Blood sugars in the 200-300 range with recent A1c of 6.7%. Suspect this is steroid-induced - Patient improving in regards to her COPD exacerbation and thus transitioned from IV to PO steroids with down titration. Will need continuing taper-- BS may continue to remain elevated while on this - Her oral antihypertensive agents have been on hold. Have been utilizing Lantus/log and NPH - Blood sugars improvedcurrently 123 - Patient stable for discharge to home. She may resume her oral antihypergly cemic agents as prior to hospitalization - call PCP for BS >400 (3) Obstructive sleep apnea: - continue home cpap qhs 8 mmhg (4) Hypertension: - continue home regimen (5) GERD (gastroesophageal reflux disease): - continue home regimen (6) Hyperlipidemia: - contnue home regimen (7) Asthma: - continue home regimen (8) Depression: - continue home regimen (9) Diabetes mellitus: - Takes Metformin, Jardiance, and Amaryl which were held with this admission - Currently receiving Lantus/log - IV insulin X1 dose for blood sugar of 361-- see above (10) Chronic diastolic congestive heart failure: - patient with known DD - BNP 106 - prominent pulmonary vessels. No fulminant CHF - is currently euvolemic - Admitted with IV Lasix. Convert this back to her p.o. dose - Echocardiogram updated: Hyperdynamic EF of greater than 70% with no regional wall motion abnormalities. No significant valvular stenosis or regurgitation. Difficult study to interpret. (11) Chronic respiratory failure: - continue home 3L O2 (12) Chronic kidney disease, stage 3a: - follow BMP, creatinine at baseline - renally adjust medications when appropriate awaiting PT/OT stable for D/C from respiratory standpoint (as at baseline) Blood sugars now elevated-- steroid induced hyperglycemic. Medications adjusted. Keep overnight. Change in inpatient plan of care to be D/W Dr. Lopez Total Time Total Time Spent Total Time Spent (In Minutes): 40 minutes including time spent with patient, coordination of care, preparation of documentation, discussion with attending provider. Discharge Plan Discharge Items Patient Disposition: Home - Home Health Services Reason For Visit: COPD EXACERBATION Discharge Diagnosis: 1. Acute Exacerbation of COPD 2. Hyperglycemia (elevated blood sugar)-- steroid induced 3. Acute Kidney Injury-- likely a result of IV steroids and IV Lasix given Condition on Discharge: Fair Activity: Resume your previous activity Activity Comment: as tolerated Non-emergency contact: Primary Care Provider and Food Product Inspector Call non-emergency contact if: you have any medication questions and your symptoms worsen Follow-up/Referrals: Chaka Alfred MD [Primary Care Provider] - Diet: Carb Consistent or DM2 Addtl Attending Provider Instructions: You presented the hospital with increased shortness of breath and increased cough. You had a chest x-ray and CT scan of your chest that showed no evidence of pneumonia. It was initially thought that you could have a component of congestive heart failure (volume overload) but your CT scan shows no evidence of this either. It is suspected that your breathing issues are a result of an exacerbation of your COPD. You have been treated with IV steroids and aggressive breathing treatments. Unfortunately, your blood sugars were significantly elevated as a result of the steroids. You will likely have elevated blood sugars over the next several days as you wean off of the prednisone. This is 1 of those situations where the benefit of the steroid outweighs the risk as it is necessary to help with your breathing. Start your oral prednisone taper tomorrow (as you already received a dose in the hospital prior to discharge today): 14: 4 tablets (40mg) 415: 3 tabs (30mg) 416: 3 tabs (30mg) 417: 2 tabs (20mg) 418: 2 tabs (20mg) 19: 1 tab (10mg) 20: 1 tab (10mg)-- then stop You should continue your Advair as prior to hospitalization. Make sure to rinse your mouth out after use. You have been set up with a nebulizer to use as needed. I know you use albuterol rescue inhaler at home and you can still use this but I prefer you use the nebulizer if able. Use the nebulizer 3 times a day into and throughout the weekend. Come next week, you can use the nebulizer every 6 hours as needed. If you get to a point where you feel like you need a breathing treatment (cough, shortness of breath, wheezing, chest tightness), use it. The inhaler (albuterol) can be utilized if you do not have access to a nebulizer. The Advair should be used twice daily irregardless of how you feel. The purpose of Advair is to preserve your lung function and to help prevent further exacerbations. You will likely feel no different while on Advair but without it, you are more likely to have an exacerbation. In addition, I have started you on something called Spiriva. It is a small capsule that you put into a device. You will push the small green button to puncture the capsule and take 2 breaths (inhaling the medicine with in the capsule). You do this every day. This also helps to decrease secretions which will also help prevent further exacerbations of your COPD. I strongly advise weight loss. The weight of your chest decreases the ability of the chest wall to rise which will only further contribute to breathing issues/concerns. Make sure to wear your CPAP machine when sleeping. Your kidney function was slightly elevated on the day of discharge. I suspect this is likely medication induced (from the IV prednisone given in addition to several doses of IV Lasix). Your Lasix was held on the morning of 07/03. Would also hold your Lasix on 07/04. Can resume on Thursday (07/05). Make sure that you are getting adequate hydration. You should have follow-up labs next week to further trend your renal function. This is at the discretion of your PCP. I know you mentioned pain in your knees throughout this hospitalization. I offered Voltaren gel for which she reports you have been on this in the past. In addition, I have recommended a referral to orthopedics for potential Synvisc injections (which you state you have also had in the past). You claim to have arthritis that is [id number]. Unfortunately, this is likely a result of wear and tear over the years in combination with your weight. Weight loss would help take some stress off of the knees. There is no good brace that you can use that will help alleviate this pressure in your knees. Follow-up with your PCP and consider referral to orthopedics for updated injections in the knees. Follow-up with your PCP within 7 to 10 days Return to the emergency department for any new or worsening symptoms Pending Studies at Discharge: No Stand-Alone Forms: My [facility] [employer], Smoking Cessation Medications and DC Order Prescriptions: New albuterol sulfate 0.63 mg/3 mL solution for nebulization 0.63 mg inhalation Q6H PRN (Reason: bronchospasm) Qty: 90 RF: 0 Spiriva with HandiHaler 18 mcg capsule, w/inhalation device 1 cap inhalation DAILY Qty: 30 RF: 0 Continued fluticasone propion-salmeterol 250-50 mcg/dose blister with device 1 inh INH BID Qty: 180 RF: 5 glimepiride 2 mg tablet 2 mg PO QAM Qty: 90 RF: 3 rosuvastatin 40 mg tablet 40 mg PO HS Qty: 90 RF: 3 gabapentin 300 mg capsule 300 mg PO TID Qty: 270 RF: 3 metformin 500 mg tablet 500 mg PO BID Qty: 180 RF: 3 montelukast 10 mg tablet 10 mg PO QPM Qty: 90 RF: 3 (DME) True Metrix Glucose Test Strip Strip See Rx Instructions .Route Qty: 100 RF: 3 (DME) blood-glucose meter [Blood Glucose Monitoring] Kit See Dose Instructions .ROUTE .MEDSUPPLY Qty: 1 RF: 0 tramadol 50 mg tablet 100 mg PO BID Qty: 360 RF: 0 (DME) Oxygen Home Liters Per Minute See Dose Instructions .ROUTE .MEDSUPPLY Qty: 1 RF: 0 zolpidem 10 mg tablet 10 mg PO HS RF: 0 (DME) Portable Oxygen Misc See Rx Instructions .Route Qty: 1 RF: 0 nitroglycerin [Nitrostat] 0.4 mg tablet, sublingual 0.4 mg Sublingual Q5M PRN (Reason: Chest Pain) Qty: 25 RF: 2 (DME) True Metrix Level 1 Solution See Rx Instructions .Route Qty: 1 RF: 0 (DME) blood-glucose meter [True Metrix Glucose Meter] Misc See Rx Instructions .Route Qty: 1 RF: 0 (DME) lancets [TRUEplus Lancets] 33 gauge misc See Rx Instructions .Route Qty: 100 RF: 3 mirtazapine 15 mg tablet 15 mg PO HS Qty: 90 RF: 3 Jardiance 10 mg tablet 10 mg PO DAILY RF: 0 aspirin [Aspirin Low Dose] 81 mg Tablet,Delayed Release (Dr/Ec) 81 mg PO QAM RF: 0 lorazepam 1 mg tablet 1 mg PO HS RF: 0 furosemide [Lasix] 40 mg tablet 40 mg PO QAM RF: 0 venlafaxine 150 mg capsule,extended release 24hr 150 mg PO QAM RF: 0 isosorbide mononitrate 60 mg tablet extended release 24 hr 90 mg PO QAM RF: 0 cholecalciferol (vitamin D3) 25 mcg (1,000 unit) capsule 2,000 unit PO QAM RF: 0 No Action prednisone 10 mg tablet 10 mg PO DIRECTED Qty: 16 RF: 0 Discharge Orders: Discharge Order (Routine); Ordered 07/03/21 Ordered By: Karla Harp Admission Data Admit Date/Time: 06/30/21 23:58 Attending Provider: Deonte Britton Admit Provider: Alex Diaz Primary Care Provider: Chaka Alfred Other Providers: Krystal Melgar Other Interventions: Discharge Summary Assessment (RN) Last Done: 07/03/21 13:36 Supervising Physician Co-Signing Physician Notes Patient seen and examined, chart reviewed, case discussed with Angely ELLIOTT and I agree with discharge plan and documentation noted above.. In brief, patient is a 70-year-old female with multiple medical comorbidities to include asthma, COPD on home oxygen therapy 3L baseline, chronic diastolic CHF, SARIKA, hypertension, hyperlipidemia, diabetes, GERD, and obstructive CAD admitted with 4 days of malaise, fevers and chills as well as cough productive for thick, yellow sputum. Physical exam patient is afebrile, hypertensive otherwise hemodynamically stable. Comfortable on 3L. Skinwarm, dry, intact without rashes or lesions HEENTnormocephalic/atraumatic, pupils equal and reactive to light, moist mucous membranes, neck supple Heart+ S1, S2 regular, 2 out of 6 systolic ejection murmur across precordium, extremities warm with palpable pulses, Lungsequal air entry bilaterally with improved breath shounds Abdomenobese, soft, nontender/nondistended extremitieswarm, well-perfused. Assessment/[id number] female with multiple medical comorbidities including chronic diastolic CHF, asthma/COPD on chronic home oxygen therapy; treated for Concomitant COPD exacerbation, possible fluid component as well. Patient is in no acute distress and is saturating well on her baseline oxygen. Patient discharged after being treated for likely COPD exacerbation. will continue steroid taper. Coding Level of Care Code D/C DAY MANAGEMENT >30 MINS Diagnoses COPD exacerbation J44.1 Hyperglycemia R73.9 Obstructive sleep apnea G47.33 Hypertension I10 Hypertension type: essential hypertension GERD (gastroesophageal reflux disease) K21.9 Esophagitis presence: esophagitis presence not specified Hyperlipidemia E78.5 Hyperlipidemia type: unspecified Asthma J45.909 Depression F32.9 Active/Remission status: remission status unspecified Depression Type: major depressive disorder Major depression recurrence: unspecified whether recurrent Diabetes mellitus E11.42; Z79.4 Diabetes mellitus complication detail: with polyneuropathy Diabetes mellitus complication status: with neurologic complications Diabetes mellitus group home insulin use: with group home use Diabetes mellitus type: type 2 Chronic diastolic congestive heart failure I50.32 Chronic respiratory failure J96.10 Chronic kidney disease, stage 3a N18.31
== END 2021-07-03 14:11 | disposition home health service (06) ==
LOC: ED 19:59 → 3E 19:59 → SUATTDRO 23:58 → 3E 07-01 01:36 → SUATTDRO 07-02 12:48